=== PATIENT | male | born 1960 | race Caucasian/White ===

== ENCOUNTER 2018-06-29 07:42 | Emergency (ER) | payer MEDICAID, SELFPAY ==
[2018-06-29 07:46] VITALS: BP 215/136; PULSE 86; RESP 17; TEMP 36.8; O2SAT 98; BMI 37.0
--- NOTE | 2018-06-29 07:59 | CT_ITS ---
STUDY: CT ABDOMEN AND PELVIS WITH CONTRAST REASON FOR EXAM: Male, 57 years old. 3 month history of right lower quadrant and right groin pain. RADIATION DOSAGE (If Supplied By Facility): CTDIvol = ( 18.33 ) mGy, DLP = ( 1493.17 ) mGycm TECHNIQUE: Transaxial images were obtained from the dome of the diaphragm to the symphysis pubis without oral contrast. 100 ml of Isovue 300 contrast was administered. Sagittal and coronal images were reconstructed. Individualized dose optimization techniques were used for this CT. COMPARISON: None. FINDINGS: The visualized lung bases are unremarkable. The visualized portions of the heart are within normal limits. Normal liver. Normal gallbladder and extrahepatic biliary system. There are multiple benign calcified granulomata of the spleen. Normal pancreas. Normal bilateral adrenal glands. Normal right kidney. Normal left kidney. There is a small hiatal hernia. Normal small intestine. Moderate amount of fecal material is seen in the colon. The appendix is visualized and appears normal. There is scattered atherosclerotic calcification of the abdominal aorta, without a demonstrated aneurysm. Normal inferior vena cava. There is borderline retroperitoneal lymphadenopathy with enlarged nodes no greater than 10mm in the short axis diameter. Normal urinary bladder. There is a small umbilical hernia containing fat. Small bilateral pneumonitis containing fat. Normal osseous structures. CT/Abdomen/Pelvis W IV Cont ONLY IMPRESSION: Small umbilical hernia containing fat as well as small bilateral inguinal hernias containing fat. Moderate amount of fecal material is seen in the colon. Electronically Signed: Daniel Acosta MD at 9:43 EDT Tel [phone], Service support ,
[2018-06-29] MEDS: Ondansetron 4 MG/2 ML Vial IV (08:28)
[2018-06-29] MEDS: HYDROmorphone 1 MG/ML Syringe IV (08:28)
[2018-06-29] MEDS: 0.9% Normal Saline 1,000 ML 125 ML IV (08:28)
[2018-06-29 08:32] LABS: Absolute Lymphocyte Count 1.92 X10^3/ul (0.83-4.51); Absolute Neutrophil Count 5.7 X10^3/uL (2.0-7.7); Basophil# 0.01 X10^3/uL; Basophil% 0.1 % (0-1); Eosinophil# 0.14 X10^3/uL; Eosinophils% 1.7 % (0-5); Hemoglobin 13.9 g/dl (13.0-16.5); Lymphocyte # 1.92 X10^3/ul (4.0); Lymphocyte % 23.2 % (19-41); Mean Corp Hgb Conc 33.9 g/gl (32-36); Mean Corpuscular Hgb 27.6 pg (27.0-32.0); Mean Corpuscular Volume 81.3 fL (80-94); Mean Platelet Vol. 8.4 fl (6.2-12.0); Monocyte# 0.48 X10^3/uL; Monocyte% 5.8 % (0-10); Neutrophil # 5.72 X10^3/uL (2.7-7.7); POSITIVE COUNT NO; POSITIVE DIFFERENTIAL NO; POSITIVE MORPHOLOGY NO; Platelet Count 240 K/mm3 (150-450); RBC Distribution Width SD 41.4 fl (35.1-43.9); Red Blood Count 5.04 M/mm3 (4.6-6.2); White Blood Count 8.3 K/mm3 (4.4-11.0)
[2018-06-29 08:45] LABS: ALB/GLOB Ratio 0.7 RATIO (0.9-2.4); AST(SGOT) 17 U/L (15-37); Alanine Aminotransfer ALT/SGPT 26 U/L (16-61); Albumin, Serum 3.1 g/dL (3.2-5.0); Alkaline Phosphatase 74 U/L (45-117); Anion Gap 11 (5-15); BUN 36 mg/dL (7-18); BUN/Creat Ratio 22.1 RATIO (10-20); Calcium,Total 8.7 mg/dL (8.5-10.1); Chloride 106 mmol/L (98-107); Creatinine, Serum 1.63 mg/dL (0.70-1.30); EST Glomerular Filtration Rate 47 mL/min (>60); Est Glom Filt Rate - Afr Amer 56 mL/min (>60); Estimated Creatinine Clearance 56.51 ml/min; Globulin 4.5 g/dL (2.2-4.2); Glucose 293 mg/dL (74-106); Potassium 4.1 mmol/L (3.5-5.1); Protein, Total 7.6 g/dL (6.4-8.2); Sodium Level 144 mmol/L (136-145)
[2018-06-29 08:49] LABS: Lactic Acid 1.3 mmol/L (0.4-2.0)
[2018-06-29 09:29] LABS: Mucous, Urine 0 SEEN /hpf (<or=2+); Squamous Epithelial Cells - UA 0 SEEN /hpf (0-5); White Blood Cells 0 SEEN /hpf (0-5)
[2018-06-29 09:30] LABS: Color, Urine Yellow (Yellow); Glucose, Dipstick 250 mg/dl (Normal); Ketone-Dipstick Negative (Negative); Leukocyte Esterase-Dipstick Negative /ul (Negative); Nitrite-Dipstick Negative (Negative); Occult Blood-Urine 10 /ul (Negative); Protein-Dipstick 500 mg/dl (Negative); Specific Gravity, Urine 1.015 (1.002-1.030); Urine Bilirubin Dipstick Negative (Negative); Urine Clarity Clear (Clear); Urine Urobilinogen Normal (Normal)
[2018-06-29 09:35] LABS: Bacteria RARE /hpf (None Seen); Hyaline Cast 0-5 SEEN /lpf (0-5); Red Blood Cells-Urine 0-5 SEEN /hpf (0-5)
--- NOTE | 2018-06-29 10:07 | ED.DCSUM_ITS ---
- ER Visit Summary Date of Service: 06/29/18 Chief Complaint: [Abdominal pain] History of Present Illness: The patient is a 57 M [presents the emergency department complaint of abdominal pain for the last 3-4 months. Patient states he has had continuous discomfort that he feels starts in the right lower back kind of comes through to the abdomen and radiates into his right hip and right groin. Patient describes a burning sensation. He denies any weakness in the legs or change in bowel or bladder function. Patient was seen by the Cesia Reddy in clinic and was told he may have a pinched nerve. Patient does state that the pain at times is worse with movement in certain positions in bed can help alleviate the discomfort. Patient has had no nausea or vomiting. Patient denies any fevers.] Patient does have a history of hypertension and states that over the last 4 years his systolics have been over 200 and diastolics over 130. Patient states that he is compliant with his antihypertensives. Physical Examination: [HEENT-PERRLA, EOMI. Cranial nerves II through XII grossly intact. TMs clear. Mucous membranes moist. No adenopathy. Cardiovascular-regular rate and rhythm without murmur or ectopy Lungs-clear to auscultation, chest wall stable without crepitus or subcu emphysema Abdomen-normoactive bowel sounds, soft. Patient does have some tenderness over right lower quadrant with some guarding. There is no rebound, rigidity, or perineal signs. No CVA tenderness on exam. exam-circumcised male, no testicular masses palpated and no tenderness over the epididymides. No hernias noted. Back exam-patient has no tenderness over the thoracic or lumbar spine. Patient has deep tendon reflexes are plus 2 out of 4 bilaterally at the patella and Achilles. Patient has normal L5 extension bilaterally. Patient has normal sensation to light touch. Extremities-intact ?4, normal range of motion, normal pulses, atraumatic] Test Results: [CBC with differential obtained showed normal white blood cell count. Chemistries unremarkable. Glucose was 293. BUN was 36 and creatinine 1.63. Liver enzymes unremarkable. Urinalysis was normal. Lactate was normal 1.3. CT scan of the abdomen pelvis with IV contrast showed moderate fecal material within the colon and small bilateral inguinal hernias containing fat as well as an umbilical hernia containing fat.] Emergency Department Course and Treatment: [Patient was medicated with Dilaudid and Zofran he had good pain relief with that.] Treatment Plan: [Patient will be given a prescription for [place] and will be referred to orthopedics for follow-up. I suspect patient's symptoms may be related to lumbar radiculopathy.] Disposition: [Discharged home in stable condition] Impression: [Abdominal pain-etiology uncertain Back pain] This note was generated with [employer] dictation software. It may contain incorrect words, spelling, and punctuation that were not noted in review of the chart prior to signing ED Disposition - Plan for ED Patient: Chief Complaint: Other, Pain/Inj Referrals: Orlando Gomez MD [Primary Care Provider] -
--- NOTE | 2018-06-29 10:07 | ED.DEP ---
ED Disposition - Plan for ED Patient: Chief Complaint: Other, Pain/Inj Instructions: ED Abdominal Pain Unkn Cause Male, ED Sciatica Prescriptions: Hydrocodone/Acetaminophen [Minerva 5-325 Tablet] 1 ea PO 4X/DAY PRN PRN 5 Days #20 tab PRN Reason: Pain Referrals: Orlando Gomez MD [Primary Care Provider] - Dannie Parada MD [STAFF PHYSICIAN] - 3-5 Days
--- NOTE | 2018-06-29 10:09 | DCINST.ED_ITS ---
ED Disposition - Plan for ED Patient: Chief Complaint: Other, Pain/Inj Instructions: ED Abdominal Pain Unkn Cause Male, ED Sciatica Prescriptions: Hydrocodone/Acetaminophen [Richardson 5-325 Tablet] 1 ea PO 4X/DAY PRN PRN 5 Days # 20 tab PRN Reason: Pain Referrals: Orlando Gomez MD [Primary Care Provider] - Dannie Parada MD [STAFF PHYSICIAN] - 3-5 Days
== END 2018-06-29 10:26 | disposition home or self-care (01) ==
PROVIDERS: Emergency Provider Emergency Medicine; Family Provider Family Medicine; PCP Family Medicine
DX: R10.31 Right lower quadrant pain (principal); M54.5 Low back pain; I10 Essential (primary) hypertension; E11.9 Type 2 diabetes mellitus without complications; Z79.84 Long term (current) use of oral hypoglycemic drugs; Z79.899 Other long term (current) drug therapy
CPT/HCPCS: 74177; 80053; 81001; 83605; 85025; 96361; 96374; 96375; 99283; J7030; Q9967; A4216; J2405

== ENCOUNTER 2018-06-30 19:58 | Emergency (ER) | payer MEDICAID, SELFPAY ==
[2018-06-30 19:59] VITALS: PULSE 103; RESP 20; TEMP 36.2; O2SAT 97; BMI 35.6
[2018-06-30 20:02] VITALS: BP 198/108
--- NOTE | 2018-06-30 21:10 | ED.DCSUM_ITS ---
- ER Visit Summary Date of Service: 06/30/18 Chief Complaint: Constipation History of Present Illness: The patient is a 57 M 3 of noncemented diabetes and hypertension. Treated in the ER yesterday had a CAT scan showing significant increased stool. Patient states that he has not significant bowel movement since Friday. He denies nausea or vomiting. He denies fever. He denies any significant pain. He does states he tried 2 enemas at home and is only passing liquid. Denies any melena. Physical Examination: Well-appearing middle-age male sitting on a bedside commode. Vital signs are stable afebrile. He does not look septic or toxic. He is in no distress. H EENT exam unremarkable. Neck nontender. Lungs clear to auscultation bilaterally. Heart regular rhythm no murmur. Abdomen soft. Nondistended. Normal bowel sounds no peritoneal signs. No signs of obstruction. No hernias or masses. Moving all 4 extremities. Neurovascular intact. Back nontender. Neurologically is awake and alert no focal motor or sensory deficits. Test Results: None I did review his CAT scan from yesterday. Emergency Department Course and Treatment: Discharged home with 2 bottles of magnesium citrate. Treatment Plan: Magnesium citrate at home. Disposition: Discharge Impression: Acute constipation This note was generated with [employer] dictation software. It may contain incorrect words, spelling, and punctuation that were not noted in review of the chart prior to signing ED Disposition - Plan for ED Patient: Chief Complaint: Constipation Referrals: Orlando Gomez MD [Primary Care Provider] -
--- NOTE | 2018-06-30 21:10 | ED.DEP ---
ED Disposition - Plan for ED Patient: Disposition: Home or Assisted Living Chief Complaint: Constipation Instructions: ED Constipation Referrals: Orlando Gomez MD [Primary Care Provider] - 3-5 Days if not improving Additional Instructions: Drink the entire first bottle of magnesium citrate. If no bowel movement within 2 hours during the second. Plenty of fluids and fiber to keep her stools regular. Stool softener as needed. Return if worse or follow-up your primary care physician.
[2018-06-30 21:23] VITALS: RESP 18
[2018-06-30] MEDS: Magnesium Citrate 300 ML PO (21:23)
== END 2018-06-30 21:26 | disposition home or self-care (01) ==
LOC: ED 21:25
PROVIDERS: Emergency Provider Emergency Medicine; Family Provider Family Medicine; PCP Family Medicine
DX: K59.00 Constipation, unspecified (principal); I10 Essential (primary) hypertension; E11.9 Type 2 diabetes mellitus without complications; Z79.899 Other long term (current) drug therapy
CPT/HCPCS: 99283

== ENCOUNTER → 2018-07-02 07:07 | Outpatient (CLI) | payer MEDICAID, SELFPAY ==
[2018-07-02 10:16] LABS: Absolute Lymphocyte Count 2.15 X10^3/ul (0.83-4.51); Absolute Neutrophil Count 5.3 X10^3/uL (2.0-7.7); Basophil# 0.01 X10^3/uL; Basophil% 0.1 % (0-1); Eosinophils% 3.6 % (0-5); Hematocrit 43.2 % (40-54); Hemoglobin 14.4 g/dl (13.0-16.5); Lymphocyte # 2.15 X10^3/ul (4.0); Mean Corp Hgb Conc 33.3 g/gl (32-36); Mean Corpuscular Hgb 27.4 pg (27.0-32.0); Mean Corpuscular Volume 82.1 fL (80-94); Mean Platelet Vol. 8.8 fl (6.2-12.0); Monocyte# 0.55 X10^3/uL; Monocyte% 6.7 % (0-10); Neutrophil # 5.25 X10^3/uL (2.7-7.7); Neutrophil % 63.5 % (47-70); Platelet Count 294 K/mm3 (150-450); RBC Distribution Width CV 13.8 % (11.6-14.6); RBC Distribution Width SD 41.3 fl (35.1-43.9); Red Blood Count 5.26 M/mm3 (4.6-6.2); White Blood Count 8.3 K/mm3 (4.4-11.0)
[2018-07-02 10:24] LABS: POSITIVE COUNT NO; POSITIVE DIFFERENTIAL NO; POSITIVE MORPHOLOGY NO
[2018-07-02 10:29] LABS: ALB/GLOB Ratio 0.6 RATIO (0.9-2.4); AST(SGOT) 16 U/L (15-37); Alanine Aminotransfer ALT/SGPT 25 U/L (16-61); Albumin, Serum 3.1 g/dL (3.2-5.0); Alkaline Phosphatase 80 U/L (45-117); Anion Gap 10 (5-15); BUN 34 mg/dL (7-18); BUN/Creat Ratio 20.7 RATIO (10-20); Calcium,Total 8.8 mg/dL (8.5-10.1); Chloride 101 mmol/L (98-107); Cholesterol 231 mg/dL (200); Creatinine, Serum 1.64 mg/dL (0.70-1.30); EST Glomerular Filtration Rate 46 mL/min (>60); Est Glom Filt Rate - Afr Amer 56 mL/min (>60); Globulin 4.9 g/dL (2.2-4.2); Glucose 249 mg/dL (74-106); High Density Lipoprotein 38 mg/dL; Potassium 4.5 mmol/L (3.5-5.1); Sodium Level 139 mmol/L (136-145); Thyroid Stim Hormone (TSH) 5.02 uIU/mL (0.358-3.74); Triglycerides 327 mg/dL; Very Low Density Lipoprotein 65 mg/dL (5-40)
[2018-07-05 09:08] LABS: Renin, Plasma 4.764 ng/mL/hr (0.167-5.380)
== END ==
PROVIDERS: Family Provider Family Medicine; PCP Family Medicine; Visit Provider Family Medicine
DX: I10 Essential (primary) hypertension (principal); E11.9 Type 2 diabetes mellitus without complications
CPT/HCPCS: 36415; 80053; 80061; 84244; 84403; 84443; 85025

== ENCOUNTER → 2018-07-07 13:14 | Outpatient (CLI) | payer MEDICAID, SELFPAY ==
--- NOTE | 2018-07-07 13:17 | RAD_ITS ---
STUDY: X-RAY CHEST REASON FOR EXAM: Male, 57 years old. Dyspnea TECHNIQUE: Frontal and lateral views of the chest. COMPARISON: None. FINDINGS: The lungs are clear and expanded. There is no demonstrated pleural abnormality. Normal size heart. Normal mediastinum and chanda. Normal visualized pulmonary arteries. Normal visualized aortic arch and descending thoracic aorta. Normal visualized thoracic spine. Normal visualized ribs, clavicles, and shoulders. There is no demonstrated abnormality of the visualized soft tissue structures of the upper abdomen. RAD/Chest PA and Lateral IMPRESSION: Normal x-ray examination of the chest. Electronically Signed: Husam Montgomery MD at 15:55 EDT , Service support ,
--- NOTE | 2018-07-07 13:17 | RAD_ITS ---
STUDY: X-RAY - LUMBAR SPINE REASON FOR EXAM: Male, 57 years old. Low back pain TECHNIQUE: 5 view(s) of the lumbar spine were obtained. COMPARISON: CT 05/30/2018 FINDINGS: Normal lumbar lordosis. There is no substantial scoliosis. There are 6 lumbar type vertebral bodies. There is bilateral spondylolysis at L6. There is grade 1 spondylolisthesis at L6-S1. Incidental note is made of a paraspinal fusion defect at L6. There is mild endplate spurring. Disc space narrowing is seen at L5 6-S1. RAD/L/S Spine Min 4 Views IMPRESSION: There are 6 lumbar type vertebral bodies. There is grade 1 spondylolisthesis at L6-S1. Mild degenerative changes, as detailed above. Electronically Signed: Eran Kasper DO at 13:24 EDT Tel , Service support ,
== END ==
PROVIDERS: Family Provider Family Medicine; PCP Family Medicine; Visit Provider Family Medicine
DX: M43.17 Spondylolisthesis, lumbosacral region (principal); R06.00 Dyspnea, unspecified
CPT/HCPCS: 71046; 72110

== ENCOUNTER 2018-12-01 15:39 | Emergency (ER) | payer MEDICAID, SELFPAY ==
[2018-12-01 15:40] VITALS: BP 199/123; PULSE 84; RESP 16; TEMP 36.8; O2SAT 99; BMI 35.6
--- NOTE | 2018-12-01 16:04 | EKG12_ITS ---
Test Reason : BACK PAIN Blood Pressure : / mmHG Vent. Rate : 078 BPM Atrial Rate : 078 BPM P-R Int : 212 ms QRS Dur : 114 ms QT Int : 442 ms P-R-T Axes : 061 021 131 degrees QTc Int : 503 ms Sinus rhythm with 1st degree A-V block ST & T wave abnormality, consider lateral ischemia Prolonged QT Poor R wave progression Abnormal ECG Confirmed by ANNEMARIE PONCE, TIRSO ([id number]), editor magazine LAYO CABEZAS ([id number]) on 12/03/2018 2:01:31 PM Referred By: Confirmed By:TIRSO SHARPE MD
[2018-12-01] MEDS: Ondansetron 4 MG/2 ML Vial IV (16:13)
[2018-12-01] MEDS: Morphine 4 MG/ML Syringe IV (16:13)
--- NOTE | 2018-12-01 16:13 | NURSING ---
NO OLD EKGS
--- NOTE | 2018-12-01 16:19 | CT_ITS ---
STUDY: CT BRAIN WITHOUT CONTRAST REASON FOR EXAM: Male, 58 years old. Weakness, numbness, tingling both legs. Falls. RADIATION DOSAGE (If Supplied By Facility): CTDIvol = ( 44.99 ) mGy, DLP = ( 829.85 ) mGycm TECHNIQUE: Transaxial CT imaging of the brain was performed without administration of intravenous contrast material. Coronal and sagittal 2-D MPR Individualized dose optimization techniques were used for this CT. COMPARISON: None. FINDINGS: Paranasal sinuses clear. Mastoid air cells and middle ear cavities clear. Craniofacial osseous structures intact. Extra cranial soft tissues including orbital contents exhibit no acute abnormality. There appears to be minimal age-related atrophy, mild symmetric expansion of lateral ventricles and extra-axial spaces. Minimal chronic low-density changes in the periventricular white matter bifrontal and biparietal. No acute intracranial bleed, mass or mass effect nor any specific evidence of acute territorial infarct. CT/Brain/Head without Contrast IMPRESSION: No acute intracranial process. Minimal involutional features of the brain. Electronically Signed: Bulmaro Leonard MD at 17:08 EST Tel , Service support ,
[2018-12-01 16:39] LABS: Absolute Lymphocyte Count 1.95 X10^3/ul (0.83-4.51); Absolute Neutrophil Count 4.6 X10^3/uL (2.0-7.7); Eosinophil# 0.17 X10^3/uL; Eosinophils% 2.4 % (0-5); Hemoglobin 13.5 g/dl (13.0-16.5); Lymphocyte # 1.95 X10^3/ul (4.0); Lymphocyte % 27.3 % (19-41); Mean Corp Hgb Conc 33.8 g/gl (32-36); Mean Corpuscular Hgb 27.3 pg (27.0-32.0); Mean Corpuscular Volume 80.8 fL (80-94); Mean Platelet Vol. 8.6 fl (6.2-12.0); Monocyte# 0.45 X10^3/uL; Monocyte% 6.3 % (0-10); Neutrophil # 4.56 X10^3/uL (2.7-7.7); Neutrophil % 63.9 % (47-70); Platelet Count 263 K/mm3 (150-450); RBC Distribution Width CV 13.2 % (11.6-14.6); RBC Distribution Width SD 38.9 fl (35.1-43.9); Red Blood Count 4.95 M/mm3 (4.6-6.2); White Blood Count 7.1 K/mm3 (4.4-11.0)
[2018-12-01 16:40] LABS: POSITIVE COUNT NO; POSITIVE DIFFERENTIAL NO; POSITIVE MORPHOLOGY NO
[2018-12-01 16:42] LABS: Bacteria 0 SEEN /hpf (None Seen); Mucous, Urine 0 SEEN /hpf (<or=2+); Red Blood Cells-Urine 0 SEEN /hpf (0-5); Squamous Epithelial Cells - UA 0 SEEN /hpf (0-5); White Blood Cells 0 SEEN /hpf (0-5)
--- NOTE | 2018-12-01 16:43 | RAD_ITS ---
STUDY: X-RAY CHEST REASON FOR EXAM: Male, 58 years old. Shortness of breath, dyspnea. TECHNIQUE: Single AP portable upright view of the chest. COMPARISON: PA and lateral chest x-ray July 07, 2018. FINDINGS: The lungs are clear and more fully expanded today. There is no demonstrated pleural abnormality. Normal size heart. Normal mediastinum and chanda. Normal visualized pulmonary arteries. Normal visualized aortic arch and descending thoracic aorta. Normal visualized thoracic spine. Normal visualized ribs, clavicles, and shoulders. There is no demonstrated abnormality of the visualized soft tissue structures of the upper abdomen. RAD/Chest 1 View (Portable) IMPRESSION: No acute cardiopulmonary disease. Electronically Signed: Augustus Parra MD at 18:01 EST , Service support ,
[2018-12-01 16:54] LABS: Color, Urine Straw (Yellow); Glucose, Dipstick 1000 mg/dl (Normal); Ketone-Dipstick Negative (Negative); Leukocyte Esterase-Dipstick Negative /ul (Negative); Nitrite-Dipstick Negative (Negative); Occult Blood-Urine Negative /ul (Negative); Protein-Dipstick 100 mg/dl (Negative); Urine Bilirubin Dipstick Negative (Negative); Urine Clarity Clear (Clear); Urine Urobilinogen Normal (Normal)
[2018-12-01 17:00] VITALS: BP 167/104; PULSE 82; RESP 18; O2SAT 96
[2018-12-01 17:08] LABS: Anion Gap 10 (5-15); BUN 34 mg/dL (7-18); BUN/Creat Ratio 21.1 RATIO (10-20); Calcium,Total 8.6 mg/dL (8.5-10.1); Chloride 98 mmol/L (98-107); Creatinine, Serum 1.61 mg/dL (0.70-1.30); EST Glomerular Filtration Rate 47 mL/min (>60); Est Glom Filt Rate - Afr Amer 57 mL/min (>60); Estimated Creatinine Clearance 56.52 ml/min; Glucose 488 mg/dL (74-106); Potassium 4.2 mmol/L (3.5-5.1); Sodium Level 133 mmol/L (136-145)
[2018-12-01 18:00] VITALS: PULSE 78; RESP 18; O2SAT 98
--- NOTE | 2018-12-01 18:25 | NURSING ---
CALLED [facility] ABOUT TRANSFER.
--- NOTE | 2018-12-01 18:42 | ED.DCSUM_ITS ---
- ER Visit Summary Date of Service: 12/01/18 Chief Complaint: Bilateral leg tingling and left leg weakness History of Present Illness: The patient is a 58 M presenting with bilateral leg tingling and left leg weakness. Patient states his symptoms started approximately 1 month ago. He has had tingling in both of his legs and has had lower extremity weakness. He states he has fallen multiple times. Today he had a witnessed fall and one of the bystanders suggested that he go to the emergency department. He has been seeing a chiropractor for these symptoms. He states occasionally both his legs go weak and he falls. He had an episode of bowel incontinence in the last couple of weeks but no incontinence today. He is unsure if he hit his head today but did not lose consciousness. No injuries with the fall. He denies chest pain or shortness of breath. Denies fever. He complains of left lower back pain. Denies other complaints. Physical Examination: Vitals are stable. Patient is afebrile. Alert no acute distress. HEENT exam is unremarkable. Neck is supple. Lungs are clear and equal bilaterally. Heart is regular rate and rhythm. Abdomen is soft nontender nondistended. Rectal: Mildly decreased rectal tone Extremities are unremarkable. Skin is warm and dry. Left lower extremity weakness, decreased sensation, dopplerable pulses Remainder of exam is unremarkable. Emergency Department Course and Treatment: EKG is sinus rate of 78 with lateral T wave inversion, no old for comparison. CBC, chemistries unremarkable other than sodium 133, glucose 488, BUN 34, creatinine 1.61. He was given insulin subcutaneously. Patient has history of chronic kidney disease. Urinalysis positive for glucose. Troponin is 0.029. He denies chest pain or shortness of breath. CT head was obtained due to fall which shows no acute process. Postvoid residual was 92. There is currently no MRI available. Due to concern for cauda equina, discussed with [facility] for transfer. Disposition: Transfer to [facility] Impression: Left leg weakness, paresthesias This note was generated with [employer] dictation software. It may contain incorrect words, spelling, and punctuation that were not noted in review of the chart prior to signing ED Disposition - Plan for ED Patient: Chief Complaint: Back Referrals: Orlando Gomez MD [Primary Care Provider] -
[2018-12-01] MEDS: Insulin Lispro 100 UNIT/ML INSULN.PEN 15 UNIT SC (19:33)
[2018-12-01 19:34] VITALS: BP 143/85; PULSE 76; RESP 18; O2SAT 97
[2018-12-01 19:42] LABS: Bedside Glucose 380 mg/dL (70-110)
[2018-12-01 20:38] VITALS: RESP 18
== END 2018-12-01 20:41 | disposition short-term general hospital (02) ==
PROVIDERS: Emergency Provider Emergency Medicine; Family Provider Family Medicine; PCP Family Medicine
DX: M62.81 Muscle weakness (generalized) (principal); R20.2 Paresthesia of skin; I12.9 Hypertensive chronic kidney disease with stage 1 through stage 4 chronic kidney disease, or unspecified chronic kidney disease; E11.22 Type 2 diabetes mellitus with diabetic chronic kidney disease; N18.9 Chronic kidney disease, unspecified; M54.5 Low back pain; R29.6 Repeated falls; Z79.84 Long term (current) use of oral hypoglycemic drugs; Z79.899 Other long term (current) drug therapy
CPT/HCPCS: 70450; 71045; 80048; 81001; 82962; 84484; 85025; 93005; 96374; 96375; 99284; J2405

== ENCOUNTER → 2018-12-11 08:06 | Outpatient (CLI) | payer MEDICAID, SELFPAY ==
[2018-12-01 15:40] VITALS: BMI 35.6
[2018-12-11 10:25] LABS: Erythrocyte Sedimentation Rate 22 mm/hr (0-20)
[2018-12-11 10:34] LABS: Absolute Lymphocyte Count 1.12 X10^3/ul (0.83-4.51); Absolute Neutrophil Count 4.7 X10^3/uL (2.0-7.7); Eosinophil# 0.18 X10^3/uL; Eosinophils% 2.7 % (0-5); Hematocrit 41.8 % (40-54); Hemoglobin 13.8 g/dl (13.0-16.5); Lymphocyte # 1.12 X10^3/ul (4.0); Lymphocyte % 16.8 % (19-41); Mean Corpuscular Hgb 27.1 pg (27.0-32.0); Mean Platelet Vol. 9.2 fl (6.2-12.0); Monocyte# 0.67 X10^3/uL; Neutrophil # 4.69 X10^3/uL (2.7-7.7); Neutrophil % 70.4 % (47-70); Platelet Count 253 K/mm3 (150-450); RBC Distribution Width CV 13.2 % (11.6-14.6); RBC Distribution Width SD 39.7 fl (35.1-43.9); White Blood Count 6.7 K/mm3 (4.4-11.0)
[2018-12-11 10:36] LABS: POSITIVE COUNT NO; POSITIVE DIFFERENTIAL NO; POSITIVE MORPHOLOGY NO
[2018-12-11 11:06] LABS: AST(SGOT) 13 U/L (15-37); Alanine Aminotransfer ALT/SGPT 21 U/L (16-61); Albumin, Serum 3.4 g/dL (3.2-5.0); Alkaline Phosphatase 85 U/L (45-117); Anion Gap 10 (5-15); BUN 29 mg/dL (7-18); BUN/Creat Ratio 18.8 RATIO (10-20); CPK Total, Creatine Kinase 54 U/L (39-308); CRP 8.25 mg/L (0.0-3.0); Calcium,Total 8.7 mg/dL (8.5-10.1); Chloride 102 mmol/L (98-107); Creatinine, Serum 1.54 mg/dL (0.70-1.30); EST Glomerular Filtration Rate 50 mL/min (>60); Est Glom Filt Rate - Afr Amer 60 mL/min (>60); Globulin 3.5 g/dL (2.2-4.2); Glucose 313 mg/dL (74-106); Potassium 4.6 mmol/L (3.5-5.1); Protein, Total 6.9 g/dL (6.4-8.2); Sodium Level 139 mmol/L (136-145)
[2018-12-15 08:56] LABS: Aldolase 3.8 U/L (3.3-10.3)
[2018-12-15 09:13] LABS: ANTINUCLEAR ANTIBODIES DIRECT Negative (Negative)
== END ==
PROVIDERS: Family Provider Family Medicine; PCP Family Medicine; Visit Provider Family Medicine
DX: R20.0 Anesthesia of skin (principal)
CPT/HCPCS: 36415; 80053; 82085; 82550; 85025; 85652; 86038; 86140

== ENCOUNTER → 2018-12-15 16:10 | Outpatient (CLI) | payer MEDICAID, SELFPAY ==
[2018-12-01 15:40] VITALS: BMI 35.6
[2018-12-15 17:07] LABS: Free T3 3.3 pg/mL (2.18-3.98); T4 Free Direct 1.44 ng/dL (0.76-1.46); Thyroid Stim Hormone (TSH) 2.49 uIU/mL (0.358-3.74)
== END ==
PROVIDERS: Family Provider Family Medicine; PCP Family Medicine; Visit Provider Family Medicine
DX: R79.89 Other specified abnormal findings of blood chemistry (principal)
CPT/HCPCS: 84439; 84443; 84481

== ENCOUNTER 2019-02-22 08:00 | Outpatient (RCR) | payer MEDICAID, SELFPAY ==
--- NOTE | 2019-01-28 09:28 | HP.PTEVAL ---
Patient's Visit Information LUISITO LINN is a 58 year old M referred to Physical Therapy by Orlando Gomez MD with a diagnosis of LE weakness. Date of Evaluation: 01/28/19 Physical Therapist: Luna Styles DPT - Visit Plan Frequency: 3x /Week Duration: 4 Weeks Plan: GAIT BELT. 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 Nov 20 fell in the cafeteria- Dec 01 had to call a neighbor to get him off the ground. His friend told him he need to go to - went to [place] and then to [place]. Had EMG- Left is 90% gone and the right is 75% gone. He can pepper picker the right one but the left he has to use his hands. Saw Neurology who said he could get 20-30% back on the left. Last fall was a few days and had to drag himself up on the bed. Lives alone. His legs buckle under him and he falls. Uses a cane all the time but does have a walker. He has had a million tests- does have a PCP and neurologist in [place]. Left leg is painful in the knee/hip- no pain in the right. Worst: 9/10 Agg: sleeping on the right side. Eases: laying on the right side, ibuprofen. Sleeps a lot and is bed a lot. No feeling in each leg from the knee down but does feel electric shock if your touching it. Is still able to drive. Does have someone help with laundry. Lives all one on floor- no stairs to get into the home. Goes to the laundry mat. PMHx: HTN, DM, Meds: Metformin, Lysinopril, Metroprolol. - Objective Posture: FH, RS, Increased kyphosis. Gait: severely ataxic- slow brianna, short stride length, flat foot, flexed trunk- [id number]. Palpation: sent shocks through his LE when palpation from the knee down. HR/TR: unable in sitting. ROM: passive: WFL in all planes- no AROM of the left ankle or knee. right: WFL. Strength: Left Ankle: trace, knee: 2+/5, Hip: flexion: 2+/5, Extn: 3+/5, Abd/add: 3+/5, right: 4-/5 throughout LE Core: poor. Sit to Stand: Bilateral LE- requires time to find his balance before standing I. Balance: POOR - Goals Goal 1:: Patient will be I with HEP and progression Goal Time Frame: 4-6 Weeks Goal 2:: Patient will ambulate >300 feet mod I Goal Time Frame: 4-6 Weeks Goal 3:: Patient will sit to stand x5 with SBA Goal Time Frame: 4-6 Weeks Goal 4:: Patient will demo an increase of 1 muscle grade in bilateral LE Goal Time Frame: 4-6 Weeks - Rehabilitation Potential Physical Therapy Diagnosis: Patient presents with hypmobility- he has decreased strength and muscular endurance leading to abnormal gait, poor balance and decreased participation in ADL's. Rehabilitation Potential: Fair - Anticipated Interventions Patient/Client Instruction: Educate patient on: Benefits of Fitness Program Therapeutic Exercise to Include: Strength training, Endurance training, Balance training, Agility training, Body mechanics, Postural training, Flexibilty training, Gait and locomotor training, Neuromotor development, Dynamic Lumbar Stabilization For the Purpose of:: To improve muscle performance and motor function Functional Training to Include: ADL Training, Gait training Thank you for the opportunity to evaluate your patient. For Medicare and Medicare HMO plans, please review the plan of care and approve it. It will need to be FAXED BACK to us at [phone] for Medicare purposes. For Medicare only, by signing this I certify the plan of care. Please let me know if there are questions or concerns regarding this plan of care. Physician Signature: Date:
--- NOTE | 2019-04-01 13:18 | HP.PT.NRP ---
HP - Discharge Summary (1) - Patient Information LUISITO LINN was seen in my office for initial evaluation on 01/28/19. The following Plan of Care was established for this patient: Initial Frequency: 3x /Week Initial Duration: 4 Weeks - Anticipated Interventions Patient/Client Instruction: Educate patient on: Benefits of Fitness Program Therapeutic Exercise to Include: Strength training, Endurance training, Balance training, Agility training, Body mechanics, Postural training, Flexibilty training, Gait and locomotor training, Neuromotor development, Dynamic Lumbar Stabilization For the Purpose of:: To improve muscle performance and motor function Functional Training to Include: ADL Training, Gait training This patient was last seen in our office . Pertinent comments regarding their Physical therapy will appear below: Patient is in currently in the Rehab unit for inpatient rehabilitation At this point I will be discontinuing this patient from physical therapy. I would be happy to see this patient again in the future if found appropriate by the physician. Thank you! Luna Styles DPT
== END 2019-02-22 19:00 | disposition home or self-care (01) ==
LOC: PT 08:00
PROVIDERS: Family Provider Family Medicine; PCP Family Medicine; Referring Provider Family Medicine; Visit Provider Family Medicine
DX: R29.898 Other symptoms and signs involving the musculoskeletal system (principal); M62.81 Muscle weakness (generalized)
CPT/HCPCS: 97110; 97162

== ENCOUNTER 2019-02-22 11:16 | Inpatient (IN) | payer MEDICAID, SELFPAY ==
[2019-02-22] VITALS (16 sets, daily range): BP systolic 105–147; BP diastolic 71–97; PULSE 70–178; RESP 15–20; TEMP 36.2–36.7; O2SAT 94–99; BMI 39.2; BMI 36.0; BMI 36.1
--- NOTE | 2019-02-22 11:28 | ED.VIS.GEN ---
History of Present Illness Chief Complaint: Chest Pain Detail of Chief Complaint: Short of breath, fatigue Informant: Patient Onset: Yesterday Context: Gradual Onset Timing: Intermittent Current Severity: Mild Maximum Severity: Moderate Associated Symptoms: nausea Narrative: Patient really felt short of breath with exertion at one point yesterday and very weak, but that resolved with rest, and he has just felt fatigued since. He denies having any chest discomfort at all. He denies any arm or jaw discomfort. He is a non-smoker. He was in rehab for some type of neuropathy he has today, someone told him he did not look good and that he should see his doctor so he was at his doctor's office and they did an EKG that appeared to show a STEMI, so he was sent to the ER emergently. States he usually takes aspirin every day but did not take it yet today. - Past Medical History (1) Type 2 diabetes mellitus Status: Chronic (2) Hypertension Status: Chronic (3) Neuropathy Status: Chronic Past Medical History - Allergies and Home Meds Allergies/Adverse Reactions: Allergies No Known Allergies Allergy (Verified 12/01/18 16:25) Primary Care Physician: Orlando Gomez MD [Primary Care Provider] - Lives: Alone Smoking Status: Never smoker Drugs: None Review of Systems General: Reports: Malaise Eyes: Denies: Visual changes - bilaterally, Diplopia ENT: Denies: Rhinorrhea, Sore throat Cardiovascular: Denies: Chest pain, Palpitations, Heart racing Respiratory: Reports: Dyspnea on exertion. Denies: Cough Gastrointestinal: Reports: Nausea. Denies: Abdominal pain, Vomiting, Diarrhea Genitourinary: Denies: Dysuria, Hematuria, Frequency Musculoskeletal: Denies: Back pain, Extremity Pain Skin: Denies: Rash, Wounds Neurological: Denies: Headache, Weakness, Numbness Physical Exam Vital Signs/Narrative: Vital Signs Resp BP 02/22/19 11:17 18 147/85 H Inital Vital Signs reviewed: Yes General: Well nourished, Well developed, No Acute Distress - Well-appearing, conversive Head: Normocephalic, Atraumatic Eyes: Perrl, EOMI ENT: Moist mucous membranes, No rhinorrhea Neck: Supple, Nontender, No JVD Cardiovascular: Regular rate, Regular rhythm, No murmurs, Normal S1, Normal S2 Respiratory: No distress, CTA bilaterally, Chest nontender Abdomen: Soft, Nontender, Nondistended, Normal bowel sounds Back: Nontender, Normal Inspection Extremities: Nontender, No edema. Negative for: Calf Tenderness Skin: Normal color, No rash, No Trauma Neurological: Alert, Oriented x3, Cranial nerves II-XII grossly intact, Normal Strength, Normal Sensation Psychological: Normal affect, Normal Mood Diagnostic/Tx/Re-eval - Rhythm Strip Rhythm Strip: Sinus Rhythm Rate: 90 Ectopy: None - EKG Initial EKG Interpretation: Sinus Rhythm, S-T Elevation - V1-4, 1-5mm. No BBB. C/w STEMI. - Medical Decision Making Patient seen upon arrival, repeat EKG is unchanged compared with prehospital and consistent with an anterior septal STEMI. Patient appears very well and is conversive. Hemodynamically stable. Treated with heparin bolus, Brilinta 180 mg orally, IV metoprolol, and 4 baby aspirin. Cardiology is evaluating at the bedside simultaneously. Patient being prepped and taken to [facility]. - Critical Care Time Critical care time (excluding procedures): 30-74 minutes - 35, Including time spent:, Discussing w/Patient &/or Family/Cocoa Roaster, Discussing w/Consultants, Arranging Admission or Transfer, Performing Direct Patient Care at Bedside - and documentation ED Disposition - Plan for ED Patient: Disposition: Acute Care Hospital [facility] Diagnosis: STEMI (ST elevation myocardial infarction) Referrals: Orlando Gomez MD [Primary Care Provider] -
[2019-02-22] MEDS: TICAGRELOR 90 MG TABLET 180 MG PO (11:29)
[2019-02-22] MEDS: Ondansetron 4 MG/2 ML Vial IV (11:29)
--- NOTE | 2019-02-22 11:34 | ED.DCSUM_ITS ---
History of Present Illness Chief Complaint: Chest Pain Detail of Chief Complaint: Short of breath, fatigue Informant: Patient Onset: Yesterday Context: Gradual Onset Timing: Intermittent Current Severity: Mild Maximum Severity: Moderate Associated Symptoms: nausea Narrative: Patient really felt short of breath with exertion at one point yesterday and very weak, but that resolved with rest, and he has just felt fatigued since. He denies having any chest discomfort at all. He denies any arm or jaw discomfort. He is a non-smoker. He was in rehab for some type of neuropathy he has today, someone told him he did not look good and that he should see his doctor so he was at his doctor's office and they did an EKG that appeared to show a STEMI, so he was sent to the ER emergently. States he usually takes aspirin every day but did not take it yet today. - Past Medical History (1) Type 2 diabetes mellitus Status: Chronic (2) Hypertension Status: Chronic (3) Neuropathy Status: Chronic Past Medical History - Allergies and Home Meds Allergies/Adverse Reactions: Allergies No Known Allergies Allergy (Verified 12/01/18 16:25) Primary Care Physician: Orlando Gomez MD [Primary Care Provider] - Lives: Alone Smoking Status: Never smoker Drugs: None Review of Systems General: Reports: Malaise Eyes: Denies: Visual changes - bilaterally, Diplopia ENT: Denies: Rhinorrhea, Sore throat Cardiovascular: Denies: Chest pain, Palpitations, Heart racing Respiratory: Reports: Dyspnea on exertion. Denies: Cough Gastrointestinal: Reports: Nausea. Denies: Abdominal pain, Vomiting, Diarrhea Genitourinary: Denies: Dysuria, Hematuria, Frequency Musculoskeletal: Denies: Back pain, Extremity Pain Skin: Denies: Rash, Wounds Neurological: Denies: Headache, Weakness, Numbness Physical Exam Vital Signs/Narrative: Vital Signs Resp BP 02/22/19 11:17 18 147/85 H Inital Vital Signs reviewed: Yes General: Well nourished, Well developed, No Acute Distress - Well-appearing, conversive Head: Normocephalic, Atraumatic Eyes: Perrl, EOMI ENT: Moist mucous membranes, No rhinorrhea Neck: Supple, Nontender, No JVD Cardiovascular: Regular rate, Regular rhythm, No murmurs, Normal S1, Normal S2 Respiratory: No distress, CTA bilaterally, Chest nontender Abdomen: Soft, Nontender, Nondistended, Normal bowel sounds Back: Nontender, Normal Inspection Extremities: Nontender, No edema. Negative for: Calf Tenderness Skin: Normal color, No rash, No Trauma Neurological: Alert, Oriented x3, Cranial nerves II-XII grossly intact, Normal Strength, Normal Sensation Psychological: Normal affect, Normal Mood Diagnostic/Tx/Re-eval - Rhythm Strip Rhythm Strip: Sinus Rhythm Rate: 90 Ectopy: None - EKG Initial EKG Interpretation: Sinus Rhythm, S-T Elevation - V1-4, 1-5mm. No BBB. C/w STEMI. - Medical Decision Making Patient seen upon arrival, repeat EKG is unchanged compared with prehospital and consistent with an anterior septal STEMI. Patient appears very well and is conversive. Hemodynamically stable. Treated with heparin bolus, Brilinta 180 mg orally, IV metoprolol, and 4 baby aspirin. Cardiology is evaluating at the bedside simultaneously. Patient being prepped and taken to [facility]. - Critical Care Time Critical care time (excluding procedures): 30-74 minutes - 35, Including time spent:, Discussing w/Patient &/or Family/Industrial Pipefitter Journeyman, Discussing w/Consultants, Arranging Admission or Transfer, Performing Direct Patient Care at Bedside - and documentation ED Disposition - Plan for ED Patient: Disposition: Acute Care Hospital [facility] Diagnosis: STEMI (ST elevation myocardial infarction) Referrals: Orlando Gomez MD [Primary Care Provider] -
[2019-02-22 11:37] LABS: Absolute Lymphocyte Count 1.85 X10^3/ul (0.83-4.51); Absolute Neutrophil Count 8.9 X10^3/uL (2.0-7.7); Eosinophil# 0.04 X10^3/uL; Eosinophils% 0.3 % (0-5); Hematocrit 37.1 % (40-54); Hemoglobin 12.5 g/dl (13.0-16.5); Lymphocyte # 1.85 X10^3/ul (4.0); Lymphocyte % 15.4 % (19-41); Mean Corp Hgb Conc 33.7 g/gl (32-36); Mean Corpuscular Hgb 27.1 pg (27.0-32.0); Mean Corpuscular Volume 80.5 fL (80-94); Mean Platelet Vol. 9.6 fl (6.2-12.0); Monocyte# 1.15 X10^3/uL; Monocyte% 9.6 % (0-10); Neutrophil # 8.92 X10^3/uL (2.7-7.7); Neutrophil % 74.5 % (47-70); Platelet Count 347 K/mm3 (150-450); RBC Distribution Width CV 13.4 % (11.6-14.6); Red Blood Count 4.61 M/mm3 (4.6-6.2)
[2019-02-22 11:45] LABS: POSITIVE COUNT NO; POSITIVE DIFFERENTIAL NO; POSITIVE MORPHOLOGY NO
[2019-02-22 12:01] LABS: Anion Gap 6 (5-15); BUN 37 mg/dL (7-18); BUN/Creat Ratio 17.1 RATIO (10-20); Chloride 97 mmol/L (98-107); Creatinine, Serum 2.17 mg/dL (0.70-1.30); EST Glomerular Filtration Rate 33 mL/min (>60); Est Glom Filt Rate - Afr Amer 40 mL/min (>60); Estimated Creatinine Clearance 38.31 ml/min; Glucose 320 mg/dL (74-106); Potassium 4.4 mmol/L (3.5-5.1); Sodium Level 129 mmol/L (136-145)
--- NOTE | 2019-02-22 13:10 | CL.I_ITS ---
Patient Name: LUISITO LINN Study Date: 02/22/2019 Performing: Rocky Bingham MD Ht: 70.07 inches 178 cm : 1960 Wt: 273.37 lbs 124 kg Age: 58 Gender: male BSA: 2.39 PROCEDURE(S) PERFORMED [id number]/COR/LV [id number], RONALD AND/OR PTCA, ARTERY OR GRAFT, SINGLE VESSEL CLINICAL PROFILE AND CO-MORBIDITIES Indications: Abnormal EKG, not feeling well for 1 week. Heart Failure: None Stress/Imaging Stress/Image Study Performed: No CAD Presentations: STEMI. Symptom onset Date/Time: 02/15/2019 Time Not Available CONCLUSIONS Unsuccessful PCI of the mid LAD RECOMMENDATIONS Referred for immediate PCI CABG-Totally occluded lesion of mid LAD could not be crossed after multiple attempts using multiple w ires. DESCRIPTION OF PROCEDURE The patient arrived to the procedure lab. The risks and benefits of the procedure as well as a full d escription of our services here and lack of surgical backup were fully explained to the patient and/o r their significant other prior to the catheterization. The Timeout was completed, verifying the sergio ect patient and procedure. The patient's procedural site was prepped and draped in the usual fashion. Local anesthetic was given subcutaneously to right radial region with Lidocaine 2%. Using a modified Seldinger technique, arterial access was obtained via the right radial artery, a 6Fr sheath was inse rted.. Right Coronary Artery selective angiography was then performed in multiple views using a 5 Fr . JR 4 catheter. Left Coronary Artery selective angiography was performed in multiple views using a 5 Fr. JL3.5 catheter. Left Ventriculography was performed in RODRIGES projection using a 5 Fr. Pigtail cath eter. LV to AO pullback pressures were then recorded EBu 3.5 Guide catheter was inserted and engaged into the LCA. Whisper Wire Guide wire was advance d to the LAD. BMw Bells Guide wire was inserted as a amy wire BMW Bells Guide wire was adva nced to the LAD. Whisper Guide wire was inserted as a amy wire Whisper Guide wire was advanced to t he LAD. Emerge 3.0 x 15 Balloon catheter was inserted. Runthrough Guide wire was advanced to the LAD. The arterial sheath was pulled and a TR Band was applied for hemostasis CORONARY ANGIOGRAPHY DOMINANCE: Right Dominant LEFT HEART ASSESSMENT Left Ventricular Ejection Fraction: by LV Gram 45 % LVEDP: 20 mmHg Abnormal LV wall motion. Anterior Akinesis. Apical Akinesis LEFT MAIN: Angiographically normal LEFT ANTERIOR DECENDING ARTERY: MID LAD: 100 % Stenosis DIAGONAL 1: Ostial - Mild luminal irregularities less than 30% CIRCUMFLEX ARTERY: Mild luminal irregularities less than 30% RIGHT CORONARY ARTERY: Mild luminal irregularities less than 30% COLLATERAL FLOW: Collateral flow from Right PDA to LAD INTERVENTION INFORMATION LESION SITE: LAD (Proximal) Lesion Complexity: High/C, lesion at bifurcation: Yes, thrombus present: No, lesion length: 10 mm, cu lprit lesion: Yes, In-stent restenosis: No Pre Stenosis: 100 % Pre intervention SANIA flow: 0 PROCEDURE: Balloon Angioplasty Totally occluded lesion could not be crossed. Post Stenosis: 100 % Post intervention SANIA flow: 0 Lesion Devices: Yanadotronic 6 Fr EBU3.5 100cm Guide Catheter Edwards .014 HT Whisper MS Straight 190cm Ad Sci EMERGE MR 3.00x15 BALLOON Terumo .014 Runthrough Extra Floppy 180cm straight COMPLICATIONS No Complications PROCEDURE MEDICATIONS Fentanyl 50 mcg IV Versed 1 mg IV Oxygen: 2 L/min via nasal cannula Angiomax 18.8 ml's 02/22/2019 11:46:11 Angiomax 43.8 ml/hr @ 02/22/2019 11:46:25 Nitro 300 mcg IC 02/22/2019 11:51:54 SUMMARY OF HEMODYNAMIC DATA Time AIR REST ECG 11:40:32 AO 129/75 (101) SA 11:54:20 LV 122/8, 17 12:31:05 LV 135/10, 20 12:31:11 LV 143/3, 22 12:32:12 LV 133/12, 19 12:32:18 LVp 131/5, 19 12:32:21 AOp 120/0 (93) 12:32:26 Signed By Rocky Bingham MD On 02/22/2019 13:09:11 Rocky Bingham MD
--- NOTE | 2019-02-22 14:46 | ECHOCS_ITS ---
Reason For Study: NSTEMI Procedure This was a 2D Doppler, Color Flow transthoracic echocardiogram. Exam performed portable in ICU/CCU. Left Ventricle Normal LV size. Moderate concentric left ventricular hypertrophy. The estimated ejection fraction is 35 %. Moderate segmental systolic dysfunction (see wall motion). Stage 2 diastolic dysfunction. Septal Parker : Akinetic. Anterior Parker : Akinetic. Infero-Basal: Normal. Posterior-Basal: Normal. Lateral-Basal: Normal. Basal anteroseptal: Normal. The rest of the wall segments are hypokinetic. Right Ventricle Normal RV size. Normal systolic function. Atria The left atrium is moderately enlarged. Normal right atrium. Mitral Valve There is mild mitral annular calcification. Mild (1+) eccentric mitral valve insufficiency. Tricuspid Valve Normal tricuspid valve. Aortic Valve Trisinus/trileaflet aortic valve. Mild focal aortic valve calcification. Pulmonic Valve Normal pulmonic valve. Great Vessels Normal aortic root. The pulmonary artery is normal size. Normal inferior vena cava. Pericardium/Pleural Trivial pericardial effusion. Medication Diluted definity 6ml given slow IV push to enhance endocardial definition. MMode/2D Measurements & Calculations LVIDd: 5.0 cm IVSd: 1.3 cm Ao root diam: 3.8 cm LVIDs: 3.8 cm LVPWd: 1.4 cm RVDd: 4.1 cm FS: 23.6 % LAV(MOD-bp): 93.9 ml LA A4 area: 27.6 cm2 LA dimension(2D): 4.9 cm LAV(MOD-bp) Indexed: 38.2 ml/m2 LAV(MOD-sp2): 91.1 ml LAV(MOD-sp4): 97.8 ml RA A4 area: 15.6 cm2 Time Measurements MV dec time: 0.17 sec Doppler Measurements & Calculations MV E max davis: 109.0 cm/sec Lat Peak E' Davis: 3.1 cm/sec Med Peak E' Davis: 3.4 cm/sec MV A max davis: 84.5 cm/sec E/E' lat: 35.2 E/E' med: 32.5 MV E/A: 1.3 Ao V2 max: 110.3 cm/sec LV V1 max: 84.1 cm/sec Ao max P.9 mmHg LV V1 max P.8 mmHg Interpretation Summary Normal LV size. Moderate concentric left ventricular hypertrophy. The estimated ejection fraction is 35 %. Moderate segmental systolic dysfunction (see wall motion). Stage 2 diastolic dysfunction. Contrast injection was performed. Ordering Physician: Jesse Centeno Referring Physician: KAMILA GONZALEZ Performed By: Kirsten Gusman RDCS, RVT
--- NOTE | 2019-02-22 14:52 | PCM.HP.STD ---
Problem List (1) Non-STEMI Status: Acute (2) Hypertension Status: Chronic (3) Neuropathy Status: Chronic (4) Type 2 diabetes mellitus Status: Chronic History of Present Illness Date of Admission: 02/22/19 Chief Complaint: Shortness of breath on exertion The patient is a 58 year old M with history of hypertension, diabetes mellitus with neuropathy felt short of breath on exertion while doing physical therapy yesterday and today along with fatigue and weakness and therefore he went to his doctor. There he had a EKG which had suspicion for STEMI and therefore was sent to ER. In ED, STEMI alert was called but after reviewed by the privacy attorney and heart catheter, it was concluded he has non-STEMI. Patient never had chest pain and he still denies it. Patient had heart cath which showed total occlusion of mid LAD, 100% and could not cross through the wires even after multiple attempts therefore patient is suggested for CABG but patient is refusing it. Medical therapy is already initiated. [] Past Medical History Past Medical History (Chronic Problems): Chronic Problems Type 2 diabetes mellitus (Chronic) Hypertension (Chronic) Neuropathy (Chronic) Allergies No Known Allergies Allergy (Verified 12/01/18 16:25) Home Medications: Ambulatory Orders Medication Instructions Recorded Metoprolol Tartrate [Lopressor 25 mg PO BID 06/29/18 (Beta Leland)] Lisinopril/Hydrochlorothiazide 1 each PO BID 12/01/18 [Lisinopril-Hctz 10-12.5 mg Tab] Metformin(XR) [Glucophage Xr] 500 mg PO BID 12/01/18 Amlodipine Besylate 10 mg PO DAILY 02/22/19 Aspirin 81 mg PO DAILY 02/22/19 Insulin Glargine [Lantus SoloStar 10 units SC DAILY 02/22/19 Pen] Lives: Alone Smoking Status: Never smoker Drugs: None Review of Systems Constitutional: Denies: Chills, Fever, Weight Change HEENT: Denies: Head Aches, Sinus Congestion, Sinus Drainage Cardiovascular: Denies: Chest Pain, Claudication, Chest Pressure, Chest Tightness, Palpitations Respiratory: Reports: Shortness of breath upon exertion. Denies: Cough, Shortness of breath at rest, Sputum production Gastrointestinal: Denies: Abdominal Pain, Nausea, Vomiting Genitourinary: Denies: Dysuria Musculoskeletal: Reports: Joint Pain. Denies: Joint Tenderness Skin: Denies: Rash, Wounds Neurological: Reports: Numbness. Denies: Focal weakness, Tingling Psychiatric: Denies: Anxiety, Depression, Homicidal Ideations, Suicidal Ideations Hematologic/ Lymphatic: Denies: Easy Bruising, Easy Bleeding VTE Information - Inpt Only VTE Present on Admission: No VTE Mechan Device Prophylaxis: None VTE Pharm Prophylaxis ordered?: Yes Patient Problems: Active and Suspected Problems Non-STEMI (Acute) - Physical Exam General: Alert, Oriented x3, Cooperative HEENT: Atraumatic, PERRLA, EOMI, Normocephalic Neck: Supple, No JVD, Negative Carotid Bruits Lungs: Clear to auscultation, Normal air movement, No rhonchi, No wheeze, No rales Cardiovascular: Regular rate, Regular Rhythm, Normal S1, Normal S2, No murmurs Abdomen: Bowel Sounds Present, Soft, Non Tender, Non-Distended Extremities: No edema, Capillary Refill Less than 3 Seconds Skin: No rashes, No breakdown, - - right radial cath site access no bleeding/hematoma. Musculoskeletal: No Tenderness to Palpation of Joints or Extremities Neurological: Cranial nerves II-XII grossly intact, Deep Tendon Reflexes 2+/4 and Symmetrical, Neuro grossly intact, Motor Exam 5/5 strength throughout Psych/Mental Status: Normal Affect, Appropriate Vital Signs Temp Pulse Resp BP Pulse Ox 97.6 F L 88 18 117/74 98 02/22/19 14:15 02/22/19 14:45 02/22/19 14:45 02/22/19 14:45 02/22/19 14:45 Oxygen Flow Rate (L/min) 2 Oxygen Delivery Method Room Air Weight: 273 lb 5.971 oz Body Mass Index (BMI) 36.0 Finger Stick Blood Glucose 380 Laboratory Tests Past 24 Hrs 02/22/19 02/22/19 11:25 11:25 WBC 12.0 H RBC 4.61 Hgb 12.5 L Hct 37.1 L MCV 80.5 MCH 27.1 MCHC 33.7 RDW 13.4 RDW Differential 39.0 Plt Count 347 MPV 9.6 Immature Gran % (Auto) 0.200 Neut % (Auto) 74.5 H Lymph % (Auto) 15.4 L Grady % (Auto) 9.6 Eos % (Auto) 0.3 Baso % (Auto) 0.0 Absolute Neuts (auto) 8.9 H Absolute Lymphs (auto) 1.85 Total Counted Not Reportable Sodium 129 L Potassium 4.4 Chloride 97 L Carbon Dioxide 26.0 Anion Gap 6 BUN 37 H Creatinine 2.17 H Estim Creat Clear Calc 38.31 Est GFR (MDRD) Af Amer 40 L Est GFR (MDRD) Non-Af 33 L BUN/Creatinine Ratio 17.1 Glucose 320 H Calcium 9.0 Troponin I 11.400 H* Assessment/Plan All Active Problems Non-STEMI (Acute) The patient is a 58 year old M with history of hypertension, diabetes mellitus with neuropathy felt short of breath on exertion while doing physical therapy yesterday and today along with fatigue and weakness and therefore he went to his doctor. There he had a EKG which had suspicion for STEMI and therefore was sent to ER. In ED, STEMI alert was called but after reviewed by the privacy attorney and heart catheter, it was concluded he has non-STEMI. Patient never had chest pain and he still denies it. EKG reviewed and shows normal sinus rhythm with ST elevation in V2, V3, V4, V5 and slight V6. There is no reciprocal changes inferior leads. Patient had heart cath which showed total occlusion of mid LAD, 100% and could not cross through the wires even after multiple attempts therefore patient is suggested for CABG but patient is refusing it. 1. Non-STEMI secondary to 100% occlusion of mid LAD: The patient is being admitted in PCU after cardiac cath. Patient is on aspirin, Brilinta, Coreg, and statin. Patient currently not candidate for SERGIO/ARB secondary to acute kidney injury and CKD. Licensing Court Magistrate has been consulted. 2D echo and fasting profile ordered. 2. Acute kidney injury and CKD stage III, most probably diabetic nephropathy: Patient BUN/creatinine is 37/2.17. Patient previous BUN/creatinine on 12/11/2018 was 29/1.54. IV fluid normal saline. Monitor kidney function electrolytes. Patient denies lower urinary tract symptoms. UA is being ordered. Hold metformin, lisinopril and hydrochlorothiazide and avoid nephrotoxic medications 3. Mild hyponatremia and hypokalemia: IV fluid normal saline. 4. Diabetes mellitus type 2, complicated with diabetic neuropathy and diabetic nephropathy: Patient glucose in BMP is high 320. Started on Lantus and short-acting insulin. Accu-Chek before meals and at bedtime. A1c tomorrow a.m. 5. Hypertension: Blood pressure is controlled. Continue amlodipine. DVT prophylaxis: On Lovenox 30 mg subcu daily adjusted to creatinine clearance from tomorrow morning. Bilateral SCDs Code Visit Inpatient E&M: 53321 Init Hosp L3
[2019-02-22 15:47] LABS: AST(SGOT) 37 U/L (15-37); Alanine Aminotransfer ALT/SGPT 19 U/L (16-61); Albumin, Serum 2.4 g/dL (3.2-5.0); Alkaline Phosphatase 72 U/L (45-117); Bilirubin, Direct 0.09 mg/dL (0.00-0.30); Globulin 4.9 g/dL (2.2-4.2); Protein, Total 7.3 g/dL (6.4-8.2)
[2019-02-22 16:16] LABS: Bedside Glucose 270 mg/dL (70-110)
[2019-02-22] MEDS: Insulin Lispro 100 UNIT/ML INSULN.PEN SQ ×2 (16:47→21:43)
[2019-02-22] MEDS: 0.9% Normal Saline 1,000 ML 75 ML IV (18:51)
[2019-02-22] MEDS: 0.9% NaCl Peripheral Flush Adult/Peds IV ×2 (18:51→21:43)
--- NOTE | 2019-02-22 21:10 | EKG12_ITS ---
Test Reason : DYSRHYTMIA Blood Pressure : / mmHG Vent. Rate : 164 BPM Atrial Rate : 178 BPM P-R Int : 000 ms QRS Dur : 094 ms QT Int : 256 ms P-R-T Axes : 000 -74 -09 degrees QTc Int : 422 ms Atrial fibrillation with rapid ventricular response Left anterior fascicular block Inferior infarct , age undetermined Recent anterior infarct Confirmed by DENIS PONCE, PRISCILLA ([id number]), offline editor EMANUEL OLIVAREZ ([id number]) on 02/26/2019 1:56:13 PM Referred By: Rocky Bingham Confirmed By:PRISCILLA BARRIOS MD
[2019-02-22] MEDS: Carvedilol 6.25 MG Tablet PO (21:42)
[2019-02-22] MEDS: Atorvastatin Calcium 80 MG Tablet PO (21:43)
[2019-02-22] MEDS: TICAGRELOR 90 MG TABLET PO (21:43)
--- NOTE | 2019-02-22 22:00 | NURSING ---
report called to Porsche HINES in ICU
[2019-02-22 23:40] LABS: Bedside Glucose 286 mg/dL (70-110)
[2019-02-23] VITALS (25 sets, daily range): BP systolic 108–149; BP diastolic 56–94; PULSE 73–152; RESP 11–23; TEMP 36.3–37.8; O2SAT 94–100
[2019-02-23] MEDS: dilTIAZem 25 MG/5 ML Vial 20 MG IV BOLUS (00:33)
[2019-02-23] MEDS: 0.9% NaCl Peripheral Flush Adult/Peds IV ×2 (00:33→11:41)
[2019-02-23 04:39] LABS: Hematocrit 34.1 % (40-54); Hemoglobin 11.3 g/dl (13.0-16.5); Mean Corp Hgb Conc 33.1 g/gl (32-36); Mean Corpuscular Volume 81.4 fL (80-94); Mean Platelet Vol. 10.1 fl (6.2-12.0); Platelet Count 319 K/mm3 (150-450); RBC Distribution Width CV 13.3 % (11.6-14.6); RBC Distribution Width SD 38.3 fl (35.1-43.9); Red Blood Count 4.19 M/mm3 (4.6-6.2); White Blood Count 10.7 K/mm3 (4.4-11.0)
[2019-02-23 04:41] LABS: Scan Indicated on CBC? Y/N NO
[2019-02-23 05:16] LABS: Anion Gap 9 (5-15); BUN 38 mg/dL (7-18); BUN/Creat Ratio 18.5 RATIO (10-20); Calcium,Total 8.2 mg/dL (8.5-10.1); Chloride 102 mmol/L (98-107); Cholesterol 165 mg/dL (200); Creatinine, Serum 2.05 mg/dL (0.70-1.30); EST Glomerular Filtration Rate 36 mL/min (>60); Est Glom Filt Rate - Afr Amer 43 mL/min (>60); Estimated Creatinine Clearance 44.39 ml/min; Glucose 259 mg/dL (74-106); High Density Lipoprotein 29 mg/dL; Potassium 3.8 mmol/L (3.5-5.1); Sodium Level 134 mmol/L (136-145); Thyroid Stim Hormone (TSH) 2.53 uIU/mL (0.358-3.74); Triglycerides 210 mg/dL; Very Low Density Lipoprotein 42 mg/dL (5-40)
[2019-02-23 06:46] LABS: Bedside Glucose 284 mg/dL (70-110)
[2019-02-23 08:00] LABS: Hemoglobin A1c 9.4 % (4.2-6.3)
--- NOTE | 2019-02-23 08:00 | PCM.PN.CARD ---
Subjectve: Patient seen and evaluated. Appears to be doing better this morning. Objective: Vital Signs Temp Pulse Resp BP Pulse Ox 97.4 F L 73 19 H 139/94 H 96 02/23/19 05:00 02/23/19 07:00 02/23/19 07:00 02/23/19 07:00 02/23/19 07:00 Oxygen Flow Rate (L/min) 2 Oxygen Delivery Method Room Air Weight: 270 lb 8.115 oz Body Mass Index (BMI) 36.0 Finger Stick Blood Glucose 380 Intake and Output for Last 24 Hours 02/21/19 02/22/19 02/23/19 23:59 23:59 23:59 Intake Total 1113.9 / 1113.9 867.3 / 867.3 Output Total 1050 / 1050 375 / 375 Balance 63.9 / 63.9 492.3 / 492.3 General: Awake, Alert, Oriented x 3 HEENT: PERRL, EOMI, Sclera Non Icteric Neck: Supple, Good ROM, No Lymph Node Enlargement Lungs: Clear to auscultation Cardiovascular: Regular Rhythm, Normal S1, Normal S2, No Murmurs, No Rubs, No Gallops Vascular: No Carotid Bruits, Normal Femoral Pulses, Normal Radial Pulses, Normal Dorsalis Pedal Pulse, Normal Posterior Tibial Pulses Abdomen: Bowel Sounds Present, Soft, Non Tender, No HSM, No Organomegaly Extremities: No Cyanosis, No Clubbing, No edema Musculoskeletal: No Erythema Skin: No Rashes Lymphatic: No Lymph Node Enlargement Neurological: No Focal Motor or Sensory Deficit Psych/Mental Status: Appropriate 02/22/19 11:25: WBC 12.0 H, RBC 4.61, Hgb 12.5 L, Hct 37.1 L, MCV 80.5, MCH 27.1, MCHC 33.7, RDW 13.4, RDW Differential 39.0, Plt Count 347, MPV 9.6, Immature Gran % (Auto) 0.200, Neut % (Auto) 74.5 H, Lymph % (Auto) 15.4 L, [place] % (Auto) 9.6, Eos % (Auto) 0.3, Baso % (Auto) 0.0, Absolute Neuts (auto) 8.9 H, Total Counted Not Reportable 02/22/19 11:25: Sodium 129 L, Potassium 4.4, Chloride 97 L, Carbon Dioxide 26.0, Anion Gap 6, BUN 37 H, Creatinine 2.17 H, Est GFR (MDRD) Af Amer 40 L, Est GFR (MDRD) Non-Af 33 L, BUN/Creatinine Ratio 17.1, Glucose 320 H, Calcium 9.0, Troponin I 11.400 H* 02/22/19 15:15: Total Bilirubin 0.50, Direct Bilirubin 0.09, Troponin I 9.290 H* 02/22/19 18:16: Troponin I 12.300 H* 02/23/19 04:25: Hemoglobin A1c 9.4 H 02/23/19 04:25: WBC 10.7, RBC 4.19 L, Hgb 11.3 L, Hct 34.1 L, MCV 81.4, MCH 27.0, MCHC 33.1, RDW 13.3, RDW Differential 38.3, Plt Count 319, MPV 10.1 02/23/19 04:25: Sodium 134 L, Potassium 3.8, Chloride 102, Carbon Dioxide 23.0, Anion Gap 9, BUN 38 H, Creatinine 2.05 H, Est GFR (MDRD) Af Amer 43 L, Est GFR (MDRD) Non-Af 36 L, BUN/Creatinine Ratio 18.5, Glucose 259 H, Calcium 8.2 L, Triglycerides 210 H, Cholesterol 165, LDL Cholesterol 94, VLDL Cholesterol 42 H, HDL Cholesterol 29 L Rhythm: EKG: ECHO: Stress Test: Cardiac Cath: PCI: CT Surgery: Holter monitor: EPS: PPM: CXR: Chest CT Scan: Medical Necessity - Tobacco Use Smoking Status: Never smoker Assessment/Plan 1. Recent anterior myocardial infarction The patient appears to have suffered a recent anterior myocardial infarction. Attempts at angioplasty were unsuccessful in crossing the lesion. Medical therapy was therefore recommended. The patient will be continued on aspirin high intensity statin and Plavix. I had an extensive discussion with the patient about transferring him for a consideration for a recent total occlusion angioplasty in a tertiary care facility. This discussion was undertaken yesterday and today and at this time he categorically does not want to undergo any further cardiac procedures. I did discuss with him the risk benefits and alternatives and he still prefers medical therapy. An echocardiogram will be performed to assess his left ventricular function 2. Left ventricular systolic dysfunction Has evidence of left ventricular systolic dysfunction. The plan will be to continue him on the beta-elba and increase the dose as necessary He has renal dysfunction and we will hold off with an SERGIO inhibitor at this particular time he may be a candidate later for isosorbide hydralazine 3. Risk factor modification He will be placed on high intensity statin 4. Atrial fibrillation He did develop atrial fibrillation last night and needed to be transferred to the intensive care unit on IV amiodarone as well as IV Cardizem added. He converted back to sinus rhythm. Will recommend transitioning him back to oral amiodarone 200 mg twice a day after the current bag of IV is completed Would recommend starting Eliquis 2.5 mg twice a day Will transfer to the progressive care unit later today
--- NOTE | 2019-02-23 08:04 | PN.CARD_ITS ---
Subjectve: Patient seen and evaluated. Appears to be doing better this morning. Objective: Vital Signs Temp Pulse Resp BP Pulse Ox 97.4 F L 73 19 H 139/94 H 96 02/23/19 05:00 02/23/19 07:00 02/23/19 07:00 02/23/19 07:00 02/23/19 07:00 Oxygen Flow Rate (L/min) 2 Oxygen Delivery Method Room Air Weight: 270 lb 8.115 oz Body Mass Index (BMI) 36.0 Finger Stick Blood Glucose 380 Intake and Output for Last 24 Hours 02/21/19 02/22/19 02/23/19 23:59 23:59 23:59 Intake Total 1113.9 / 1113.9 867.3 / 867.3 Output Total 1050 / 1050 375 / 375 Balance 63.9 / 63.9 492.3 / 492.3 General: Awake, Alert, Oriented x 3 HEENT: PERRL, EOMI, Sclera Non Icteric Neck: Supple, Good ROM, No Lymph Node Enlargement Lungs: Clear to auscultation Cardiovascular: Regular Rhythm, Normal S1, Normal S2, No Murmurs, No Rubs, No Gallops Vascular: No Carotid Bruits, Normal Femoral Pulses, Normal Radial Pulses, Normal Dorsalis Pedal Pulse, Normal Posterior Tibial Pulses Abdomen: Bowel Sounds Present, Soft, Non Tender, No HSM, No Organomegaly Extremities: No Cyanosis, No Clubbing, No edema Musculoskeletal: No Erythema Skin: No Rashes Lymphatic: No Lymph Node Enlargement Neurological: No Focal Motor or Sensory Deficit Psych/Mental Status: Appropriate 02/22/19 11:25: WBC 12.0 H, RBC 4.61, Hgb 12.5 L, Hct 37.1 L, MCV 80.5, MCH 27.1, MCHC 33.7, RDW 13.4, RDW Differential 39.0, Plt Count 347, MPV 9.6, Immature Gran % (Auto) 0.200, Neut % (Auto) 74.5 H, Lymph % (Auto) 15.4 L, Frontier % (Auto) 9.6, Eos % (Auto) 0.3, Baso % (Auto) 0.0, Absolute Neuts (auto) 8.9 H, Total Counted Not Reportable 02/22/19 11:25: Sodium 129 L, Potassium 4.4, Chloride 97 L, Carbon Dioxide 26.0, Anion Gap 6, BUN 37 H, Creatinine 2.17 H, Est GFR (MDRD) Af Amer 40 L, Est GFR (MDRD) Non-Af 33 L, BUN/Creatinine Ratio 17.1, Glucose 320 H, Calcium 9.0, Troponin I 11.400 H* 02/22/19 15:15: Total Bilirubin 0.50, Direct Bilirubin 0.09, Troponin I 9.290 H* 02/22/19 18:16: Troponin I 12.300 H* 02/23/19 04:25: Hemoglobin A1c 9.4 H 02/23/19 04:25: WBC 10.7, RBC 4.19 L, Hgb 11.3 L, Hct 34.1 L, MCV 81.4, MCH 27.0, MCHC 33.1, RDW 13.3, RDW Differential 38.3, Plt Count 319, MPV 10.1 02/23/19 04:25: Sodium 134 L, Potassium 3.8, Chloride 102, Carbon Dioxide 23.0, Anion Gap 9, BUN 38 H, Creatinine 2.05 H, Est GFR (MDRD) Af Amer 43 L, Est GFR (MDRD) Non-Af 36 L, BUN/Creatinine Ratio 18.5, Glucose 259 H, Calcium 8.2 L, Triglycerides 210 H, Cholesterol 165, LDL Cholesterol 94, VLDL Cholesterol 42 H, HDL Cholesterol 29 L Rhythm: EKG: ECHO: Stress Test: Cardiac Cath: PCI: CT Surgery: Holter monitor: EPS: PPM: CXR: Chest CT Scan: Medical Necessity - Tobacco Use Smoking Status: Never smoker Assessment/Plan 1. Recent anterior myocardial infarction * The patient appears to have suffered a recent anterior myocardial infarction. Attempts at angioplasty were unsuccessful in crossing the lesion. Medical therapy was therefore recommended. The patient will be continued on aspirin high intensity statin and Plavix. I had an extensive discussion with the patient about transferring him for a consideration for a recent total occlusion angioplasty in a tertiary care facility. This discussion was undertaken yesterday and today and at this time he categorically does not want to undergo any further cardiac procedures. I did discuss with him the risk benefits and alternatives and he still prefers medical therapy. * An echocardiogram will be performed to assess his left ventricular function * 2. Left ventricular systolic dysfunction * Has evidence of left ventricular systolic dysfunction. The plan will be to continue him on the beta-elba and increase the dose as necessary * He has renal dysfunction and we will hold off with an SERGIO inhibitor at this particular time he may be a candidate later for isosorbide hydralazine * 3. Risk factor modification * He will be placed on high intensity statin * 4. Atrial fibrillation * He did develop atrial fibrillation last night and needed to be transferred to the intensive care unit on IV amiodarone as well as IV Cardizem added. He converted back to sinus rhythm. * Will recommend transitioning him back to oral amiodarone 200 mg twice a day after the current bag of IV is completed * Would recommend starting Eliquis 2.5 mg twice a day * * Will transfer to the progressive care unit later today
[2019-02-23] MEDS: Insulin Lispro 100 UNIT/ML INSULN.PEN SQ ×4 (08:50→21:49)
[2019-02-23] MEDS: Aspirin E.C. 81 MG Tablet PO (08:51)
[2019-02-23] MEDS: Carvedilol 12.5 MG Tablet PO ×2 (08:52→21:52)
[2019-02-23] MEDS: amLODIPine 10 MG Tablet PO (08:53)
[2019-02-23] MEDS: Clopidogrel Bisulfate 75 MG Tablet PO (08:58)
[2019-02-23 09:01] LABS: Bedside Glucose 240 mg/dL (70-110)
--- NOTE | 2019-02-23 09:30 | CASEMGMT ---
RN CM STRONG NITRIC OPERATOR CM to room to meet with patient for initial transition planning/care coordination assessment. DONNY BOOTH introduced self and role at [facility]. Pt voices understanding and consents to assessment at this time. Pt sitting up in chair in room in no distress at this time. Ex- sitting beside him and pt agreeable to assessment/answering questions with her present. Pt is A/O at this time and answers all questions appropriately. Care providers, pharmacy, and demographics verified/updated at this time. PCP: Patricia Specialists: Neurologist @ [facility] Preferred Pharmacy: [facility] [place] Insurance: [employer] Ad[employer]age/[employer] Prescription Benefit: Yes Living Will/HPOA: Pt does not currently have LW/HCPOA and declines info at this time. Pt made aware that he can contact as an out-pt and make appt in the future if he decides he would like to talk with someone about this or would like to utilize [facility] social work for advanced directive completion. Given Plant Physiologist Rac card with information and contact number. Pt expresses understanding. LNOK: Ex-, Viviana Living Arrangements: Lives alone in one-story home. 1 step to enter. Independent with ADL's. Either Viviana or neighbor assists w/laundry and grocery shopping d/t he is unable to lift/carry heavier objects. Transportation: Pt states drives self and states no transportation concerns at this time. [facility] was planning on driving home on D/C. Informed MD may give driving restrictions and made aware may need to see if someone is available to drive him home on D/C if so. DME: [facility] has the following DME: quad cane, rollator (does not use), glucometer. [facility] has all supplies for glucometer. Pt states no need for further DME at this time. HHC/SNF: No hx of either in the past. Currently goes to [facility] for PT. Pt wishes to return home and states has no concerns with going home at time of discharge. CM to follow for any discharge planning/needs. Pt voices no further concerns/needs at this time. Advised pt to ask for CM if any further questions/concerns/needs arise. Voices understanding. PLAN: Home with continued Out-pt therapy @ [facility]. Plan is to discharge on Brilinta per cardiology note and Eliquis recommmended. CM to follow. Albertina BANKS RN, CM
--- NOTE | 2019-02-23 10:00 | EKG12_ITS ---
Test Reason : AFIB Blood Pressure : / mmHG Vent. Rate : 152 BPM Atrial Rate : 152 BPM P-R Int : 000 ms QRS Dur : 098 ms QT Int : 272 ms P-R-T Axes : 000 266 013 degrees QTc Int : 432 ms Atrial fibrillation Inferior infarct , age undetermined Anterolateral infarct possibly recent Abnormal ECG Confirmed by DENIS PONCE, PRISCILLA ([id number]), editor dictionary EMANUEL OLIVAREZ ([id number]) on 03/08/2019 1:39:44 PM Referred By: Rocky Bingham Confirmed By:PRISCILLA BARRIOS MD
--- NOTE | 2019-02-23 10:17 | PN_ITS ---
Patient Problems: Active and Suspected Problems Non-STEMI (Acute) Subjective: Yesterday night, patient had A. fib with RVR, heart rate went up in 140s-150s and was started on IV Cardizem drip and then amiodarone drip and transferred to ICU. Overnight, heart rate was controlled. Cardizem drip is discontinued. Patient is still on amiodarone drip getting slowly tapered off and plan to start telemetry and oral. Patient converted to normal sinus rhythm about 3 AM. Patient denies chest pain or shortness of breath. Vitals/I&O's: Vital Signs Temp Pulse Resp BP Pulse Ox 97.8 F 74 14 128/73 H 98 02/23/19 08:00 02/23/19 09:00 02/23/19 09:00 02/23/19 09:00 02/23/19 09:00 Oxygen Flow Rate (L/min) 2 Oxygen Delivery Method Room Air Weight: 270 lb 8.115 oz Body Mass Index (BMI) 36.0 Finger Stick Blood Glucose 380 Intake and Output for Last 24 Hours 02/21/19 02/22/19 02/23/19 23:59 23:59 23:59 Intake Total 1113.9 / 1113.9 867.3 / 867.3 Output Total 1050 / 1050 375 / 375 Balance 63.9 / 63.9 492.3 / 492.3 General: Alert, Oriented x3, Cooperative HEENT: Atraumatic, PERRLA, EOMI, Normocephalic Neck: Supple, No JVD, Negative Carotid Bruits Lungs: Clear to auscultation, No rhonchi, No wheeze, No rales, Diminished Cardiovascular: Regular rate, Regular Rhythm, Normal S1, Normal S2, No murmurs Abdomen: Bowel Sounds Present, Soft, Non Tender Extremities: No edema, Capillary Refill Less than 3 Seconds Skin: No rashes, No breakdown Musculoskeletal: No Tenderness to Palpation of Joints or Extremities Lymphatic: No Cervical, Supraclavicular, or Inguinal Adenopathy Neurological: Cranial nerves II-XII grossly intact, Deep Tendon Reflexes 2+/4 and Symmetrical, Neuro grossly intact, Motor Exam 5/5 strength throughout Psych/Mental Status: Normal Affect, Appropriate Laboratory Results 02/22/19 11:25: WBC 12.0 H, RBC 4.61, Hgb 12.5 L, Hct 37.1 L, MCV 80.5, MCH 27.1, MCHC 33.7, RDW 13.4, RDW Differential 39.0, Plt Count 347, MPV 9.6, Immature Gran % (Auto) 0.200, Neut % (Auto) 74.5 H, Lymph % (Auto) 15.4 L, Coffee % (Auto) 9.6, Eos % (Auto) 0.3, Baso % (Auto) 0.0, Absolute Neuts (auto) 8.9 H, Absolute Lymphs (auto) 1.85, Total Counted Not Reportable 02/22/19 11:25: Sodium 129 L, Potassium 4.4, Chloride 97 L, Carbon Dioxide 26.0, Anion Gap 6, BUN 37 H, Creatinine 2.17 H, Estim Creat Clear Calc 38.31, Est GFR (MDRD) Af Amer 40 L, Est GFR (MDRD) Non-Af 33 L, BUN/Creatinine Ratio 17.1, Gluc ose 320 H, Calcium 9.0, Troponin I 11.400 H* 02/22/19 15:15: Total Bilirubin 0.50, Direct Bilirubin 0.09, AST 37, ALT 19, Alkaline Phosphatase 72, Troponin I 9.290 H*, Total Protein 7.3, Albumin 2.4 L, Globulin 4.9 H 02/22/19 16:10: POC Glucose 270 H 02/22/19 18:16: Troponin I 12.300 H* 02/22/19 21:41: POC Glucose 286 H 02/23/19 04:25: Hemoglobin A1c 9.4 H 02/23/19 04:25: WBC 10.7, RBC 4.19 L, Hgb 11.3 L, Hct 34.1 L, MCV 81.4, MCH 27.0, MCHC 33.1, RDW 13.3, RDW Differential 38.3, Plt Count 319, MPV 10.1 02/23/19 04:25: Sodium 134 L, Potassium 3.8, Chloride 102, Carbon Dioxide 23.0, Anion Gap 9, BUN 38 H, Creatinine 2.05 H, Estim Creat Clear Calc 44.39, Est GFR (MDRD) Af Amer 43 L, Est GFR (MDRD) Non-Af 36 L, BUN/Creatinine Ratio 18.5, Glucose 259 H, Calcium 8.2 L, Triglycerides 210 H, Cholesterol 165, LDL Cholesterol 94, VLDL Cholesterol 42 H, HDL Cholesterol 29 L, TSH 2.53 02/23/19 06:41: POC Glucose 284 H 02/23/19 08:45: POC Glucose 240 H Current Medications Amlodipine Besylate (Norvasc) 10 mg PO DAILY [facility] Last Admin: 02/23/19 08:53 Dose: 10 mg Apixaban (Eliquis) 2.5 mg PO BID [facility] Aspirin (Ecotrin) 81 mg PO DAILY@0800 [facility] Last Admin: 02/23/19 08:51 Dose: 81 mg Atorvastatin Calcium (Lipitor) 80 mg PO QHS [facility] Last Admin: 02/22/19 21:43 Dose: 80 mg Carvedilol (Coreg) 12.5 mg PO BID [facility] Last Admin: 02/23/19 08:52 Dose: 12.5 mg Clopidogrel Bisulfate (Plavix) 75 mg PO DAILY [facility] Last Admin: 02/23/19 08:58 Dose: 75 mg Dextrose (D50w Syringe) 0 gm IV X1 PRN; Protocol PRN Reason: Hypoglycemia Glucagon () 1 mg IM .X1 PRN PRN Reason: Hypoglycemia Amiodarone HCl 360 mg/ (Dextrose) 200 mls @ 16.67 mls/hr CONT INF .Q12H1M [facility] Stop: 02/23/19 21:44 Last Admin: 02/23/19 04:21 Dose: 16.67 mls/hr Insulin Glargine (Lantus (Bkc)) 10 units SC DAILY [facility] Last Admin: 02/23/19 08:53 Dose: 10 units Insulin Human Lispro (Humalog Kwikpen (Bkc)) 0 unit SQ ACHS [facility]; Protocol Last Admin: 02/23/19 08:50 Dose: 4 u Nitroglycerin (Nitrobid) 0.5 inch TRANSDERM. Q6H PRN PRN Reason: CHEST PAIN Sodium Chloride () 5 - 15 ml IV UD PRN PRN Reason: SALINE FLUSH Last Admin: 02/23/19 00:33 Dose: 10 ml Medical Necessity - Tobacco Use Smoking Status: Never smoker Assessment/Plan All Active Problems Non-STEMI (Acute) The patient is a 58 year old M with history of hypertension, diabetes mellitus with neuropathy felt short of breath on exertion while doing physical therapy yesterday and today along with fatigue and weakness and therefore he went to his doctor. There he had a EKG which had suspicion for STEMI and therefore was sent to ER. In ED, STEMI alert was called but after reviewed by the facilities painter and heart catheter, it was concluded he has non-STEMI. Patient never had chest pain and he still denies it. EKG reviewed and shows normal sinus rhythm with ST elevation in V2, V3, V4, V5 and slight V6. There is no reciprocal changes inferior leads. Patient had heart cath which showed total occlusion of mid LAD, 100% and could not cross through the wires even after multiple attempts therefore patient is suggested for CABG but patient is refusing it. 1. Recent anterior wall SC secondary to 100% occlusion of mid LAD: The patient was initially admitted toPCU after cardiac cath and then transferred to ICU on IV Cardizem and amiodarone drip for A. fib with RVR. Patient is on aspirin, Brilinta, Coreg, and statin. Patient currently not candidate for SERGIO/ARB secondary to acute kidney injury on CKD. Butadiene Compressor Operator has been consulted, note reviewed and appreciated. Fasting lipid profile triglyceride 210, TC 165, LDL 94, HDL 29. TSH 2.53. Echo is ordered. New onset A. fib with RVR: Currently patient is converted to normal sinus rhythm pedorthist today. Plan is to taper amiodarone drip and start amiodarone 200 mg twice daily. On Eliquis 2.5 mg twice daily. 2. Acute kidney injury and CKD stage III, most probably diabetic nephropathy: Patient admitting BUN/creatinine is 37/2.17. Patient previous BUN/creatinine on 12/11/2018 was 29/1.54. IV fluid normal saline. Monitor kidney function electrolytes. Patient denies lower urinary tract symptoms. Hold metformin, lisinopril and hydrochlorothiazide and avoid nephrotoxic medications. Kidney function has slightly improved. 3. Mild hyponatremia and hypokalemia: IV fluid normal saline. 4. Diabetes mellitus type 2, complicated with diabetic neuropathy and diabetic nephropathy: Patient glucose in BMP is high 320. Started on Lantus and short- acting insulin. Accu-Chek before meals and at bedtime. A1c 9.4. 5. Hypertension: Blood pressure is controlled. Continue amlodipine. DVT prophylaxis: On Eliquis 2.5 mg twice daily. Bilateral SCDs . End of life goals/advance directive: Patient elected DNR CC arrest. Patient green s not want cardiac intervention for 100% occlusion of mid LAD and was suggested CABG but he refused it. He wants medical management. Code Visit Inpatient E&M: [id number] [facility] Hosp L3
[2019-02-23] MEDS: APIXABAN 2.5 MG TABLET PO ×2 (10:42→21:49)
[2019-02-23] MEDS: Amiodarone 200 MG Tablet PO ×2 (10:42→21:49)
[2019-02-23 12:15] LABS: Bedside Glucose 331 mg/dL (70-110)
--- NOTE | 2019-02-23 14:20 | CHAPLAIN ---
Type of Pastoral Visit _x__ Initial Visit ___ Follow-up Visit ___ On-call Visit ___ General Patient Visit ___ Spiritual Assessment ___ Family Conference ___ Bereavement ___ Rapid Response ___ Code Blue ___ Other (describe below) Pastoral Care Referral From _x__ Patient ___ Family _x__ Nurse ___ Physician ___ Decision Science Analyst ___ Repairer Recreational Vehicle ___ Other (describe below) Sacrament/Intervention _x__ Active listening ___ Anointing ___ Congregational ___ Bereavement ___ Communion _x__ Samantha exploration ___ _x__ Life review _x__ Prayer ___ Reconciliation ___ Sacrament of Sick _x__ Supportive presence ___ Wedding ___ Other (describe below) Pastoral Comments RN recommended offer of spiritual support; patient was eager to talk upon introduction to nailer machine; pt gives lots of life history and speaks of reasons why he is declining his option of heart surgery; we explore the opportunities of meaningful life left and encourage his spiritual discernment in making decisions; pt speaks of his rastafarian and samantha journey of last 30 years and expresses his samantha in eternal life to come; pt has very little support from any family or friends; pt does attend christianity; pt is unemployed at this time
--- NOTE | 2019-02-23 15:14 | NURSING ---
report called to PAPER SORTER AND COUNTER, Clara
--- NOTE | 2019-02-23 15:54 | NURSING ---
echo complete, to [id number] per WC. ICU staff in attendance
[2019-02-23 16:20] LABS: Bedside Glucose 343 mg/dL (70-110)
[2019-02-23] MEDS: Atorvastatin Calcium 80 MG Tablet PO (21:50)
[2019-02-23 22:21] LABS: Bedside Glucose 286 mg/dL (70-110)
[2019-02-24] VITALS: PULSE 74
[2019-02-24 04:00] VITALS: BP 118/75; PULSE 78; RESP 16; TEMP 37.1; O2SAT 98
[2019-02-24 05:40] LABS: Anion Gap 9 (5-15); BUN 40 mg/dL (7-18); BUN/Creat Ratio 19.1 RATIO (10-20); Calcium,Total 8.6 mg/dL (8.5-10.1); Chloride 105 mmol/L (98-107); Creatinine, Serum 2.09 mg/dL (0.70-1.30); EST Glomerular Filtration Rate 35 mL/min (>60); Est Glom Filt Rate - Afr Amer 42 mL/min (>60); Estimated Creatinine Clearance 43.54 ml/min; Glucose 209 mg/dL (74-106); Sodium Level 138 mmol/L (136-145)
[2019-02-24 06:49] VITALS: BP 140/86; PULSE 78; RESP 16; TEMP 36.2; O2SAT 94
[2019-02-24 07:08] VITALS: O2SAT 94
[2019-02-24 07:19] VITALS: PULSE 79
--- NOTE | 2019-02-24 07:27 | PN.CARD_ITS ---
Subjectve: Patient seen and evaluated. Appears to be doing much better. Objective: Vital Signs Temp Pulse Resp BP Pulse Ox 97.1 F L 78 16 140/86 H 94 02/24/19 06:49 02/24/19 06:49 02/24/19 06:49 02/24/19 06:49 02/24/19 06:49 Oxygen Flow Rate (L/min) 2 Oxygen Delivery Method Room Air Weight: 268 lb 4.841 oz Body Mass Index (BMI) 36.0 Finger Stick Blood Glucose 380 Intake and Output for Last 24 Hours 02/22/19 02/23/19 02/24/19 23:59 23:59 23:59 Intake Total 1113.9 / 1113.9 1968.3 / 1968.3 Output Total 1050 / 1050 775 / 775 450 / 450 Balance 63.9 / 63.9 1193.3 / 1193.3 -450 / -450 General: Awake, Alert, Oriented x 3 HEENT: PERRL, EOMI, Sclera Non Icteric Neck: Supple, Good ROM, No Lymph Node Enlargement Lungs: Clear to auscultation Cardiovascular: Regular Rhythm, Normal S1, Normal S2, No Murmurs, No Rubs, No Gallops Vascular: No Carotid Bruits, Normal Femoral Pulses, Normal Radial Pulses, Normal Dorsalis Pedal Pulse, Normal Posterior Tibial Pulses Abdomen: Bowel Sounds Present, Soft, Non Tender, No HSM, No Organomegaly Extremities: No Cyanosis, No Clubbing, No edema Skin: No Rashes Lymphatic: No Lymph Node Enlargement Neurological: No Focal Motor or Sensory Deficit Psych/Mental Status: Appropriate 02/23/19 04:25: Hemoglobin A1c 9.4 H 02/24/19 05:04: Sodium 138, Potassium 4.0, Chloride 105, Carbon Dioxide 24.0, Anion Gap 9, BUN 40 H, Creatinine 2.09 H, Est GFR (MDRD) Af Amer 42 L, Est GFR (MDRD) Non-Af 35 L, BUN/Creatinine Ratio 19.1, Glucose 209 H, Calcium 8.6 Rhythm: EKG: ECHO: Stress Test: Cardiac Cath: PCI: CT Surgery: Holter monitor: EPS: PPM: CXR: Chest CT Scan: Medical Necessity - Tobacco Use Smoking Status: Never smoker Assessment/Plan 1. Recent anterior myocardial infarction * The patient appears to have suffered a recent anterior myocardial infarction. Attempts at angioplasty were unsuccessful in crossing the lesion. Medical therapy was therefore recommended. The patient will be continued on aspirin high intensity statin and Plavix. I had an extensive discussion with the patient about transferring him for a consideration for a recent total occlusion angioplasty in a tertiary care facility. This discussion was undertaken yesterday and today and at this time he categorically does not want to undergo any further cardiac procedures. I did discuss with him the risk benefits and alternatives and he still prefers medical therapy. * An echocardiogram demonstrated that his ejection fraction was estimated to be 35% with severe anterior hypokinesis. * 2. Left ventricular systolic dysfunction * Has evidence of left ventricular systolic dysfunction. The plan will be to continue him on the beta-elba and increase the dose as necessary * He has renal dysfunction and we will hold off with an SERGIO inhibitor at this particular time he may be a candidate later for isosorbide hydralazine * 3. Risk factor modification * He will be placed on high intensity statin * 4. Atrial fibrillation * He did develop atrial fibrillation last night and needed to be transferred to the intensive care unit on IV amiodarone as well as IV Cardizem added. He converted back to sinus rhythm. * Will recommend transitioning him back to oral amiodarone 200 mg twice a day after the current bag of IV is completed * Would recommend starting Eliquis 2.5 mg twice a day * * He can be discharged later today for outpatient follow-up in my office in 1-2 weeks.
[2019-02-24 07:31] LABS: Bedside Glucose 227 mg/dL (70-110)
--- NOTE | 2019-02-24 08:10 | DS.PCM_ITS ---
Discharge Date and Diagnosis Date of Admission: 02/22/19 Date of Discharge: 02/24/19 - Primary Discharge Diagnosis Active and Suspected Problems Non-STEMI (Acute) - Secondary Discharge Diagnosis Chronic Problems Type 2 diabetes mellitus (Chronic) Hypertension (Chronic) Neuropathy (Chronic) Hospital Course and Treatment Summary of Care Provided: [] The patient is a 58 year old M with history of hypertension, diabetes mellitus with neuropathy felt short of breath on exertion while doing physical therapy yesterday and today along with fatigue and weakness and therefore he went to his doctor. There he had a EKG which had suspicion for STEMI and therefore was sent to ER. In ED, STEMI alert was called but after reviewed by the lamination builder and heart catheter, it was concluded he has non-STEMI. Patient never had chest pain and he still denies it. EKG reviewed and shows normal sinus rhythm with ST elevation in V2, V3, V4, V5 and slight V6. There is no reciprocal changes inferior leads. Patient had heart cath which showed total occlusion of mid LAD, 100% and could not cross through the wires even after multiple attempts therefore patient is suggested for CABG but patient is refusing it. 1. Recent anterior wall AZ secondary to 100% occlusion of mid LAD: The patient was initially admitted toPCU after cardiac cath and then transferred to ICU on IV Cardizem and amiodarone drip for A. fib with RVR. Patient is on aspirin, Brilinta, Coreg, and statin. Patient currently not candidate for DARREL/ARB secondary to acute kidney injury on CKD. Associate Field Service Engineer has been consulted, note reviewed and appreciated. Fasting lipid profile triglyceride 210, TC 165, LDL 94, HDL 29. TSH 2.53. 2D echo reported as moderate concentric LVH with est imated EF 35%. Moderate segmental systolic dysfunction with anterior apex and septal apex akinetic. Stage II diastolic dysfunction. Eccentric MR. New onset A. fib with RVR: Currently patient is converted to normal sinus rhythm drafter topographical today. Amiodarone was tapered and started on 200 mg amiodarone twice daily. On Eliquis 2.5 mg twice daily. Patient is being discharged on amiodarone 200 mg twice daily, Coreg 12.5 mg twice daily and Eliquis. 2. Acute kidney injury and CKD stage III, most probably diabetic nephropathy: Patient admitting BUN/creatinine is 37/2.17. Patient previous BUN/creatinine on 12/11/2018 was 29/1.54. IV fluid normal saline. Monitor kidney function electrolytes. Patient denies lower urinary tract symptoms. Hold metformin, lisinopril and hydrochlorothiazide and avoid nephrotoxic medications. Kidney function has slightly improved. Patient was advised to hold if her medications and repeat BMP on 03/01/2019 and follow-up with PCP to consider for lisinopril. 3. Mild hyponatremia and hypokalemia: IV fluid normal saline. 4. Diabetes mellitus type 2, complicated with diabetic neuropathy and diabetic nephropathy: Patient glucose in BMP is high 320. Started on Lantus and short- acting insulin. Accu-Chek before meals and at bedtime. A1c 9.4. Blood sugar was controlled. 5. Hypertension: Blood pressure is controlled. Continue amlodipine. DVT prophylaxis: On Eliquis 2.5 mg twice daily. Bilateral SCDs . Discharge medication reconciliation done. Discharge follow-up instructions completed. Discharge process discussed with the patient and ex- present in the room and all questions were answered to patient's satisfaction. Prescriptions for amiodarone, atorvastatin, Eliquis, carvedilol was sent to pharmacy. Follow-up with Dr. lopez in 2 weeks. Follow-up with PCP in 1-2 weeks. Total time spent, exact 35 minutes on discharge meds reconciliation, examination, review of imaging and blood test and discussion with the patient on follow-up instructions. End of life goals/advance directive: Patient elected DNR CC arrest. Patient does not want cardiac intervention for 100% occlusion of mid LAD and was suggested CABG but he refused it. He wants medical management. Subjective: Seen and examined. Patient heart rate is controlled. No tachycardia. No overnight acute events. - Physical Exam General: Alert, Oriented x3, Cooperative HEENT: Atraumatic, PERRLA, EOMI, Normocephalic Neck: Supple, No JVD, Negative Carotid Bruits Lungs: Clear to auscultation, Normal air movement Cardiovascular: Regular rate, Regular Rhythm, Normal S1, Normal S2, No murmurs Abdomen: Bowel Sounds Present, Soft, Non Tender, Non-Distended Extremities: No edema, Capillary Refill Less than 3 Seconds Skin: No rashes, No breakdown Musculoskeletal: No Tenderness to Palpation of Joints or Extremities, Arthritic Changes Neurological: Cranial nerves II-XII grossly intact Psych/Mental Status: Normal Affect, Appropriate Vital Signs Temp Pulse Resp BP Pulse Ox 97.1 F L 79 16 140/86 H 94 02/24/19 06:49 02/24/19 07:19 02/24/19 06:49 02/24/19 06:49 02/24/19 07:08 Oxygen Flow Rate (L/min) 2 Oxygen Delivery Method Room Air Weight: 268 lb 4.841 oz Body Mass Index (BMI) 36.0 Finger Stick Blood Glucose 380 Intake and Output for Last 24 Hours 02/22/19 02/23/19 02/24/19 23:59 23:59 23:59 Intake Total 1113.9 / 1113.9 1968.3 / 1968.3 Output Total 1050 / 1050 775 / 775 450 / 450 Balance 63.9 / 63.9 1193.3 / 1193.3 -450 / -450 Laboratory Tests Past 24 Hrs 02/24/19 05:04 Sodium 138 Potassium 4.0 Chloride 105 Carbon Dioxide 24.0 Anion Gap 9 BUN 40 H Creatinine 2.09 H Estim Creat Clear Calc 43.54 Est GFR (MDRD) Af Amer 42 L Est GFR (MDRD) Non-Af 35 L BUN/Creatinine Ratio 19.1 Glucose 209 H Calcium 8.6 POC Glucose 02/24/19 02/23/19 02/23/19 07:16 21:44 16:11 POC Glucose 227 H 286 H 343 H 02/23/19 02/23/19 11:30 08:45 POC Glucose 331 H 240 H Discharge Activity: May not drive while taking narcotic pain medications. Call your doctor if you observe: Fever of 101 or Higher, Inability to have a bowel movement, Shortness of breath, Swelling in the ankles, Chest pain, Increased palpitations (irregular heartbeat), Uncontrolled pain Home Medications: Medications to take at Discharge Amlodipine Besylate 10 mg PO DAILY 02/22/19 Aspirin 81 mg PO DAILY 02/22/19 Insulin Glargine [Lantus SoloStar Pen] 10 units SC DAILY 02/22/19 Amiodarone HCl [Cordarone] 200 mg PO BID #60 tablet 02/24/19 Apixaban [Eliquis] 2.5 mg PO BID #60 tablet 02/24/19 Atorvastatin Calcium [Lipitor] 80 mg PO QHS #30 tablet 02/24/19 Carvedilol [Coreg (Beta Leland)] 12.5 mg PO BID #60 tablet 02/24/19 Lisinopril/Hydrochlorothiazide [Lisinopril-Hctz 10-12.5 mg Tab] 1 each PO BID #0 02/24/19 Following Prescrptions Were Given to Patient: Atorvastatin Calcium [Lipitor] 80 mg PO QHS #30 tablet Amiodarone HCl [Cordarone] 200 mg PO BID #60 tablet Apixaban [Eliquis] 2.5 mg PO BID #60 tablet Carvedilol [Coreg (Beta Leland)] 12.5 mg PO BID #60 tablet Other Amb Orders: Basic Metabolic Profile (BMP) Time Frame: 03/01/19, Location: Laboratory Primary Care Physician: Orlando Gomez MD [Primary Care Provider] - Please follow up with your Primary Care Physician in: in 1-2 weeks Please Follow Up With: Cleveland Lopez MD When: in 2 weeks Medical Necessity - Tobacco Use Smoking Status: Never smoker Meaningful Use Info Meaningful Use Diagnoses (Choose all that apply): AMI - AMI Aspirin given w/in 24hrs of arrival?: Yes ASA at discharge?: Yes Statins at discharge?: Yes Darrel/ARB at discharge?: No Reason Darrel/ARB not ordered:: Worsening renal disease, Worsening renal function Beta Leland at discharge?: Yes Done w/ Acute AZ measure.: Yes Code Visit Inpatient E&M: [id number] Disch Hosp
--- NOTE | 2019-02-24 08:10 | DCINST_ITS ---
- Discharge Diagnoses Current Active Problems: Current Active and Chronic Problems Type 2 diabetes mellitus (Chronic) Hypertension (Chronic) Neuropathy (Chronic) Non-STEMI (Acute) You will use the following diet at home:: Calorie/Carbohydrate Controlled (specify 1200, 1400, etc) - 1800 ADA diet Your food should be the consistency of: Regular Discharge Activity: May not drive while taking narcotic pain medications. Call your doctor if you observe: Fever of 101 or Higher, Inability to have a bowel movement, Shortness of breath, Swelling in the ankles, Chest pain, Increased palpitations (irregular heartbeat), Uncontrolled pain Additional Instructions: Advised BMP on 03/01/2019 and check with PCP for kidney function before resumption of lisinopril/HCTZ Allergies/Adverse Reactions: Allergies No Known Allergies Allergy (Verified 12/01/18 16:25) Medications to take at Discharge Amlodipine Besylate 10 mg PO DAILY 02/22/19 Aspirin 81 mg PO DAILY 02/22/19 Insulin Glargine [Lantus SoloStar Pen] 10 units SC DAILY 02/22/19 Amiodarone HCl [Cordarone] 200 mg PO BID #60 tablet 02/24/19 Apixaban [Eliquis] 2.5 mg PO BID #60 tablet 02/24/19 Atorvastatin Calcium [Lipitor] 80 mg PO QHS #30 tablet 02/24/19 Carvedilol [Coreg (Beta Leland)] 12.5 mg PO BID #60 tablet 02/24/19 Lisinopril/Hydrochlorothiazide [Lisinopril-Hctz 10-12.5 mg Tab] 1 each PO BID #0 02/24/19 The following prescriptions were given: Atorvastatin Calcium [Lipitor] 80 mg PO QHS #30 tablet Amiodarone HCl [Cordarone] 200 mg PO BID #60 tablet Apixaban [Eliquis] 2.5 mg PO BID #60 tablet Carvedilol [Coreg (Beta Leland)] 12.5 mg PO BID #60 tablet Primary Care Physician: Orlando Gomez MD [Primary Care Provider] - Please follow up with your Primary Care Physician in: in 1-2 weeks Test Results: Test results from this visit will be discussed in further detail at your follow- up appointment, if applicable. Advised BMP on 03/01/2019 and check with PCP for kidney function before resumption of lisinopril/HCTZ Please Follow Up With: Cleveland Juan MD When: in 2 weeks
[2019-02-24 08:26] VITALS: BP 127/78; PULSE 80; RESP 18; TEMP 36.6; O2SAT 97
[2019-02-24] MEDS: Aspirin E.C. 81 MG Tablet PO (08:36)
[2019-02-24] MEDS: Carvedilol 12.5 MG Tablet PO (08:36)
[2019-02-24] MEDS: APIXABAN 2.5 MG TABLET PO (08:36)
[2019-02-24] MEDS: amLODIPine 10 MG Tablet PO (08:37)
[2019-02-24] MEDS: Amiodarone 200 MG Tablet PO (08:40)
--- NOTE | 2019-02-24 08:46 | CASEMGMT ---
This DONNY BOOTH reviewing therapy notes and therapy had charted that pt stated 'doesn't want to go on living and no one has ever loved me and I should give up.' Jason SW aware at this time, voices understanding. Call placed to Behavioral Health to come see pt at this time. S[place]en DONNY BOOTH
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
--- NOTE | 2019-02-24 10:04 | CASEMGMT ---
Pt to be placed on Eliquis at discharge and [facility]. Call to Kimberly at [facility] and she states that there is no co-pay for Eliquis for pt at this time. Glenna HINES CM
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
--- NOTE | 2019-02-24 10:23 | PHA.DC.MC ---
Pharmacy Service has performed discharge medication reconciliation and counseling for this patient. The patient's discharge medication list was reviewed for discrepancies and discrepancies were resolved. The patient was counseled on the following discharge medications and changes in medications for homegoing were reviewed. 1. ELIQUIS 2. LIPITOR 3. AMIODARONE 4. CARVEDILOL The Reason for Use, instructions for use, and potential side effects were reviewed for all new medications. The patient's questions regarding all of their medications were answered. The patient demonstrated some understanding but would benefit from further education and reinforcement. Home Medications Amlodipine Besylate 10 mg PO DAILY 02/22/19 Aspirin 81 mg PO DAILY 02/22/19 Insulin Glargine [Lantus SoloStar Pen] 10 units SC DAILY 02/22/19 Amiodarone HCl [Cordarone] 200 mg PO BID #60 tablet 02/24/19 Apixaban [Eliquis] 2.5 mg PO BID #60 tablet 02/24/19 Atorvastatin Calcium [Lipitor] 80 mg PO QHS #30 tablet 02/24/19 Carvedilol [Coreg (Beta Leland)] 12.5 mg PO BID #60 tablet 02/24/19 Lisinopril/Hydrochlorothiazide [Lisinopril-Hctz 10-12.5 mg Tab] 1 each PO BID #0 02/24/19
--- NOTE | 2019-02-24 11:06 | CASEMGMT ---
See SW note for more details on PHQ-9 and SW conversation with patient. SW gave patient a list of in network mental health professionals. Marysol AGUAYO MSW
== END 2019-02-24 11:41 | disposition home or self-care (01) | DRG 190 ==
LOC: ED 11:20 → ICU 11:32 → PCU 13:52 → ICU 22:23 → PCU 02-23 15:58
PROVIDERS: Admitting Provider Internal Medicine; Emergency Provider Emergency Medicine; Family Provider Family Medicine; PCP Family Medicine; Referring Provider Internal Medicine Cardiovascular Disease; Visit Provider Internal Medicine
DX: I21.4 Non-ST elevation (NSTEMI) myocardial infarction (principal); E11.40 Type 2 diabetes mellitus with diabetic neuropathy, unspecified; E87.1 Hypo-osmolality and hyponatremia; I48.91 Unspecified atrial fibrillation; I25.10 Atherosclerotic heart disease of native coronary artery without angina pectoris; Z66 Do not resuscitate; N17.9 Acute kidney failure, unspecified; I12.9 Hypertensive chronic kidney disease with stage 1 through stage 4 chronic kidney disease, or unspecified chronic kidney disease; E11.22 Type 2 diabetes mellitus with diabetic chronic kidney disease; N18.3 Chronic kidney disease, stage 3 (moderate); Z79.4 Long term (current) use of insulin
CPT/HCPCS: 36415; 80048; 80061; 80076; 82962; 83036; 84443; 84484; 85025; 85027; 92941; 93005; 93306; 93458; 97163; 99152; 99153; 99281; J7030; Q9957; A4216; C1725; C1769; C1887; C1894; C8929; C9606; J0583; J2405; Q9967

== ENCOUNTER 2019-03-06 11:06 | Inpatient (IN) | payer MEDICAID, SELFPAY ==
[2019-02-22 14:23] VITALS: BMI 36.0
[2019-03-06] VITALS (10 sets, daily range): BP systolic 103–156; BP diastolic 72–86; PULSE 58–69; RESP 14–23; TEMP 36.6–37.2; O2SAT 93–100; BMI 36.3; BMI 35.4; BMI 35.5
--- NOTE | 2019-03-06 11:23 | EKG12_ITS ---
Test Reason : AM EKG Blood Pressure : / mmHG Vent. Rate : 077 BPM Atrial Rate : 077 BPM P-R Int : 206 ms QRS Dur : 112 ms QT Int : 442 ms P-R-T Axes : 043 -40 014 degrees QTc Int : 500 ms Normal sinus rhythm Left axis deviation Inferior infarct , age undetermined Anteroseptal infarct possibly recent Abnormal ECG Confirmed by DENIS PONCE, PRISCILLA ([id number]), editor city EMANUEL OLIVAREZ ([id number]) on 03/08/2019 1:40:38 PM Referred By: ELIANA Confirmed By:PRISCILLA BARRIOS MD
--- NOTE | 2019-03-06 11:24 | CT_ITS ---
STUDY: CT BRAIN WITHOUT CONTRAST REASON FOR EXAM: Male, 58 years old. Weakness and slurred speech. Patient fell. RADIATION DOSAGE (If Supplied By Facility): CTDIvol = ( 44.99 ) mGy, DLP = ( 829.85 ) mGycm TECHNIQUE: Transaxial CT imaging of the brain was performed without administration of intravenous contrast material. Individualized dose optimization techniques were used for this CT. COMPARISON: No relevant priors. FINDINGS: Normal soft tissue structures. Normal calvarium. There is mild cerebral atrophy with widening of the extra-axial spaces and ventricular dilatation. There are areas of decreased attenuation within the white matter tracts of the supratentorial brain, consistent with microvascular disease changes. There is a small old lacunar infarct in the posterior left periventricular region. Normal basal ganglia and thalami. Normal brainstem. Normal cerebellum. There is no intracranial hemorrhage. There are no findings of an acute ischemic infarction. Normal visualized paranasal sinuses. CT/Brain/Head without Contrast IMPRESSION: Chronic involutional changes of the brain. No acute intracranial process. Electronically Signed: Florin Koo MD at 12:05 EDT Tel , Service support ,
--- NOTE | 2019-03-06 11:26 | ED.VISSUMM ---
- ER Visit Summary Date of Service: 03/06/19 Chief Complaint: [] Generalized weakness, chronic lower extremity pain, slurry speech, falling History of Present Illness: The patient is a 58 M [] history of diabetes hypertension, lower extremity pain related to diabetes and neuropathy, brought in by friend, patient apparently lives in a shed he fell around 4:00 this morning could not get up the friend found him brought to the hospital, the patient reports his legs simply gave out on him, in addition yesterday morning he indicates he woke up with slurry speech this persisted, in addition he reports that 2 weeks ago he was diagnosed with an acute DE advanced therapy such as CABG was recommended but he declined it he is not had any recurrent chest pain, he did not hit his head he did not pass out he indicates he fell to the ground because of pain simply could not get up he lives in the shed because he is homeless Physical Examination: [] Afebrile 110/81 General, no distress resting comfortably HEENT is generally unremarkable, he has an obvious slurred his speech, his cranial nerves are otherwise intact, his smile is normal his extraocular muscle movements are full his visual confrontation arredondo are normal his airways intact no stridor or drooling The neck is supple no adenopathy Cardiovascular, regular rate and rhythm Lungs, clear bilateral Abdomen, soft nontender Extremities, no clubbing cyanosis or edema, he has diffuse musculoskeletal lower extremity pain from the hips the knees into the ankles, he has decreased range of motion to the left lower extremity that is baseline for him and unchanged Neurologic, awake alert answering questions appropriately moving all 4 extremities he is able to move all 4 but decreased to the left, he indicates he did not injure himself in any way he has no new areas of pain Test Results: [] Emergency Department Course and Treatment: [] Given all of the above comprehensive labs are obtained CT head the slurry speech began yesterday Treatment Plan: [] The patient screening labs are generally unremarkable, his troponin is slightly elevated at 0.3 but his troponins were as high as 12, creatinine elevated 1.8 it has been as high as 2, his EKG shows a sinus rhythm with ST segment elevation in the anterior leads but this is somewhat consistent with prior EKG that showed acute DE in this distribution, the exact etiology of the slurry speech is weakness inability to walk or function at home require he be further evaluated and have asked the hospital see him for further management admission and possible placement to nursing center Disposition: [] Admit to hospitalist Impression: [] Generalized weakness, slurry speech, falling, recent DE, history of diabetes and neuropathy This note was generated with [employer] dictation software. It may contain incorrect words, spelling, and punctuation that were not noted in review of the chart prior to signing ED Disposition - Plan for ED Patient: Referrals: Orlando Gomez MD [Primary Care Provider] -
--- NOTE | 2019-03-06 11:28 | RAD_ITS ---
STUDY: X-RAY - PELVIS REASON FOR EXAM: Male, 58 years old. Pelvic pain after fall TECHNIQUE: One view of the pelvis was obtained. COMPARISON: None. FINDINGS: There is a non-specific bowel gas pattern. Normal visualized soft tissue structures. Normal bilateral iliac wings, sacroiliac joints and visualized sacrum. Normal visualized bilateral superior and inferior pubic rami. Normal pubic symphysis. Normal ischial tuberosities. Normal visualized right femoral head. Normal right acetabulum. Normal right hip joint. Normal visualized left femoral head. Normal left acetabulum. Normal left hip joint. RAD/Pelvis 1 or 2 Views IMPRESSION: No pelvic ring fracture or malalignment. Electronically Signed: Lan Covarrubias MD at 11:59 EDT , Service support ,
--- NOTE | 2019-03-06 11:40 | RAD_ITS ---
STUDY: X-RAY CHEST REASON FOR EXAM: Male, 58 years old. Chest pain after fall TECHNIQUE: AP COMPARISON: 10/01/2019 FINDINGS: EKG leads project over the chest. The lungs are clear and expanded. There is no demonstrated pleural abnormality. Normal size heart. Normal mediastinum and chanda. Normal visualized pulmonary arteries. Normal visualized aortic arch and descending thoracic aorta. Normal visualized thoracic spine. Normal visualized ribs, clavicles, and shoulders. There is no demonstrated abnormality of the visualized soft tissue structures of the upper abdomen. RAD/Chest 1 View (Portable) IMPRESSION: Stable, nonacute portable x-ray examination of the chest. Electronically Signed: Lan Covarrubias MD at 11:58 EDT , Service support ,
[2019-03-06] MEDS: 0.9% Normal Saline 1,000 ML 150 ML IV (12:17)
[2019-03-06] MEDS: Aspirin 81 MG TAB.CHEW 324 MG PO (12:18)
[2019-03-06 12:30] LABS: Absolute Lymphocyte Count 1.62 X10^3/ul (0.83-4.51); Absolute Neutrophil Count 10.6 X10^3/uL (2.0-7.7); Basophil# 0.01 X10^3/uL; Basophil% 0.1 % (0-1); Eosinophil# 0.08 X10^3/uL; Eosinophils% 0.6 % (0-5); Hematocrit 35.3 % (40-54); Hemoglobin 12.1 g/dl (13.0-16.5); Lymphocyte # 1.62 X10^3/ul (4.0); Lymphocyte % 12.1 % (19-41); Mean Corp Hgb Conc 34.3 g/gl (32-36); Mean Corpuscular Hgb 27.6 pg (27.0-32.0); Mean Corpuscular Volume 80.6 fL (80-94); Mean Platelet Vol. 9.1 fl (6.2-12.0); Monocyte# 1.06 X10^3/uL; Monocyte% 7.9 % (0-10); Neutrophil # 10.58 X10^3/uL (2.7-7.7); Platelet Count 417 K/mm3 (150-450); RBC Distribution Width CV 13.2 % (11.6-14.6); RBC Distribution Width SD 38.8 fl (35.1-43.9); Red Blood Count 4.38 M/mm3 (4.6-6.2); White Blood Count 13.4 K/mm3 (4.4-11.0)
[2019-03-06 12:31] LABS: POSITIVE COUNT NO; POSITIVE DIFFERENTIAL NO; POSITIVE MORPHOLOGY NO
[2019-03-06 12:46] LABS: AST(SGOT) 17 U/L (15-37); Alanine Aminotransfer ALT/SGPT 17 U/L (16-61); Albumin, Serum 2.7 g/dL (3.2-5.0); Alkaline Phosphatase 86 U/L (45-117); Anion Gap 7 (5-15); BUN 23 mg/dL (7-18); BUN/Creat Ratio 12.4 RATIO (10-20); Bilirubin, Direct 0.11 mg/dL (0.00-0.30); Calcium,Total 8.9 mg/dL (8.5-10.1); Chloride 103 mmol/L (98-107); Creatinine, Serum 1.86 mg/dL (0.70-1.30); EST Glomerular Filtration Rate 40 mL/min (>60); Est Glom Filt Rate - Afr Amer 48 mL/min (>60); Estimated Creatinine Clearance 48.92 ml/min; Glucose 185 mg/dL (74-106); Lipase 124 U/L (73-393); Potassium 4.2 mmol/L (3.5-5.1); Protein, Total 7.7 g/dL (6.4-8.2); Sodium Level 135 mmol/L (136-145)
--- NOTE | 2019-03-06 13:16 | PCM.HP.STD ---
Problem List (1) Type 2 diabetes mellitus Status: Chronic (2) Hypertension Status: Chronic (3) Neuropathy Status: Chronic (4) Non-STEMI Status: Acute History of Present Illness Date of Admission: 03/06/19 Chief Complaint: Slurred speech The patient is a 58 year old M H as below who was recently admitted for an NSTEMI, he was found to have total occlusion of his mid LAD and they could not stent this and recommended him be transferred for a CABG, however he refused. He presents today with slurred speech and falling as well as left upper extremity weakness. He has chronic bilateral lower extremity sensory deficiencies and weakness. States that he is gone to physical therapy for his lower extremities and they told him that he would never recover his mobility. He lives in a shed and was found by his friend who brought him to the ER via EMS. In the ER CT head was negative for a bleed considering he is on Eliquis and had a fall this morning. Chest and pelvis x-ray were also negative. Lab was remarkable for a leukocytosis of 13 and a troponin of 0.3 though his previous troponin during his ME was above 12. There is concern that he may have a CVA despite being on Eliquis and also he is significantly weak and debilitated and therefore it was felt that he should be admitted for further workup. Past Medical History Past Medical History (Chronic Problems): Chronic Problems Type 2 diabetes mellitus (Chronic) Hypertension (Chronic) Neuropathy (Chronic) Allergies No Known Allergies Allergy (Verified 03/06/19 11:15) Home Medications: Ambulatory Orders Medication Instructions Recorded Amlodipine Besylate 10 mg PO DAILY 02/22/19 Aspirin 81 mg PO DAILY 02/22/19 Insulin Glargine [Lantus SoloStar 10 units SC DAILY 02/22/19 Pen] Apixaban [Eliquis] 2.5 mg PO BID #60 tablet 02/24/19 Atorvastatin Calcium [Lipitor] 80 mg PO QHS #30 tablet 02/24/19 Lisinopril/Hydrochlorothiazide 1 each PO BID #0 02/24/19 [Lisinopril-Hctz 10-12.5 mg Tab] Amiodarone HCl [Cordarone] 200 mg PO BID 03/06/19 Metoprolol Tartrate 25 mg PO DAILY 03/06/19 Surgical History: no surgical history Smoking Status: Never smoker Alcohol: None Drugs: None - *Family History Maternal History Items: Heart Disease, - - Cerebral hemorrhage Paternal History Items: Heart Disease, Stroke Review of Systems Constitutional: Reports: Weakness. Denies: Chills, Fever, Weight Change HEENT: Denies: Head Aches, Sinus Congestion, Sinus Drainage Cardiovascular: Denies: Chest Pain, Palpitations Respiratory: Denies: Cough, Shortness of breath at rest, Sputum production Gastrointestinal: Denies: Abdominal Pain, Nausea, Vomiting Genitourinary: Denies: Dysuria Musculoskeletal: Denies: Joint Pain, Joint Tenderness Skin: Denies: Rash, Wounds Neurological: Reports: Slurred speech. Denies: Focal weakness, Numbness, Tingling Psychiatric: Denies: Anxiety, Depression Hematologic/ Lymphatic: Denies: Easy Bruising, Easy Bleeding VTE Information - Inpt Only VTE Present on Admission: No - Physical Exam General: Alert, Oriented x3, Cooperative, No apparent distress HEENT: Atraumatic, PERRLA, EOMI, Normocephalic Oral: Dry Mucosa Neck: Supple, No JVD, Trachea Midline Lungs: Clear to auscultation, Normal air movement, No rhonchi, No wheeze, No rales Cardiovascular: Regular rate, Regular Rhythm, Normal S1, Normal S2, No murmurs Abdomen: Soft, Non Tender, Non-Distended, No Hepato-splenomegaly Extremities: No edema, Capillary Refill Less than 3 Seconds Skin: No rashes, No breakdown Neurological: Cranial nerves II-XII grossly intact - Left upper extremity is 4 out of 5 in strength compared to the right. And he has chronic weakness and history deficiency in both of his legs. Psych/Mental Status: Depressed, - - Labile Vital Signs Temp Pulse Resp BP Pulse Ox 97.9 F 59 L 14 124/79 H 95 03/06/19 11:07 03/06/19 13:00 03/06/19 13:00 03/06/19 13:00 03/06/19 13:11 Oxygen Flow Rate (L/min) 1 Oxygen Delivery Method Nasal Cannula Weight: 275 lb 12.772 oz Body Mass Index (BMI) 36.3 Finger Stick Blood Glucose 380 Laboratory Tests Past 24 Hrs 03/06/19 03/06/19 03/06/19 12:12 12:12 12:12 WBC 13.4 H RBC 4.38 L Hgb 12.1 L Hct 35.3 L MCV 80.6 MCH 27.6 MCHC 34.3 RDW 13.2 RDW Differential 38.8 Plt Count 417 MPV 9.1 Immature Gran % (Auto) 0.300 Neut % (Auto) 79.0 H Lymph % (Auto) 12.1 L [place] % (Auto) 7.9 Eos % (Auto) 0.6 Baso % (Auto) 0.1 Absolute Neuts (auto) 10.6 H Absolute Lymphs (auto) 1.62 Total Counted Not Reportable Sodium 135 L Potassium 4.2 Chloride 103 Carbon Dioxide 25.0 Anion Gap 7 BUN 23 H Creatinine 1.86 H Estim Creat Clear Calc 48.92 Est GFR (MDRD) Af Amer 48 L Est GFR (MDRD) Non-Af 40 L BUN/Creatinine Ratio 12.4 Glucose 185 H Calcium 8.9 Total Bilirubin 0.50 Direct Bilirubin 0.11 AST 17 ALT 17 Alkaline Phosphatase 86 Troponin I 0.345 H Total Protein 7.7 Albumin 2.7 L Globulin 5.0 H Lipase 124 Acetone Level NEGATIVE Assessment/Plan All Active Problems Non-STEMI (Acute) 1. Weakness, debility with inability to complete ADLs/possible CVA with dysarthria -We will obtain an MRI on Friday, NIH is 16 when you taken to account his chronic deficiencies in his lower extremities -Mid to PCU with stroke workup do not need to complete any of the cardiac part of it since he recently had a cardiac workup -Continue with his Eliquis at 5 mg not 2.5, his max dose statin, as well as his aspirin -PT/OT as well as speech -Permissive hypertension for the next 24 hours -He has refused to have an invasive heart procedure and therefore will not proceed with a CTA of his head and neck because he is going to refuse any intervention for that as well also his creatinine is currently recovering from his heart cath a week ago. If necessary on Friday can perform a carotid Doppler 2. CAD with 100% LAD blockage/HTN/HLD/A. fib -Has 100% mid LAD occlusion though refuses CABG -We will continue with max medical therapy -We will hold his blood pressure medication to allow for permissive hypertension if this is a stroke -Continue with amiodarone 3. IDDM 2/CKD 3 -Continue with Accu-Cheks AC at bedtime -We will continue with sliding scale insulin as well as his long-acting insulin -Creatinine is 1.86 on admission, his previous creatinine was 2.09 4. Leukocytosis -Unknown etiology, chest x-ray is negative -We will obtain a UA DVT: Eliquis Code Visit Inpatient E&M: 56426 Init Hosp L3
[2019-03-06 14:56] LABS: Bedside Glucose 180 mg/dL (70-110)
[2019-03-06 16:46] LABS: Bedside Glucose 171 mg/dL (70-110)
[2019-03-06] MEDS: 0.9% Normal Saline 1,000 ML 100 ML IV (19:42)
[2019-03-06] MEDS: Insulin Lispro 100 UNIT/ML INSULN.PEN SQ (21:30)
[2019-03-06] MEDS: APIXABAN 5 MG TABLET PO (21:31)
[2019-03-06] MEDS: Amiodarone 200 MG Tablet PO (21:31)
[2019-03-06] MEDS: Atorvastatin Calcium 80 MG Tablet PO (21:31)
[2019-03-06 21:40] LABS: Bedside Glucose 179 mg/dL (70-110)
[2019-03-07] VITALS (12 sets, daily range): BP systolic 137–158; BP diastolic 68–81; PULSE 70–80; RESP 18; TEMP 36.6–37.3; O2SAT 94–97; BMI 35.4
[2019-03-07] MEDS: 0.9% Normal Saline 1,000 ML 100 ML IV ×2 (05:14→17:00)
[2019-03-07 06:52] LABS: Cholesterol 116 mg/dL (200); High Density Lipoprotein 27 mg/dL; Triglycerides 139 mg/dL; Very Low Density Lipoprotein 28 mg/dL (5-40)
[2019-03-07 07:00] LABS: Bedside Glucose 173 mg/dL (70-110)
[2019-03-07 07:36] LABS: Bacteria 0 SEEN /hpf (None Seen); Mucous, Urine 0 SEEN /hpf (<or=2+); Squamous Epithelial Cells - UA 0 SEEN /hpf (0-5); White Blood Cells 0 SEEN /hpf (0-5)
[2019-03-07 07:40] LABS: Color, Urine Yellow (Yellow); Glucose, Dipstick Normal (Normal); Ketone-Dipstick 5 mg/dl (Negative); Leukocyte Esterase-Dipstick Negative /ul (Negative); Nitrite-Dipstick Negative (Negative); Occult Blood-Urine 50 /ul (Negative); Protein-Dipstick 100 mg/dl (Negative); Specific Gravity, Urine 1.015 (1.002-1.030); Urine Bilirubin Dipstick Negative (Negative); Urine Clarity Clear (Clear); Urine Urobilinogen Normal (Normal)
[2019-03-07 08:04] LABS: Hyaline Cast 0-5 SEEN /lpf (0-5); Red Blood Cells-Urine 0-5 SEEN /hpf (0-5)
[2019-03-07] MEDS: Insulin Lispro 100 UNIT/ML INSULN.PEN SQ ×4 (08:30→21:43)
[2019-03-07] MEDS: Amiodarone 200 MG Tablet PO ×2 (08:31→21:43)
[2019-03-07] MEDS: Aspirin 81 MG TAB.CHEW PO (08:31)
[2019-03-07] MEDS: APIXABAN 5 MG TABLET PO ×2 (08:31→21:43)
--- NOTE | 2019-03-07 10:00 | MRI_ITS ---
We are attempting to reach SINCERE HERNANDEZ to discuss findings. An addendum with communication details will be sent when the communication is complete. STUDY: MRI BRAIN WITHOUT CONTRAST REASON FOR EXAM: Male, 58 years old. CVA CVA MRI - Brain/Head/Neck Lt arm weakness, slurred speech. TECHNIQUE: Standardized multiplanar fat and water weighted pulse sequences were obtained. COMPARISON: 03/07/2019 CT of the head FINDINGS: There is mild cerebral atrophy with widening of the extra-axial spaces and ventricular dilatation. There are multiple white matter hyperintensities, distributed throughout the deep white matter tracts of the cerebral hemispheres, consistent with moderate chronic white matter ischemic changes. There is a 1.6 cm right paramedial pontine restricted diffusion with drop of signal on ADC map, consistent with acute infarction. Normal bilateral basal ganglia. Normal thalami. There is no extra-axial fluid accumulation. Normal flow voids within the major intracranial circulation suggesting patency by spin echo criteria. Normal sella turcica, pituitary gland, infundibular stalk, optic chiasm and hypothalamus. Normal tectal plate and pineal gland. Normal cerebellum. MRI/Brain without Contrast IMPRESSION: Acute right paramedial pontine infarct. Electronically Signed: Allyssa Mayorga MD at 12:26 EDT Tel , Service support ,
--- NOTE | 2019-03-07 10:04 | CT_ITS ---
STUDY: CT BRAIN WITHOUT CONTRAST REASON FOR EXAM: Male, 58 years old. Increasing left-sided weakness with facial injury after fall yesterday RADIATION DOSAGE (If Supplied By Facility): CTDIvol = ( 44.99 ) mGy, DLP = ( 829.85 ) mGycm TECHNIQUE: Transaxial CT imaging of the brain was performed without administration of intravenous contrast material. Individualized dose optimization techniques were used for this CT. COMPARISON: Yesterday FINDINGS: Normal soft tissue structures. Normal calvarium. There is mild cerebral atrophy with widening of the extra-axial spaces and ventricular dilatation. There are areas of decreased attenuation within the white matter tracts of the supratentorial brain, consistent with microvascular disease changes. Normal basal ganglia and thalami. Normal brainstem. Normal cerebellum. There is no intracranial hemorrhage. There are no findings of an acute ischemic infarction. Normal visualized paranasal sinuses. CT/Brain/Head without Contrast IMPRESSION: Stable exam. No acute intracranial hemorrhage, mass effect or evolving process. Electronically Signed: Lan Covarrubias MD at 10:38 EDT , Service support ,
--- NOTE | 2019-03-07 10:48 | PCM.CONS.GEN ---
Reason for Consult Date of Consultation: 03/07/19 Reason for Consultation: new left arm weakness History of Present Illness: The patient is a 58 year old M presented as below, reports he remains compliant with eliquis. reports he lives in a shed but it is 10x16, warm, dry, clean and safe. uses a portapody but doesnt have a shower. when he came to the hospital he says his left side was weak, starting friday, 2 days ago. reports his mi was 2 weeks ago. also noted speech trouble 2 days ago. The patient is a 58 year old M H as below who was recently admitted for an NSTEMI, he was found to have total occlusion of his mid LAD and they could not stent this and recommended him be transferred for a CABG, however he refused. He presents today with slurred speech and falling as well as left upper extremity weakness. He has chronic bilateral lower extremity sensory deficiencies and weakness. States that he is gone to physical therapy for his lower extremities and they told him that he would never recover his mobility. He lives in a shed and was found by his friend who brought him to the ER via EMS. In the ER CT head was negative for a bleed considering he is on Eliquis and had a fall this morning. Chest and pelvis x-ray were also negative. Lab was remarkable for a leukocytosis of 13 and a troponin of 0.3 though his previous troponin during his [place] was above 12. There is concern that he may have a CVA despite being on Eliquis and also he is significantly weak and debilitated and therefore it was felt that he should be admitted for further workup. Past Medical History Past Medical History (Chronic Problems): Chronic Problems Type 2 diabetes mellitus (Chronic) Hypertension (Chronic) Neuropathy (Chronic) Allergies No Known Allergies Allergy (Verified 03/06/19 11:15) Home Medications: Ambulatory Orders Medication Instructions Recorded Amlodipine Besylate 10 mg PO DAILY 02/22/19 Aspirin 81 mg PO DAILY 02/22/19 Insulin Glargine [Lantus SoloStar 10 units SC DAILY 02/22/19 Pen] Apixaban [Eliquis] 2.5 mg PO BID #60 tablet 02/24/19 Atorvastatin Calcium [Lipitor] 80 mg PO QHS #30 tablet 02/24/19 Lisinopril/Hydrochlorothiazide 1 each PO BID #0 02/24/19 [Lisinopril-Hctz 10-12.5 mg Tab] Amiodarone HCl [Cordarone] 200 mg PO BID 03/06/19 Metoprolol Tartrate 25 mg PO DAILY 03/06/19 Surgical History: no surgical history Smoking Status: Never smoker Tobacco Use: Non-smoker Alcohol: None Drugs: None - *Family History Maternal History Items: Heart Disease, - - Cerebral hemorrhage Paternal History Items: Heart Disease, Stroke Review of Systems Constitutional: Denies: Chills, Fever, Weight Change HEENT: Denies: Head Aches, Sinus Congestion, Sinus Drainage Cardiovascular: Denies: Chest Pain, Palpitations Respiratory: Denies: Cough, Shortness of breath at rest, Sputum production Gastrointestinal: Denies: Abdominal Pain, Nausea, Vomiting Genitourinary: Denies: Dysuria Musculoskeletal: Denies: Joint Pain, Joint Tenderness Skin: Denies: Rash, Wounds Neurological: Denies: Numbness, Tingling, Focal weakness Psychiatric: Denies: Anxiety, Depression, Homicidal Ideations, Suicidal Ideations Hematologic/ Lymphatic: Denies: Easy Bruising, Easy Bleeding - Physical Exam General: Alert, Oriented x3, Cooperative, No apparent distress Vital Signs Temp Pulse Resp BP Pulse Ox 36.8 C 72 18 149/74 H 96 03/07/19 09:00 03/07/19 09:00 03/07/19 09:00 03/07/19 09:00 03/07/19 09:00 Oxygen Flow Rate (L/min) 1 Oxygen Delivery Method Room Air Weight: 122 kg Body Mass Index (BMI) 35.4 Finger Stick Blood Glucose 380 Intake and Output for Last 24 Hours 03/05/19 03/06/19 03/07/19 23:59 23:59 23:59 Intake Total 436 / 436 539 / 539 Balance 436 / 436 539 / 539 Laboratory Tests Past 24 Hrs 03/06/19 03/06/19 03/06/19 12:12 12:12 12:12 WBC 13.4 H RBC 4.38 L Hgb 12.1 L Hct 35.3 L MCV 80.6 MCH 27.6 MCHC 34.3 RDW 13.2 RDW Differential 38.8 Plt Count 417 MPV 9.1 Immature Gran % (Auto) 0.300 Neut % (Auto) 79.0 H Lymph % (Auto) 12.1 L [place] % (Auto) 7.9 Eos % (Auto) 0.6 Baso % (Auto) 0.1 Absolute Neuts (auto) 10.6 H Absolute Lymphs (auto) 1.62 Total Counted Not Reportable Sodium 135 L Potassium 4.2 Chloride 103 Carbon Dioxide 25.0 Anion Gap 7 BUN 23 H Creatinine 1.86 H Estim Creat Clear Calc 48.92 Est GFR (MDRD) Af Amer 48 L Est GFR (MDRD) Non-Af 40 L BUN/Creatinine Ratio 12.4 Glucose 185 H Calcium 8.9 Total Bilirubin 0.50 Direct Bilirubin 0.11 AST 17 ALT 17 Alkaline Phosphatase 86 Troponin I 0.345 H Total Protein 7.7 Albumin 2.7 L Globulin 5.0 H Triglycerides Cholesterol LDL Cholesterol VLDL Cholesterol HDL Cholesterol Lipase 124 Urine Color Urine Clarity Urine pH Ur Specific [place] Urine Protein Urine Glucose (UA) Urine Ketones Urine Occult Blood Urine Nitrite Urine Bilirubin Urine Urobilinogen Ur Leukocyte Esterase Urine RBC Urine WBC Ur Squamous Epith Cells Urine Bacteria Hyaline Casts Urine Mucus Acetone Level NEGATIVE 03/07/19 03/07/19 05:55 07:25 WBC RBC Hgb Hct MCV MCH MCHC RDW RDW Differential Plt Count MPV Immature Gran % (Auto) Neut % (Auto) Lymph % (Auto) [place] % (Auto) Eos % (Auto) Baso % (Auto) Absolute Neuts (auto) Absolute Lymphs (auto) Total Counted Sodium Potassium Chloride Carbon Dioxide Anion Gap BUN Creatinine Estim Creat Clear Calc Est GFR (MDRD) Af Amer Est GFR (MDRD) Non-Af BUN/Creatinine Ratio Glucose Calcium Total Bilirubin Direct Bilirubin AST ALT Alkaline Phosphatase Troponin I Total Protein Albumin Globulin Triglycerides 139 Cholesterol 116 LDL Cholesterol 61 VLDL Cholesterol 28 HDL Cholesterol 27 L Lipase Urine Color Yellow Urine Clarity Clear Urine pH 5.0 Ur Specific [place] 1.015 Urine Protein 100 H Urine Glucose (UA) Normal Urine Ketones 5 H Urine Occult Blood 50 H Urine Nitrite Negative Urine Bilirubin Negative Urine Urobilinogen Normal Ur Leukocyte Esterase Negative Urine RBC 0-5 SEEN Urine WBC 0 SEEN Ur Squamous Epith Cells 0 SEEN Urine Bacteria 0 SEEN Hyaline Casts 0-5 SEEN Urine Mucus 0 SEEN Acetone Level POC Glucose 03/07/19 03/06/19 03/06/19 06:51 21:29 16:33 POC Glucose 173 H 179 H 171 H 03/06/19 14:51 POC Glucose 180 H MRI reviewed, right pontine infarct, acute as well as 2 small right subcortical infarct in the MCA distribution. I think this represents both posterior circulation and anterior circulation infarcts. Assessment/Plan All Active Problems Non-STEMI (Acute)
--- NOTE | 2019-03-07 11:07 | PCM.PN.HOSP ---
Subjective: Left arm progressed from being 4-5 and weakness to paralysis overnight. Otherwise dysarthria is the same. He feels unchanged from yesterday. Vitals/I&O's: Vital Signs Temp Pulse Resp BP Pulse Ox 98.2 F 72 18 149/74 H 96 03/07/19 09:00 03/07/19 09:00 03/07/19 09:00 03/07/19 09:00 03/07/19 09:00 Oxygen Flow Rate (L/min) 1 Oxygen Delivery Method Room Air Weight: 268 lb 15.423 oz Body Mass Index (BMI) 35.4 Finger Stick Blood Glucose 380 Intake and Output for Last 24 Hours 03/05/19 03/06/19 03/07/19 23:59 23:59 23:59 Intake Total 436 / 436 539 / 539 Balance 436 / 436 539 / 539 General: Alert, Oriented x3, Cooperative, No apparent distress HEENT: Atraumatic, PERRLA, EOMI, Normocephalic Oral: Dry Mucosa Neck: Supple, No JVD, Trachea Midline Lungs: Clear to auscultation, Normal air movement, No rhonchi, No wheeze, No rales Cardiovascular: Regular rate, Regular Rhythm, Normal S1, Normal S2, No murmurs Abdomen: Soft, Non Tender, Non-Distended, No Hepato-splenomegaly Extremities: No edema, Capillary Refill Less than 3 Seconds Skin: No rashes, No breakdown Neurological: Cranial nerves II-XII grossly intact - Left upper extremity is 0 out of 5 in strength compared to the right. And he has chronic weakness and history deficiency in both of his legs. Psych/Mental Status: Depressed, Laboratory Results 03/06/19 12:12: WBC 13.4 H, RBC 4.38 L, Hgb 12.1 L, Hct 35.3 L, MCV 80.6, MCH 27.6, MCHC 34.3, RDW 13.2, RDW Differential 38.8, Plt Count 417, MPV 9.1, Immature Gran % (Auto) 0.300, Neut % (Auto) 79.0 H, Lymph % (Auto) 12.1 L, [place] % (Auto) 7.9, Eos % (Auto) 0.6, Baso % (Auto) 0.1, Absolute Neuts (auto) 10.6 H, Absolute Lymphs (auto) 1.62, Total Counted Not Reportable 03/06/19 12:12: Sodium 135 L, Potassium 4.2, Chloride 103, Carbon Dioxide 25.0, Anion Gap 7, BUN 23 H, Creatinine 1.86 H, Estim Creat Clear Calc 48.92, Est GFR (MDRD) Af Amer 48 L, Est GFR (MDRD) Non-Af 40 L, BUN/Creatinine Ratio 12.4, Glucose 185 H, Calcium 8.9, Total Bilirubin 0.50, Direct Bilirubin 0.11, AST 17, ALT 17, Alkaline Phosphatase 86, Troponin I 0.345 H, Total Protein 7.7, Albumin 2.7 L, Globulin 5.0 H, Lipase 124 03/06/19 12:12: Acetone Level NEGATIVE 03/06/19 14:51: POC Glucose 180 H 03/06/19 16:33: POC Glucose 171 H 03/06/19 21:29: POC Glucose 179 H 03/07/19 05:55: Triglycerides 139, Cholesterol 116, LDL Cholesterol 61, VLDL Cholesterol 28, HDL Cholesterol 27 L 03/07/19 06:51: POC Glucose 173 H 03/07/19 07:25: Urine Color Yellow, Urine Clarity Clear, Urine pH 5.0, Ur Specific [place] 1.015, Urine Protein 100 H, Urine Glucose (UA) Normal, Urine Ketones 5 H, Urine Occult Blood 50 H, Urine Nitrite Negative, Urine Bilirubin Negative, Urine Urobilinogen Normal, Ur Leukocyte Esterase Negative, Urine RBC 0-5 SEEN, Urine WBC 0 SEEN, Ur Squamous Epith Cells 0 SEEN, Urine Bacteria 0 SEEN, Hyaline Casts 0-5 SEEN, Urine Mucus 0 SEEN Current Medications Amiodarone HCl (Cordarone) 200 mg PO BID [facility] Last Admin: 03/07/19 08:31 Dose: 200 mg Apixaban (Eliquis) 5 mg PO BID [facility] Last Admin: 03/07/19 08:31 Dose: 5 mg Aspirin (Aspirin, Baby) 81 mg PO DAILYCM [facility] Last Admin: 03/07/19 08:31 Dose: 81 mg Atorvastatin Calcium (Lipitor) 80 mg PO QHS [facility] Last Admin: 03/06/19 21:31 Dose: 80 mg Dextrose (D50w Syringe) 0 gm IV X1 PRN; Protocol PRN Reason: Hypoglycemia Glucagon () 1 mg IM .X1 PRN PRN Reason: Hypoglycemia Sodium Chloride () 1,000 mls @ 100 mls/hr IV .Q10H [facility]ANN Last Admin: 03/07/19 05:14 Dose: 100 mls/hr Insulin Glargine (Lantus (Bk)) 10 units SC DAILY [facility] Last Admin: 03/07/19 08:33 Dose: 10 u Insulin Human Lispro (Humalog Kwikpen ([facility])) 0 unit SQ ACHS YANN; Protocol Last Admin: 03/07/19 08:30 Dose: 2 u Magnesium Hydroxide (Milk Of Magnesia) 30 ml PO DAILY PRN PRN Reason: Constipation Nutritional Formula (Lactose Free) (Glucerna Shake) 120 ml PO TIDCM YANN Last Admin: 03/07/19 08:33 Dose: Not Given Sodium Chloride () 5 - 15 ml IV UD PRN PRN Reason: SALINE FLUSH Medical Necessity - Tobacco Use Smoking Status: Never smoker Tobacco Use: Non-smoker Assessment/Plan All Active Problems Non-STEMI (Acute) 1. Weakness, debility with inability to complete ADLs/possible CVA with dysarthria -We will obtain an MRI on Friday, NIH is 16 when you taken to account his chronic deficiencies in his lower extremities on admission -To have progression of his left upper extremity weakness and therefore ordered a CT head urgently to check if there is hemorrhagic conversion given his Eliquis will consult neurology -PCU with stroke workup do not need to complete any of the cardiac part of it since he recently had a cardiac workup -Continue with his Eliquis at 5 mg not 2.5, his max dose statin, as well as his aspirin -PT/OT as well as speech -He has refused to have an invasive heart procedure and therefore will not proceed with a CTA of his head and neck because he is going to refuse any intervention for that as well also his creatinine is currently recovering from his heart cath a week ago. If necessary on Friday can perform a carotid Doppler 2. CAD with 100% LAD blockage/HTN/HLD/A. fib -Has 100% mid LAD occlusion though refuses CABG -We will continue with max medical therapy -We will hold his blood pressure medication to allow for permissive hypertension if this is a stroke -Continue with amiodarone 3. IDDM 2/CKD 3 -Continue with Accu-Cheks AC at bedtime -We will continue with sliding scale insulin as well as his long-acting insulin -Creatinine is 1.86 on admission, his previous creatinine was 2.09 4. Leukocytosis -Unknown etiology, chest x-ray is negative -UA is negative for infection will monitor leukocytosis with CBC in the morning DVT: Eliquis Code Visit Inpatient E&M: 81906 Subs Hosp L2
--- NOTE | 2019-03-07 11:10 | PN_ITS ---
Subjective: Left arm progressed from being 4-5 and weakness to paralysis overnight. Otherwise dysarthria is the same. He feels unchanged from yesterday. Vitals/I&O's: Vital Signs Temp Pulse Resp BP Pulse Ox 98.2 F 72 18 149/74 H 96 03/07/19 09:00 03/07/19 09:00 03/07/19 09:00 03/07/19 09:00 03/07/19 09:00 Oxygen Flow Rate (L/min) 1 Oxygen Delivery Method Room Air Weight: 268 lb 15.423 oz Body Mass Index (BMI) 35.4 Finger Stick Blood Glucose 380 Intake and Output for Last 24 Hours 03/05/19 03/06/19 03/07/19 23:59 23:59 23:59 Intake Total 436 / 436 539 / 539 Balance 436 / 436 539 / 539 General: Alert, Oriented x3, Cooperative, No apparent distress HEENT: Atraumatic, PERRLA, EOMI, Normocephalic Oral: Dry Mucosa Neck: Supple, No JVD, Trachea Midline Lungs: Clear to auscultation, Normal air movement, No rhonchi, No wheeze, No rales Cardiovascular: Regular rate, Regular Rhythm, Normal S1, Normal S2, No murmurs Abdomen: Soft, Non Tender, Non-Distended, No Hepato-splenomegaly Extremities: No edema, Capillary Refill Less than 3 Seconds Skin: No rashes, No breakdown Neurological: Cranial nerves II-XII grossly intact - Left upper extremity is 0 out of 5 in strength compared to the right. And he has chronic weakness and history deficiency in both of his legs. Psych/Mental Status: Depressed, Laboratory Results 03/06/19 12:12: WBC 13.4 H, RBC 4.38 L, Hgb 12.1 L, Hct 35.3 L, MCV 80.6, MCH 27.6, MCHC 34.3, RDW 13.2, RDW Differential 38.8, Plt Count 417, MPV 9.1, Immature Gran % (Auto) 0.300, Neut % (Auto) 79.0 H, Lymph % (Auto) 12.1 L, Crook % (Auto) 7.9, Eos % (Auto) 0.6, Baso % (Auto) 0.1, Absolute Neuts (auto) 10.6 H, Absolute Lymphs (auto) 1.62, Total Counted Not Reportable 03/06/19 12:12: Sodium 135 L, Potassium 4.2, Chloride 103, Carbon Dioxide 25.0, Anion Gap 7, BUN 23 H, Creatinine 1.86 H, Estim Creat Clear Calc 48.92, Est GFR (MDRD) Af Amer 48 L, Est GFR (MDRD) Non-Af 40 L, BUN/Creatinine Ratio 12.4, Glucose 185 H, Calcium 8.9, Total Bilirubin 0.50, Direct Bilirubin 0.11, AST 17, ALT 17, Alkaline Phosphatase 86, Troponin I 0.345 H, Total Protein 7.7, Albumin 2.7 L, Globulin 5.0 H, Lipase 124 03/06/19 12:12: Acetone Level NEGATIVE 03/06/19 14:51: POC Glucose 180 H 03/06/19 16:33: POC Glucose 171 H 03/06/19 21:29: POC Glucose 179 H 03/07/19 05:55: Triglycerides 139, Cholesterol 116, LDL Cholesterol 61, VLDL Cholesterol 28, HDL Cholesterol 27 L 03/07/19 06:51: POC Glucose 173 H 03/07/19 07:25: Urine Color Yellow, Urine Clarity Clear, Urine pH 5.0, Ur Specific [place] 1.015, Urine Protein 100 H, Urine Glucose (UA) Normal, Urine Ketones 5 H, Urine Occult Blood 50 H, Urine Nitrite Negative, Urine Bilirubin Negative, Urine Urobilinogen Normal, Ur Leukocyte Esterase Negative, Urine RBC 0-5 SEEN, Urine WBC 0 SEEN, Ur Squamous Epith Cells 0 SEEN, Urine Bacteria 0 SEEN, Hyaline Casts 0-5 SEEN, Urine Mucus 0 SEEN Current Medications Amiodarone HCl (Cordarone) 200 mg PO BID [facility] Last Admin: 03/07/19 08:31 Dose: 200 mg Apixaban (Eliquis) 5 mg PO BID [facility] Last Admin: 03/07/19 08:31 Dose: 5 mg Aspirin (Aspirin, Baby) 81 mg PO DAILYCM [facility] Last Admin: 03/07/19 08:31 Dose: 81 mg Atorvastatin Calcium (Lipitor) 80 mg PO QHS [facility] Last Admin: 03/06/19 21:31 Dose: 80 mg Dextrose (D50w Syringe) 0 gm IV X1 PRN; Protocol PRN Reason: Hypoglycemia Glucagon () 1 mg IM .X1 PRN PRN Reason: Hypoglycemia Sodium Chloride () 1,000 mls @ 100 mls/hr IV .Q10H YANN Last Admin: 03/07/19 05:14 Dose: 100 mls/hr Insulin Glargine (Lantus (Bk)) 10 units SC DAILY YANN Last Admin: 03/07/19 08:33 Dose: 10 u Insulin Human Lispro (Humalog Kwikpen ([facility])) 0 unit SQ ACHS YANN; Protocol Last Admin: 03/07/19 08:30 Dose: 2 u Magnesium Hydroxide (Milk Of Magnesia) 30 ml PO DAILY PRN PRN Reason: Constipation Nutritional Formula (Lactose Free) (Glucerna Shake) 120 ml PO TIDCM YANN Last Admin: 03/07/19 08:33 Dose: Not Given Sodium Chloride () 5 - 15 ml IV UD PRN PRN Reason: SALINE FLUSH Medical Necessity - Tobacco Use Smoking Status: Never smoker Tobacco Use: Non-smoker Assessment/Plan All Active Problems Non-STEMI (Acute) 1. Weakness, debility with inability to complete ADLs/possible CVA with dysarthria -We will obtain an MRI on Friday, NIH is 16 when you taken to account his chronic deficiencies in his lower extremities on admission -To have progression of his left upper extremity weakness and therefore ordered a CT head urgently to check if there is hemorrhagic conversion given his Eliquis will consult neurology -PCU with stroke workup do not need to complete any of the cardiac part of it since he recently had a cardiac workup -Continue with his Eliquis at 5 mg not 2.5, his max dose statin, as well as his aspirin -PT/OT as well as speech -He has refused to have an invasive heart procedure and therefore will not proceed with a CTA of his head and neck because he is going to refuse any intervention for that as well also his creatinine is currently recovering from his heart cath a week ago. If necessary on Friday can perform a carotid Doppler 2. CAD with 100% LAD blockage/HTN/HLD/A. fib -Has 100% mid LAD occlusion though refuses CABG -We will continue with max medical therapy -We will hold his blood pressure medication to allow for permissive hypertension if this is a stroke -Continue with amiodarone 3. IDDM 2/CKD 3 -Continue with Accu-Cheks AC at bedtime -We will continue with sliding scale insulin as well as his long-acting insulin -Creatinine is 1.86 on admission, his previous creatinine was 2.09 4. Leukocytosis -Unknown etiology, chest x-ray is negative -UA is negative for infection will monitor leukocytosis with CBC in the morning DVT: Eliquis Code Visit Inpatient E&M: 30181 Subs Hosp L2
[2019-03-07 11:56] LABS: Bedside Glucose 204 mg/dL (70-110)
[2019-03-07 16:16] LABS: Bedside Glucose 248 mg/dL (70-110)
[2019-03-07] MEDS: Atorvastatin Calcium 80 MG Tablet PO (21:43)
[2019-03-07 21:55] LABS: Bedside Glucose 269 mg/dL (70-110)
[2019-03-08] VITALS (13 sets, daily range): BP systolic 126–161; BP diastolic 75–91; PULSE 73–87; RESP 14–20; TEMP 36.7–37.1; O2SAT 92–98; BMI 35.4
--- NOTE | 2019-03-08 00:20 | NURSING ---
PATIENT GETTING FRUSTRATED WITH RN, WHEN ASKED QUESTIONS ABOUT NIH, PATIENT STATES, I DON'T KNOW, I JUST WANT TO SLEEP.
[2019-03-08] MEDS: 0.9% Normal Saline 1,000 ML 100 ML IV ×3 (03:06→22:59)
[2019-03-08 05:39] LABS: Absolute Lymphocyte Count 1.84 X10^3/ul (0.83-4.51); Absolute Neutrophil Count 7.8 X10^3/uL (2.0-7.7); Eosinophil# 0.16 X10^3/uL; Eosinophils% 1.4 % (0-5); Hematocrit 33.5 % (40-54); Hemoglobin 11.1 g/dl (13.0-16.5); Lymphocyte # 1.84 X10^3/ul (4.0); Lymphocyte % 16.6 % (19-41); Mean Corp Hgb Conc 33.1 g/gl (32-36); Mean Corpuscular Hgb 26.7 pg (27.0-32.0); Mean Corpuscular Volume 80.7 fL (80-94); Mean Platelet Vol. 9.2 fl (6.2-12.0); Monocyte# 1.33 X10^3/uL; Neutrophil # 7.75 X10^3/uL (2.7-7.7); Neutrophil % 69.7 % (47-70); Platelet Count 425 K/mm3 (150-450); RBC Distribution Width CV 13.2 % (11.6-14.6); RBC Distribution Width SD 37.6 fl (35.1-43.9); Red Blood Count 4.15 M/mm3 (4.6-6.2); White Blood Count 11.1 K/mm3 (4.4-11.0)
[2019-03-08 05:45] LABS: POSITIVE COUNT NO; POSITIVE DIFFERENTIAL NO; POSITIVE MORPHOLOGY NO
[2019-03-08 05:48] LABS: Anion Gap 6 (5-15); BUN 23 mg/dL (7-18); Calcium,Total 8.5 mg/dL (8.5-10.1); Chloride 111 mmol/L (98-107); Creatinine, Serum 1.77 mg/dL (0.70-1.30); EST Glomerular Filtration Rate 42 mL/min (>60); Est Glom Filt Rate - Afr Amer 51 mL/min (>60); Estimated Creatinine Clearance 51.41 ml/min; Glucose 212 mg/dL (74-106); Potassium 3.9 mmol/L (3.5-5.1); Sodium Level 140 mmol/L (136-145)
[2019-03-08 06:40] LABS: Bedside Glucose 207 mg/dL (70-110)
[2019-03-08] MEDS: Amiodarone 200 MG Tablet PO ×2 (08:49→23:00)
[2019-03-08] MEDS: APIXABAN 5 MG TABLET PO ×2 (08:49→23:00)
[2019-03-08] MEDS: Aspirin 81 MG TAB.CHEW PO (08:49)
[2019-03-08] MEDS: Insulin Lispro 100 UNIT/ML INSULN.PEN SQ ×4 (08:50→23:00)
--- NOTE | 2019-03-08 09:32 | PCM.PROGNOTE ---
Patient Problems: Active and Suspected Problems Hyponatremia (Acute) Oropharyngeal dysphagia (Acute) Ischemic cerebrovascular accident (CVA) (Acute) Subjective: The patient is a 58-year-old male with a history of uncontrolled type 2 diabetes mellitus, hypertension, morbid obesity, stage III chronic renal failure, paroxysmal atrial fibrillation, hyperlipidemia, chronic anticoagulation with Eliquis, diabetic neuropathy and coronary artery disease who presented to the emergency department on 03/06/2019 complaining of slurred speech, falling and left upper extremity weakness. He was recently admitted to [facility] for an NSTEMI and found to have a total occlusion of the mid LAD which could not be stented. Transfer for CABG was recommended but the patient refused. A noncontrasted brain CT was negative for any acute findings. Lab was significant for a hemoglobin of 12.1, anemia is new since December 2018. Platelets were within normal limits and the white blood cell count was mildly increased at 13.4 with 79% neutrophils. Creatinine was 1.86 which is within his baseline. Troponin was 0.345 which is decreasing from recent troponin of 12.3 on 02/22/2019. Brain MRI is consistent with acute right paramedial pontine infarct. A repeat CT brain on 03/07/2019 showed no intracranial hemorrhage. Consult was obtained with neurology but report is pending. Current medications include aspirin 81 mg p.o. daily and apixaban 5 mg twice daily. The pt is very tearful and tells me a long story about how no one loves him. He was involved with a woman for over 20 years and he himself was as well. When his lovers he immediately his thinking that his lover would now want to live with him however she told him she no longer needed him and she did not want to be involved in the longer. A few years ago he lost his [employer] company due to health problems. He has never had psychotherapy and is not on an antidepressant. He tells me that he did not want to have CABG because he is hoping to . He lives alone and he is hoping to be able to go to assisted living at [facility] so he would have some company. Objective: PHYSICAL EXAM: GENERAL: alert, oriented X 3, Cooperative, NAD, tearful ORAL: moist mucosa, no mucosal lesions NECK: No JVD, supple, trachea midline, no carotid bruits appreciated LUNGS: CTA, symmetric chest expansion, no conversational dyspnea, not tachypneic, no wheezes, no rales HEART: RRR, Normal S1 and S2, no rub, no gallop ABDOMEN: soft, NT, ND, BS present, no guarding with palpation, obese EXTREMITIES: no edema, no cyanosis, no calf tenderness SKIN: No rashes, no breakdown NEUROLOGIC: He is flaccid on the left side with 0/5 strength in the left upper extremity and 0/5 strength in the lower extremity. No facial droop. No nerves II through XII are grossly intact. PSYCH: appropriate, depressed affect - Physical Exam Vital Signs Temp Pulse Resp BP Pulse Ox 98.0 F 87 14 160/90 H 98 03/08/19 08:08 03/08/19 08:08 03/08/19 08:08 03/08/19 08:08 03/08/19 08:08 Oxygen Flow Rate (L/min) 1 Oxygen Delivery Method Room Air Weight: 268 lb 15.423 oz Body Mass Index (BMI) 35.4 Finger Stick Blood Glucose 380 Intake and Output for Last 24 Hours 03/06/19 03/07/19 03/08/19 23:59 23:59 23:59 Intake Total 436 / 436 2749 / 2749 Output Total 950 / 950 Balance 436 / 436 1799 / 1799 Laboratory Tests Past 24 Hrs 03/08/19 03/08/19 05:18 05:18 WBC 11.1 H RBC 4.15 L Hgb 11.1 L Hct 33.5 L MCV 80.7 MCH 26.7 L MCHC 33.1 RDW 13.2 RDW Differential 37.6 Plt Count 425 MPV 9.2 Immature Gran % (Auto) 0.300 Neut % (Auto) 69.7 Lymph % (Auto) 16.6 L Collin % (Auto) 12.0 H Eos % (Auto) 1.4 Baso % (Auto) 0.0 Absolute Neuts (auto) 7.8 H Absolute Lymphs (auto) 1.84 Total Counted Not Reportable Sodium 140 Potassium 3.9 Chloride 111 H Carbon Dioxide 23.0 Anion Gap 6 BUN 23 H Creatinine 1.77 H Estim Creat Clear Calc 51.41 Est GFR (MDRD) Af Amer 51 L Est GFR (MDRD) Non-Af 42 L BUN/Creatinine Ratio 13.0 Glucose 212 H Calcium 8.5 POC Glucose 03/08/19 03/07/19 03/07/19 06:33 21:42 16:03 POC Glucose 207 H 269 H 248 H 03/07/19 11:50 POC Glucose 204 H Medical Necessity - Tobacco Use Smoking Status: Never smoker Tobacco Use: Non-smoker Assessment/Plan All Active Problems Hyponatremia (Acute) Oropharyngeal dysphagia (Acute) Ischemic cerebrovascular accident (CVA) (Acute) Impressions 1. Acute ischemic CVAs-likely embolic related to atrial fibrillation. Apixaban was increased to 5 mg p.o. twice daily from 2.5 mg twice daily. 2. Dysphagia 3. Paroxysmal atrial fibrillation 4. Uncontrolled diabetes mellitus type 2 5. Hypertension 6. Depression 7. Obesity 8. Coronary artery disease with a 100% occlusion in the mid LAD. CABG was recommended but the patient refused on his most recent admission the end of January. Patient is agreeable to an antidepressant so we will start Zoloft 50 mg p.o. every morning. Continue to hold antihypertensives Telemetry shows normal sinus rhythm with no significant ectopy and specifically no atrial fibrillation. Will be transferred to the rehab floor when precertification is obtained Adjust insulin Code Visit Inpatient E&M: 44788 Subs Hosp L2
--- NOTE | 2019-03-08 11:07 | CASEMGMT ---
DONNY BOOTH Readmission Chart Review: Pt was initially admitted for a STEMI on 02/22-02/24/19 and was recommended to be transferred for a CABG and pt refused transfer and CABG at that time. See DONNY BOOTH assessment completed by Neema HINES CM on 02/23/19. Pt readmitted with Acute right paramedial pontine infarct on 03/06/19. Dr. Thomas recommends Rehab for pt at discharge and pt is agreeable at this time. Per Dr. Nguyễn, pt to also be placed on anti-depressant at this time. Shayna SOSA updated on all at this time, voices understanding and precert is pending for pt to go to Rehab at this time. Pt voices no further questions/concerns/needs at this time. Glenna HINES CM
--- NOTE | 2019-03-08 11:18 | CM.ED ---
SOCIAL WORK NOTE FACE TO FACE WITH PT TO COMPLETE PHQ-9 FOLLOWING CVA. INTRODUCED SELF AND ROLE AT [facility]. PT IS ALERT AND ORIENTED X4 AND ABLE TO PARTICIPATE IN ASSESSMENT. PRESENTS WITH FLAT AFFECT EVIDENCED BY LITTLE CHANGE IN EXPRESSION OR TONE OF VOICE THROUGHOUT CONVERSATION. PT SCORED 6/ ON THE PHQ-9. DISCUSSED THE ANSWERS THAT HE SCORED BEYOND A ZERO WHICH WERE ITEMS 4, 5, AND 8. PT REPORTS THAT HE WAS IN [facility] 2 WEEKS AGO WITH A HEART ATTACK AND NOW WITH THE CVA AND THEY HAVE BEEN 'ADJUSTMENTS'. PT REPORTS THAT HE RECENTLY SIGNED A DNR AND HIS EX- IS TO BE HIS HCPOA. PT DENIES SI AND STATES THAT HE IS JUST TIRED AND AT PEACE WITH WHAT HAPPENS. 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 STATES THAT HIS MOTHER IN LAW IS AT [facility]. 1. [facility] [address] [address] 2. [facility] [address] [place] [address] SW TO TRY BOTH FACILITIES TO CHECK ON AVAILABILITY. PLACED CALL TO BELÉN WITH [facility] WHO REPORTS THAT THEY ARE NOT IN NETWORK WITH THE PT'S INSURANCE. PLACED CALL TO [facility] AND SPOKE WITH [facility]MISS[facility], WHO REPORTS THAT THEY ALSO DO NOT ACCEPT THAT MEDICAID HMO. PT PROVIDED WITH LIST OF FACILITIES THAT ACCEPT HIS INSURANCE FOR REVIEW. SW TO CHECK BACK REGARDING PREFERRED OPTIONS. PLAN: SNF PENDING ACCEPTANCE AND PRE-CERT. Maira Miramontes, HAIRSPRING STAKER, OLIVIER
--- NOTE | 2019-03-08 11:38 | CM.ED ---
SOCIAL WORK NOTE CONFIRM WITH PT THAT THOSE TWO FACILITIES DO NOT ACCEPT HIS INSURANCE. PT STATES THAT HE IS GOING TO [facility] UPON DISCHARGE FROM PCU FOR REHAB. INFORM THAT THE LIST THIS BIOMEDICAL SPECIALIST PROVIDED IS OF FACILITIES IN NETWORK FOR DISCHARGE FROM RU IF NEEDED. UNDERSTANDING EXPRESSED. CONFIRMED WITH BRYN ON RU THAT PT'S PLAN IS FOR RU PENDING PRE-CERT THROUGH [facility] MEDICAID. SW TO CONTINUE TO FOLLOW AND ASSIST WITH DISCHARGE PLANNING. PLAN: RU PENDING PRE-CERT. RALEIGH Hutchinson, OLIVIER
[2019-03-08 12:00] LABS: Bedside Glucose 305 mg/dL (70-110)
[2019-03-08] MEDS: Sertraline 50 MG Tablet PO (12:24)
--- NOTE | 2019-03-08 12:33 | CASEMGMT ---
This RN CM received message from pt's sister, Yovana, stating that she would like someone to call her in regards to pt's discharge plan at this time and she states that pt already gave permission for us to speak with him. She left both numbers for this RN CM at this time. Paige HINES came from pt room at this time, stating pt does not want anyone to speak with his sister at this time and pt only wants his ex- listed as contact. This RN CM to room to verify all with pt at this time. Pt states that he would like his sister, Yovana, removed from contact list at this time and would only like ex- contacted for anything and to be the only one listed on contact list at this time. Pt's contact list updated at this time. Pt voices no further questions/concerns/needs at this time. Glenna RN CM
[2019-03-08 16:22] LABS: Bedside Glucose 240 mg/dL (70-110)
[2019-03-08] MEDS: Atorvastatin Calcium 80 MG Tablet PO (23:00)
[2019-03-09] VITALS (8 sets, daily range): BP systolic 139–151; BP diastolic 71–88; PULSE 69–78; RESP 18; TEMP 36.8–37.1; O2SAT 93–94; BMI 35.4
[2019-03-09 00:15] LABS: Bedside Glucose 254 mg/dL (70-110)
[2019-03-09 06:50] LABS: Bedside Glucose 198 mg/dL (70-110)
[2019-03-09] MEDS: APIXABAN 5 MG TABLET PO (08:18)
[2019-03-09] MEDS: Sertraline 50 MG Tablet PO (08:18)
[2019-03-09] MEDS: Aspirin 81 MG TAB.CHEW PO (08:18)
[2019-03-09] MEDS: Amiodarone 200 MG Tablet PO (08:18)
[2019-03-09] MEDS: 0.9% Normal Saline 1,000 ML 100 ML IV (08:19)
[2019-03-09] MEDS: Insulin Lispro 100 UNIT/ML INSULN.PEN SQ ×3 (08:19→17:08)
[2019-03-09 12:05] LABS: Bedside Glucose 243 mg/dL (70-110)
--- NOTE | 2019-03-09 13:00 | RAD_ITS ---
STUDY: SWALLOWING STUDY REASON FOR EXAM: Male, 58 years old. Dysphagia. History of stroke. TECHNIQUE: The examination was performed with Speech Pathology in attendance. Under fluoroscopic observation, the patient ingested thin barium, thick barium, barium pudding, and barium coated cracker. FLUOROSCOPY TIME: 2:37 minutes/seconds. 2212 images were obtained. RADIOLOGIST INVOLVEMENT: Radiologist was present and providing direct supervision. COMPARISON: None. FINDINGS: The following was observed during swallowing of the various mixtures of barium: Thin Barium: Transient penetration with ingestion of thin liquids. Thick Barium: There was no evidence of aspiration or laryngeal penetration. Barium Pudding: There was no evidence of aspiration or laryngeal penetration. Barium Coated Cracker: There was no evidence of aspiration or laryngeal penetration. RAD/Swallowing Function w/Video IMPRESSION: Transient penetration with ingestion of thin liquids. The swallow study findings were discussed with the patient by the speech pathologist at the conclusion of the examination. Please see speech pathology report for more information and recommendations. Electronically Signed: Daniel Acosta, at 15:56 EDT , Service support ,
--- NOTE | 2019-03-09 13:00 | SP.MBSS_ITS ---
PRIMARY / SECONDARY DIAGNOSIS: CVA/Dysphagia REFERRING PHYSICIAN: Dr. Nguyễn CURRENT DIET: Mechanical Soft / Thin Liquid DENTITION: Natural w/ numerous missing teeth MENTAL STATUS: WNL sufficient to follow commands for participation in MBS RESPIRATORY STATUS: Oxygenating on room air PREVIOUS MODIFIED BARIUM SWALLOW STUDY: n/a REASON FOR REFERRAL: further assessment of swallow function under fluoroscopy to identify the presence/extent of pharyngeal dysfunction, rule out silent aspiration and to identify necessary postural techniques/intake modifications; 03/07/2019 MRI revealed an acute right paramedial pontine infarct MEDICAL HISTORY: uncontrolled type 2 diabetes mellitus, hypertension, morbid obesity, stage III chronic renal failure, paroxysmal atrial fibrillation, hyperlipidemia, chronic anticoagulation with Eliquis, diabetic neuropathy and coronary artery disease STUDY FINDINGS: Patient participated in a Modified Barium Swallow (MBS) study on 01/20/2019. Dr. Acosta was the radiologist present for this evaluation. This study was recorded in the lateral view and images were sent to PACs for storage. The following consistencies were presented to this patient for analysis of oropharyngeal swallow function: honey thickened liquids and pudding. Results of the MBS are as follows: PENETRATION / ASPIRATION SCALE (OLIVO): 1 = does not enter airway 2 = enters airway/above vocal folds/ejected 3 = enters airway/above vocal folds/not ejected 4 = enters airway/contacts vocal folds/ejected 5 = enters airway/contacts vocal folds/not ejected 6 = enters airway/below vocal folds/ejected 7 = enters airway/below vocal folds/not ejected despite effort 8 = enters airway/below vocal folds/no effort PENETRATION / ASPIRATION SCALE (SCORE): 1. Thin liquid via teaspoon: 3 2. Thin liquid via teaspoon: 5 3. Thin liquid single sip via cup: 3 4. Thin liquid via cup w/ chin tuck: 2 5. Thin liquid via cup w/ chin tuck: 3 6. [place] thickened liquid via cup w/ chin tuck: 3 7. [place] thickened liquid via cup: 1 8. Puddin 9. Cookie: 1 10. Thin liquid via cup w/ right head turn: 5 11. Thin liquid via cup w/ left head turn: 5 12. Thin liquid via cup w/ supraglottic swallow: 3 IMPRESSION ORAL PHASE CHARACTERIZED BY: LABIAL SEAL: no labial escape TONGUE CONTROL DURING BOLUS MANIPULATION: cohesive bolus between tongue to palatal seal BOLUS PREPARATION / MASTICATION: slow prolonged chewing/mashing with complete recollection BOLUS TRANSPORT / LINGUAL MOTION: slowed tongue motion ORAL RESIDUE: trace residue lining oral structures PHARYNGEAL PHASE CHARACTERIZED BY: INITIATION OF PHARYNGEAL SWALLOW: bolus head in pyriforms at first hyoid excursion SOFT PALATE ELEVATION: no bolus between soft palate and pharyngeal wall LARYNGEAL ELEVATION: partial superior movement of thyroid cartilage/partial approximation of arytenoids cartilage to epiglottic petiole ANTERIOR HYOID EXCURSION: partial anterior movement EPIGLOTTIC MOVEMENT: complete epiglottic inversion LARYNGEAL VESTIBULE CLOSURE AT HEIGHT OF SWALLOW: incomplete laryngeal vestibule closure with narrow column of air/contrast in laryngeal vestibule PHARYNGEAL STRIPPING WAVE: pharyngeal stripping wave present / complete PHARYNGOESOPHAGEAL SEGMENT OPENING: complete distension and complete duration with no obstruction of flow TONGUE BASE RETRACTION: narrow column of contrast between tongue base and posterior pharyngeal wall PHARYNGEAL RESIDUE: trace residue within or on pharyngeal structures ESOPHAGEAL PHASE CHARACTERIZED BY: ESOPHAGEAL BOLUS CLEARANCE IN THE UPRIGHT POSITION: complete clearance; esophageal coating EFFECTS OF TREATMENT STRATEGIES ATTEMPTED: Chin tuck posture = not effective Left head turn = not effective Right head turn = not effective Supraglottic swallow = not effective INTERPRETATION OF RESULTS: Patient presents with mild to moderate oropharyngeal dysphagia (R13.12). Oral phase primarily marked by mastication inefficiency (mild) resulting in prolonged oral phase; swallow onset delay w/ solid textures (2-3 seconds in length). Pharyngeal phase primarily marked by delayed pharyngeal swallow onset timing resulting in suboptimal bolus location (pyriforms) upon swallow onset contributing to laryngeal vestibule penetration prior to swallow onset. Reduced closure of the airway during deglutition attributed to reduced laryngeal elevation and anterior hyoid excursion resulting in delayed/insufficient laryngeal vestibule closure. Thin liquid penetrated the laryngeal vestibule to varying degrees, at times contacting the vocal folds w/out ejection (trace contrast retention lining the anterior wall of the laryngeal vestibule). No aspiration appreciated throughout trials, unable to definitively rule out silent aspiration w/ right/left head turn posture. RECOMMENDATIONS: DIET TEXTURE RECOMMENDATIONS: mechanical soft textures/nectar thickened liquids COMPENSATORY STRATEGIES RECOMMENDED: Distant supervision, small bites/sips, slow rate of intake, seated upright at 90 degrees during PO intake. ADDITIONAL CONSIDERATIONS: This Patient would be an excellent candidate for the [place] Free Water Protocol (FFWP) to facilitate improved liquid intake between meals following Patient education. Thin liquid trials to be completed under direct TEACHER OF THE EMOTIONALLY DISTURBED supervision w/ advancement pending demonstrated ability tolerance w/out changes in pulmonary status. Although aspiration was not evidenced under fluoroscopy, the patient is at increased risk as penetration contacting the vocal folds w/out ejection nor outward response was appreciated under fluoroscopy. NEED FOR ADDITIONAL THERAPY: Patient requires intensive skilled speech- language intervention targeting diet texture management; training and implementation of recommended compensatory strategies; training and implementation of recommended oropharyngeal strengthening exercises to facilitate improved labial control/strength, lingual control/strength, swallow onset timing, laryngeal vestibule closure; consideration for neuromuscular electrical stimulation (NMES) / VitalStim; and training, implementation, and Patient education regarding implementation of the FFWP. ADDITIONAL COMMENTS/RECOMMENDATIONS: Results and recommendations were discussed with the Patient and images were reviewed immediately following MBS completion, with the Patient verbalizing understanding and agreement with all recommendations and education provided. IMAGE COUNT: [id number]
--- NOTE | 2019-03-09 15:12 | CASEMGMT ---
Social Work: SALVATORE Huerta, inpatient rehab. Deanna states pre cert has been obtained for inpatient rehab. Sherita Weir RN CM notified hospitalist. PLAN: Patient to be discharged to [facility] inpatient rehab today. DIAMOND Elizondo
[2019-03-09 16:31] LABS: Bedside Glucose 247 mg/dL (70-110)
--- NOTE | 2019-03-09 16:47 | PCM.DC ---
You will use the following diet at home:: Calorie/Carbohydrate Controlled (specify 1200, 1400, etc) - 1900 calories, Cardiac Your food should be the consistency of: Mechanical soft (ground) Your liquids should be the consistency of: [place] Thick Allergies/Adverse Reactions: Allergies No Known Allergies Allergy (Verified 03/06/19 11:15) Medications to take at Discharge Aspirin 81 mg PO DAILY 02/22/19 Atorvastatin Calcium [Lipitor] 80 mg PO QHS #30 tablet 02/24/19 Amiodarone HCl [Cordarone] 200 mg PO BID 03/06/19 Metoprolol Tartrate 25 mg PO DAILY 03/06/19 Apixaban [Eliquis] 5 mg PO BID tablet 03/09/19 Insulin Glargine [Lantus SoloStar Pen] 16 units SC DAILY #0 03/09/19 Primary Care Physician: Orlando Gomez MD [Primary Care Provider] - Please follow up with your Primary Care Physician in: Following discharge from rehab Test Results: Test results from this visit will be discussed in further detail at your follow-up appointment, if applicable. Proposed Discharge Date: 03/09/19
--- NOTE | 2019-03-09 16:54 | DCINST_ITS ---
You will use the following diet at home:: Calorie/Carbohydrate Controlled (specify 1200, 1400, etc) - 1900 calories, Cardiac Your food should be the consistency of: Mechanical soft (ground) Your liquids should be the consistency of: [place] Thick Allergies/Adverse Reactions: Allergies No Known Allergies Allergy (Verified 03/06/19 11:15) Medications to take at Discharge Aspirin 81 mg PO DAILY 02/22/19 Atorvastatin Calcium [Lipitor] 80 mg PO QHS #30 tablet 02/24/19 Amiodarone HCl [Cordarone] 200 mg PO BID 03/06/19 Metoprolol Tartrate 25 mg PO DAILY 03/06/19 Apixaban [Eliquis] 5 mg PO BID tablet 03/09/19 Insulin Glargine [Lantus SoloStar Pen] 16 units SC DAILY #0 03/09/19 Primary Care Physician: Orlando Gomez MD [Primary Care Provider] - Please follow up with your Primary Care Physician in: Following discharge from rehab Test Results: Test results from this visit will be discussed in further detail at your follow- up appointment, if applicable. Proposed Discharge Date: 03/09/19
--- NOTE | 2019-03-09 17:02 | PCM.DC.SUM ---
Discharge Date and Diagnosis - Problem List Patient Problems: Active and Suspected Problems Hyponatremia (Acute) Oropharyngeal dysphagia (Acute) Ischemic cerebrovascular accident (CVA) (Acute) Date of Admission: 03/06/19 Date of Discharge: 03/09/19 - Primary Discharge Diagnosis Active and Suspected Problems Hyponatremia (Acute) Oropharyngeal dysphagia (Acute) Ischemic cerebrovascular accident (CVA) (Acute)-right paramedial pontine infarct - Secondary Discharge Diagnosis Chronic Problems Dyslipidemia (Chronic) Anemia (Chronic) Obesity (Chronic) CAD (coronary artery disease) (Chronic) Depression (Chronic) Type 2 diabetes mellitus (Chronic)-not adequately controlled, hemoglobin A1c is 9.4% Hypertension (Chronic) Neuropathy (Chronic) Hospital Course and Treatment Imaging Results: 03/09/19 13:00 Cookie Swallow [Swallowing Function w/Video] [RAD] Urgent Clinical Impression(s) from Imaging Studies Brain CT 03/06/19 11:24 IMPRESSION: Chronic involutional changes of the brain. No acute intracranial process. Electronically Signed: Florin Koo MD at 12:05 EDT Tel , Service support , Pelvis X-Ray 03/06/19 11:28 IMPRESSION: No pelvic ring fracture or malalignment. Electronically Signed: Lan Covarrubias MD at 11:59 EDT , Service support , Chest X-Ray 03/06/19 11:40 IMPRESSION: Stable, nonacute portable x-ray examination of the chest. Electronically Signed: Lan Covarrubias MD at 11:58 EDT , Service support , Brain MRI 03/07/19 10:00 IMPRESSION: Acute right paramedial pontine infarct. Electronically Signed: Allyssa Mayorga MD at 12:26 EDT Tel , Service support , ADDENDUM: 03/07/19 1235 IMPRESSION: Acute right paramedial pontine infarct. N.B. : The above information has been verbally conveyed by Allyssa Mayorga MD to Tamie Aguilar RN, on 03/07/2019 12:28:26 (ET). Electronically Signed: Allyssa Mayorga MD at 12:26 EDT Tel , Service support , Brain CT 03/07/19 10:04 IMPRESSION: Stable exam. No acute intracranial hemorrhage, mass effect or evolving process. Electronically Signed: Lan Covarrubias MD at 10:38 EDT , Service support , Videofluoroscopic Swallow 03/09/19 13:00 IMPRESSION: Transient penetration with ingestion of thin liquids. The swallow study findings were discussed with the patient by the speech pathologist at the conclusion of the examination. Please see speech pathology report for more information and recommendations. Electronically Signed: Daniel Acosta, at 15:56 EDT , Service support , Laboratory Results - last 24 hr 03/08/19 03/09/19 03/09/19 22:56 06:44 11:19 POC Glucose 254 H 198 H 243 H 03/09/19 16:27 POC Glucose [address] Ruslan Thomas-neurology Operations: None Procedures: None Summary of Care Provided: The patient is a 58-year-old male with a history of uncontrolled type 2 diabetes mellitus, hypertension, morbid obesity, stage III chronic renal failure, paroxysmal atrial fibrillation, hyperlipidemia, chronic anticoagulation with Eliquis, diabetic neuropathy and coronary artery disease who presented to the emergency department at [facility] on 03/06/2019 complaining of slurred speech, falling and left upper extremity weakness. He was admitted to [facility] on 02/22/2019 for an NSTEMI and cardiac catheterization revealed a 100% occlusion of the mid LAD which could not be stented. Transfer for CABG was recommended but the patient refused. A noncontrasted brain CT done in the emergency department was negative for any acute findings. Lab was significant for a hemoglobin of 12.1(anemia is new since December 2018). Platelets were within normal limits and the white blood cell count was mildly increased at 13.4 with 79% neutrophils. Creatinine was 1.86 which is within his baseline. Troponin was 0.345 which is decreasing from recent troponin of 12.3 on 02/22/2019 due to NSTEMI. Brain MRI was consistent with acute right paramedial pontine infarct as well as 2 small right subcortical infarct in the MCA distribution. These infarcts are thought to be embolic. A repeat CT brain on 03/07/2019 showed no intracranial hemorrhage. Consult was obtained with Dr. Thomas. PT/OT and ST consults were ordered. Eliquis was increased to 5mg BID. He was continued on a high intensity statin. He had a modified barium swallow on 03/09/2019 and this showed transient penetration with thin liquids. He was approved for a mechanical soft nectar thick liquid diet with small bites/sips, slow rate of intake and distant supervision. He should be upright at 90 degrees when eating and remain upright for at least 30 minutes following eating. Antihypertensive medications were held at admission due to the acute ischemic infarct. On the date of discharge his blood pressure was 151/88 and Lopressor 25 mg twice daily was restarted. Blood sugars have not been adequately controlled and Lantus was increased to 16 units daily from 10 units daily. Humalog 5 units TID CM was added to the drug regimen. DM is also not well controlled as an OP because the HGBA1C is 9.4%. He is emotionally labile and cries easily. He is depressed and he was on no medication for depression as an outpatient. He has also not been evaluated by a psychotherapist. He was started on Zoloft 50 mg daily and if he is tolerating this in 1 week would increase to 100 mg daily. It may be beneficial to have him evaluated by behavioral health and they will be able to give him available resources for counseling. He tells me that the reason he does not want to have a CABG is that he hopes he dies. He is not actively suicidal and he has no plan for how he would commit suicide. He lives by himself and is very lonely. He also is sad about losing his [employer] company due to illness. I feel strongly that he would benefit from psychotherapy in addition to pharmacologic management of depression. PHYSICAL EXAM: GENERAL: alert, oriented X 3, Cooperative, NAD, tearful ORAL: moist mucosa, no mucosal lesions NECK: No JVD, supple, trachea midline, no carotid bruits appreciated LUNGS: CTA, symmetric chest expansion, no conversational dyspnea, not tachypneic, no wheezes, no rales HEART: RRR, Normal S1 and S2, no rub, no gallop ABDOMEN: soft, NT, ND, BS present, no guarding with palpation, obese EXTREMITIES: no edema, no cyanosis, no calf tenderness SKIN: No rashes, no breakdown NEUROLOGIC: He is flaccid on the left side with 0/5 strength in the left upper extremity and 0/5 strength in the lower extremity. No facial droop. No nerves II through XII are grossly intact. PSYCH: appropriate, depressed affect This note was generated with [employer] dictation software. It may contain incorrect words, spelling, and punctuation that were not noted in checking the note before signing. Patient Problems: Active and Suspected Problems Hyponatremia (Acute) Oropharyngeal dysphagia (Acute) Ischemic cerebrovascular accident (CVA) (Acute) - Physical Exam Vital Signs Temp Pulse Resp BP Pulse Ox 98.5 F 76 18 151/88 H 94 03/09/19 14:30 03/09/19 15:04 03/09/19 14:30 03/09/19 14:30 03/09/19 14:30 Oxygen Flow Rate (L/min) 1 Oxygen Delivery Method Room Air Weight: 268 lb 15.423 oz Body Mass Index (BMI) 35.4 Finger Stick Blood Glucose 380 Intake and Output for Last 24 Hours 03/07/19 03/08/19 03/09/19 23:59 23:59 23:59 Intake Total 2749 / 2749 2512 / 2512 1209 / 1209 Output Total 950 / 950 150 / 150 400 / 400 Balance 1799 / 1799 2362 / 2362 809 / 809 Laboratory Tests Past 24 Hrs 03/09/19 05:18 Iron Pending TIBC Pending Iron Saturation Pending Ferritin Pending POC Glucose 03/09/19 03/09/19 03/09/19 16:27 11:19 06:44 POC Glucose 247 H 243 H 198 H 03/08/19 22:56 POC Glucose 254 H Home Medications: Medications to take at Discharge Aspirin 81 mg PO DAILY 02/22/19 Atorvastatin Calcium [Lipitor] 80 mg PO QHS #30 tablet 02/24/19 Amiodarone HCl [Cordarone] 200 mg PO BID 03/06/19 Metoprolol Tartrate 25 mg PO DAILY 03/06/19 Apixaban [Eliquis] 5 mg PO BID tablet 03/09/19 Insulin Glargine [Lantus SoloStar Pen] 16 units SC DAILY #0 03/09/19 Primary Care Physician: Orlando Gomez MD [Primary Care Provider] - Please follow up with your Primary Care Physician in: Following discharge from rehab Disposition: Inpt Rehab Unit/Facility Minutes spent on discharge:: 35 Patient Condition:: Stable Medical Necessity - Tobacco Use Smoking Status: Never smoker Tobacco Use: Non-smoker Meaningful Use Info Meaningful Use Diagnoses (Choose all that apply): Ischemic CVA - CVA Therapy Assessed for PT,OT and/or ST?: Yes - Ischemic Stroke Antithrombotic order at d/c?: Yes Dx of Atrial fib/flutter?: Yes Anticoagulant at discharge?: Yes Statins at discharge?: Yes Primary Dx Acute Ischemic CVA?: Yes IV tPA ordered during stay?: No Reason IV t-PA not ordered: Treatment not Indicated Code Visit Inpatient E&M: 09505 Disch Hosp
--- NOTE | 2019-03-09 17:15 | NURSING ---
called report to Rehab to Paige HINES
[2019-03-09 17:21] LABS: Ferritin 173 ng/mL (26-388); Iron 18 ug/dL (65-175); Iron Binding Capacity,Total 187 ug/dL (250-450); PERCENT IRON SATURATION 9.6 % (15.0-55.0)
--- NOTE | 2019-03-09 17:23 | DS.PCM_ITS ---
Discharge Date and Diagnosis - Problem List Patient Problems: Active and Suspected Problems Hyponatremia (Acute) Oropharyngeal dysphagia (Acute) Ischemic cerebrovascular accident (CVA) (Acute) Date of Admission: 03/06/19 Date of Discharge: 03/09/19 - Primary Discharge Diagnosis Active and Suspected Problems Hyponatremia (Acute) Oropharyngeal dysphagia (Acute) Ischemic cerebrovascular accident (CVA) (Acute)-right paramedial pontine infarct - Secondary Discharge Diagnosis Chronic Problems Dyslipidemia (Chronic) Anemia (Chronic) Obesity (Chronic) CAD (coronary artery disease) (Chronic) Depression (Chronic) Type 2 diabetes mellitus (Chronic)-not adequately controlled, hemoglobin A1c is 9.4% Hypertension (Chronic) Neuropathy (Chronic) Hospital Course and Treatment Imaging Results: 03/09/19 13:00 Cookie Swallow [Swallowing Function w/Video] [RAD] Urgent Clinical Impression(s) from Imaging Studies Brain CT 03/06/19 11:24 IMPRESSION: Chronic involutional changes of the brain. No acute intracranial process. Electronically Signed: Florin Koo MD at 12:05 EDT Tel , Service support , Pelvis X-Ray 03/06/19 11:28 IMPRESSION: No pelvic ring fracture or malalignment. Electronically Signed: Lan Covarrubias MD at 11:59 EDT , Service support , Chest X-Ray 03/06/19 11:40 IMPRESSION: Stable, nonacute portable x-ray examination of the chest. Electronically Signed: aLn Covarrubias MD at 11:58 EDT , Service support , Brain MRI 03/07/19 10:00 IMPRESSION: Acute right paramedial pontine infarct. Electronically Signed: Allyssa Mayorga MD at 12:26 EDT Tel , Service support , ADDENDUM: 03/07/19 1235 IMPRESSION: Acute right paramedial pontine infarct. N.B. : The above information has been verbally conveyed by Allyssa Mayorga MD to Tamie Aguilar RN, on 03/07/2019 12:28:26 (ET). Electronically Signed: Allyssa Mayorga MD at 12:26 EDT Tel , Service support , Brain CT 03/07/19 10:04 IMPRESSION: Stable exam. No acute intracranial hemorrhage, mass effect or evolving process. Electronically Signed: Lan Covarrubias MD at 10:38 EDT , Service support , Videofluoroscopic Swallow 03/09/19 13:00 IMPRESSION: Transient penetration with ingestion of thin liquids. The swallow study findings were discussed with the patient by the speech pathologist at the conclusion of the examination. Please see speech pathology report for more information and recommendations. Electronically Signed: Daniel Acosta, at 15:56 EDT , Service support , Laboratory Results - last 24 hr 03/08/19 03/09/19 03/09/19 22:56 06:44 11:19 POC Glucose 254 H 198 H 243 H 03/09/19 16:27 POC Glucose [address] Ruslan Thomas-neurology Operations: None Procedures: None Summary of Care Provided: The patient is a 58-year-old male with a history of uncontrolled type 2 diabetes mellitus, hypertension, morbid obesity, stage III chronic renal failure, paroxysmal atrial fibrillation, hyperlipidemia, chronic anticoagulation with Eliquis, diabetic neuropathy and coronary artery disease who presented to the emergency department at [facility] on 03/06/2019 complaining of slurred speech, falling and left upper extremity weakness. He was admitted to [facility] on 02/22/2019 for an NSTEMI and cardiac catheterization revealed a 100% occlusion of the mid LAD which could not be stented. Transfer for CABG was recommended but the patient refused. A noncontrasted brain CT done in the emergency department was negative for any acute findings. Lab was significant for a hemoglobin of 12.1(anemia is new since December 2018). Platelets were within normal limits and the white blood cell count was mildly increased at 13.4 with 79% neutrophils. Creatinine was 1.86 which is within his baseline. Troponin was 0.345 which is decreasing from recent troponin of 12.3 on 02/22/2019 due to NSTEMI. Brain MRI was consistent with acute right paramedial pontine infarct as well as 2 small right subcortical infarct in the MCA distribution. These infarcts are thought to be embolic. A repeat CT brain on 03/07/2019 showed no intracranial hemorrhage. Consult was obtained with Dr. Thomas. PT/OT and ST consults were ordered. Eliquis was increased to 5mg BID. He was continued on a high intensity statin. He had a modified barium swallow on 03/09/2019 and this showed transient penetration with thin liquids. He was approved for a mechanical soft nectar thick liquid diet with small bites/sips, slow rate of intake and distant supervision. He should be upright at 90 degrees when eating and remain upright for at least 30 minutes following eating. Antihypertensive medications were held at admission due to the acute ischemic infarct. On the date of discharge his blood pressure was 151/88 and Lopressor 25 mg twice daily was restarted. Blood sugars have not been adequately controlled and Lantus was increased to 16 units daily from 10 units daily. Humalog 5 units TID CM was added to the drug regimen. DM is also not well controlled as an OP because the HGBA1C is 9.4%. He is emotionally labile and cries easily. He is depressed and he was on no medication for depression as an outpatient. He has also not been evaluated by a psychotherapist. He was started on Zoloft 50 mg daily and if he is tolerating this in 1 week would increase to 100 mg daily. It may be beneficial to have him evaluated by behavioral health and they will be able to give him available resources for counseling. He tells me that the reason he does not want to have a CABG is that he hopes he dies. He is not actively suicidal and he has no plan for how he would commit suicide. He lives by himself and is very lonely. He also is sad about losing his [employer] company due to illness. I feel strongly that he would benefit from psychotherapy in addition to pharmacologic management of depression. PHYSICAL EXAM: GENERAL: alert, oriented X 3, Cooperative, NAD, tearful ORAL: moist mucosa, no mucosal lesions NECK: No JVD, supple, trachea midline, no carotid bruits appreciated LUNGS: CTA, symmetric chest expansion, no conversational dyspnea, not tachypneic, no wheezes, no rales HEART: RRR, Normal S1 and S2, no rub, no gallop ABDOMEN: soft, NT, ND, BS present, no guarding with palpation, obese EXTREMITIES: no edema, no cyanosis, no calf tenderness SKIN: No rashes, no breakdown NEUROLOGIC: He is flaccid on the left side with 0/5 strength in the left upper extremity and 0/5 strength in the lower extremity. No facial droop. No nerves II through XII are grossly intact. PSYCH: appropriate, depressed affect This note was generated with [employer] dictation software. It may contain incorrect words, spelling, and punctuation that were not noted in checking the note before signing. Patient Problems: Active and Suspected Problems Hyponatremia (Acute) Oropharyngeal dysphagia (Acute) Ischemic cerebrovascular accident (CVA) (Acute) - Physical Exam Vital Signs Temp Pulse Resp BP Pulse Ox 98.5 F 76 18 151/88 H 94 03/09/19 14:30 03/09/19 15:04 03/09/19 14:30 03/09/19 14:30 03/09/19 14:30 Oxygen Flow Rate (L/min) 1 Oxygen Delivery Method Room Air Weight: 268 lb 15.423 oz Body Mass Index (BMI) 35.4 Finger Stick Blood Glucose 380 Intake and Output for Last 24 Hours 03/07/19 03/08/19 03/09/19 23:59 23:59 23:59 Intake Total 2749 / 2749 2512 / 2512 1209 / 1209 Output Total 950 / 950 150 / 150 400 / 400 Balance 1799 / 1799 2362 / 2362 809 / 809 Laboratory Tests Past 24 Hrs 03/09/19 05:18 Iron Pending TIBC Pending Iron Saturation Pending Ferritin Pending POC Glucose 03/09/19 03/09/19 03/09/19 16:27 11:19 06:44 POC Glucose 247 H 243 H 198 H 03/08/19 22:56 POC Glucose 254 H Home Medications: Medications to take at Discharge Aspirin 81 mg PO DAILY 02/22/19 Atorvastatin Calcium [Lipitor] 80 mg PO QHS #30 tablet 02/24/19 Amiodarone HCl [Cordarone] 200 mg PO BID 03/06/19 Metoprolol Tartrate 25 mg PO DAILY 03/06/19 Apixaban [Eliquis] 5 mg PO BID tablet 03/09/19 Insulin Glargine [Lantus SoloStar Pen] 16 units SC DAILY #0 03/09/19 Primary Care Physician: Orlando Gomez MD [Primary Care Provider] - Please follow up with your Primary Care Physician in: Following discharge from rehab Disposition: Inpt Rehab Unit/Facility Minutes spent on discharge:: 35 Patient Condition:: Stable Medical Necessity - Tobacco Use Smoking Status: Never smoker Tobacco Use: Non-smoker Meaningful Use Info Meaningful Use Diagnoses (Choose all that apply): Ischemic CVA - CVA Therapy Assessed for PT,OT and/or ST?: Yes - Ischemic Stroke Antithrombotic order at d/c?: Yes Dx of Atrial fib/flutter?: Yes Anticoagulant at discharge?: Yes Statins at discharge?: Yes Primary Dx Acute Ischemic CVA?: Yes IV tPA ordered during stay?: No Reason IV t-PA not ordered: Treatment not Indicated Code Visit Inpatient E&M: 43660 Disch Hosp
== END 2019-03-09 17:23 | DRG 45 ==
LOC: ED 12:16 → PCU 13:35
PROVIDERS: Admitting Provider Family Medicine; Emergency Provider Emergency Medicine; Family Provider Family Medicine; PCP Family Medicine; Visit Provider Internal Medicine
DX: I63.9 Cerebral infarction, unspecified (principal); I21.4 Non-ST elevation (NSTEMI) myocardial infarction; E87.1 Hypo-osmolality and hyponatremia; R47.1 Dysarthria and anarthria; G83.24 Monoplegia of upper limb affecting left nondominant side; R29.716 NIHSS score 16; R13.12 Dysphagia, oropharyngeal phase; E11.65 Type 2 diabetes mellitus with hyperglycemia; E11.40 Type 2 diabetes mellitus with diabetic neuropathy, unspecified; I25.10 Atherosclerotic heart disease of native coronary artery without angina pectoris; I12.9 Hypertensive chronic kidney disease with stage 1 through stage 4 chronic kidney disease, or unspecified chronic kidney disease; E11.22 Type 2 diabetes mellitus with diabetic chronic kidney disease; N18.3 Chronic kidney disease, stage 3 (moderate); I48.0 Paroxysmal atrial fibrillation; E78.5 Hyperlipidemia, unspecified; F32.9 Major depressive disorder, single episode, unspecified; Z79.01 Long term (current) use of anticoagulants; E66.9 Obesity, unspecified; Z68.35 Body mass index [BMI] 35.0-35.9, adult; D64.9 Anemia, unspecified; Z79.4 Long term (current) use of insulin
CPT/HCPCS: 36415; 70450; 70551; 71045; 72170; 74230; 80048; 80061; 80076; 81001; 82009; 82728; 82962; 83540; 83550; 83690; 84484; 85025; 92526; 92610; 92611; 93005; 97162; 97167; 97530; 97802; 99285; J7030; A4216; J2405

== ENCOUNTER 2019-03-09 17:55 | Inpatient (IN) | payer MEDICAID, SELFPAY ==
[2019-03-09 15:21] VITALS: BMI 35.4
[2019-03-09 18:24] VITALS: BP 145/90; PULSE 78; RESP 18; TEMP 36.7; O2SAT 92; BMI 36.6
--- NOTE | 2019-03-09 18:27 | NURSING ---
Aware of being a fall risk and demonstrated call bernal use.
--- NOTE | 2019-03-09 18:55 | NURSING ---
Patient has $21 in wallet and patient requested to leave wallet on shelf under TV. A&O x3.
[2019-03-09 19:10] VITALS: O2SAT 93
[2019-03-09 20:14] VITALS: BMI 36.6
[2019-03-09 21:00] VITALS: BP 162/90
[2019-03-09 21:06] LABS: Bedside Glucose 251 mg/dL (70-110)
[2019-03-09 22:00] VITALS: BP 177/96; PULSE 82; RESP 20; TEMP 36.7; O2SAT 92
[2019-03-09] MEDS: Senna/Docusate Sodium 1 Tablet 2 TABLET PO (22:15)
[2019-03-09] MEDS: Insulin Lispro 100 UNIT/ML INSULN.PEN SC (22:19)
[2019-03-09] MEDS: Atorvastatin Calcium 80 MG Tablet PO (22:19)
[2019-03-09] MEDS: APIXABAN 5 MG TABLET PO (22:20)
[2019-03-09] MEDS: Amiodarone 200 MG Tablet PO (22:20)
--- NOTE | 2019-03-10 00:27 | NURSING ---
pt assessment complete. Pt resting in bed and denies pain.
[2019-03-10 06:20] LABS: Hematocrit 34.8 % (40-54); Hemoglobin 11.3 g/dl (13.0-16.5); Mean Corp Hgb Conc 32.5 g/gl (32-36); Mean Corpuscular Hgb 26.2 pg (27.0-32.0); Mean Corpuscular Volume 80.7 fL (80-94); Mean Platelet Vol. 9.3 fl (6.2-12.0); Platelet Count 449 K/mm3 (150-450); RBC Distribution Width CV 13.1 % (11.6-14.6); RBC Distribution Width SD 37.8 fl (35.1-43.9); Red Blood Count 4.31 M/mm3 (4.6-6.2); White Blood Count 9.7 K/mm3 (4.4-11.0)
[2019-03-10 06:22] LABS: Scan Indicated on CBC? Y/N NO
[2019-03-10 06:31] LABS: Anion Gap 8 (5-15); BUN 18 mg/dL (7-18); BUN/Creat Ratio 11.8 RATIO (10-20); Calcium,Total 8.7 mg/dL (8.5-10.1); Chloride 111 mmol/L (98-107); Creatinine, Serum 1.52 mg/dL (0.70-1.30); EST Glomerular Filtration Rate 50 mL/min (>60); Est Glom Filt Rate - Afr Amer 61 mL/min (>60); Estimated Creatinine Clearance 61.59 ml/min; Glucose 183 mg/dL (74-106); Sodium Level 142 mmol/L (136-145)
[2019-03-10 06:52] VITALS: O2SAT 94
[2019-03-10 06:56] LABS: Bedside Glucose 171 mg/dL (70-110)
[2019-03-10 07:06] VITALS: BP 157/96; PULSE 83; RESP 19; TEMP 36.6; O2SAT 93
[2019-03-10] MEDS: Insulin Lispro 100 UNIT/ML INSULN.PEN SC ×7 (07:57→21:22)
[2019-03-10] MEDS: Amiodarone 200 MG Tablet PO ×2 (07:59→21:21)
[2019-03-10] MEDS: Aspirin 81 MG TAB.CHEW PO (07:59)
[2019-03-10] MEDS: Sertraline 50 MG Tablet PO (07:59)
[2019-03-10] MEDS: APIXABAN 5 MG TABLET PO ×2 (07:59→21:31)
[2019-03-10 08:00] VITALS: PULSE 83
[2019-03-10] MEDS: Metoprolol Tartrate 25 MG Tablet PO (08:00)
--- NOTE | 2019-03-10 11:00 | NURSING ---
Dr. Thomas aware of BP readings.
--- NOTE | 2019-03-10 11:12 | HP.PCM_ITS ---
History of Present Illness Date of Admission: 03/10/19 Chief Complaint: Left-sided weakness The patient is a 58 year old to the hospital as below with a 2-day history, now approximately 5 days ago of slurred speech associated with left-sided weakness. He also had an VT 2 weeks ago prior to that. He is on Eliquis for atrial fibrillation but he was on a low dose. Work-up in the hospital disclosed a right cerebral peduncular infarct. He is now admitted to the hospital rehab unit for rehabilitation with a goal of returning to his prior level of functional independence. Previously was living in a shed as described below. No other complaints at this point. He says he is somewhat short of breath occasionally but he thinks this may be anxiety. He does not want his anxiety treated right now. Slept well last night. No GI or complaints. Per admission note:]The patient is a 58 year old M presented as below, reports he remains compliant with eliquis. reports he lives in a shed but it is 10x16, warm, dry, clean and safe. uses a portapody but doesnt have a shower. when he came to the hospital he says his left side was weak, starting friday, 2 days ago. reports his mi was 2 weeks ago. also noted speech trouble 2 days ago. The patient is a 58 year old M H as below who was recently admitted for an NSTEMI, he was found to have total occlusion of his mid LAD and they could not stent this and recommended him be transferred for a CABG, however he refused. He presents today with slurred speech and falling as well as left upper extremity weakness. He has chronic bilateral lower extremity sensory deficiencies and weakness. States that he is gone to physical therapy for his lower extremities and they told him that he would never recover his mobility. He lives in a shed and was found by his friend who brought him to the ER via EMS. In the ER CT head was negative for a bleed considering he is on Eliquis and had a fall this morning. Chest and pelvis x-ray were also negative. Lab was remarkable for a leukocytosis of 13 and a troponin of 0.3 though his previous troponin during his VT was above 12. There is concern that he may have a CVA despite being on Eliquis and also he is significantly weak and debilitated and therefore it was felt that he should be admitted for further workup. Past Medical History Past Medical History (Chronic Problems): Chronic Problems Dyslipidemia (Chronic) Anemia (Chronic) Obesity (Chronic) CAD (coronary artery disease) (Chronic) Depression (Chronic) Type 2 diabetes mellitus (Chronic) Hypertension (Chronic) Neuropathy (Chronic) Allergies No Known Allergies Allergy (Verified 03/06/19 11:15) Home Medications: Ambulatory Orders Medication Instructions Recorded Aspirin 81 mg PO DAILY 02/22/19 Amiodarone HCl [Cordarone] 200 mg PO BID 03/06/19 Metoprolol Tartrate 25 mg PO DAILY 03/06/19 Apixaban [Eliquis] 5 mg PO BID 03/09/19 Atorvastatin Calcium [Lipitor] 80 mg PO QHS 03/09/19 Insulin Glargine [Lantus SoloStar 16 units SC DAILY #0 03/09/19 Pen] Insulin Lispro [Humalog Kwikpen] 5 unit SQ TIDCM 03/09/19 Surgical History: no surgical history Smoking Status: Never smoker - *Family History Maternal History Items: Heart Disease, - - Cerebral hemorrhage Paternal History Items: Heart Disease, Stroke Review of Systems Constitutional: Denies: Chills, Fever, Weight Change HEENT: Denies: Head Aches, Sinus Congestion, Sinus Drainage Cardiovascular: Denies: Chest Pain, Palpitations Respiratory: Denies: Cough, Shortness of breath at rest, Sputum production Gastrointestinal: Denies: Abdominal Pain, Nausea, Vomiting Genitourinary: Denies: Dysuria Musculoskeletal: Denies: Joint Pain, Joint Tenderness Skin: Denies: Rash, Wounds Neurological: Denies: Numbness, Tingling, Focal weakness Psychiatric: Denies: Anxiety, Depression, Homicidal Ideations, Suicidal Ideations Hematologic/ Lymphatic: Denies: Easy Bruising, Easy Bleeding VTE Information - Inpt Only VTE Present on Admission: Yes VTE Pharm Prophylaxis ordered?: Yes - Physical Exam General: Alert, Oriented x3, Cooperative, No apparent distress HEENT: PERRLA, EOMI Neurological: Cranial nerves II-XII grossly intact, Slurred Speech, Sensory exam intact to light touch and pain, - - Left arm and left leg flaccid Psych/Mental Status: Normal Affect, Alert and oriented to time, place, person, mood and affect Vital Signs Temp Pulse Resp BP Pulse Ox 36.6 C 83 19 H 157/96 H 93 03/10/19 07:06 03/10/19 08:00 03/10/19 07:06 03/10/19 07:06 03/10/19 07:06 Oxygen Delivery Method Room Air Weight: 129 kg Body Mass Index (BMI) 36.6 Finger Stick Blood Glucose 380 Intake and Output for Last 24 Hours 03/08/19 03/09/19 03/10/19 23:59 23:59 23:59 Intake Total 240 / 240 Balance 240 / 240 Laboratory Tests Past 24 Hrs 03/10/19 03/10/19 05:50 05:50 WBC 9.7 RBC 4.31 L Hgb 11.3 L Hct 34.8 L MCV 80.7 MCH 26.2 L MCHC 32.5 RDW 13.1 RDW Differential 37.8 Plt Count 449 MPV 9.3 Sodium 142 Potassium 4.0 Chloride 111 H Carbon Dioxide 23.0 Anion Gap 8 BUN 18 Creatinine 1.52 H Estim Creat Clear Calc 61.59 Est GFR (MDRD) Af Amer 61 Est GFR (MDRD) Non-Af 50 L BUN/Creatinine Ratio 11.8 Glucose 183 H Calcium 8.7 POC Glucose 03/10/19 03/09/19 06:50 21:01 POC Glucose 171 H 251 H Current Medications Generic Name Dose Route Start Last Admin Trade Name Freq PRN Reason Stop Dose Admin Acetaminophen 650 mg 03/09/19 18:39 Tylenol PO Q6H PRN PRN Mild Pain (0-3/10)/Headache Amiodarone HCl 200 mg 03/09/19 22:00 03/10/19 07:59 Cordarone PO 200 mg BID YANN Administration Apixaban 5 mg 03/09/19 22:00 03/10/19 07:59 Eliquis PO 5 mg BID YANN Administration Aspirin 81 mg 03/10/19 08:00 03/10/19 07:59 Aspirin, Baby PO 81 mg DAILY@0800 YANN Administration Atorvastatin Calcium 80 mg 03/09/19 22:00 03/09/19 22:19 Lipitor PO 80 mg QHS YANN Administration Bisacodyl 10 mg 03/09/19 18:39 Dulcolax RECTAL .PRN X 1 PRN Constipation Insulin Glargine 16 units 03/10/19 10:00 03/10/19 09:40 Lantus (Bkc) SC 16 u DAILY YANN Administration Insulin Glargine 8 units 03/10/19 22:00 Lantus ([facility]) SC QHS YANN Insulin Human Lispro 5 unit 03/10/19 08:00 03/10/19 07:57 Humalog Kwikpen ([facility]) SC 5 u TIDCM YANN Administration Insulin Human Lispro 0 unit 03/09/19 22:00 03/10/19 07:58 Humalog Kwikpen ([facility]) SC 1 u ACHS YANN Administration Protocol Lorazepam 0.5 mg 03/09/19 18:39 Ativan PO QHS PRN PRN Insomnia Magnesium Hydroxide 30 ml 03/09/19 18:39 Milk Of Magnesia PO .PRN X 1 PRN Constipation Metoprolol Tartrate 25 mg 03/10/19 10:00 03/10/19 08:00 Lopressor (Beta Leland) PO 25 mg DAILY YANN Administration Senna/Docusate Sodium 2 tablet 03/09/19 22:00 03/09/19 22:15 Senokot-S, Kylie-Colace PO 2 tablet BID YANN Administration Sertraline HCl 50 mg 03/10/19 10:00 03/10/19 07:59 Zoloft PO 50 mg DAILY YANN Administration Assessment/Plan All Active Problems Hyponatremia (Acute) Oropharyngeal dysphagia (Acute) Ischemic cerebrovascular accident (CVA) (Acute) 40 status post pure motor stroke affecting the left side with flaccid hemiparesis of his left arm and left leg likely due to atrial fibrillation. His Eliquis dose has been increased. Now admitted to rehab with a goal of restoring his previous level of functional independence. Plan: Physical therapy for gait and balance Occupational Therapy for ADLs Speech therapy Bowel protocol PRN analgesics DVT prophylaxis: Eliquis Antihypertensives: Metoprolol.
--- NOTE | 2019-03-10 11:14 | REHABEVAL_ITS ---
Admission Information Status Changes from Prescreening?: No changes Identified Actual Problem List:: Alteration in Nutrition, Mobility Impaired, Self Care Deficit, Know.Dfct/Disease Process, Know.Dfct of Medicaitons, BP, Hypertension, Ineffect.D/C Plan r/t Psy Potential Problem List:: DVT, Bleeding, Infection, UTI, Aspiration, Falls, Skin Integrity, Depression Risk of Complications DVT: LMWH, JASMIN Hose, Sequential Compression Device Bleeding: Monitor Lab Values, Nursing to Teach Precautions for anti-coagulation therapy., Wound, if applicable, to be assessed every shift., Stroke patients assessed for lethargy or change in status. Infection: Clinical Staff to Monitor for S/S of infection:, S/S of infection include fever, redness, warmth, etc. Urinary Tract Infection: Monitor for frequency, burning, discomfort, or incontinence., Nursing will obtain urine sample for urinalysis and C&S when ordered. Aspiration: Clinical staff will monitor for coughing, drooling, congestion., Speech will evaluate swallowing and dsyphasia., Nursing will monitor patient swallowing during meals. Falls: Patient will be evaluated for Fall Precautions, Patient will be placed on Fall Precautions as indicated per protocol. Skin Breakdown: Nursing will assess skin daily using assessment tool., Nursing will place on Skin Breakdown Precautions as indicated. Pain: Clinical staff will assess patient's pain level per protocol., Medications will be given, if needed, and the pain level reassessed., Other methods: Massage, distraction, decrease stimulus, etc. used PRN. Plan of Care Patient requires physician specializing in physical medicine and rehab oversight to provide close medical supervision of rehab issues including: Pain Management, Sleep Problems, Bowel and Bladder, Medical and co-morbidity Management, DVT prophylaxis, Rehabilitation Leadership, Coordination of treatment team Patient needs Physical Therapy: For a minimum of 1 hour, At least 5 out of 7 days Patient needs Physical Therapy to improve:: Mobility, Mobility, Mobility, Strengthening, Transfers, Stretching, ROM, Endurance, Stairs, Gait, Balance Patient needs Occupational Therapy: For a minimum of 1 hour, At least 5 out of 7 days Patient needs Occupational Therapy to improve ADL's incl.: Eating, Grooming, Bathing, Dressing, Toileting, Toilet transfers, Community Reintegration, Higher functioning activities, Household tasks, Adaptive Equipment, Splinting, Other activities as determined Patient requires speech therapy: For a minimum of 1 hour, At least 5 out of 7 days Patient requires speech therapy for: Swallowing, Cognition, Language Skills, Compensatory Strategies Patient requires 24/ Rehabilitation Nursing for: Pain Issues, Identifying and preventing risk factors, Monitoring and reporting current medical conditions, Assisting with ambulation, transfer, and all ADL's, Teaching patients about disease process and medications, Family teaching, Providing safe environment, Bowel and Bladder Issues, Skin integrity, Medication Management Patient needs Helicopter Dispatcher/ Case Management for: Discharge Planning, Arranging Home Equipment or Services, Family Interventions Patient needs Dietary and Nutrition Services for: Adequate Nutrition, Nu tritional Supplements, Nutritional Education Goals Patient will remain: free from falls, or injury at time of discharge. Patient will perform bed mobility at: MOD I level of assist. Patient will complete transfers from bed to chair at: MOD I level of assist. Patient will ambulate: 100 feet, with MOD I assist, with LRD Patient will complete upper body dressing at: MOD I level of assist. Patient will complete lower body dressing at: MOD I level of assist. Patient will complete toileting at: MOD I level of assist. Patient will perform bathing at: MOD I level of assist. Patient will complete grooming at: MOD I level of assist. Patient will complete home management skills at: MOD I level of assist. Patient will achieve: 12 stairs, at MOD I assist Patient will have pain level of: of 3 or less Patient's skin will: remain intact, free from infection. Patient will receive: adequate nutrition. Discharge Planning Anticipated D/C Destination: Home with Outpt Therapy Was Preadmission Assessment Accurate?: Yes
[2019-03-10] MEDS: Senna/Docusate Sodium 1 Tablet 2 TABLET PO ×2 (12:29→21:21)
[2019-03-10 14:41] LABS: Bedside Glucose 218 mg/dL (70-110)
--- NOTE | 2019-03-10 14:52 | CASEMGMT ---
Social Work Rehab Unit Reviewed and approve [employer] student international guest coordinator Misti Kumar documentation: RU Social work admit assessment dated 03.10.2019 at 1419. -DIAMOND Lewis, TECHNOLOGY INSTRUCTOR
[2019-03-10 16:31] LABS: Bedside Glucose 238 mg/dL (70-110)
[2019-03-10 19:21] VITALS: BP 159/93; PULSE 77; RESP 18; TEMP 36.9; O2SAT 94
[2019-03-10] MEDS: Atorvastatin Calcium 80 MG Tablet PO (21:21)
[2019-03-10 21:41] LABS: Bedside Glucose 206 mg/dL (70-110)
[2019-03-10 22:00] VITALS: PULSE 84
[2019-03-11 06:11] LABS: Bedside Glucose 143 mg/dL (70-110)
[2019-03-11 06:55] VITALS: O2SAT 96
[2019-03-11 06:58] VITALS: BP 164/103; PULSE 73; RESP 18; TEMP 36.4; O2SAT 96
[2019-03-11] MEDS: Aspirin 81 MG TAB.CHEW PO (08:22)
[2019-03-11] MEDS: Sertraline 50 MG Tablet PO (08:23)
[2019-03-11] MEDS: Senna/Docusate Sodium 1 Tablet 2 TABLET PO ×2 (08:23→22:10)
[2019-03-11] MEDS: Amiodarone 200 MG Tablet PO ×2 (08:23→22:12)
[2019-03-11] MEDS: Insulin Lispro 100 UNIT/ML INSULN.PEN SC ×4 (08:23→22:01)
[2019-03-11 08:24] VITALS: PULSE 88
[2019-03-11] MEDS: Metoprolol Tartrate 25 MG Tablet PO (08:24)
[2019-03-11] MEDS: APIXABAN 5 MG TABLET PO ×2 (08:25→22:11)
--- NOTE | 2019-03-11 11:23 | MRI_ITS ---
STUDY: MRA OF THE HEAD WITHOUT CONTRAST REASON FOR EXAM: Male, 58 years old. CVA TECHNIQUE: 3-D [id number] (TOF) imaging was performed with MIPs. The study was performed unenhanced. COMPARISON: Brain MRI 03/07/2019. FINDINGS: Normal bilateral petrous carotid arteries. Normal right cavernous carotid artery with a normal supraclinoid bifurcation. Normal left cavernous carotid artery with a normal supraclinoid bifurcation. Normal right A1 segments of the anterior cerebral artery. Normal left A1 segments of the anterior cerebral artery. Normal intact anterior communicating artery (ACOM). Normal bilateral A2 segments of the anterior cerebral arteries. Normal right M1 and M2 segments of the middle cerebral arteries, with a normal M1 bifurcation. Normal left M1 and M2 segments of the middle cerebral arteries, with a normal M1 bifurcation. Normal right posterior communicating artery (PCOM). Normal left posterior communicating artery (PCOM). Normal bilateral vertebral arteries. Normal basilar artery with a normal basilar bifurcation. The visualized bilateral superior cerebellar (SCA) arteries are normal. Normal bilateral P1, P2 and visualized P3 segments of the posterior cerebral arteries. There is no demonstrated aneurysm of the eyak of [place]. There is no major vessel occlusion or hemodynamically significant stenosis. There is no demonstrated abnormality of the visualized brain. MRI/MRA Head ONLY without Contrast IMPRESSION: Normal MRA of the head Electronically Signed: Karen Brown, at 15:37 EDT Tel , Service support ,
--- NOTE | 2019-03-11 11:23 | MRI_ITS ---
STUDY: MRA NECK WITHOUT CONTRAST REASON FOR EXAM: Male, 58 years old. CVA TECHNIQUE: Source images were obtained, MIPs were performed. The study was performed unenhanced. COMPARISON: None. FINDINGS: RIGHT CAROTID ARTERIES: Normal right common carotid artery (CCA). Normal right common carotid bulb. Normal origin of the right internal carotid (ICA) artery without a hemodynamically significant stenosis. Normal visualized cervical portion of the right internal carotid artery. Normal origin of the right external carotid artery (ECA). LEFT CAROTID ARTERIES: Normal left common carotid artery (CCA). Normal left common carotid bulb. Normal origin of the left internal carotid (ICA) artery without a hemodynamically significant stenosis. Normal visualized cervical portion of the left internal carotid artery. Normal origin of the left external carotid artery (ECA). VERTEBRAL ARTERIES: Normal antegrade flow within the bilateral vertebral artery without a hemodynamically significant stenosis. MRI/MRA Neck without Contrast IMPRESSION: Normal bilateral cervical carotid and vertebral arteries. Electronically Signed: Karen Brown, at 16:17 EDT Tel , Service support ,
[2019-03-11 11:26] VITALS: BP 131/82; PULSE 60
--- NOTE | 2019-03-11 11:30 | NURSING ---
Dr. Mishra aware of BP readings.
[2019-03-11 12:25] LABS: Bedside Glucose 130 mg/dL (70-110)
--- NOTE | 2019-03-11 14:50 | PCM.PN.NEU ---
Subjective: No issues overnight. Care discussed with nursing staff. - Physical Exam General: Alert HEENT: Normocephalic Neck: Supple Lungs: Normal air movement Cardiovascular: Normal S1, Normal S2 Abdomen: Bowel Sounds Present Extremities: No cyanosis Neurological: - - consious, alert, AoAx3, CN 2-12 grossly intact, power 5/5 right UE/LE, 0/5 left UE/LE, no sensory loss, no cerebellar signs, Reflexes + B/L B/S/T/K/A, gait deferred. Psych/Mental Status: Normal Affect Vital Signs Temp Pulse Resp BP Pulse Ox 97.5 F L 60 18 131/82 H 96 03/11/19 06:58 03/11/19 11:26 03/11/19 06:58 03/11/19 11:26 03/11/19 06:58 Oxygen Delivery Method Room Air Weight: 129 kg Body Mass Index (BMI) 36.6 Finger Stick Blood Glucose 380 Intake and Output for Last 24 Hours 03/09/19 03/10/19 03/11/19 23:59 23:59 23:59 Intake Total 600 / 600 400 / 400 Balance 600 / 600 400 / 400 POC Glucose 03/11/19 03/11/19 03/10/19 12:20 06:07 21:19 POC Glucose 130 H 143 H 206 H 03/10/19 16:28 POC Glucose 238 H Medical Necessity - Tobacco Use Smoking Status: Never smoker Assessment/Plan All Active Problems Hyponatremia (Acute) Oropharyngeal dysphagia (Acute) Ischemic cerebrovascular accident (CVA) (Acute) 58-year-old male with PMH HTN, HLD, DM, neuropathy, CKD, recent admission with NSTEMI on 02/22/2019 was found to have LAD occlusion and recommended CABG patient refused, A. fib on Eliquis (per documentation patient was found in A. fib with RVR post cardiac cath when he was admitted on 02/22/2019) admitted to [facility] on 03/10/2019 with debility status post acute right paramedian pontine infarct for greater than 3 hours therapy daily with the aim of returning back home at or near his prior level of functional independence. Patient is admitted with dysarthria and left-sided weakness, was found to have acute right paramedian pontine infarct on the MRI brain. Echo done on 02/22/2019 reported to show EF of 35%, LA moderately enlarged LDL 61, hemoglobin A1c 9.4. Plan ?PT for gait stability ?OT for ADLs ?Analgesics as needed ?Bowel protocol ?Hypertension?on metoprolol, was on amlodipine. Will check MR angiogram head neck, monitor blood pressure, avoid hypotension. ?HLD?on atorvastatin ?Acute right paramedian pontine stroke?on Eliquis, statins. Probably the stroke was secondary to small vessel disease secondary to uncontrolled diabetes ?DM?on insulin, further management as per hospitalist commendations ?CKD?avoid nephrotoxic drugs, avoid dehydration. ?CAD?recent cardiac catheterization on 02/22/2019 reported to show mid LAD occlusion, patient was advised to CABG but refused the same. On aspirin statins and metoprolol. Ejection fraction 35%. Patient does not want to pursue any further intervention procedure per patient. ?A. fib?on Eliquis, amiodarone and metoprolol ?Neuropathy- on gabapentin ?Patient on Zoloft ?GI/DVT prophylaxis?on famotidine/Eliquis ?Fall precautions ?Patient counseled to be compliant with medications. ?Further medical management per hospitalist recommendation ?Follow-up with PCP, cardiology, endocrinology and neurology as outpatient.
[2019-03-11 16:35] LABS: Bedside Glucose 107 mg/dL (70-110)
[2019-03-11 19:30] VITALS: BP 160/87; PULSE 70; RESP 16; TEMP 36.9; O2SAT 97
[2019-03-11 22:06] LABS: Bedside Glucose 196 mg/dL (70-110)
[2019-03-11] MEDS: Atorvastatin Calcium 80 MG Tablet PO (22:11)
[2019-03-11] MEDS: Gabapentin 100 MG Capsule 200 MG PO (22:11)
[2019-03-12 06:40] LABS: Bedside Glucose 103 mg/dL (70-110)
[2019-03-12 07:00] VITALS: BP 159/92; PULSE 74; RESP 16; TEMP 36.9; O2SAT 96
[2019-03-12] MEDS: Insulin Lispro 100 UNIT/ML INSULN.PEN SC ×6 (08:11→20:47)
[2019-03-12 08:12] VITALS: BP 159/92; PULSE 74
[2019-03-12] MEDS: Metoprolol Tartrate 25 MG Tablet PO (08:12)
[2019-03-12] MEDS: Gabapentin 100 MG Capsule PO ×2 (08:12→17:49)
[2019-03-12] MEDS: Amiodarone 200 MG Tablet PO ×2 (08:12→20:50)
[2019-03-12] MEDS: Aspirin 81 MG TAB.CHEW PO (08:12)
[2019-03-12] MEDS: APIXABAN 5 MG TABLET PO ×2 (08:13→20:50)
[2019-03-12] MEDS: Sertraline 50 MG Tablet PO (08:14)
[2019-03-12] MEDS: Senna/Docusate Sodium 1 Tablet 2 TABLET PO (08:14)
[2019-03-12 11:15] LABS: Bedside Glucose 183 mg/dL (70-110)
--- NOTE | 2019-03-12 13:09 | PCM.PN.NEU ---
Subjective: No issues overnight no issues overnight no issues overnight. Care discussed with the nurse was overnight. Care discussed with the nursing staff. - Physical Exam General: Alert HEENT: Normocephalic Neck: Supple Lungs: Normal air movement Cardiovascular: Normal S1, Normal S2 Abdomen: Bowel Sounds Present Extremities: No cyanosis Neurological: - - consious, alert, AoAx3, CN 2-12 grossly intact, power 5/5 right UE/LE, 0/5 left UE/LE, no sensory loss, no cerebellar signs, Reflexes + B/L B/S/T/K/A, gait deferred. Psych/Mental Status: Normal Affect Vital Signs Temp Pulse Resp BP Pulse Ox 98.4 F 74 16 159/92 H 96 03/12/19 07:00 03/12/19 08:12 03/12/19 07:00 03/12/19 08:12 03/12/19 07:00 Oxygen Delivery Method Room Air Weight: 129 kg Body Mass Index (BMI) 36.6 Finger Stick Blood Glucose 380 Intake and Output for Last 24 Hours 03/10/19 03/11/19 03/12/19 23:59 23:59 23:59 Intake Total 600 / 600 400 / 400 240 / 240 Balance 600 / 600 400 / 400 240 / 240 POC Glucose 03/12/19 03/12/19 03/11/19 11:12 06:24 21:57 POC Glucose 183 H 103 196 H 03/11/19 16:21 POC Glucose 107 Medical Necessity - Tobacco Use Smoking Status: Never smoker Assessment/Plan All Active Problems Hyponatremia (Acute) Oropharyngeal dysphagia (Acute) Ischemic cerebrovascular accident (CVA) (Acute) 58-year-old male with PMH HTN, HLD, DM, neuropathy, CKD, recent admission with NSTEMI on 02/22/2019 was found to have LAD occlusion and recommended CABG patient refused, A. fib on Eliquis (per documentation patient was found in A. fib with RVR post cardiac cath when he was admitted on 02/22/2019) admitted to [facility] on 03/10/2019 with debility status post acute right paramedian pontine infarct for greater than 3 hours therapy daily with the aim of returning back home at or near his prior level of functional independence. Patient is admitted with dysarthria and left-sided weakness, was found to have acute right paramedian pontine infarct on the MRI brain. Echo done on 02/22/2019 reported to show EF of 35%, LA moderately enlarged LDL 61, hemoglobin A1c 9.4. Plan ?PT for gait stability ?OT for ADLs ?Analgesics as needed ?Bowel protocol ?MRA head/neck reported not to show any hemodynamically significant stenosis or occlusion. ?Hypertension?on metoprolol, monitor blood pressure, avoid hypotension. Goal blood pressure less than 180mmHg systolic blood pressure. Will discuss with hospitalist about adding lisinopril for blood pressure control as patient has diabetes but also has underlying CKD so will confirm with the hospitalist Dr. Nguyễn if its okay to start Lisinopril and defer it to hospitalist or can else can add amlodipine. ?HLD?on atorvastatin ?Acute right paramedian pontine stroke?on Eliquis, statins. Probably the stroke was secondary to small vessel disease secondary to uncontrolled diabetes ?DM?on insulin, further management as per hospitalist commendations. Discussed with Dr. Nguyễn (hospitalist) who is managing his diabetes. ?CKD?avoid nephrotoxic drugs, avoid dehydration. ?CAD?recent cardiac catheterization on 02/22/2019 reported to show mid LAD occlusion, patient was advised to CABG but refused the same. On aspirin statins and metoprolol. Ejection fraction 35%. Patient does not want to pursue any further intervention procedure per patient. ?A. fib?on Eliquis, amiodarone and metoprolol ?Neuropathy- on gabapentin ?Patient on Zoloft ?GI/DVT prophylaxis?on famotidine/Eliquis ?Fall precautions ?Patient counseled to be compliant with medications. ?Further medical management per hospitalist recommendation ?Follow-up with PCP, cardiology, endocrinology and neurology as outpatient.
[2019-03-12 16:55] LABS: Bedside Glucose 200 mg/dL (70-110)
[2019-03-12 20:50] LABS: Bedside Glucose 180 mg/dL (70-110)
[2019-03-12] MEDS: Atorvastatin Calcium 80 MG Tablet PO (20:50)
[2019-03-12] MEDS: Gabapentin 100 MG Capsule 200 MG PO (20:50)
[2019-03-12] MEDS: Famotidine 20 MG Tablet PO (20:52)
[2019-03-12 21:00] VITALS: BP 122/79; PULSE 69; RESP 16; TEMP 36.9; O2SAT 95
[2019-03-13 06:56] LABS: Bedside Glucose 119 mg/dL (70-110)
[2019-03-13 07:28] VITALS: BP 164/87; PULSE 65; RESP 16; TEMP 36.6; O2SAT 95
[2019-03-13 07:37] VITALS: BP 164/87; PULSE 65
[2019-03-13] MEDS: Metoprolol(XL)Succ 25 MG Tablet PO (07:37)
[2019-03-13] MEDS: Senna/Docusate Sodium 1 Tablet 2 TABLET PO ×2 (07:38→21:32)
[2019-03-13] MEDS: Sertraline 50 MG Tablet PO (07:38)
[2019-03-13] MEDS: Famotidine 20 MG Tablet PO ×2 (07:38→21:32)
[2019-03-13] MEDS: Lisinopril 10 MG Tablet PO (07:38)
[2019-03-13] MEDS: Amiodarone 200 MG Tablet PO ×2 (07:38→21:35)
[2019-03-13] MEDS: Aspirin 81 MG TAB.CHEW PO (07:38)
[2019-03-13] MEDS: Insulin Lispro 100 UNIT/ML INSULN.PEN SC ×6 (07:38→21:34)
[2019-03-13] MEDS: Gabapentin 100 MG Capsule PO ×2 (07:38→17:21)
[2019-03-13] MEDS: APIXABAN 5 MG TABLET PO ×2 (07:38→21:34)
--- NOTE | 2019-03-13 10:16 | PCM.PN.BLA ---
Progress Note FBS is well controlled. The meal time BS's are not where I would like them yet. Insulin regimen was adjusted. Started on Lisinopril by Dr. Mishra....will continue to monitor the BP's and adjust the Lisinopril to keep the BP controlled. Goal for the BS's prior to meals is < 160. He continues on Zoloft. Will once again discuss with him CABG.......refused in the past because he wants to Afebrile, vital signs stable Alert and oriented x3 Lungs-clear to auscultation Heart-regular rate and rhythm Abdomen-obese, soft, nontender, nondistended Impressions 1. DM II - continue to adjust the insulin to keep BS's < 200 2. Hypertension-antihypertensives being adjusted by neurology Code Visit Inpatient E&M: 68554 Subs Hosp L1
--- NOTE | 2019-03-13 10:50 | NURSING ---
Used Saralift with pt. pt. urinated 475mls while standing with lift, tolerated well
[2019-03-13 11:45] LABS: Bedside Glucose 190 mg/dL (70-110)
[2019-03-13 14:26] VITALS: BMI 36.6
[2019-03-13 17:15] LABS: Bedside Glucose 193 mg/dL (70-110)
[2019-03-13 19:49] VITALS: BP 139/75; PULSE 65; RESP 16; TEMP 36.6; O2SAT 99
[2019-03-13] MEDS: Gabapentin 100 MG Capsule 200 MG PO (21:33)
[2019-03-13] MEDS: Atorvastatin Calcium 80 MG Tablet PO (21:33)
[2019-03-13 22:01] LABS: Bedside Glucose 212 mg/dL (70-110)
[2019-03-14 05:00] VITALS: BMI 36.6
[2019-03-14 06:26] LABS: Bedside Glucose 108 mg/dL (70-110)
[2019-03-14 07:00] VITALS: BP 164/102; PULSE 71; RESP 18; TEMP 36.7; O2SAT 95
[2019-03-14 07:31] VITALS: PULSE 71
[2019-03-14] MEDS: Insulin Lispro 100 UNIT/ML INSULN.PEN SC ×6 (07:31→20:53)
[2019-03-14] MEDS: Metoprolol(XL)Succ 25 MG Tablet PO (07:31)
[2019-03-14] MEDS: Amiodarone 200 MG Tablet PO ×2 (07:31→20:56)
[2019-03-14] MEDS: Senna/Docusate Sodium 1 Tablet 2 TABLET PO (07:31)
[2019-03-14] MEDS: Sertraline 50 MG Tablet PO (07:32)
[2019-03-14] MEDS: Famotidine 20 MG Tablet PO ×2 (07:32→20:52)
[2019-03-14] MEDS: Gabapentin 100 MG Capsule PO ×2 (07:32→17:21)
[2019-03-14] MEDS: APIXABAN 5 MG TABLET PO ×2 (07:32→20:55)
[2019-03-14] MEDS: Aspirin 81 MG TAB.CHEW PO (07:32)
[2019-03-14] MEDS: Lisinopril 10 MG Tablet PO (07:33)
[2019-03-14 09:26] VITALS: BMI 36.6
[2019-03-14 11:55] LABS: Bedside Glucose 209 mg/dL (70-110)
[2019-03-14 13:15] VITALS: BP 115/75; PULSE 64
[2019-03-14 17:00] LABS: Bedside Glucose 215 mg/dL (70-110)
--- NOTE | 2019-03-14 17:53 | NURSING ---
pt moved to [facility] for [place] Warning issued during the dinner hour.
[2019-03-14 19:23] VITALS: BP 159/88; PULSE 64; RESP 18; TEMP 36.4; O2SAT 98
[2019-03-14 19:59] VITALS: BP 151/89
[2019-03-14 20:51] LABS: Bedside Glucose 191 mg/dL (70-110)
[2019-03-14] MEDS: Atorvastatin Calcium 80 MG Tablet PO (20:52)
[2019-03-14] MEDS: Gabapentin 100 MG Capsule 200 MG PO (20:52)
[2019-03-14] MEDS: Acetaminophen 325 MG Tablet 650 MG PO (20:56)
[2019-03-15 05:00] VITALS: BMI 36.6
[2019-03-15] MEDS: Acetaminophen 325 MG Tablet 650 MG PO (06:20)
[2019-03-15 06:41] LABS: Bedside Glucose 138 mg/dL (70-110)
[2019-03-15 07:25] VITALS: BP 118/84; PULSE 65
[2019-03-15] MEDS: Sertraline 50 MG Tablet PO (07:25)
[2019-03-15] MEDS: Amiodarone 200 MG Tablet PO ×2 (07:25→21:21)
[2019-03-15] MEDS: APIXABAN 5 MG TABLET PO ×2 (07:25→21:21)
[2019-03-15] MEDS: Famotidine 20 MG Tablet PO ×2 (07:25→21:21)
[2019-03-15] MEDS: Aspirin 81 MG TAB.CHEW PO (07:25)
[2019-03-15] MEDS: Metoprolol(XL)Succ 25 MG Tablet PO (07:25)
[2019-03-15] MEDS: Gabapentin 100 MG Capsule PO ×2 (07:25→17:32)
[2019-03-15 07:26] VITALS: BP 118/84; PULSE 65; RESP 16; TEMP 36.9; O2SAT 94
[2019-03-15] MEDS: Insulin Lispro 100 UNIT/ML INSULN.PEN SC ×6 (07:26→21:22)
[2019-03-15] MEDS: Lisinopril 10 MG Tablet PO (07:27)
[2019-03-15 08:56] VITALS: BMI 36.6
--- NOTE | 2019-03-15 10:27 | NURSING ---
Per. Amarjit pharm. it is ok to give tylenol 1000mg now even thought pt had tylenol 650mg at 0630 this AM
[2019-03-15] MEDS: Acetaminophen 500 MG Tablet 1000 MG PO ×2 (10:29→21:20)
[2019-03-15 12:11] LABS: Bedside Glucose 195 mg/dL (70-110)
--- NOTE | 2019-03-15 12:11 | CASEMGMT ---
Addendum entered by Christine Fonseca 03/15/19 12:18: Phone call to [facility] and spoke with Jennifer. [facility] is not in network with pt insurance. SW printed a list of in network facilities from [facility] Website and provided this information to pt. SHEILA will continue to follow. SKYE Chao Original Note: Team meeting held today with pt present. Pt is participating in PT/OT/ST and progressing. No d/c date set at this time. Pt stating that he is aware he will likely need SNF after Inpt Rehab and he would like to go to [facility]. Pt aware that insurance update is due tomorrow and continued stay is not guaranteed. Will continue with treatment plan at this time and reteam next week. SKYE Chao
--- NOTE | 2019-03-15 12:25 | PCM.PN.NEU ---
Subjective: Patient staffed in team meeting. No complaints. He is 50% assist with physical therapy measures, and with occupational therapy measures upper body care is 50% but maximal assistance with lower body tasks. He is currently still on the Jean Baptiste water protocol and an neuromuscular stimulator is being considered by speech therapy. He does note muscle spasms in his left leg over though this is been present for about a year, he apparently did have workup and a diagnosis performed by another neurologist although the results are unclear. He has been on Neurontin which is of minimal benefit. He does note that Tylenol helps. Denies low back pain, no pain in his left arm. He would like to go to the [facility] upon discharge we are currently awaiting an update from his insurance company. - Physical Exam General: Alert, Oriented x3, Cooperative, No apparent distress Neurological: Slurred Speech, - - Left hemiparesis, stable Vital Signs Temp Pulse Resp BP Pulse Ox 36.9 C 65 16 118/84 H 94 03/15/19 07:26 03/15/19 07:26 03/15/19 07:26 03/15/19 07:26 03/15/19 07:26 Oxygen Delivery Method Room Air Weight: 129 kg Body Mass Index (BMI) 36.6 Finger Stick Blood Glucose 380 Intake and Output for Last 24 Hours 03/13/19 03/14/19 03/15/19 23:59 23:59 23:59 Intake Total 360 / 360 780 / 780 260 / 260 Output Total 475 / 475 Balance -115 / -115 780 / 780 260 / 260 POC Glucose 03/15/19 03/15/19 03/14/19 12:05 06:25 20:46 POC Glucose 195 H 138 H 191 H 03/14/19 16:47 POC Glucose 215 H Medical Necessity - Tobacco Use Smoking Status: Never smoker Tobacco Use: Non-smoker Assessment/Plan All Active Problems Hyponatremia (Acute) Oropharyngeal dysphagia (Acute) Ischemic cerebrovascular accident (CVA) (Acute) 40 status post pure motor stroke affecting the left side with flaccid hemiparesis of his left arm and left leg likely due to atrial fibrillation. His Eliquis dose has been increased. Now admitted to rehab with a goal of restoring his previous level of functional independence. Plan: Physical therapy for gait and balance Occupational Therapy for ADLs Speech therapy Bowel protocol PRN analgesics DVT prophylaxis: Eliquis Antihypertensives: Metoprolol.
[2019-03-15 16:45] LABS: Bedside Glucose 185 mg/dL (70-110)
[2019-03-15 19:49] VITALS: BP 164/75; PULSE 62; RESP 17; TEMP 36.6; O2SAT 96
[2019-03-15 21:20] LABS: Bedside Glucose 205 mg/dL (70-110)
[2019-03-15] MEDS: Gabapentin 100 MG Capsule 200 MG PO (21:21)
[2019-03-15] MEDS: Atorvastatin Calcium 80 MG Tablet PO (21:21)
[2019-03-15 21:46] VITALS: BMI 36.6
[2019-03-15 22:00] VITALS: PULSE 62
[2019-03-16 06:10] LABS: Bedside Glucose 109 mg/dL (70-110)
[2019-03-16 07:19] VITALS: BP 145/71; PULSE 61; RESP 17; TEMP 36.7; O2SAT 94
[2019-03-16] MEDS: Senna/Docusate Sodium 1 Tablet 2 TABLET PO (08:19)
[2019-03-16 08:20] VITALS: BP 145/71; PULSE 61
[2019-03-16] MEDS: Metoprolol(XL)Succ 25 MG Tablet PO (08:20)
[2019-03-16] MEDS: Lisinopril 10 MG Tablet PO (08:20)
[2019-03-16] MEDS: Sertraline 50 MG Tablet PO (08:20)
[2019-03-16] MEDS: Amiodarone 200 MG Tablet PO ×2 (08:20→21:18)
[2019-03-16] MEDS: Gabapentin 100 MG Capsule PO ×2 (08:20→17:50)
[2019-03-16] MEDS: Famotidine 20 MG Tablet PO ×2 (08:20→21:20)
[2019-03-16] MEDS: Acetaminophen 500 MG Tablet 1000 MG PO ×2 (08:22→21:20)
[2019-03-16] MEDS: APIXABAN 5 MG TABLET PO ×2 (08:23→21:18)
[2019-03-16] MEDS: Aspirin 81 MG TAB.CHEW PO (08:24)
[2019-03-16] MEDS: Insulin Lispro 100 UNIT/ML INSULN.PEN SC ×5 (08:24→21:19)
[2019-03-16 09:36] VITALS: BMI 36.6
--- NOTE | 2019-03-16 10:51 | CASEMGMT ---
Insurance Clinical updates faxed. Will await continued stay determination. Auth# [id number] SKYE Chao
[2019-03-16 12:36] LABS: Bedside Glucose 136 mg/dL (70-110)
--- NOTE | 2019-03-16 16:42 | SUR.HOLD ---
patient was sleeping; left a calling card
[2019-03-16 17:36] LABS: Bedside Glucose 167 mg/dL (70-110)
[2019-03-16 19:45] VITALS: BP 144/74; PULSE 63; RESP 16; TEMP 36.6; O2SAT 98
[2019-03-16] MEDS: Gabapentin 100 MG Capsule 200 MG PO (21:20)
[2019-03-16] MEDS: Atorvastatin Calcium 80 MG Tablet PO (21:20)
[2019-03-16 21:40] LABS: Bedside Glucose 188 mg/dL (70-110)
--- NOTE | 2019-03-17 00:54 | NURSING ---
Reviewed and agree with CYBER SYSTEMS ENGINEER documentation and FIMs charting
[2019-03-17 05:00] VITALS: BMI 36.6
[2019-03-17 06:55] LABS: Bedside Glucose 103 mg/dL (70-110)
[2019-03-17] MEDS: Aspirin 81 MG TAB.CHEW PO (07:52)
[2019-03-17] MEDS: Amiodarone 200 MG Tablet PO ×2 (07:52→20:52)
[2019-03-17] MEDS: Famotidine 20 MG Tablet PO ×2 (07:52→20:52)
[2019-03-17] MEDS: Lisinopril 10 MG Tablet PO (07:52)
[2019-03-17] MEDS: Sertraline 50 MG Tablet PO (07:52)
[2019-03-17] MEDS: Gabapentin 100 MG Capsule PO ×2 (07:53→18:18)
[2019-03-17] MEDS: APIXABAN 5 MG TABLET PO ×2 (07:54→20:52)
[2019-03-17] MEDS: Insulin Lispro 100 UNIT/ML INSULN.PEN SC ×5 (07:55→20:50)
[2019-03-17 07:56] VITALS: PULSE 63
[2019-03-17] MEDS: Metoprolol(XL)Succ 25 MG Tablet PO (07:56)
[2019-03-17] MEDS: Senna/Docusate Sodium 1 Tablet 2 TABLET PO ×2 (07:56→20:50)
[2019-03-17 08:00] VITALS: BP 147/88; PULSE 63; RESP 19; TEMP 36.8; O2SAT 94
[2019-03-17] MEDS: Acetaminophen 500 MG Tablet 1000 MG PO ×2 (10:18→20:53)
[2019-03-17 11:20] LABS: Bedside Glucose 147 mg/dL (70-110)
[2019-03-17 13:28] VITALS: BMI 36.6
--- NOTE | 2019-03-17 16:21 | CHAPLAIN ---
Type of Pastoral Visit _x__ Initial Visit ___ Follow-up Visit ___ On-call Visit ___ General Patient Visit ___ Spiritual Assessment ___ Family Conference ___ Bereavement ___ Rapid Response ___ Code Blue ___ Other (describe below) Pastoral Care Referral From _x__ Patient ___ Family ___ Nurse ___ Physician ___ Palletizer ___ Animal Control Licensing Worker ___ Other (describe below) Sacrament/Intervention _x__ Active listening ___ Anointing ___ Restorationism ___ Bereavement ___ Communion _x__ Samantha exploration ___ ___ Life review _x__ Prayer ___ Reconciliation ___ Sacrament of Sick _x__ Supportive presence ___ Wedding ___ Other (describe below) Pastoral Comments patient remembers this sr. director from last admission; pt is talkative and explains his current situation and needs; pt speaks of great care by staff; pt says that he has put this in God's hands and whatever God rodriguez is fine; pt is thinking of selling possessions and finding an [place] residence; pt says his only family member has probably disowned me because I don't want to move to an ECF near her; pt hopes to get his Bible from a friend so he can read it; pt welcomes prayer support and future visits from sr. director
[2019-03-17 17:26] LABS: Bedside Glucose 151 mg/dL (70-110)
[2019-03-17 20:31] LABS: Bedside Glucose 182 mg/dL (70-110)
[2019-03-17] MEDS: Atorvastatin Calcium 80 MG Tablet PO (20:52)
[2019-03-17] MEDS: Gabapentin 100 MG Capsule 200 MG PO (20:52)
[2019-03-17 21:00] VITALS: BP 141/81; PULSE 62; RESP 17; TEMP 36.8
[2019-03-18 02:41] VITALS: BMI 36.6
[2019-03-18 07:06] LABS: Bedside Glucose 99 mg/dL (70-110)
[2019-03-18 07:56] VITALS: BP 150/75; PULSE 64; RESP 18; TEMP 36.9; O2SAT 94
[2019-03-18 08:05] VITALS: BP 150/75; PULSE 64
[2019-03-18] MEDS: Sertraline 50 MG Tablet PO (08:05)
[2019-03-18] MEDS: Famotidine 20 MG Tablet PO ×2 (08:05→20:38)
[2019-03-18] MEDS: Lisinopril 10 MG Tablet PO (08:05)
[2019-03-18] MEDS: Metoprolol(XL)Succ 25 MG Tablet PO (08:05)
[2019-03-18] MEDS: APIXABAN 5 MG TABLET PO ×2 (08:06→20:37)
[2019-03-18] MEDS: Insulin Lispro 100 UNIT/ML INSULN.PEN SC ×4 (08:06→20:37)
[2019-03-18] MEDS: Aspirin 81 MG TAB.CHEW PO (08:06)
[2019-03-18] MEDS: Gabapentin 100 MG Capsule PO ×2 (08:06→17:18)
[2019-03-18] MEDS: Amiodarone 200 MG Tablet PO ×2 (08:06→20:37)
[2019-03-18] MEDS: Senna/Docusate Sodium 1 Tablet 2 TABLET PO ×2 (08:07→20:38)
[2019-03-18] MEDS: Acetaminophen 500 MG Tablet 1000 MG PO ×2 (09:50→20:39)
[2019-03-18 12:05] LABS: Bedside Glucose 139 mg/dL (70-110)
[2019-03-18 13:40] VITALS: BMI 36.6
[2019-03-18 17:26] LABS: Bedside Glucose 134 mg/dL (70-110)
[2019-03-18] MEDS: Atorvastatin Calcium 80 MG Tablet PO (20:38)
[2019-03-18] MEDS: Gabapentin 100 MG Capsule 200 MG PO (20:38)
[2019-03-18 21:16] LABS: Bedside Glucose 168 mg/dL (70-110)
[2019-03-18 22:00] VITALS: BP 150/84; PULSE 68; RESP 18; TEMP 36.7; O2SAT 94
[2019-03-18 23:39] VITALS: BMI 36.6
--- NOTE | 2019-03-19 06:56 | NURSING ---
Reviewed and agree with LPNs fims and handoff
[2019-03-19 07:05] LABS: Bedside Glucose 110 mg/dL (70-110)
[2019-03-19] MEDS: Lisinopril 10 MG Tablet PO (07:45)
[2019-03-19] MEDS: Gabapentin 100 MG Capsule PO ×2 (07:45→18:26)
[2019-03-19] MEDS: Sertraline 50 MG Tablet PO (07:45)
[2019-03-19] MEDS: Amiodarone 200 MG Tablet PO ×2 (07:45→22:35)
[2019-03-19] MEDS: Famotidine 20 MG Tablet PO ×2 (07:45→22:32)
[2019-03-19 07:46] VITALS: PULSE 80
[2019-03-19] MEDS: Metoprolol(XL)Succ 25 MG Tablet PO (07:46)
[2019-03-19] MEDS: APIXABAN 5 MG TABLET PO ×2 (07:46→22:35)
[2019-03-19] MEDS: Senna/Docusate Sodium 1 Tablet 2 TABLET PO ×2 (07:46→22:32)
[2019-03-19] MEDS: Insulin Lispro 100 UNIT/ML INSULN.PEN SC ×5 (07:46→22:34)
[2019-03-19] MEDS: Aspirin 81 MG TAB.CHEW PO (07:48)
[2019-03-19] MEDS: Acetaminophen 500 MG Tablet 1000 MG PO ×2 (07:50→22:32)
[2019-03-19 08:12] VITALS: BP 110/76; PULSE 69; RESP 17; TEMP 36.8; O2SAT 94
[2019-03-19 11:31] LABS: Bedside Glucose 163 mg/dL (70-110)
[2019-03-19 16:46] LABS: Bedside Glucose 139 mg/dL (70-110)
[2019-03-19 16:55] VITALS: BMI 36.6
[2019-03-19 20:02] VITALS: BP 144/83; PULSE 65; RESP 16; TEMP 36.8; O2SAT 94
[2019-03-19 21:41] LABS: Bedside Glucose 181 mg/dL (70-110)
[2019-03-19] MEDS: Gabapentin 100 MG Capsule 200 MG PO (22:32)
[2019-03-19] MEDS: Atorvastatin Calcium 80 MG Tablet PO (22:32)
[2019-03-20 05:00] VITALS: BMI 36.6
[2019-03-20 07:15] LABS: Bedside Glucose 106 mg/dL (70-110)
[2019-03-20 07:19] VITALS: BP 166/96; PULSE 71; RESP 18; TEMP 36.6; O2SAT 94
[2019-03-20 09:48] VITALS: BP 166/96; PULSE 71
[2019-03-20] MEDS: Metoprolol(XL)Succ 25 MG Tablet PO (09:48)
[2019-03-20] MEDS: Gabapentin 100 MG Capsule PO ×2 (09:48→17:24)
[2019-03-20] MEDS: Sertraline 50 MG Tablet PO (09:48)
[2019-03-20] MEDS: Acetaminophen 500 MG Tablet 1000 MG PO ×2 (09:48→22:54)
[2019-03-20] MEDS: Amiodarone 200 MG Tablet PO ×2 (09:48→21:40)
[2019-03-20] MEDS: Famotidine 20 MG Tablet PO ×2 (09:48→21:40)
[2019-03-20] MEDS: APIXABAN 5 MG TABLET PO ×2 (09:48→21:40)
[2019-03-20] MEDS: Lisinopril 10 MG Tablet PO (09:48)
[2019-03-20] MEDS: Aspirin 81 MG TAB.CHEW PO (09:48)
[2019-03-20] MEDS: Insulin Lispro 100 UNIT/ML INSULN.PEN SC ×6 (09:49→21:47)
[2019-03-20 11:14] VITALS: BMI 36.6
[2019-03-20 12:21] LABS: Bedside Glucose 170 mg/dL (70-110)
[2019-03-20 17:16] LABS: Bedside Glucose 176 mg/dL (70-110)
[2019-03-20 20:21] VITALS: BP 159/78; PULSE 65; RESP 16; TEMP 36.3; O2SAT 93
[2019-03-20 20:26] VITALS: BMI 36.6
[2019-03-20 20:56] LABS: Bedside Glucose 224 mg/dL (70-110)
[2019-03-20] MEDS: Gabapentin 100 MG Capsule 200 MG PO (21:40)
[2019-03-20] MEDS: Atorvastatin Calcium 80 MG Tablet PO (21:40)
[2019-03-20] MEDS: Senna/Docusate Sodium 1 Tablet 2 TABLET PO (21:41)
[2019-03-21 06:50] LABS: Bedside Glucose 121 mg/dL (70-110)
[2019-03-21] MEDS: Aspirin 81 MG TAB.CHEW PO (08:36)
[2019-03-21 08:37] VITALS: BP 160/97; PULSE 67
[2019-03-21] MEDS: Sertraline 50 MG Tablet PO (08:37)
[2019-03-21] MEDS: Metoprolol(XL)Succ 25 MG Tablet PO (08:37)
[2019-03-21] MEDS: Famotidine 20 MG Tablet PO ×2 (08:37→20:52)
[2019-03-21] MEDS: Amiodarone 200 MG Tablet PO ×2 (08:37→20:50)
[2019-03-21] MEDS: Acetaminophen 500 MG Tablet 1000 MG PO ×2 (08:37→20:53)
[2019-03-21] MEDS: Gabapentin 100 MG Capsule PO ×2 (08:37→16:39)
[2019-03-21] MEDS: APIXABAN 5 MG TABLET PO ×2 (08:38→20:50)
[2019-03-21] MEDS: Insulin Lispro 100 UNIT/ML INSULN.PEN SC ×6 (08:38→20:54)
[2019-03-21] MEDS: Lisinopril 10 MG Tablet PO (08:39)
[2019-03-21 10:00] VITALS: BP 160/97; PULSE 67; RESP 16; TEMP 36.7; O2SAT 96
[2019-03-21 12:06] LABS: Bedside Glucose 153 mg/dL (70-110)
[2019-03-21 14:50] VITALS: BMI 36.6
[2019-03-21 17:36] LABS: Bedside Glucose 166 mg/dL (70-110)
[2019-03-21 19:20] VITALS: BP 152/87; PULSE 65; RESP 18; TEMP 36.6; O2SAT 98
[2019-03-21 20:46] LABS: Bedside Glucose 204 mg/dL (70-110)
[2019-03-21] MEDS: Gabapentin 100 MG Capsule 200 MG PO (20:50)
[2019-03-21] MEDS: Atorvastatin Calcium 80 MG Tablet PO (20:51)
[2019-03-21] MEDS: Senna/Docusate Sodium 1 Tablet 2 TABLET PO (20:52)
[2019-03-21 21:05] VITALS: BMI 36.6
[2019-03-21 22:00] VITALS: PULSE 65
[2019-03-22 06:46] LABS: Bedside Glucose 157 mg/dL (70-110)
[2019-03-22 07:11] VITALS: BP 163/94; PULSE 76; RESP 18; TEMP 36.6; O2SAT 97
[2019-03-22] MEDS: Insulin Lispro 100 UNIT/ML INSULN.PEN SC ×5 (08:13→17:41)
[2019-03-22] MEDS: Gabapentin 100 MG Capsule PO ×2 (08:15→17:41)
[2019-03-22] MEDS: APIXABAN 5 MG TABLET PO ×2 (08:15→20:38)
[2019-03-22] MEDS: Amiodarone 200 MG Tablet PO ×2 (08:15→20:38)
[2019-03-22] MEDS: Aspirin 81 MG TAB.CHEW PO (08:15)
[2019-03-22] MEDS: Famotidine 20 MG Tablet PO ×2 (08:15→20:37)
[2019-03-22 08:16] VITALS: PULSE 78
[2019-03-22] MEDS: Metoprolol(XL)Succ 25 MG Tablet PO ×2 (08:16→12:25)
[2019-03-22] MEDS: Senna/Docusate Sodium 1 Tablet 2 TABLET PO ×2 (08:16→20:36)
[2019-03-22] MEDS: Lisinopril 10 MG Tablet PO (08:17)
[2019-03-22] MEDS: Sertraline 50 MG Tablet PO (08:18)
--- NOTE | 2019-03-22 10:21 | CASEMGMT ---
Social Work: Team meeting held in patient's room with patient and ex- Katerine present. Patient progressing in therapy but continues to need the Sherita Lift for transfers. Patient able to complete bathing/dressing at mod A. Patient continues to have dysarthria and is currently on a [facility] soft diet and thickened liquids. Will plan to re team on Thursday 03/29. Patient and ex- agreeable to plan. Sw to continue to follow to assist as needed with D/C plan. DIAMOND Elizondo
[2019-03-22] MEDS: Acetaminophen 500 MG Tablet 1000 MG PO ×2 (10:22→20:36)
[2019-03-22 10:31] LABS: Anion Gap 5 (5-15); BUN 20 mg/dL (7-18); BUN/Creat Ratio 12.2 RATIO (10-20); Calcium,Total 8.8 mg/dL (8.5-10.1); Chloride 109 mmol/L (98-107); Creatinine, Serum 1.64 mg/dL (0.70-1.30); EST Glomerular Filtration Rate 46 mL/min (>60); Est Glom Filt Rate - Afr Amer 56 mL/min (>60); Estimated Creatinine Clearance 57.08 ml/min; Glucose 221 mg/dL (74-106); Potassium 4.3 mmol/L (3.5-5.1); Sodium Level 141 mmol/L (136-145)
--- NOTE | 2019-03-22 11:25 | CASEMGMT ---
Insurance: Continued stay approved with next update due 03/26/19. Auth #[id number] SKYE Chao
[2019-03-22 11:41] LABS: Bedside Glucose 231 mg/dL (70-110)
[2019-03-22 12:25] VITALS: BP 150/90; PULSE 84
[2019-03-22] MEDS: amLODIPine 5 MG Tablet PO (12:25)
--- NOTE | 2019-03-22 13:32 | PN.NEURO_ITS ---
Subjective: No issues overnight. Care discussed with the nursing staff. Stopped in the team meeting today. All questions are answered. Further therapy details per PT/ST/OT notes. - Physical Exam General: Alert HEENT: Normocephalic Neck: Supple Lungs: Normal air movement Cardiovascular: Normal S1, Normal S2 Abdomen: Bowel Sounds Present Extremities: No cyanosis Neurological: - - consious, alert, AoAx3, CN 2-12 grossly intact, power 5/5 right UE/LE, 3/5 left UE 1/5 left LE, no sensory loss, no cerebellar signs, Reflexes + B/L B/S/T/K/A, gait deferred. Psych/Mental Status: Normal Affect Vital Signs Temp Pulse Resp BP Pulse Ox 97.9 F 84 18 163/94 H 97 03/22/19 07:11 03/22/19 12:25 03/22/19 07:11 03/22/19 07:11 03/22/19 07:11 Oxygen Delivery Method Room Air Weight: 126.3 kg Body Mass Index (BMI) 36.6 Finger Stick Blood Glucose 380 Intake and Output for Last 24 Hours 03/20/19 03/21/19 03/22/19 23:59 23:59 23:59 Intake Total 680 / 680 440 / 440 240 / 240 Balance 680 / 680 440 / 440 240 / 240 Laboratory Tests Past 24 Hrs 03/22/19 10:04 Sodium 141 Potassium 4.3 Chloride 109 H Carbon Dioxide 27.0 Anion Gap 5 BUN 20 H Creatinine 1.64 H Estim Creat Clear Calc 57.08 Est GFR (MDRD) Af Amer 56 L Est GFR (MDRD) Non-Af 46 L BUN/Creatinine Ratio 12.2 Glucose 221 H Calcium 8.8 POC Glucose 03/22/19 03/22/19 03/21/19 11:17 06:35 20:02 POC Glucose 231 H 157 H 204 H 03/21/19 16:38 POC Glucose 166 H Medical Necessity - Tobacco Use Smoking Status: Never smoker Tobacco Use: Non-smoker Assessment/Plan All Active Problems Hyponatremia (Acute) Oropharyngeal dysphagia (Acute) Ischemic cerebrovascular accident (CVA) (Acute) 58-year-old male with PMH HTN, HLD, DM, neuropathy, CKD, recent admission with NSTEMI on 02/22/2019 was found to have LAD occlusion and recommended CABG patient refused, A. fib on Eliquis (per documentation patient was found in A. fib with RVR post cardiac cath when he was admitted on 02/22/2019) admitted to [facility] on 03/10/2019 with debility status post acute right paramedian pontine infarct for greater than 3 hours therapy daily with the aim of returning back home at or near his prior level of functional independence. Patient is admitted with dysarthria and left-sided weakness, was found to have acute right paramedian pontine infarct on the MRI brain. Echo done on 02/22/2019 reported to show EF of 35%, LA moderately enlarged LDL 61, hemoglobin A1c 9.4. Plan ?PT for gait stability ?OT for ADLs ?Analgesics as needed ?Bowel protocol ?MRA head/neck reported not to show any hemodynamically significant stenosis or occlusion. ?Hypertension?on metoprolol, Lisinopril, will add amlodipine, monitor blood pressure, avoid hypotension. Goal blood pressure less than 130mmHg systolic blood pressure. Will discuss with hospitalist about blood pressure control. ?HLD?on atorvastatin ?Acute right paramedian pontine stroke?on Eliquis, statins. Probably the stroke was secondary to small vessel disease secondary to uncontrolled diabetes ?DM?on insulin, further management as per hospitalist commendations. Discussed with Dr. Nguyễn (hospitalist) who is managing his diabetes. ?CKD?avoid nephrotoxic drugs, avoid dehydration. ?CAD?recent cardiac catheterization on 02/22/2019 reported to show mid LAD occlusion, patient was advised to CABG but refused the same. On aspirin statins and metoprolol. Ejection fraction 35%. Patient does not want to pursue any further intervention procedure per patient. ?A. fib?on Eliquis, amiodarone and metoprolol ?Neuropathy- on gabapentin ?Patient on Zoloft ?GI/DVT prophylaxis?on famotidine/Eliquis ?Fall precautions ?Patient counseled to be compliant with medications. ?Further medical management per hospitalist recommendation ?Follow-up with PCP, cardiology, endocrinology and neurology as outpatient.
[2019-03-22 14:14] VITALS: BMI 36.6
[2019-03-22 17:51] LABS: Bedside Glucose 125 mg/dL (70-110)
--- NOTE | 2019-03-22 19:12 | PCM.PN.BLA ---
Progress Note Afebrile Heart rate is within normal limits. Blood pressures remain elevated on metoprolol XL 25 mg daily and lisinopril [address] Mishra has increased the metoprolol XL to 50 mg daily and has added amlodipine 5 mg daily. BMP today showed a potassium of 4.3 with a BUN of 20 and a stable creatinine of 1.64. Review of his blood sugars show fairly good control however the lunchtime sugar and the at bedtime sugar are still elevated above 200 frequently. Has not been getting much SSI at all. Alert and oriented x3, no apparent distress, affect is much more positive than at discharge from the hospital Lungs-clear to auscultation with good air exchange Heart-regular rate and rhythm, no murmur, no gallop Abdomen-soft, nontender, nondistended, normal bowel sounds heard No peripheral edema Impressions 1. Embolic CVA the first week in March with left hemiplegia and dysphagia at the time of discharge 2. Hypertension-not adequately controlled 3. Diabetes mellitus type 2-not optimally controlled yet 4. Depression-improving with Zoloft Will increase the Breakfast insulin to 8 units and the supper to 8 units and keep the lunch time insulin at 5 units. DC the SSI. Will continue to monitor the BP with the changes made by Dr. Mishra today. If the BP is still uncontrolled would increase the SERGIO. Code Visit Inpatient E&M: 51773 Subs Hosp L2
[2019-03-22 20:13] VITALS: BP 145/86; PULSE 61; RESP 18; TEMP 36.6; O2SAT 98
[2019-03-22] MEDS: Gabapentin 100 MG Capsule 200 MG PO (20:37)
[2019-03-22] MEDS: Atorvastatin Calcium 80 MG Tablet PO (20:37)
[2019-03-22 21:15] LABS: Bedside Glucose 139 mg/dL (70-110)
[2019-03-23 07:01] LABS: Bedside Glucose 113 mg/dL (70-110)
[2019-03-23] MEDS: Insulin Lispro 100 UNIT/ML INSULN.PEN 8 UNIT SC ×2 (09:29→17:51)
[2019-03-23] MEDS: Amiodarone 200 MG Tablet PO ×2 (09:32→20:06)
[2019-03-23] MEDS: APIXABAN 5 MG TABLET PO ×2 (09:32→20:06)
[2019-03-23] MEDS: Aspirin 81 MG TAB.CHEW PO (09:32)
[2019-03-23] MEDS: Gabapentin 100 MG Capsule PO ×2 (09:32→17:51)
[2019-03-23 09:33] VITALS: BP 146/83; PULSE 60
[2019-03-23] MEDS: Senna/Docusate Sodium 1 Tablet 2 TABLET PO ×2 (09:33→20:07)
[2019-03-23] MEDS: Famotidine 20 MG Tablet PO ×2 (09:33→20:07)
[2019-03-23] MEDS: Metoprolol(XL)Succ 50 MG Tablet PO (09:33)
[2019-03-23] MEDS: amLODIPine 5 MG Tablet PO (09:33)
[2019-03-23] MEDS: Acetaminophen 500 MG Tablet 1000 MG PO ×2 (09:34→20:07)
[2019-03-23] MEDS: Lisinopril 10 MG Tablet PO (09:35)
[2019-03-23] MEDS: Sertraline 50 MG Tablet PO (09:35)
[2019-03-23 09:51] VITALS: BP 146/83; PULSE 60; RESP 12; TEMP 36.6; O2SAT 98
[2019-03-23 11:15] LABS: Bedside Glucose 129 mg/dL (70-110)
[2019-03-23 11:20] VITALS: BMI 36.6
[2019-03-23] MEDS: Insulin Lispro 100 UNIT/ML INSULN.PEN SC (12:01)
--- NOTE | 2019-03-23 14:50 | PN.NEURO_ITS ---
Subjective: No issues overnight. Care discussed with the nursing staff. - Physical Exam General: Alert HEENT: Normocephalic Neck: Supple Lungs: Normal air movement Cardiovascular: Normal S1, Normal S2 Abdomen: Bowel Sounds Present Extremities: No cyanosis Neurological: - - consious, alert, AoAx3, CN 2-12 grossly intact, power 5/5 right UE/LE, 3/5 left UE 1/5 left LE, no sensory loss, no cerebellar signs, Reflexes + B/L B/S/T/K/A, gait deferred. Psych/Mental Status: Normal Affect Vital Signs Temp Pulse Resp BP Pulse Ox 97.8 F 60 12 146/83 H 98 03/23/19 09:51 03/23/19 09:51 03/23/19 09:51 03/23/19 09:51 03/23/19 09:51 Oxygen Delivery Method Room Air Weight: 126.3 kg Body Mass Index (BMI) 36.6 Finger Stick Blood Glucose 380 Intake and Output for Last 24 Hours 03/21/19 03/22/19 03/23/19 23:59 23:59 23:59 Intake Total 440 / 440 680 / 680 360 / 360 Balance 440 / 440 680 / 680 360 / 360 POC Glucose 03/23/19 03/23/19 03/22/19 11:11 06:36 20:35 POC Glucose 129 H 113 H 139 H 03/22/19 17:41 POC Glucose 125 H Medical Necessity - Tobacco Use Smoking Status: Never smoker Tobacco Use: Non-smoker Assessment/Plan All Active Problems Hyponatremia (Acute) Oropharyngeal dysphagia (Acute) Ischemic cerebrovascular accident (CVA) (Acute) 58-year-old male with PMH HTN, HLD, DM, neuropathy, CKD, recent admission with NSTEMI on 02/22/2019 was found to have LAD occlusion and recommended CABG patient refused, A. fib on Eliquis (per documentation patient was found in A. fib with RVR post cardiac cath when he was admitted on 02/22/2019) admitted to [facility] on 03/10/2019 with debility status post acute right paramedian pontine infarct for greater than 3 hours therapy daily with the aim of returning back home at or near his prior level of functional independence. Patient is admitted with dysarthria and left-sided weakness, was found to have acute right paramedian pontine infarct on the MRI brain. Echo done on 02/22/2019 reported to show EF of 35%, LA moderately enlarged LDL 61, hemoglobin A1c 9.4. Plan ?PT for gait stability ?OT for ADLs ?Analgesics as needed ?Bowel protocol ?MRA head/neck reported not to show any hemodynamically significant stenosis or occlusion. ?Hypertension?on metoprolol, Lisinopril, amlodipine, monitor blood pressure, avoid hypotension. Goal blood pressure less than 130mmHg systolic blood pressure. Will discuss with hospitalist about blood pressure control. ?HLD?on atorvastatin ?Acute right paramedian pontine stroke?on Eliquis, statins. Probably the stroke was secondary to small vessel disease secondary to uncontrolled diabetes ?DM?on insulin, further management as per hospitalist commendations. Discussed with Dr. Nguyễn (hospitalist) who is managing his diabetes. ?CKD?avoid nephrotoxic drugs, avoid dehydration. Creatinine 1.64 stable. At baseline. ?CAD?recent cardiac catheterization on 02/22/2019 reported to show mid LAD occlusion, patient was advised to CABG but refused the same. On aspirin statins and metoprolol. Ejection fraction 35%. Patient does not want to pursue any further intervention procedure per patient. ?A. fib?on Eliquis, amiodarone and metoprolol ?Neuropathy- on gabapentin ?Patient on Zoloft ?GI/DVT prophylaxis?on famotidine/Eliquis ?Fall precautions ?Patient counseled to be compliant with medications. ?Further medical management per hospitalist recommendation ?Follow-up with PCP, cardiology, endocrinology and neurology as outpatient.
[2019-03-23 17:41] LABS: Bedside Glucose 123 mg/dL (70-110)
[2019-03-23] MEDS: Atorvastatin Calcium 80 MG Tablet PO (20:06)
[2019-03-23] MEDS: Gabapentin 100 MG Capsule 200 MG PO (20:07)
[2019-03-23 20:31] LABS: Bedside Glucose 159 mg/dL (70-110)
[2019-03-23 22:00] VITALS: BP 160/87; PULSE 60; RESP 14; TEMP 36.6; O2SAT 96
[2019-03-23 22:55] VITALS: BMI 36.6
--- NOTE | 2019-03-24 02:56 | NURSING ---
REVIEWED AND AGREE WITH DISTRIBUTION CENTER ASSISTANT'S FIM AND HANDOFF CHARTING.
[2019-03-24 07:10] LABS: Bedside Glucose 117 mg/dL (70-110)
[2019-03-24 07:25] VITALS: BP 142/80; PULSE 61; RESP 16; TEMP 36.4; O2SAT 95
[2019-03-24 08:05] VITALS: BP 142/80; PULSE 61
[2019-03-24] MEDS: Sertraline 50 MG Tablet PO (08:05)
[2019-03-24] MEDS: Lisinopril 10 MG Tablet PO (08:05)
[2019-03-24] MEDS: Metoprolol(XL)Succ 50 MG Tablet PO (08:05)
[2019-03-24] MEDS: amLODIPine 5 MG Tablet PO (08:06)
[2019-03-24] MEDS: Senna/Docusate Sodium 1 Tablet 2 TABLET PO (08:06)
[2019-03-24] MEDS: Acetaminophen 500 MG Tablet 1000 MG PO ×2 (08:06→21:42)
[2019-03-24] MEDS: Insulin Lispro 100 UNIT/ML INSULN.PEN 8 UNIT SC ×2 (08:06→16:55)
[2019-03-24] MEDS: Gabapentin 100 MG Capsule PO ×2 (08:06→16:55)
[2019-03-24] MEDS: Aspirin 81 MG TAB.CHEW PO (08:06)
[2019-03-24] MEDS: Famotidine 20 MG Tablet PO ×2 (08:06→21:42)
[2019-03-24] MEDS: APIXABAN 5 MG TABLET PO ×2 (08:06→21:40)
[2019-03-24] MEDS: Amiodarone 200 MG Tablet PO ×2 (08:06→21:40)
[2019-03-24 11:56] LABS: Bedside Glucose 181 mg/dL (70-110)
[2019-03-24] MEDS: Insulin Lispro 100 UNIT/ML INSULN.PEN SC (11:59)
[2019-03-24 14:08] VITALS: BMI 36.6
[2019-03-24 17:01] LABS: Bedside Glucose 131 mg/dL (70-110)
--- NOTE | 2019-03-24 17:44 | NURSING ---
Reviewed and agree with COILED COIL INSPECTOR's FIMS and handoff charting
[2019-03-24 19:25] VITALS: BP 144/85; PULSE 67; RESP 16; TEMP 36.1; O2SAT 95
[2019-03-24 19:52] VITALS: BMI 36.6
[2019-03-24] MEDS: Atorvastatin Calcium 80 MG Tablet PO (21:41)
[2019-03-24] MEDS: Gabapentin 100 MG Capsule 200 MG PO (21:41)
[2019-03-24 22:00] VITALS: PULSE 62; RESP 17
[2019-03-24 22:25] LABS: Bedside Glucose 157 mg/dL (70-110)
[2019-03-25 07:11] LABS: Bedside Glucose 87 mg/dL (70-110)
[2019-03-25 07:42] VITALS: PULSE 70
[2019-03-25] MEDS: Famotidine 20 MG Tablet PO ×2 (07:42→21:50)
[2019-03-25] MEDS: Sertraline 50 MG Tablet PO (07:42)
[2019-03-25] MEDS: Metoprolol(XL)Succ 50 MG Tablet PO (07:42)
[2019-03-25] MEDS: Gabapentin 100 MG Capsule PO ×2 (07:42→19:22)
[2019-03-25] MEDS: amLODIPine 5 MG Tablet PO (07:42)
[2019-03-25] MEDS: Aspirin 81 MG TAB.CHEW PO (07:42)
[2019-03-25] MEDS: APIXABAN 5 MG TABLET PO ×2 (07:42→21:50)
[2019-03-25] MEDS: Insulin Lispro 100 UNIT/ML INSULN.PEN 8 UNIT SC ×2 (07:43→18:05)
[2019-03-25] MEDS: Amiodarone 200 MG Tablet PO ×2 (07:49→21:50)
[2019-03-25] MEDS: Senna/Docusate Sodium 1 Tablet 2 TABLET PO ×2 (07:49→21:49)
[2019-03-25 10:00] VITALS: BP 136/76; PULSE 69; RESP 18; TEMP 36.5; O2SAT 96
[2019-03-25] MEDS: Acetaminophen 500 MG Tablet 1000 MG PO ×2 (10:09→21:49)
--- NOTE | 2019-03-25 11:03 | PN.NEURO_ITS ---
Subjective: No issues overnight. Care discussed with the nursing staff. - Physical Exam General: Alert HEENT: Normocephalic Neck: Supple Lungs: Normal air movement Cardiovascular: Normal S1, Normal S2 Abdomen: Bowel Sounds Present Extremities: No cyanosis Neurological: - - consious, alert, AoAx3, CN 2-12 grossly intact, power 5/5 right UE/LE, 3/5 left UE 1/5 left LE, no sensory loss, no cerebellar signs, Reflexes + B/L B/S/T/K/A, gait deferred. Psych/Mental Status: Normal Affect Vital Signs Temp Pulse Resp BP Pulse Ox 97.7 F L 69 18 136/76 H 96 03/25/19 10:00 03/25/19 10:00 03/25/19 10:00 03/25/19 10:00 03/25/19 10:00 Oxygen Delivery Method Room Air Weight: 129.9 kg Body Mass Index (BMI) 36.6 Finger Stick Blood Glucose 380 Intake and Output for Last 24 Hours 03/23/19 03/24/19 03/25/19 23:59 23:59 23:59 Intake Total 720 / 720 240 / 240 Balance 720 / 720 240 / 240 POC Glucose 03/25/19 03/24/19 03/24/19 07:00 21:38 16:50 POC Glucose 87 157 H 131 H 03/24/19 11:46 POC Glucose 181 H Medical Necessity - Tobacco Use Smoking Status: Never smoker Tobacco Use: Non-smoker Assessment/Plan All Active Problems Hyponatremia (Acute) Oropharyngeal dysphagia (Acute) Ischemic cerebrovascular accident (CVA) (Acute) 58-year-old male with PMH HTN, HLD, DM, neuropathy, CKD, recent admission with NSTEMI on 02/22/2019 was found to have LAD occlusion and recommended CABG patient refused, A. fib on Eliquis (per documentation patient was found in A. fib with RVR post cardiac cath when he was admitted on 02/22/2019) admitted to [facility] on 03/10/2019 with debility status post acute right paramedian pontine infarct for greater than 3 hours therapy daily with the aim of returning back home at or near his prior level of functional independence. Patient is admitted with dysarthria and left-sided weakness, was found to have acute right paramedian pontine infarct on the MRI brain. Echo done on 02/22/2019 reported to show EF of 35%, LA moderately enlarged LDL 61, hemoglobin A1c 9.4. Plan ?PT for gait stability ?OT for ADLs ?Analgesics as needed ?Bowel protocol ?MRA head/neck reported not to show any hemodynamically significant stenosis or occlusion. ?Hypertension?on metoprolol, Lisinopril, amlodipine, monitor blood pressure, avoid hypotension. Goal blood pressure less than 130mmHg systolic blood pressure. Will discuss with hospitalist about blood pressure control. ?HLD?on atorvastatin ?Acute right paramedian pontine stroke?on Eliquis, statins. Probably the stroke was secondary to small vessel disease secondary to uncontrolled diabetes ?DM?on insulin, further management as per hospitalist commendations. Discussed with Dr. Nguyễn (hospitalist) who is managing his diabetes. ?CKD?avoid nephrotoxic drugs, avoid dehydration. Creatinine 1.64 stable. At baseline. ?CAD?recent cardiac catheterization on 02/22/2019 reported to show mid LAD occlusion, patient was advised to CABG but refused the same. On aspirin statins and metoprolol. Ejection fraction 35%. Patient does not want to pursue any further intervention procedure per patient. ?A. fib?on Eliquis, amiodarone and metoprolol ?Neuropathy- on gabapentin ?Patient on Zoloft for possible depression ?GI/DVT prophylaxis?on famotidine/Eliquis ?Fall precautions ?Patient counseled to be compliant with medications. ?Further medical management per hospitalist recommendation ?Follow-up with PCP, cardiology, endocrinology and neurology as outpatient.
[2019-03-25 12:05] LABS: Bedside Glucose 143 mg/dL (70-110)
[2019-03-25] MEDS: Lisinopril 10 MG Tablet PO (12:17)
[2019-03-25] MEDS: Insulin Lispro 100 UNIT/ML INSULN.PEN SC (12:23)
[2019-03-25 14:22] VITALS: BMI 36.6
[2019-03-25 17:21] LABS: Bedside Glucose 154 mg/dL (70-110)
[2019-03-25 20:31] VITALS: BP 138/73; PULSE 62; RESP 18; TEMP 36.6; O2SAT 98
[2019-03-25] MEDS: Gabapentin 100 MG Capsule 200 MG PO (21:50)
[2019-03-25] MEDS: Atorvastatin Calcium 80 MG Tablet PO (21:50)
[2019-03-25 22:00] VITALS: PULSE 62; RESP 18; BMI 36.6
[2019-03-25 22:25] LABS: Bedside Glucose 146 mg/dL (70-110)
[2019-03-26 07:00] VITALS: BP 154/84; PULSE 65; RESP 18; TEMP 36.6; O2SAT 93
[2019-03-26 07:11] LABS: Bedside Glucose 84 mg/dL (70-110)
[2019-03-26 07:52] VITALS: BP 154/84; PULSE 68
[2019-03-26] MEDS: Lisinopril 10 MG Tablet PO (07:52)
[2019-03-26] MEDS: Acetaminophen 500 MG Tablet 1000 MG PO ×2 (07:52→20:45)
[2019-03-26] MEDS: Sertraline 50 MG Tablet PO (07:52)
[2019-03-26] MEDS: Metoprolol(XL)Succ 50 MG Tablet PO (07:52)
[2019-03-26] MEDS: amLODIPine 5 MG Tablet PO (07:53)
[2019-03-26] MEDS: Aspirin 81 MG TAB.CHEW PO (07:53)
[2019-03-26] MEDS: Famotidine 20 MG Tablet PO ×2 (07:53→20:46)
[2019-03-26] MEDS: Amiodarone 200 MG Tablet PO ×2 (07:53→20:46)
[2019-03-26] MEDS: Gabapentin 100 MG Capsule PO ×2 (07:53→17:14)
[2019-03-26] MEDS: APIXABAN 5 MG TABLET PO ×2 (07:53→20:46)
[2019-03-26] MEDS: Insulin Lispro 100 UNIT/ML INSULN.PEN 8 UNIT SC ×2 (07:54→17:15)
--- NOTE | 2019-03-26 10:32 | PN.NEURO_ITS ---
Subjective: No issues overnight. Care discussed with nursing staff. - Physical Exam General: Alert HEENT: Normocephalic Neck: Supple Lungs: Normal air movement Cardiovascular: Normal S1, Normal S2 Abdomen: Bowel Sounds Present Extremities: No cyanosis Neurological: - - consious, alert, AoAx3, CN 2-12 grossly intact, power 5/5 right UE/LE, 3/5 left UE 1/5 left LE, no sensory loss, no cerebellar signs, Reflexes + B/L B/S/T/K/A, gait deferred. Psych/Mental Status: Normal Affect Vital Signs Temp Pulse Resp BP Pulse Ox 97.9 F 68 18 154/84 H 93 03/26/19 07:00 03/26/19 07:52 03/26/19 07:00 03/26/19 07:52 03/26/19 07:00 Oxygen Delivery Method Room Air Weight: 129.9 kg Body Mass Index (BMI) 36.6 Finger Stick Blood Glucose 380 Intake and Output for Last 24 Hours 03/24/19 03/25/19 03/26/19 23:59 23:59 23:59 Intake Total 240 / 240 440 / 440 360 / 360 Balance 240 / 240 440 / 440 360 / 360 POC Glucose 03/26/19 03/25/19 03/25/19 06:55 21:48 17:15 POC Glucose 84 146 H 154 H 03/25/19 12:01 POC Glucose 143 H Medical Necessity - Tobacco Use Smoking Status: Never smoker Tobacco Use: Non-smoker Assessment/Plan All Active Problems Hyponatremia (Acute) Oropharyngeal dysphagia (Acute) Ischemic cerebrovascular accident (CVA) (Acute) 58-year-old male with PMH HTN, HLD, DM, neuropathy, CKD, recent admission with NSTEMI on 02/22/2019 was found to have LAD occlusion and recommended CABG patient refused, A. fib on Eliquis (per documentation patient was found in A. fib with RVR post cardiac cath when he was admitted on 02/22/2019) admitted to [facility] on 03/10/2019 with debility status post acute right paramedian pontine infarct for greater than 3 hours therapy daily with the aim of returning back home at or near his prior level of functional independence. Patient is admitted with dysarthria and left-sided weakness, was found to have acute right paramedian pontine infarct on the MRI brain. Echo done on 02/22/2019 reported to show EF of 35%, LA moderately enlarged LDL 61, hemoglobin A1c 9.4. Plan ?PT for gait stability ?OT for ADLs ?Analgesics as needed ?Bowel protocol ?MRA head/neck reported not to show any hemodynamically significant stenosis or occlusion. ?Hypertension?on metoprolol, Lisinopril, amlodipine, monitor blood pressure, avoid hypotension. Goal blood pressure less than 130mmHg systolic blood pressure. Will discuss with hospitalist about blood pressure control. ?HLD?on atorvastatin ?Acute right paramedian pontine stroke?on Eliquis, statins. Probably the stroke was secondary to small vessel disease secondary to uncontrolled diabetes ?DM?on insulin, further management as per hospitalist commendations. Discussed with Dr. Nguyễn (hospitalist) who is managing his diabetes. ?CKD?avoid nephrotoxic drugs, avoid dehydration. Creatinine 1.64 stable. At baseline. ?CAD?recent cardiac catheterization on 02/22/2019 reported to show mid LAD occlusion, patient was advised to CABG but refused the same. On aspirin statins and metoprolol. Ejection fraction 35%. Patient does not want to pursue any further intervention procedure per patient. ?A. fib?on Eliquis, amiodarone and metoprolol ?Neuropathy- on gabapentin ?Patient on Zoloft for possible depression ?GI/DVT prophylaxis?on famotidine/Eliquis ?Fall precautions ?Patient counseled to be compliant with medications. ?Further medical management per hospitalist recommendation ?Follow-up with PCP, cardiology, endocrinology and neurology as outpatient.
[2019-03-26] MEDS: Insulin Lispro 100 UNIT/ML INSULN.PEN SC (12:27)
[2019-03-26 12:30] LABS: Bedside Glucose 138 mg/dL (70-110)
--- NOTE | 2019-03-26 12:41 | CASEMGMT ---
Insurance Clinical update faxed to insurance. Will await continued stay determination. Auth# [id number] SKYE Chao
[2019-03-26 13:27] VITALS: BMI 36.6
[2019-03-26 17:16] LABS: Bedside Glucose 147 mg/dL (70-110)
--- NOTE | 2019-03-26 18:53 | PCM.PROGNOTE ---
Subjective: Afebrile, vital signs are stable. Blood pressure is coming under better control and over the past 3 days has ranged from 136/76-154/84. Pulse ox on room air is 93-98%. Blood sugars are well controlled. Current antihypertensives include amlodipine 5 mg daily, lisinopril 10 mg daily and metoprolol 50 mg daily. He denies chest pain, shortness of breath, nausea, vomiting, abdominal pain. He continues to complain about pain in his legs distal to the knees. He tells me the gabapentin has helped. He is still emotional and gets tearful at times but it is brief. He has a more positive attitude since being started on Zoloft during his hospital admission. He is now able to wiggle his toes on the left foot and move his foot slightly from side to side. He is able to grasp my hand with his left hand. He is very happy with his progress. - Physical Exam General: Alert, Oriented x3, Cooperative, No apparent distress, Well developed, Well nourished, - - He has good color and looks much better than he did at discharge from the hospital. HEENT: PERRLA, EOMI Oral: Moist Mucosa Lungs: Clear to auscultation - After a cough. Cardiovascular: Regular rate, Regular Rhythm, Normal S1, Normal S2, No murmurs, No Gallop Abdomen: Bowel Sounds Present, Soft, Non Tender, Non-Distended Extremities: No edema, No Calf Tenderness Skin: No rashes Neurological: Cranial nerves II-XII grossly intact, - - Left hemiparesis with minimal movement in the left lower extremity but is able to lift his left arm and grasp my hand now. I do not appreciate any facial droop. Psych/Mental Status: Normal Affect, Appropriate Vital Signs Temp Pulse Resp BP Pulse Ox 97.9 F 68 18 154/84 H 93 03/26/19 07:00 03/26/19 07:52 03/26/19 07:00 03/26/19 07:52 03/26/19 07:00 Oxygen Delivery Method Room Air Weight: 286 lb 6.087 oz Body Mass Index (BMI) 36.6 Finger Stick Blood Glucose 380 Intake and Output for Last 24 Hours 03/24/19 03/25/19 03/26/19 23:59 23:59 23:59 Intake Total 240 / 240 440 / 440 960 / 960 Balance 240 / 240 440 / 440 960 / 960 POC Glucose 03/26/19 03/26/19 03/26/19 17:12 12:23 06:55 POC Glucose 147 H 138 H 84 03/25/19 21:48 POC Glucose 146 H Medical Necessity - Tobacco Use Smoking Status: Never smoker Tobacco Use: Non-smoker Assessment/Plan All Active Problems Hyponatremia (Acute) Oropharyngeal dysphagia (Acute) Ischemic cerebrovascular accident (CVA) (Acute) Impressions 1. Recent CVA, likely embolic related to atrial fibrillation in the first week of March 2019 2. Paroxysmal atrial fibrillation 3. Chronic anticoagulation with apixaban 4. Hypertension-better controlled but still not optimized 5. Depression-he is much improved from when he was in the hospital. 6. Diabetes mellitus type 2-blood sugars are under excellent control 7. Diabetic neuropathy-gabapentin is helping but he is still having some pain 8. Coronary artery disease with a 100% occlusion in the mid LAD. Patient has refused CABG in the past because he wanted to . I do not think he feels this way any longer and would discuss this with him in the future again. Continue Zoloft 50 mg p.o. daily Obtain BMP in the a.m. since he has been placed on lisinopril. If the creatinine is stable and the potassium is within normal limits would increase lisinopril to 20 mg daily. A.m. blood sugar is in the 80s-we will decrease Lantus at at bedtime to 6 units. Increase gabapentin to 200 mg 3 times daily Code Visit Inpatient E&M: 61652 Subs Hosp L2
[2019-03-26 20:01] LABS: Bedside Glucose 200 mg/dL (70-110)
[2019-03-26 20:39] VITALS: BP 144/72; PULSE 61; RESP 18; TEMP 36.5; O2SAT 96
[2019-03-26] MEDS: Atorvastatin Calcium 80 MG Tablet PO (20:46)
[2019-03-26] MEDS: Gabapentin 100 MG Capsule 200 MG PO (20:46)
[2019-03-27 00:19] VITALS: BMI 36.6
[2019-03-27] MEDS: Gabapentin 100 MG Capsule 200 MG PO ×3 (05:23→20:42)
[2019-03-27 06:35] LABS: Bedside Glucose 90 mg/dL (70-110)
[2019-03-27 07:00] VITALS: BP 133/82; PULSE 62; RESP 18; TEMP 36.5; O2SAT 94
[2019-03-27] MEDS: Aspirin 81 MG TAB.CHEW PO (07:35)
[2019-03-27] MEDS: Amiodarone 200 MG Tablet PO ×2 (07:35→20:42)
[2019-03-27] MEDS: Lisinopril 10 MG Tablet PO (07:35)
[2019-03-27] MEDS: amLODIPine 5 MG Tablet PO (07:35)
[2019-03-27] MEDS: Sertraline 50 MG Tablet PO (07:35)
[2019-03-27] MEDS: APIXABAN 5 MG TABLET PO ×2 (07:35→20:43)
[2019-03-27] MEDS: Famotidine 20 MG Tablet PO ×2 (07:35→20:42)
[2019-03-27] MEDS: Insulin Lispro 100 UNIT/ML INSULN.PEN 8 UNIT SC ×2 (07:36→17:26)
[2019-03-27 07:38] VITALS: PULSE 78
[2019-03-27] MEDS: Senna/Docusate Sodium 1 Tablet 2 TABLET PO ×2 (07:38→20:43)
[2019-03-27] MEDS: Metoprolol(XL)Succ 50 MG Tablet PO (07:38)
[2019-03-27] MEDS: Acetaminophen 500 MG Tablet 1000 MG PO ×2 (08:29→20:42)
[2019-03-27 09:44] LABS: Anion Gap 5 (5-15); BUN 21 mg/dL (7-18); Calcium,Total 8.3 mg/dL (8.5-10.1); Chloride 109 mmol/L (98-107); Creatinine, Serum 1.62 mg/dL (0.70-1.30); EST Glomerular Filtration Rate 47 mL/min (>60); Est Glom Filt Rate - Afr Amer 57 mL/min (>60); Estimated Creatinine Clearance 57.79 ml/min; Glucose 142 mg/dL (74-106); Potassium 4.3 mmol/L (3.5-5.1); Sodium Level 141 mmol/L (136-145)
[2019-03-27 12:31] LABS: Bedside Glucose 147 mg/dL (70-110)
[2019-03-27] MEDS: Insulin Lispro 100 UNIT/ML INSULN.PEN SC (12:51)
[2019-03-27 13:01] VITALS: BMI 36.6
[2019-03-27 18:51] LABS: Bedside Glucose 194 mg/dL (70-110)
[2019-03-27 20:22] VITALS: BP 102/62; PULSE 60; RESP 20; TEMP 36.7; O2SAT 95
[2019-03-27] MEDS: Atorvastatin Calcium 80 MG Tablet PO (20:42)
[2019-03-27 20:46] LABS: Bedside Glucose 175 mg/dL (70-110)
[2019-03-27 23:48] VITALS: BMI 36.6
[2019-03-28] MEDS: Gabapentin 100 MG Capsule 200 MG PO ×3 (05:13→22:09)
[2019-03-28 06:16] LABS: Bedside Glucose 81 mg/dL (70-110)
[2019-03-28 07:22] VITALS: BP 138/89; PULSE 66; RESP 20; TEMP 36.7; O2SAT 98
[2019-03-28 07:29] VITALS: BP 138/89; PULSE 66
[2019-03-28] MEDS: Metoprolol(XL)Succ 50 MG Tablet PO (07:29)
[2019-03-28] MEDS: Lisinopril 10 MG Tablet PO (07:29)
[2019-03-28] MEDS: APIXABAN 5 MG TABLET PO ×2 (07:29→22:10)
[2019-03-28] MEDS: Amiodarone 200 MG Tablet PO ×2 (07:30→22:11)
[2019-03-28] MEDS: amLODIPine 5 MG Tablet PO (07:30)
[2019-03-28] MEDS: Acetaminophen 500 MG Tablet 1000 MG PO ×2 (07:30→22:11)
[2019-03-28] MEDS: Insulin Lispro 100 UNIT/ML INSULN.PEN 8 UNIT SC ×2 (07:30→17:11)
[2019-03-28] MEDS: Senna/Docusate Sodium 1 Tablet 2 TABLET PO ×2 (07:30→22:09)
[2019-03-28] MEDS: Aspirin 81 MG TAB.CHEW PO (07:30)
[2019-03-28] MEDS: Sertraline 50 MG Tablet PO (07:30)
[2019-03-28] MEDS: Famotidine 20 MG Tablet PO ×2 (07:31→22:09)
[2019-03-28 11:26] LABS: Bedside Glucose 149 mg/dL (70-110)
[2019-03-28 11:44] VITALS: BMI 36.6
[2019-03-28] MEDS: Insulin Lispro 100 UNIT/ML INSULN.PEN SC (12:30)
[2019-03-28 17:16] LABS: Bedside Glucose 110 mg/dL (70-110)
--- NOTE | 2019-03-28 17:44 | NURSING ---
BS x 4, refusing MOM at this time, has been on BSC several times today without success of having a BM. passing gas, will monitor.
[2019-03-28 19:29] VITALS: BP 114/68; PULSE 59; RESP 16; TEMP 36.5; O2SAT 98
[2019-03-28] MEDS: Atorvastatin Calcium 80 MG Tablet PO (22:09)
[2019-03-28 22:30] LABS: Bedside Glucose 149 mg/dL (70-110)
[2019-03-29 05:00] VITALS: BMI 36.6
[2019-03-29] MEDS: Gabapentin 100 MG Capsule 200 MG PO (05:50)
[2019-03-29 06:46] LABS: Bedside Glucose 99 mg/dL (70-110)
[2019-03-29 07:25] VITALS: BP 131/71; PULSE 61; RESP 16; TEMP 36.6; O2SAT 92
[2019-03-29] MEDS: Insulin Lispro 100 UNIT/ML INSULN.PEN 8 UNIT SC ×2 (08:05→18:01)
[2019-03-29] MEDS: Aspirin 81 MG TAB.CHEW PO (08:05)
[2019-03-29] MEDS: APIXABAN 5 MG TABLET PO ×2 (08:05→19:43)
[2019-03-29] MEDS: Amiodarone 200 MG Tablet PO ×2 (08:05→19:43)
[2019-03-29 08:06] VITALS: PULSE 62
[2019-03-29] MEDS: amLODIPine 5 MG Tablet PO (08:06)
[2019-03-29] MEDS: Senna/Docusate Sodium 1 Tablet 2 TABLET PO (08:06)
[2019-03-29] MEDS: Metoprolol(XL)Succ 50 MG Tablet PO (08:06)
[2019-03-29] MEDS: Famotidine 20 MG Tablet PO ×2 (08:06→19:43)
[2019-03-29] MEDS: Sertraline 50 MG Tablet PO (08:07)
[2019-03-29] MEDS: Lisinopril 10 MG Tablet PO (08:07)
[2019-03-29] MEDS: Acetaminophen 500 MG Tablet 1000 MG PO ×2 (08:07→19:43)
--- NOTE | 2019-03-29 09:51 | VDLE_ITS ---
Reason For Study: pain RIGHT LEFT GSV is normal. GSV is normal. CFV is compressible, spontaneous, phasic, CFV is compressible, spontaneous, phasic, competent and demonstrates normal competent, and demonstrates normal augmentation. augmentation. FV is compressible, spontaneous, phasic, FV is compressible, spontaneous, phasic, competent and demonstrates normal competent and demonstrates normal augmentation. augmentation. POP V is compressible, spontaneous, phasic, POP V is compressible, spontaneous, phasic, competent and demonstrates normal competent and demonstrates normal augmentation. augmentation. T/P Trunk is compressible. T/P Trunk is compressible. PTV is compressible. PTV is compressible. RT PerV is compressible. LT PerV is compressible. Procedure Exam performed portable in patient room. The exam was diagnostic. A preliminary report was called and/or faxed to the pt's RN. Interpretation Summary Deep veins of the lower extremities are bilaterally patent and compressible segmentally. There is no evidence of deep vein thrombosis on either side. Valvular competence appears intact within the proximal deep venous systems bilaterally. The greater saphenous veins appear bilaterally patent and compressible segmentally. Ordering Physician: RILEY Tijerina Performed By: Damian Fiore RVT
--- NOTE | 2019-03-29 12:09 | PN.NEURO_ITS ---
Subjective: Per nursing staff no issues over night. Team meeting held and per therapies patient is tolerating therapy and per ST patient will continue on nectar thickened liquids and Purdy water protocol. Per patient continues to have N/T to left lower extremity, which causes pain to left anterior and posterior lower leg. Will increase Neurontin and order Duplex to BLE. Patient will be re-teamed next week. - Physical Exam General: Alert, Oriented x3, Cooperative HEENT: Atraumatic, PERRLA Oral: Moist Mucosa Neck: Supple, No JVD Lungs: Clear to auscultation, Normal air movement Cardiovascular: Regular rate, Regular Rhythm, Normal S1, Normal S2 Abdomen: Bowel Sounds Present, Soft, Non Tender - CN 2-12 grossly intact, power 5/5 right UE/LE, 3/5 left UE 1/5 left LE. Extremities: No clubbing, No cyanosis, Capillary Refill Less than 3 Seconds, Edema - mild non-pitting to left hand Musculoskeletal: No Tenderness to Palpation of Joints or Extremities Neurological: Deep Tendon Reflexes 2+/4 and Symmetrical - Cranial nerves 2-12 grossly intact, power 5/5 right UE/LE, 3/5 left UE 1/5 left LE. Decrease sensation to left lower extremity to tactile and temperature. Psych/Mental Status: Normal Affect, Appropriate, Alert and oriented to time, place, person, mood and affect Vital Signs Temp Pulse Resp BP Pulse Ox 97.9 F 62 16 131/71 H 92 03/29/19 07:25 03/29/19 08:06 03/29/19 07:25 03/29/19 07:25 03/29/19 07:25 Oxygen Delivery Method Room Air Weight: 129.9 kg Body Mass Index (BMI) 36.6 Finger Stick Blood Glucose 380 Intake and Output for Last 24 Hours 03/27/19 03/28/19 03/29/19 23:59 23:59 23:59 Intake Total 720 / 720 120 / 120 Balance 720 / 720 120 / 120 POC Glucose 03/29/19 03/28/19 03/28/19 06:28 22:08 17:10 POC Glucose 99 149 H 110 Medical Necessity - Tobacco Use Smoking Status: Never smoker Tobacco Use: Non-smoker Assessment/Plan All Active Problems Hyponatremia (Acute) Oropharyngeal dysphagia (Acute) Ischemic cerebrovascular accident (CVA) (Acute) 58-year-old male with PMH HTN, HLD, DM, neuropathy, CKD, recent admission with NSTEMI on 02/22/2019 was found to have LAD occlusion and recommended CABG patient refused, A. fib on Eliquis (per documentation patient was found in A. fib with RVR post cardiac cath when he was admitted on 02/22/2019) admitted to [facility] on 03/10/2019 with debility status post acute right paramedian pontine infarct for greater than 3 hours therapy daily with the aim of returning back home at or near his prior level of functional independence. Patient is admitted with dysarthria and left-sided weakness, was found to have acute right paramedian pontine infarct on the MRI brain. Echo done on 02/22/2019 reported to show EF of 35%, LA moderately enlarged LDL 61, hemoglobin A1c 9.4. Plan ?PT for gait stability ?OT for ADLs ?Analgesics as needed ?Bowel protocol ?MRA head/neck reported not to show any hemodynamically significant stenosis or occlusion. ?Hypertension?on metoprolol, Lisinopril, amlodipine, monitor blood pressure, avoid hypotension. Goal blood pressure less than 130mmHg systolic blood pressure. Will discuss with hospitalist about blood pressure control. ?HLD?on atorvastatin ?Acute right paramedian pontine stroke?on Eliquis, statins. Probably the stroke was secondary to small vessel disease secondary to uncontrolled diabetes ?DM?on insulin, further management as per hospitalist commendations. Discussed with Dr. Nguyễn (hospitalist) who is managing his diabetes. ?CKD?avoid nephrotoxic drugs, avoid dehydration. Creatinine 1.64 stable. At baseline. ?CAD?recent cardiac catheterization on 02/22/2019 reported to show mid LAD occlusion, patient was advised to CABG but refused the same. On aspirin statins and metoprolol. Ejection fraction 35%. Patient does not want to pursue any further intervention procedure per patient. ?A. fib?on Eliquis, amiodarone and metoprolol ?Neuropathy- Increase dose of Neurontin to 400 mg 4x/day and duplex to BLE ?Patient on Zoloft for possible depression ?GI/DVT prophylaxis?on famotidine/Eliquis ?Fall precautions ?Patient counseled to be compliant with medications. ?Further medical management per hospitalist recommendation ?Follow-up with PCP, cardiology, endocrinology and neurology as outpatient.
[2019-03-29 12:10] LABS: Bedside Glucose 144 mg/dL (70-110)
--- NOTE | 2019-03-29 12:22 | CASEMGMT ---
Team meeting held today with pt and ex present. Pt is receiving PT/OT/ST and progressing with therapy. No d/c date set at this time. Pt is aware that insurance update was submitted on Friday and continued stay is not guaranteed. Pt is aware that he will likely need SNF placement at d/c and would prefer [facility] if available. Will continue with treatment plan and reteam next week. SKYE Chao
[2019-03-29] MEDS: Insulin Lispro 100 UNIT/ML INSULN.PEN SC (13:00)
[2019-03-29] MEDS: Gabapentin 400 MG Capsule PO ×3 (13:01→21:23)
[2019-03-29 17:00] VITALS: BMI 36.6
[2019-03-29 17:45] LABS: Bedside Glucose 106 mg/dL (70-110)
[2019-03-29 19:30] VITALS: PULSE 55; RESP 16; O2SAT 97; BMI 36.6
[2019-03-29] MEDS: Atorvastatin Calcium 80 MG Tablet PO (19:43)
[2019-03-29 21:06] LABS: Bedside Glucose 138 mg/dL (70-110)
[2019-03-29 21:35] VITALS: BP 145/76; PULSE 55; RESP 16; TEMP 36.7; O2SAT 97
--- NOTE | 2019-03-30 04:50 | NURSING ---
reviewed and agree with LOSS PREVENTION LEADER documentation and FIMs charting.
[2019-03-30 07:06] LABS: Bedside Glucose 80 mg/dL (70-110)
[2019-03-30 07:30] VITALS: BP 106/67; PULSE 57; RESP 17; TEMP 36.7; O2SAT 96
[2019-03-30] MEDS: Famotidine 20 MG Tablet PO ×2 (07:44→21:35)
[2019-03-30] MEDS: Aspirin 81 MG TAB.CHEW PO (07:44)
[2019-03-30] MEDS: Lisinopril 10 MG Tablet PO (07:44)
[2019-03-30] MEDS: Sertraline 50 MG Tablet PO (07:44)
[2019-03-30] MEDS: Acetaminophen 500 MG Tablet 1000 MG PO ×2 (07:44→21:36)
[2019-03-30] MEDS: APIXABAN 5 MG TABLET PO ×2 (07:44→21:36)
[2019-03-30] MEDS: Senna/Docusate Sodium 1 Tablet 2 TABLET PO ×2 (07:44→21:35)
[2019-03-30] MEDS: Amiodarone 200 MG Tablet PO ×2 (07:44→21:36)
[2019-03-30 07:47] VITALS: PULSE 78
[2019-03-30] MEDS: Metoprolol(XL)Succ 50 MG Tablet PO (07:47)
[2019-03-30] MEDS: Insulin Lispro 100 UNIT/ML INSULN.PEN 8 UNIT SC ×2 (07:50→17:56)
[2019-03-30] MEDS: amLODIPine 5 MG Tablet PO (10:31)
[2019-03-30] MEDS: Gabapentin 400 MG Capsule PO ×4 (10:31→21:36)
--- NOTE | 2019-03-30 11:19 | PCM.PN.NEU ---
Subjective: Per nursing staff, no issues overnight. Per patient increase dose of Neurontin has decreased N/T and pain to anterior and posterior bilateral lower extremities. Patient is aware of Duplex to BLE was negative for DVTs. - Physical Exam General: Alert, Oriented x3 HEENT: Atraumatic, PERRLA, EOMI, Normocephalic Oral: Moist Mucosa Neck: Supple, No JVD, Negative Carotid Bruits Lungs: Clear to auscultation, Normal air movement Cardiovascular: Regular rate, Regular Rhythm, Normal S1, Normal S2 Abdomen: Bowel Sounds Present, Soft, Non Tender, Obese Extremities: Capillary Refill Less than 3 Seconds, Edema - mild non-pitting to left hand Musculoskeletal: No Tenderness to Palpation of Joints or Extremities Neurological: Cranial nerves II-XII grossly intact, - - Deep Tendon Reflexes 2+/4 and Symmetrical - Cranial nerves 2-12 grossly intact, power 5/5 right UE/LE, 3/5 left UE 1/5 left LE. Decrease sensation to left lower extremity to tactile and temperature. Psych/Mental Status: Normal Affect, Appropriate, Alert and oriented to time, place, person, mood and affect Vital Signs Temp Pulse Resp BP Pulse Ox 98.1 F 78 17 106/67 96 03/30/19 07:30 03/30/19 07:47 03/30/19 07:30 03/30/19 07:30 03/30/19 07:30 Oxygen Delivery Method Room Air Weight: 129.9 kg Body Mass Index (BMI) 36.6 Finger Stick Blood Glucose 380 Intake and Output for Last 24 Hours 03/28/19 03/29/19 03/30/19 23:59 23:59 23:59 Intake Total 800 / 800 Output Total 500 / 500 Balance 300 / 300 POC Glucose 03/30/19 03/29/19 03/29/19 06:51 20:44 17:16 POC Glucose 80 138 H 106 03/29/19 12:05 POC Glucose 144 H Medical Necessity - Tobacco Use Smoking Status: Never smoker Tobacco Use: Non-smoker Assessment/Plan All Active Problems Hyponatremia (Acute) Oropharyngeal dysphagia (Acute) Ischemic cerebrovascular accident (CVA) (Acute) 58-year-old male with PMH HTN, HLD, DM, neuropathy, CKD, recent admission with NSTEMI on 02/22/2019 was found to have LAD occlusion and recommended CABG patient refused, A. fib on Eliquis (per documentation patient was found in A. fib with RVR post cardiac cath when he was admitted on 02/22/2019) admitted to [facility] on 03/10/2019 with debility status post acute right paramedian pontine infarct for greater than 3 hours therapy daily with the aim of returning back home at or near his prior level of functional independence. Patient is admitted with dysarthria and left-sided weakness, was found to have acute right paramedian pontine infarct on the MRI brain. Echo done on 02/22/2019 reported to show EF of 35%, LA moderately enlarged LDL 61, hemoglobin A1c 9.4. Plan ?PT for gait stability ?OT for ADLs ?Analgesics as needed ?Bowel protocol ?MRA head/neck reported not to show any hemodynamically significant stenosis or occlusion. ?Hypertension?on metoprolol, Lisinopril, amlodipine, monitor blood pressure, avoid hypotension. Goal blood pressure less than 130mmHg systolic blood pressure. Will discuss with hospitalist about blood pressure control. ?HLD?on atorvastatin ?Acute right paramedian pontine stroke?on Eliquis, statins. Probably the stroke was secondary to small vessel disease secondary to uncontrolled diabetes ?DM?on insulin, further management as per hospitalist commendations. Discussed with Dr. Nguyễn (hospitalist) who is managing his diabetes. ?CKD?avoid nephrotoxic drugs, avoid dehydration. Creatinine 1.64 stable. At baseline. ?CAD?recent cardiac catheterization on 02/22/2019 reported to show mid LAD occlusion, patient was advised to CABG but refused the same. On aspirin statins and metoprolol. Ejection fraction 35%. Patient does not want to pursue any further intervention procedure per patient. ?A. fib?on Eliquis, amiodarone and metoprolol ?Neuropathy- Increase dose of Neurontin to 400 mg 4x/day and duplex to BLE ?Patient on Zoloft for possible depression ?GI/DVT prophylaxis?on famotidine/Eliquis Duplex to BLE 03/29/2019 negative ?Fall precautions ?Patient counseled to be compliant with medications. ?Further medical management per hospitalist recommendation ?Follow-up with PCP, cardiology, endocrinology and neurology as outpatient.
[2019-03-30 12:30] LABS: Bedside Glucose 123 mg/dL (70-110)
[2019-03-30] MEDS: Insulin Lispro 100 UNIT/ML INSULN.PEN SC (12:52)
[2019-03-30 15:31] VITALS: BMI 36.6
[2019-03-30 17:45] LABS: Bedside Glucose 140 mg/dL (70-110)
[2019-03-30 19:49] VITALS: BP 121/84; PULSE 62; RESP 18; TEMP 36.4; O2SAT 97
[2019-03-30] MEDS: Atorvastatin Calcium 80 MG Tablet PO (21:36)
[2019-03-30 21:51] LABS: Bedside Glucose 133 mg/dL (70-110)
[2019-03-30 21:54] VITALS: BMI 36.6
[2019-03-30 22:00] VITALS: PULSE 62; RESP 18; O2SAT 97
--- NOTE | 2019-03-31 02:52 | NURSING ---
Reviewed and agree with ELEVATOR SERVICE MECHANIC documentation and FIMs charting.
[2019-03-31 06:51] LABS: Bedside Glucose 81 mg/dL (70-110)
[2019-03-31 07:41] VITALS: BP 145/87; PULSE 63; RESP 16; TEMP 36.4; O2SAT 98
[2019-03-31] MEDS: Sertraline 50 MG Tablet PO (08:03)
[2019-03-31] MEDS: Lisinopril 10 MG Tablet PO (08:03)
[2019-03-31] MEDS: Acetaminophen 500 MG Tablet 1000 MG PO ×2 (08:03→21:35)
[2019-03-31 08:04] VITALS: BP 145/87; PULSE 63
[2019-03-31] MEDS: Gabapentin 400 MG Capsule PO ×4 (08:04→21:34)
[2019-03-31] MEDS: Famotidine 20 MG Tablet PO ×2 (08:04→21:34)
[2019-03-31] MEDS: amLODIPine 5 MG Tablet PO (08:04)
[2019-03-31] MEDS: Amiodarone 200 MG Tablet PO ×2 (08:04→21:33)
[2019-03-31] MEDS: Insulin Lispro 100 UNIT/ML INSULN.PEN 8 UNIT SC ×2 (08:04→17:05)
[2019-03-31] MEDS: Metoprolol(XL)Succ 50 MG Tablet PO (08:04)
[2019-03-31] MEDS: Senna/Docusate Sodium 1 Tablet 2 TABLET PO (08:04)
[2019-03-31] MEDS: Aspirin 81 MG TAB.CHEW PO (08:04)
[2019-03-31] MEDS: APIXABAN 5 MG TABLET PO ×2 (08:04→21:33)
[2019-03-31] MEDS: Polyethylene Glycol 3350 17 GM PACKET PO (08:05)
--- NOTE | 2019-03-31 09:32 | PCM.PN.NEU ---
Subjective: Per nursing staff, no issues overnight. Per patient Neurontin has been effective in helping relieving his n/t to bilateral lower extremities and per patient he slept good last night. - Physical Exam General: Alert, Oriented x3, Cooperative HEENT: Atraumatic, PERRLA Oral: Moist Mucosa Neck: Supple, No JVD Lungs: Clear to auscultation, Normal air movement Cardiovascular: Regular rate, Regular Rhythm, Normal S1, Normal S2 Abdomen: Bowel Sounds Present, Soft, Non Tender, Obese Extremities: No clubbing, No cyanosis, Capillary Refill Less than 3 Seconds, Edema - mild non-pitting to left hand Musculoskeletal: No Tenderness to Palpation of Joints or Extremities Neurological: - - Cranial nerves II-XII grossly intact, - - Deep Tendon Reflexes 2+/4 and Symmetrical - Cranial nerves 2-12 grossly intact, power 5/5 right UE/LE, 3/5 left UE 1/5 left LE. Decrease sensation to left lower extremity to tactile and temperature. Psych/Mental Status: Normal Affect, Appropriate, Alert and oriented to time, place, person, mood and affect Vital Signs Temp Pulse Resp BP Pulse Ox 97.6 F L 63 16 145/87 H 98 03/31/19 07:41 03/31/19 08:04 03/31/19 07:41 03/31/19 08:04 03/31/19 07:41 Oxygen Delivery Method Room Air Weight: 131.6 kg Body Mass Index (BMI) 36.6 Finger Stick Blood Glucose 380 Intake and Output for Last 24 Hours 03/29/19 03/30/19 03/31/19 23:59 23:59 23:59 Intake Total 800 / 800 480 / 480 Output Total 500 / 500 375 / 375 Balance 300 / 300 105 / 105 POC Glucose 03/31/19 03/30/19 03/30/19 06:45 21:42 17:10 POC Glucose 81 133 H 140 H 03/30/19 12:19 POC Glucose 123 H Medical Necessity - Tobacco Use Smoking Status: Never smoker Tobacco Use: Non-smoker Assessment/Plan All Active Problems Hyponatremia (Acute) Oropharyngeal dysphagia (Acute) Ischemic cerebrovascular accident (CVA) (Acute) 58-year-old male with PMH HTN, HLD, DM, neuropathy, CKD, recent admission with NSTEMI on 02/22/2019 was found to have LAD occlusion and recommended CABG patient refused, A. fib on Eliquis (per documentation patient was found in A. fib with RVR post cardiac cath when he was admitted on 02/22/2019) admitted to [facility] on 03/10/2019 with debility status post acute right paramedian pontine infarct for greater than 3 hours therapy daily with the aim of returning back home at or near his prior level of functional independence. Patient is admitted with dysarthria and left-sided weakness, was found to have acute right paramedian pontine infarct on the MRI brain. Echo done on 02/22/2019 reported to show EF of 35%, LA moderately enlarged LDL 61, hemoglobin A1c 9.4. Plan ?PT for gait stability ?OT for ADLs ?Analgesics as needed ?Bowel protocol ?MRA head/neck reported not to show any hemodynamically significant stenosis or occlusion. ?Hypertension?on metoprolol, Lisinopril, amlodipine, monitor blood pressure, avoid hypotension. Goal blood pressure less than 130mmHg systolic blood pressure. ?HLD?on atorvastatin ?Acute right paramedian pontine stroke?on Eliquis, statins. Probably the stroke was secondary to small vessel disease secondary to uncontrolled diabetes ?DM?on insulin, further management as per hospitalist commendations. ?CKD?avoid nephrotoxic drugs, avoid dehydration. Creatinine 1.64 stable. At baseline. ?CAD?recent cardiac catheterization on 02/22/2019 reported to show mid LAD occlusion, patient was advised to CABG but refused the same. On aspirin statins and metoprolol. Ejection fraction 35%. Patient does not want to pursue any further intervention procedure per patient. ?A. fib?on Eliquis, amiodarone and metoprolol ?Neuropathy- Increase dose of Neurontin to 400 mg 4x/day ?Patient on Zoloft for possible depression ?GI/DVT prophylaxis?on famotidine/Eliquis Duplex to BLE 03/29/2019 negative ?Fall precautions ?Patient counseled to be compliant with medications. ?Further medical management per hospitalist recommendation ?Follow-up with PCP, cardiology, endocrinology and neurology as outpatient.
--- NOTE | 2019-03-31 11:08 | CASEMGMT ---
Insurance Continued stay approved with update due 04/02/19. Auth# [id number] Pt notified. SKYE Chao
[2019-03-31 11:30] LABS: Bedside Glucose 128 mg/dL (70-110)
[2019-03-31] MEDS: Insulin Lispro 100 UNIT/ML INSULN.PEN SC (12:19)
[2019-03-31 13:45] VITALS: BMI 36.6
--- NOTE | 2019-03-31 15:59 | PCM.PN.HOSP ---
Subjective: Patient was seen and examined. Denied any new complaints. Therapy is ongoing. Objective: Physical Exam General: Alert, Oriented x3, Cooperative, No apparent distress, Well developed, Well nourished, HEENT: PERRLA, EOMI Oral: Moist Mucosa Lungs: Clear to auscultation Cardiovascular: Regular rate, Regular Rhythm, Normal S1, Normal S2, No murmurs, No Gallop Abdomen: Bowel Sounds Present, Soft, Non Tender, Non-Distended Extremities: Trace to +1 bilateral pedal edema, Skin: No rashes Neurological: Cranial nerves II-XII grossly intact, Left hemiparesis, power in LUE/LLE is 2/5, increased tone in LUE/LLE. Psych/Mental Status: Normal Affect, Appropriate Vitals/I&O's: Vital Signs Temp Pulse Resp BP Pulse Ox 97.6 F L 63 16 145/87 H 98 03/31/19 07:41 03/31/19 08:04 03/31/19 07:41 03/31/19 08:04 03/31/19 07:41 Oxygen Delivery Method Room Air Weight: 131.6 kg Body Mass Index (BMI) 36.6 Finger Stick Blood Glucose 380 Intake and Output for Last 24 Hours 03/29/19 03/30/19 03/31/19 23:59 23:59 23:59 Intake Total 800 / 800 480 / 480 Output Total 500 / 500 375 / 375 Balance 300 / 300 105 / 105 Laboratory Results 03/30/19 17:10: POC Glucose 140 H 03/30/19 21:42: POC Glucose 133 H 03/31/19 06:45: POC Glucose 81 03/31/19 11:23: POC Glucose 128 H Current Medications Acetaminophen (Tylenol) 1,000 mg PO BID [facility] Last Admin: 03/31/19 08:03 Dose: 1,000 mg Amiodarone HCl (Cordarone) 200 mg PO BID [facility] Last Admin: 03/31/19 08:04 Dose: 200 mg Amlodipine Besylate (Norvasc) 5 mg PO DAILY [facility] Last Admin: 03/31/19 08:04 Dose: 5 mg Apixaban (Eliquis) 5 mg PO BID [facility] Last Admin: 03/31/19 08:04 Dose: 5 mg Aspirin (Aspirin, Baby) 81 mg PO DAILY@0800 [facility] Last Admin: 03/31/19 08:04 Dose: 81 mg Atorvastatin Calcium (Lipitor) 80 mg PO QHS [facility] Last Admin: 03/30/19 21:36 Dose: 80 mg Bisacodyl (Dulcolax) 10 mg RECTAL .PRN X 1 PRN PRN Reason: Constipation Famotidine (Pepcid) 20 mg PO BID [facility] Last Admin: 03/31/19 08:04 Dose: 20 mg Gabapentin (Neurontin) 400 mg PO 4X/DAY [facility] Last Admin: 03/31/19 13:28 Dose: 400 mg Insulin Glargine (Lantus (Bkc)) 16 units SC DAILY [facility] Last Admin: 03/31/19 08:05 Dose: 16 u Insulin Glargine (Lantus (Bkc)) 6 units SC QHS [facility] Last Admin: 03/30/19 21:42 Dose: 6 u Insulin Human Lispro (Humalog Kwikpen (Bkc)) 8 unit SC BID@0800,1700 [facility] Last Admin: 03/31/19 08:04 Dose: 8 units Insulin Human Lispro (Humalog Kwikpen (Bkc)) 5 unit SC LUNCH [facility] Last Admin: 03/31/19 12:19 Dose: 5 units Lisinopril (Zestril) 10 mg PO DAILY [facility] Last Admin: 03/31/19 08:03 Dose: 10 mg Lorazepam (Ativan) 0.5 mg PO QHS PRN PRN PRN Reason: Insomnia Magnesium Hydroxide (Milk Of Magnesia) 30 ml PO .PRN X 1 PRN PRN Reason: Constipation Metoprolol Succinate (Toprol Xl (Beta Leland)) 50 mg PO DAILY [facility] Last Admin: 03/31/19 08:04 Dose: 50 mg Polyethylene Glycol (Miralax) 17 gm PO DAILY [facility] Last Admin: 03/31/19 08:05 Dose: 17 gm Senna/Docusate Sodium (Senokot-S, Kylie-Colace) 2 tablet PO BID [facility] Last Admin: 03/31/19 08:04 Dose: 2 tablet Sertraline HCl (Zoloft) 50 mg PO DAILY [facility] Last Admin: 03/31/19 08:03 Dose: 50 mg Medical Necessity - Tobacco Use Smoking Status: Never smoker Tobacco Use: Non-smoker Assessment/Plan All Active Problems Hyponatremia (Acute) Oropharyngeal dysphagia (Acute) Ischemic cerebrovascular accident (CVA) (Acute) 1. Debility secondary to left hemiparesis secondary to acute right paramedial pontine infarct, likely embolic, on aspirin, eliquis, statin PT/OT is ongoing 2. Paroxysmal atrial fibrillation, on Eliquis, amiodarone 3. CAD status post recent NC with 100% occlusion of mid LAD, refuses CABG, on aspirin, statin, beta-leland, SERGIO inhibitor 4. Hypertension, controlled, on amlodipine, lisinopril, metoprolol 5. Type II DM located by diabetic neuropathy, sugars are controlled, on Lantus, pre-meal insulin. 6. Depression, on zoloft 7. DVT PPx- On eliquis Code Visit Inpatient E&M: 25511 Subs Hosp L2
[2019-03-31 16:21] LABS: Bedside Glucose 125 mg/dL (70-110)
--- NOTE | 2019-03-31 17:13 | CHAPLAIN ---
Type of Pastoral Visit ___ Initial Visit _x__ Follow-up Visit ___ On-call Visit ___ General Patient Visit ___ Spiritual Assessment ___ Family Conference ___ Bereavement ___ Rapid Response ___ Code Blue ___ Other (describe below) Pastoral Care Referral From _x__ Patient ___ Family ___ Nurse ___ Physician ___ Smalltalk Developer ___ Software Build Engineer ___ Other (describe below) Sacrament/Intervention _x__ Active listening ___ Anointing ___ Jehovah'S Witness ___ Bereavement ___ Communion ___ Samantha exploration ___ ___ Life review _x__ Prayer ___ Reconciliation ___ Sacrament of Sick _x__ Supportive presence ___ Wedding ___ Other (describe below) Pastoral Comments
--- NOTE | 2019-03-31 17:34 | NURSING ---
reviewed and agree with AMERICAN BOARD CERTIFIED ORTHOTIST FIMS and charting
[2019-03-31 19:50] VITALS: BP 129/61; PULSE 18; RESP 16; TEMP 36.6; O2SAT 98
[2019-03-31 20:51] LABS: Bedside Glucose 191 mg/dL (70-110)
[2019-03-31] MEDS: Atorvastatin Calcium 80 MG Tablet PO (21:34)
[2019-03-31 23:43] VITALS: BMI 36.6
--- NOTE | 2019-04-01 02:52 | NURSING ---
Reviewed and agree with ELECTRONICS MECHANIC documentation and FIMs charting.
[2019-04-01 06:55] LABS: Bedside Glucose 93 mg/dL (70-110)
[2019-04-01 07:46] VITALS: BP 123/64; PULSE 57; RESP 18; TEMP 36.4; O2SAT 95
[2019-04-01] MEDS: Acetaminophen 500 MG Tablet 1000 MG PO ×2 (07:50→21:16)
[2019-04-01] MEDS: APIXABAN 5 MG TABLET PO ×2 (07:50→21:15)
[2019-04-01] MEDS: Sertraline 50 MG Tablet PO (07:50)
[2019-04-01] MEDS: Lisinopril 10 MG Tablet PO (07:50)
[2019-04-01 07:51] VITALS: BP 123/64; PULSE 57
[2019-04-01] MEDS: Senna/Docusate Sodium 1 Tablet 2 TABLET PO ×2 (07:51→21:16)
[2019-04-01] MEDS: Gabapentin 400 MG Capsule PO ×4 (07:51→21:16)
[2019-04-01] MEDS: Famotidine 20 MG Tablet PO ×2 (07:51→21:16)
[2019-04-01] MEDS: Amiodarone 200 MG Tablet PO ×2 (07:51→21:15)
[2019-04-01] MEDS: amLODIPine 5 MG Tablet PO (07:51)
[2019-04-01] MEDS: Metoprolol(XL)Succ 50 MG Tablet PO (07:51)
[2019-04-01] MEDS: Aspirin 81 MG TAB.CHEW PO (07:51)
[2019-04-01] MEDS: Polyethylene Glycol 3350 17 GM PACKET PO (07:52)
[2019-04-01] MEDS: Insulin Lispro 100 UNIT/ML INSULN.PEN 8 UNIT SC ×2 (07:52→17:28)
--- NOTE | 2019-04-01 10:18 | PCM.PN.NEU ---
Subjective: Per nursing no issues overnight. Per patient Neurontin continues to be effective for neuropathy to BLE. Patient stated that he slept well last night and has no further pain to BLE and that has only slight n/t to left lower extremity intermittently. - Physical Exam General: Alert, Oriented x3, Cooperative HEENT: Atraumatic, PERRLA, EOMI, Normocephalic Oral: Moist Mucosa Neck: Supple, No JVD Lungs: Clear to auscultation, Normal air movement Cardiovascular: Regular rate, Regular Rhythm Abdomen: Bowel Sounds Present, Soft, Non Tender, Obese Extremities: No clubbing, No cyanosis, Edema - nonpitting to left hand Musculoskeletal: No Tenderness to Palpation of Joints or Extremities Neurological: - - Cranial nerves II-XII grossly intact, - - Deep Tendon Reflexes 2+/4 and Symmetrical - Cranial nerves 2-12 grossly intact, power 5/5 right UE/LE, 3/5 left UE 1/5 left LE. Decrease sensation to left lower extremity to tactile and temperature. Psych/Mental Status: Normal Affect, Appropriate, Alert and oriented to time, place, person, mood and affect Vital Signs Temp Pulse Resp BP Pulse Ox 97.5 F L 57 L 18 123/64 H 95 04/01/19 07:46 04/01/19 07:51 04/01/19 07:46 04/01/19 07:51 04/01/19 07:46 Oxygen Delivery Method Room Air Weight: 131.6 kg Body Mass Index (BMI) 36.6 Finger Stick Blood Glucose 380 Intake and Output for Last 24 Hours 03/30/19 03/31/19 04/01/19 23:59 23:59 23:59 Intake Total 480 / 480 Output Total 375 / 375 Balance 105 / 105 POC Glucose 04/01/19 03/31/19 03/31/19 06:47 20:31 16:13 POC Glucose 93 191 H 125 H 03/31/19 11:23 POC Glucose 128 H Medical Necessity - Tobacco Use Smoking Status: Never smoker Tobacco Use: Non-smoker Assessment/Plan All Active Problems Hyponatremia (Acute) Oropharyngeal dysphagia (Acute) Ischemic cerebrovascular accident (CVA) (Acute) 58-year-old male with PMH HTN, HLD, DM, neuropathy, CKD, recent admission with NSTEMI on 02/22/2019 was found to have LAD occlusion and recommended CABG patient refused, A. fib on Eliquis (per documentation patient was found in A. fib with RVR post cardiac cath when he was admitted on 02/22/2019) admitted to [facility] on 03/10/2019 with debility status post acute right paramedian pontine infarct for greater than 3 hours therapy daily with the aim of returning back home at or near his prior level of functional independence. Patient is admitted with dysarthria and left-sided weakness, was found to have acute right paramedian pontine infarct on the MRI brain. Echo done on 02/22/2019 reported to show EF of 35%, LA moderately enlarged LDL 61, hemoglobin A1c 9.4. Plan ?PT for gait stability ?OT for ADLs ?Analgesics as needed ?Bowel protocol ?MRA head/neck reported not to show any hemodynamically significant stenosis or occlusion. ?Hypertension?on metoprolol, Lisinopril, amlodipine, monitor blood pressure, avoid hypotension. Goal blood pressure less than 130mmHg systolic blood pressure. ?HLD?on atorvastatin ?Acute right paramedian pontine stroke?on Eliquis, statins. Probably the stroke was secondary to small vessel disease secondary to uncontrolled diabetes ?DM?on insulin, further management as per hospitalist commendations. ?CKD?avoid nephrotoxic drugs, avoid dehydration. Creatinine 1.64 stable. At baseline. ?CAD?recent cardiac catheterization on 02/22/2019 reported to show mid LAD occlusion, patient was advised to CABG but refused the same. On aspirin statins and metoprolol. Ejection fraction 35%. Patient does not want to pursue any further intervention procedure per patient. ?A. fib?on Eliquis, amiodarone and metoprolol ?Neuropathy- Increase dose of Neurontin to 400 mg 4x/day ?Patient on Zoloft for possible depression ?GI/DVT prophylaxis?on famotidine/Eliquis Duplex to BLE 03/29/2019 negative - Morbid obesity BMI 37.2 with co-morbidty of DM -discussed diet, exercise and wt loss ?Fall precautions ?Patient counseled to be compliant with medications. ?Further medical management per hospitalist recommendation ?Follow-up with PCP, cardiology, endocrinology and neurology as outpatient.
[2019-04-01 11:50] LABS: Bedside Glucose 124 mg/dL (70-110)
[2019-04-01] MEDS: Insulin Lispro 100 UNIT/ML INSULN.PEN SC (12:09)
[2019-04-01 13:48] VITALS: BMI 36.6
[2019-04-01 16:45] LABS: Bedside Glucose 115 mg/dL (70-110)
--- NOTE | 2019-04-01 17:18 | NURSING ---
Reviewed and agree with LPNs FIMS and Charting
[2019-04-01] MEDS: Atorvastatin Calcium 80 MG Tablet PO (21:16)
[2019-04-01 21:32] VITALS: BP 162/79; PULSE 58; RESP 18; TEMP 36.7; O2SAT 94
[2019-04-01 22:01] LABS: Bedside Glucose 144 mg/dL (70-110)
[2019-04-02 00:13] VITALS: BMI 36.6
--- NOTE | 2019-04-02 00:43 | NURSING ---
REVIEWED AND AGREE WITH [employer]ICIST'S FIM AND HANDOFF CHARTING.
[2019-04-02 06:21] LABS: Bedside Glucose 88 mg/dL (70-110)
[2019-04-02] MEDS: APIXABAN 5 MG TABLET PO ×2 (07:49→20:51)
[2019-04-02 07:50] VITALS: BP 133/76; PULSE 59
[2019-04-02] MEDS: Gabapentin 400 MG Capsule PO ×4 (07:50→20:51)
[2019-04-02] MEDS: Acetaminophen 500 MG Tablet 1000 MG PO ×2 (07:50→20:49)
[2019-04-02] MEDS: Lisinopril 10 MG Tablet PO (07:50)
[2019-04-02] MEDS: amLODIPine 5 MG Tablet PO (07:50)
[2019-04-02] MEDS: Famotidine 20 MG Tablet PO ×2 (07:50→20:57)
[2019-04-02] MEDS: Metoprolol(XL)Succ 50 MG Tablet PO (07:50)
[2019-04-02] MEDS: Senna/Docusate Sodium 1 Tablet 2 TABLET PO ×2 (07:50→20:57)
[2019-04-02] MEDS: Sertraline 50 MG Tablet PO (07:50)
[2019-04-02] MEDS: Aspirin 81 MG TAB.CHEW PO (07:51)
[2019-04-02] MEDS: Insulin Lispro 100 UNIT/ML INSULN.PEN 8 UNIT SC ×2 (07:51→17:33)
[2019-04-02] MEDS: Amiodarone 200 MG Tablet PO ×2 (07:51→20:51)
--- NOTE | 2019-04-02 09:35 | PCM.PN.NEU ---
Subjective: per nursing no issues overnight. per patient he slept well and continues to have decrease in pain and n/t to LLE. patient has chronic left knee pain and states he discussed with therapy to get a brace for left knee at discharge, charlotte wrap is effective for providing support at this time during therapy. Pain tolerable to left knee and describes it has a dulll constatnt mild ache during therapy. - Physical Exam General: Alert, Oriented x3, Cooperative HEENT: Atraumatic, PERRLA, EOMI, Normocephalic Oral: Moist Mucosa Neck: Supple, No JVD Lungs: Clear to auscultation, Normal air movement Cardiovascular: Regular rate, Regular Rhythm Abdomen: Bowel Sounds Present, Soft, Non Tender, Obese Extremities: No clubbing, No cyanosis Musculoskeletal: Tenderness - mild tenderness upon palpation to left knee chronic Neurological: - - Cranial nerves II-XII grossly intact, - - Deep Tendon Reflexes 2+/4 and Symmetrical - Cranial nerves 2-12 grossly intact, power 5/5 right UE/LE, 3/5 left UE 1/5 left LE. Decrease sensation to left lower extremity to tactile and temperature Psych/Mental Status: Normal Affect, Appropriate, Alert and oriented to time, place, person, mood and affect Vital Signs Temp Pulse Resp BP Pulse Ox 98.1 F 59 L 18 133/76 H 94 04/01/19 21:32 04/02/19 07:50 04/01/19 21:32 04/02/19 07:50 04/01/19 21:32 Oxygen Delivery Method Room Air Weight: 131.6 kg Body Mass Index (BMI) 36.6 Finger Stick Blood Glucose 380 Intake and Output for Last 24 Hours 03/31/19 04/01/19 04/02/19 23:59 23:59 23:59 Intake Total 440 / 440 360 / 360 Balance 440 / 440 360 / 360 POC Glucose 04/02/19 04/01/19 04/01/19 06:13 21:16 16:32 POC Glucose 88 144 H 115 H 04/01/19 11:43 POC Glucose 124 H Medical Necessity - Tobacco Use Smoking Status: Never smoker Tobacco Use: Non-smoker Assessment/Plan All Active Problems Hyponatremia (Acute) Oropharyngeal dysphagia (Acute) Ischemic cerebrovascular accident (CVA) (Acute) 58-year-old male with PMH HTN, HLD, DM, neuropathy, CKD, recent admission with NSTEMI on 02/22/2019 was found to have LAD occlusion and recommended CABG patient refused, A. fib on Eliquis (per documentation patient was found in A. fib with RVR post cardiac cath when he was admitted on 02/22/2019) admitted to [facility] on 03/10/2019 with debility status post acute right paramedian pontine infarct for greater than 3 hours therapy daily with the aim of returning back home at or near his prior level of functional independence. Patient is admitted with dysarthria and left-sided weakness, was found to have acute right paramedian pontine infarct on the MRI brain. Echo done on 02/22/2019 reported to show EF of 35%, LA moderately enlarged LDL 61, hemoglobin A1c 9.4. Plan ?PT for gait stability ?OT for ADLs ?Analgesics as needed ?Bowel protocol ?MRA head/neck reported not to show any hemodynamically significant stenosis or occlusion. ?Hypertension?on metoprolol, Lisinopril, amlodipine, monitor blood pressure, avoid hypotension. Goal blood pressure less than 130mmHg systolic blood pressure. ?HLD?on atorvastatin ?Acute right paramedian pontine stroke?on Eliquis, statins. Probably the stroke was secondary to small vessel disease secondary to uncontrolled diabetes ?DM?on insulin, further management as per hospitalist commendations. ?CKD?avoid nephrotoxic drugs, avoid dehydration. Creatinine 1.64 stable. At baseline, recheck bmp ?CAD?recent cardiac catheterization on 02/22/2019 reported to show mid LAD occlusion, patient was advised to CABG but refused the same. On aspirin statins and metoprolol. Ejection fraction 35%. Patient does not want to pursue any further intervention procedure per patient. ?A. fib?on Eliquis, amiodarone and metoprolol ?Neuropathy- Neurontin to 400 mg 4x/day ?Patient on Zoloft for possible depression ?GI/DVT prophylaxis?on famotidine/Eliquis Duplex to BLE 03/29/2019 negative - Morbid obesity BMI 37.2 with co-morbidty of DM -discussed diet, exercise and wt loss ?Fall precautions ?Patient counseled to be compliant with medications. ?Further medical management per hospitalist recommendation ?Follow-up with PCP, cardiology, endocrinology and neurology as outpatient.
[2019-04-02 09:38] VITALS: BP 133/76; PULSE 59; RESP 16; TEMP 36.6; O2SAT 96
[2019-04-02] MEDS: Polyethylene Glycol 3350 17 GM PACKET PO (10:55)
[2019-04-02 11:01] LABS: Bedside Glucose 198 mg/dL (70-110)
[2019-04-02] MEDS: Insulin Lispro 100 UNIT/ML INSULN.PEN SC (12:07)
[2019-04-02 13:58] VITALS: BMI 36.6
[2019-04-02 16:07] LABS: Anion Gap 4 (5-15); BUN 25 mg/dL (7-18); BUN/Creat Ratio 15.1 RATIO (10-20); Calcium,Total 8.2 mg/dL (8.5-10.1); Chloride 107 mmol/L (98-107); Creatinine, Serum 1.66 mg/dL (0.70-1.30); EST Glomerular Filtration Rate 45 mL/min (>60); Est Glom Filt Rate - Afr Amer 55 mL/min (>60); Glucose 130 mg/dL (74-106); Potassium 4.3 mmol/L (3.5-5.1); Sodium Level 140 mmol/L (136-145)
[2019-04-02 17:21] LABS: Bedside Glucose 137 mg/dL (70-110)
[2019-04-02 20:43] VITALS: BP 153/75; PULSE 64; RESP 18; TEMP 36.9; O2SAT 99
[2019-04-02] MEDS: Atorvastatin Calcium 80 MG Tablet PO (20:51)
[2019-04-02 21:06] LABS: Bedside Glucose 133 mg/dL (70-110)
[2019-04-02 23:07] VITALS: BMI 36.6
[2019-04-03 07:00] VITALS: BP 148/84; PULSE 62; RESP 18; TEMP 36.2; O2SAT 95
[2019-04-03 07:35] VITALS: PULSE 69
[2019-04-03] MEDS: Sertraline 50 MG Tablet PO (07:35)
[2019-04-03] MEDS: Metoprolol(XL)Succ 50 MG Tablet PO (07:35)
[2019-04-03] MEDS: Lisinopril 10 MG Tablet PO (07:35)
[2019-04-03] MEDS: amLODIPine 5 MG Tablet PO (07:35)
[2019-04-03] MEDS: Aspirin 81 MG TAB.CHEW PO (07:35)
[2019-04-03] MEDS: Famotidine 20 MG Tablet PO ×2 (07:36→20:41)
[2019-04-03] MEDS: Acetaminophen 500 MG Tablet 1000 MG PO ×2 (07:36→20:41)
[2019-04-03] MEDS: Amiodarone 200 MG Tablet PO ×2 (07:36→20:42)
[2019-04-03] MEDS: Senna/Docusate Sodium 1 Tablet 2 TABLET PO ×2 (07:36→20:41)
[2019-04-03] MEDS: Gabapentin 400 MG Capsule PO ×4 (07:36→20:41)
[2019-04-03] MEDS: Polyethylene Glycol 3350 17 GM PACKET PO (07:38)
[2019-04-03] MEDS: Insulin Lispro 100 UNIT/ML INSULN.PEN 8 UNIT SC ×2 (07:39→17:09)
[2019-04-03] MEDS: APIXABAN 5 MG TABLET PO ×2 (07:39→20:42)
[2019-04-03 09:32] VITALS: BMI 36.6
[2019-04-03 09:41] LABS: Bedside Glucose 88 mg/dL (70-110)
[2019-04-03 12:15] LABS: Bedside Glucose 124 mg/dL (70-110)
--- NOTE | 2019-04-03 12:18 | PCM.PN.HOSP ---
Subjective: Patient seen and examined. No complains ROS is negative Objective: Physical Exam General: Alert, Oriented x3, Cooperative, No apparent distress, Well developed, Well nourished, HEENT: PERRLA, EOMI Oral: Moist Mucosa Lungs: Clear to auscultation Cardiovascular: Regular rate, Regular Rhythm, Normal S1, Normal S2, No murmurs, No Gallop Abdomen: Bowel Sounds Present, Soft, Non Tender, Non-Distended Extremities: Trace to +1 bilateral pedal edema, Skin: No rashes Neurological: Cranial nerves II-XII grossly intact, Left hemiparesis, power in LUE/LLE is 2/5, increased tone in LUE/LLE. Psych/Mental Status: Normal Affect, Appropriate Vitals/I&O's: Vital Signs Temp Pulse Resp BP Pulse Ox 97.2 F L 69 18 148/84 H 95 04/03/19 07:00 04/03/19 07:35 04/03/19 07:00 04/03/19 07:00 04/03/19 07:00 Oxygen Delivery Method Room Air Weight: 131.6 kg Body Mass Index (BMI) 36.6 Finger Stick Blood Glucose 380 Intake and Output for Last 24 Hours 04/01/19 04/02/19 04/03/19 23:59 23:59 23:59 Intake Total 440 / 440 1080 / 1080 360 / 360 Balance 440 / 440 1080 / 1080 360 / 360 Laboratory Results 04/02/19 15:35: Sodium 140, Potassium 4.3, Chloride 107, Carbon Dioxide 29.0, Anion Gap 4 L, BUN 25 H, Creatinine 1.66 H, Estim Creat Clear Calc 56.40, Est GFR (MDRD) Af Amer 55 L, Est GFR (MDRD) Non-Af 45 L, BUN/Creatinine Ratio 15.1, Glucose 130 H, Calcium 8.2 L 04/02/19 17:14: POC Glucose 137 H 04/02/19 20:52: POC Glucose 133 H 04/03/19 06:25: POC Glucose 88 04/03/19 11:56: POC Glucose 124 H Current Medications Acetaminophen (Tylenol) 1,000 mg PO BID [facility] Last Admin: 04/03/19 07:36 Dose: 1,000 mg Amiodarone HCl (Cordarone) 200 mg PO BID [facility] Last Admin: 04/03/19 07:36 Dose: 200 mg Amlodipine Besylate (Norvasc) 5 mg PO DAILY [facility] Last Admin: 04/03/19 07:35 Dose: 5 mg Apixaban (Eliquis) 5 mg PO BID [facility] Last Admin: 04/03/19 07:39 Dose: 5 mg Aspirin (Aspirin, Baby) 81 mg PO DAILY@0800 [facility] Last Admin: 04/03/19 07:35 Dose: 81 mg Atorvastatin Calcium (Lipitor) 80 mg PO QHS [facility] Last Admin: 04/02/19 20:51 Dose: 80 mg Bisacodyl (Dulcolax) 10 mg RECTAL .PRN X 1 PRN PRN Reason: Constipation Famotidine (Pepcid) 20 mg PO BID [facility] Last Admin: 04/03/19 07:36 Dose: 20 mg Gabapentin (Neurontin) 400 mg PO 4X/DAY [facility] Last Admin: 04/03/19 07:36 Dose: 400 mg Insulin Glargine (Lantus (Bkc)) 16 units SC DAILY [facility] Last Admin: 04/03/19 07:39 Dose: 16 u Insulin Glargine (Lantus (Bkc)) 6 units SC QHS [facility] Last Admin: 04/02/19 20:52 Dose: 6 u Insulin Human Lispro (Humalog Kwikpen (Bkc)) 8 unit SC BID@0800,1700 [facility] Last Admin: 04/03/19 07:39 Dose: 8 units Insulin Human Lispro (Humalog Kwikpen (Bkc)) 5 unit SC LUNCH [facility] Last Admin: 04/02/19 12:07 Dose: 5 units Lisinopril (Zestril) 10 mg PO DAILY [facility] Last Admin: 04/03/19 07:35 Dose: 10 mg Lorazepam (Ativan) 0.5 mg PO QHS PRN PRN PRN Reason: Insomnia Magnesium Hydroxide (Milk Of Magnesia) 30 ml PO .PRN X 1 PRN PRN Reason: Constipation Metoprolol Succinate (Toprol Xl (Beta Leland)) 50 mg PO DAILY [facility] Last Admin: 04/03/19 07:35 Dose: 50 mg Polyethylene Glycol (Miralax) 17 gm PO DAILY [facility] Last Admin: 04/03/19 07:38 Dose: 17 gm Senna/Docusate Sodium (Senokot-S, Kylie-Colace) 2 tablet PO BID [facility] Last Admin: 04/03/19 07:36 Dose: 2 tablet Sertraline HCl (Zoloft) 50 mg PO DAILY [facility] Last Admin: 04/03/19 07:35 Dose: 50 mg Medical Necessity - Tobacco Use Smoking Status: Never smoker Tobacco Use: Non-smoker Assessment/Plan All Active Problems Hyponatremia (Acute) Oropharyngeal dysphagia (Acute) Ischemic cerebrovascular accident (CVA) (Acute) 1. Debility secondary to left hemiparesis secondary to acute right paramedial pontine infarct, likely embolic, on aspirin, eliquis, statin PT/OT is ongoing 2. Paroxysmal atrial fibrillation, on Eliquis, amiodarone 3. CAD status post recent [place] with 100% occlusion of mid LAD, refuses CABG, on aspirin, statin, beta-leland, SERGIO inhibitor 4. Hypertension, controlled, on amlodipine, lisinopril, metoprolol 5. Type II DM located by diabetic neuropathy, sugars are controlled, on Lantus, pre-meal insulin. 6. Depression, on zoloft 7. DVT PPx- On eliquis Code Visit Inpatient E&M: 57749 Subs Hosp L2
[2019-04-03] MEDS: Insulin Lispro 100 UNIT/ML INSULN.PEN SC (12:55)
[2019-04-03 17:16] LABS: Bedside Glucose 143 mg/dL (70-110)
[2019-04-03 20:16] LABS: Bedside Glucose 171 mg/dL (70-110)
[2019-04-03 20:33] VITALS: BP 146/75; PULSE 60; RESP 20; TEMP 36.4; O2SAT 93
[2019-04-03] MEDS: Atorvastatin Calcium 80 MG Tablet PO (20:41)
[2019-04-04 00:18] VITALS: BMI 36.6
[2019-04-04 06:26] LABS: Bedside Glucose 100 mg/dL (70-110)
[2019-04-04 07:00] VITALS: BP 116/71; PULSE 62; RESP 16; TEMP 36.8; O2SAT 96
[2019-04-04 07:28] VITALS: PULSE 77
[2019-04-04] MEDS: Acetaminophen 500 MG Tablet 1000 MG PO ×2 (07:28→21:15)
[2019-04-04] MEDS: Metoprolol(XL)Succ 50 MG Tablet PO (07:28)
[2019-04-04] MEDS: Sertraline 50 MG Tablet PO (07:28)
[2019-04-04] MEDS: Polyethylene Glycol 3350 17 GM PACKET PO (07:28)
[2019-04-04] MEDS: Lisinopril 10 MG Tablet PO (07:28)
[2019-04-04] MEDS: Aspirin 81 MG TAB.CHEW PO (07:28)
[2019-04-04] MEDS: amLODIPine 5 MG Tablet PO (07:28)
[2019-04-04] MEDS: Senna/Docusate Sodium 1 Tablet 2 TABLET PO ×2 (07:29→21:18)
[2019-04-04] MEDS: APIXABAN 5 MG TABLET PO ×2 (07:29→21:16)
[2019-04-04] MEDS: Amiodarone 200 MG Tablet PO ×2 (07:29→21:15)
[2019-04-04] MEDS: Famotidine 20 MG Tablet PO ×2 (07:29→21:15)
[2019-04-04] MEDS: Gabapentin 400 MG Capsule PO ×4 (07:33→21:15)
[2019-04-04] MEDS: Insulin Lispro 100 UNIT/ML INSULN.PEN 8 UNIT SC ×2 (07:36→17:41)
[2019-04-04 10:05] VITALS: BMI 36.6
[2019-04-04 12:21] LABS: Bedside Glucose 128 mg/dL (70-110)
[2019-04-04] MEDS: Insulin Lispro 100 UNIT/ML INSULN.PEN SC (12:44)
--- NOTE | 2019-04-04 12:49 | PCM.PN.HOSP ---
Subjective: Patient seen and examined. No new complains. Denies chest pain, dizziness, palpitations. 10 point ROS is negative Objective: Physical Exam General: Alert, Oriented x3, Cooperative, No apparent distress, Well developed, Well nourished, HEENT: PERRLA, EOMI Oral: Moist Mucosa Lungs: Clear to auscultation Cardiovascular: Regular rate, Regular Rhythm, Normal S1, Normal S2, No murmurs, No Gallop Abdomen: Bowel Sounds Present, Soft, Non Tender, Non-Distended Extremities: Trace to +1 bilateral pedal edema, Skin: No rashes Neurological: Cranial nerves II-XII grossly intact, Left hemiparesis, power in LUE/LLE is 2/5, increased tone in LUE/LLE. Psych/Mental Status: Normal Affect, Appropriate Vitals/I&O's: Vital Signs Temp Pulse Resp BP Pulse Ox 98.2 F 77 16 116/71 96 04/04/19 07:00 04/04/19 07:28 04/04/19 07:00 04/04/19 07:00 04/04/19 07:00 Oxygen Delivery Method Room Air Weight: 131.6 kg Body Mass Index (BMI) 36.6 Finger Stick Blood Glucose 380 Intake and Output for Last 24 Hours 04/02/19 04/03/19 04/04/19 23:59 23:59 23:59 Intake Total 1080 / 1080 960 / 960 720 / 720 Balance 1080 / 1080 960 / 960 720 / 720 Laboratory Results 04/03/19 17:01: POC Glucose 143 H 04/03/19 20:10: POC Glucose 171 H 04/04/19 06:16: POC Glucose 100 04/04/19 12:16: POC Glucose 128 H Current Medications Acetaminophen (Tylenol) 1,000 mg PO BID [facility] Last Admin: 04/04/19 07:28 Dose: 1,000 mg Amiodarone HCl (Cordarone) 200 mg PO BID [facility] Last Admin: 04/04/19 07:29 Dose: 200 mg Amlodipine Besylate (Norvasc) 5 mg PO DAILY [facility] Last Admin: 04/04/19 07:28 Dose: 5 mg Apixaban (Eliquis) 5 mg PO BID [facility] Last Admin: 04/04/19 07:29 Dose: 5 mg Aspirin (Aspirin, Baby) 81 mg PO DAILY@0800 [facility] Last Admin: 04/04/19 07:28 Dose: 81 mg Atorvastatin Calcium (Lipitor) 80 mg PO QHS [facility] Last Admin: 04/03/19 20:41 Dose: 80 mg Bisacodyl (Dulcolax) 10 mg RECTAL .PRN X 1 PRN PRN Reason: Constipation Famotidine (Pepcid) 20 mg PO BID [facility] Last Admin: 04/04/19 07:29 Dose: 20 mg Gabapentin (Neurontin) 400 mg PO 4X/DAY [facility] Last Admin: 04/04/19 07:33 Dose: 400 mg Insulin Glargine (Lantus (Bkc)) 16 units SC DAILY [facility] Last Admin: 04/04/19 07:36 Dose: 16 u Insulin Glargine (Lantus (Bkc)) 6 units SC QHS [facility] Last Admin: 04/03/19 20:42 Dose: 6 u Insulin Human Lispro (Humalog Kwikpen (Bkc)) 8 unit SC BID@0800,1700 [facility] Last Admin: 04/04/19 07:36 Dose: 8 units Insulin Human Lispro (Humalog Kwikpen (Bkc)) 5 unit SC LUNCH [facility] Last Admin: 04/03/19 12:55 Dose: 5 units Lisinopril (Zestril) 10 mg PO DAILY [facility] Last Admin: 04/04/19 07:28 Dose: 10 mg Lorazepam (Ativan) 0.5 mg PO QHS PRN PRN PRN Reason: Insomnia Magnesium Hydroxide (Milk Of Magnesia) 30 ml PO .PRN X 1 PRN PRN Reason: Constipation Metoprolol Succinate (Toprol Xl (Beta Leland)) 50 mg PO DAILY [facility] Last Admin: 04/04/19 07:28 Dose: 50 mg Polyethylene Glycol (Miralax) 17 gm PO DAILY [facility] Last Admin: 04/04/19 07:28 Dose: 17 gm Senna/Docusate Sodium (Senokot-S, Kylie-Colace) 2 tablet PO BID [facility] Last Admin: 04/04/19 07:29 Dose: 2 tablet Sertraline HCl (Zoloft) 50 mg PO DAILY [facility] Last Admin: 04/04/19 07:28 Dose: 50 mg Medical Necessity - Tobacco Use Smoking Status: Never smoker Tobacco Use: Non-smoker Assessment/Plan All Active Problems Hyponatremia (Acute) Oropharyngeal dysphagia (Acute) Ischemic cerebrovascular accident (CVA) (Acute) 1. Debility secondary to left hemiparesis secondary to acute right paramedial pontine infarct, likely embolic, on aspirin, eliquis, statin PT/OT is ongoing 2. Paroxysmal atrial fibrillation, on Eliquis, amiodarone 3. CAD status post recent [place] with 100% occlusion of mid LAD, refuses CABG, on aspirin, statin, beta-leland, SERGIO inhibitor 4. Hypertension, controlled, on amlodipine, lisinopril, metoprolol 5. Type II DM located by diabetic neuropathy, sugars are controlled, on Lantus, pre-meal insulin. 6. Depression, on zoloft 7. DVT PPx- On eliquis Code Visit Inpatient E&M: 30160 Subs Hosp L2
[2019-04-04 17:05] LABS: Bedside Glucose 168 mg/dL (70-110)
[2019-04-04 21:06] LABS: Bedside Glucose 197 mg/dL (70-110)
[2019-04-04 21:10] VITALS: BP 140/74; PULSE 65; RESP 16; TEMP 36.6; O2SAT 98
[2019-04-04 21:15] VITALS: PULSE 65; RESP 16; O2SAT 98; BMI 36.6
[2019-04-04] MEDS: Atorvastatin Calcium 80 MG Tablet PO (21:15)
[2019-04-05 06:45] LABS: Bedside Glucose 76 mg/dL (70-110)
[2019-04-05 07:22] VITALS: BP 105/64; PULSE 60; RESP 16; TEMP 36.6; O2SAT 99
[2019-04-05] MEDS: Lisinopril 10 MG Tablet PO (07:44)
[2019-04-05] MEDS: Aspirin 81 MG TAB.CHEW PO (07:44)
[2019-04-05] MEDS: Acetaminophen 500 MG Tablet 1000 MG PO ×2 (07:44→20:57)
[2019-04-05] MEDS: Amiodarone 200 MG Tablet PO ×2 (07:44→20:57)
[2019-04-05] MEDS: Famotidine 20 MG Tablet PO ×3 (07:44→20:57)
[2019-04-05] MEDS: Senna/Docusate Sodium 1 Tablet 2 TABLET PO ×2 (07:44→20:57)
[2019-04-05] MEDS: Polyethylene Glycol 3350 17 GM PACKET PO (07:44)
[2019-04-05] MEDS: amLODIPine 5 MG Tablet PO (07:44)
[2019-04-05] MEDS: Gabapentin 400 MG Capsule PO ×4 (07:45→20:57)
[2019-04-05] MEDS: Sertraline 50 MG Tablet PO (07:45)
[2019-04-05 07:49] VITALS: PULSE 60
[2019-04-05] MEDS: Metoprolol(XL)Succ 50 MG Tablet PO (07:49)
[2019-04-05] MEDS: APIXABAN 5 MG TABLET PO ×2 (07:50→20:57)
[2019-04-05] MEDS: Insulin Lispro 100 UNIT/ML INSULN.PEN 8 UNIT SC ×2 (07:50→17:23)
[2019-04-05 08:35] VITALS: BMI 36.6
--- NOTE | 2019-04-05 09:55 | PN_ITS ---
Subjective: Patient is a 58-year-old male admitted with acute right paramedian pontine infarct thought to be embolic. Admitted to the inpatient rehab unit on account of physical debility where patient is currently undergoing rehab Objective: GENERAL: cooperative HEENT: Atraumatic; moist oral mucosa EYES; Anicteric, Normal Conjunctiva NECK; supple, normal thyroid, RESPIRATORY: Diminished to auscultation bilaterally, CARDIOVASCULAR: Regular S1 S2, GI: soft, non-tender, normoactive bowel sounds, : No Renal angle tenderness; EXTREMITIES: No edema, no clubbing, no cyanosis. NEURO: Awake; left sided hemiparesis SKIN: No Rash PSYCH; Normal affect Vitals/I&O's: Vital Signs Temp Pulse Resp BP Pulse Ox 97.8 F 60 16 105/64 99 04/05/19 07:22 04/05/19 07:49 04/05/19 07:22 04/05/19 07:22 04/05/19 07:22 Oxygen Delivery Method Room Air Weight: 131.6 kg Body Mass Index (BMI) 36.6 Finger Stick Blood Glucose 380 Intake and Output for Last 24 Hours 04/03/19 04/04/19 04/05/19 23:59 23:59 23:59 Intake Total 960 / 960 720 / 720 Balance 960 / 960 720 / 720 Laboratory Results 04/04/19 12:16: POC Glucose 128 H 04/04/19 16:58: POC Glucose 168 H 04/04/19 20:56: POC Glucose 197 H 04/05/19 06:32: POC Glucose 76 Current Medications Acetaminophen (Tylenol) 1,000 mg PO BID [facility] Last Admin: 04/05/19 07:44 Dose: 1,000 mg Amiodarone HCl (Cordarone) 200 mg PO BID [facility] Last Admin: 04/05/19 07:44 Dose: 200 mg Amlodipine Besylate (Norvasc) 5 mg PO DAILY [facility] Last Admin: 04/05/19 07:44 Dose: 5 mg Apixaban (Eliquis) 5 mg PO BID [facility] Last Admin: 04/05/19 07:50 Dose: 5 mg Aspirin (Aspirin, Baby) 81 mg PO DAILY@0800 [facility] Last Admin: 04/05/19 07:44 Dose: 81 mg Atorvastatin Calcium (Lipitor) 80 mg PO QHS [facility] Last Admin: 04/04/19 21:15 Dose: 80 mg Bisacodyl (Dulcolax) 10 mg RECTAL .PRN X 1 PRN PRN Reason: Constipation Famotidine (Pepcid) 20 mg PO BID [facility] Last Admin: 04/05/19 07:44 Dose: 20 mg Gabapentin (Neurontin) 400 mg PO 4X/DAY [facility] Last Admin: 04/05/19 07:45 Dose: 400 mg Insulin Glargine (Lantus (Bkc)) 16 units SC DAILY [facility] Last Admin: 04/05/19 07:51 Dose: 16 u Insulin Glargine (Lantus (Bkc)) 6 units SC QHS [facility] Last Admin: 04/04/19 21:17 Dose: 6 u Insulin Human Lispro (Humalog Kwikpen (Bkc)) 8 unit SC BID@0800,1700 [facility] Last Admin: 04/05/19 07:50 Dose: 8 units Insulin Human Lispro (Humalog Kwikpen (Bkc)) 5 unit SC LUNCH [facility] Last Admin: 04/04/19 12:44 Dose: 5 units Lisinopril (Zestril) 10 mg PO DAILY [facility] Last Admin: 04/05/19 07:44 Dose: 10 mg Lorazepam (Ativan) 0.5 mg PO QHS PRN PRN PRN Reason: Insomnia Magnesium Hydroxide (Milk Of Magnesia) 30 ml PO .PRN X 1 PRN PRN Reason: Constipation Metoprolol Succinate (Toprol Xl (Beta Leland)) 50 mg PO DAILY [facility] Last Admin: 04/05/19 07:49 Dose: 50 mg Polyethylene Glycol (Miralax) 17 gm PO DAILY [facility] Last Admin: 04/05/19 07:44 Dose: 17 gm Senna/Docusate Sodium (Senokot-S, Kylie-Colace) 2 tablet PO BID [facility] Last Admin: 04/05/19 07:44 Dose: 2 tablet Sertraline HCl (Zoloft) 50 mg PO DAILY [facility] Last Admin: 04/05/19 07:45 Dose: 50 mg Medical Necessity - Tobacco Use Smoking Status: Never smoker Tobacco Use: Non-smoker Assessment/Plan All Active Problems Hyponatremia (Acute) Oropharyngeal dysphagia (Acute) Ischemic cerebrovascular accident (CVA) (Acute) Patient is a 58-year-old male admitted with acute right paramedian pontine infarct thought to be embolic. Admitted to the inpatient rehab unit on account of physical debility where patient is currently undergoing rehab 1. Acute right paramedian pontine infarct with subsequent left-sided hemiparesis and physical debility admitted to the inpatient rehab unit where patient is currently undergoing rehab 2. Paroxysmal atrial fibrillation rate controlled on amiodarone patient on systemic anticoagulation with Eliquis 3. Coronary artery disease with recent [place]; patient was found to have 100% o cclusion involving the mid LAD unsuccessful attempt at angioplasty. Recommendation was made for patient to be transferred to a tertiary care center for subsequent intervention patient apparently declined he would patient opted for medical therapy. 4. Hypertension-blood pressure controlled, home medications continued with dose adjustment as needed 5. Diabetes mellitus type II: Continue patient home regimen in addition to Accu-Cheks a.c. and at bedtime and covered with sliding scale insulin 6. Depression patient is on SSRI 7. Dyslipidemia-patient is on statin therapy, continued at home dose 8. Morbid obesity with BMI of 37.2 weight loss advised 9. Diabetic polyneuropathy patient is on Neurontin 10. DVT prophylaxis patient is on Eliquis Active Medications Acetaminophen (Tylenol) 1,000 mg PO BID [facility] Last Admin: 04/05/19 07:44 Dose: 1,000 mg Amiodarone HCl (Cordarone) 200 mg PO BID [facility] Last Admin: 04/05/19 07:44 Dose: 200 mg Amlodipine Besylate (Norvasc) 5 mg PO DAILY [facility] Last Admin: 04/05/19 07:44 Dose: 5 mg Apixaban (Eliquis) 5 mg PO BID [facility] Last Admin: 04/05/19 07:50 Dose: 5 mg Aspirin (Aspirin, Baby) 81 mg PO DAILY@0800 [facility] Last Admin: 04/05/19 07:44 Dose: 81 mg Atorvastatin Calcium (Lipitor) 80 mg PO QHS [facility] Last Admin: 04/04/19 21:15 Dose: 80 mg Bisacodyl (Dulcolax) 10 mg RECTAL .PRN X 1 PRN PRN Reason: Constipation Famotidine (Pepcid) 20 mg PO BID [facility] Last Admin: 04/05/19 07:44 Dose: 20 mg Gabapentin (Neurontin) 400 mg PO 4X/DAY [facility] Last Admin: 04/05/19 07:45 Dose: 400 mg Insulin Glargine (Lantus (Bkc)) 16 units SC DAILY [facility] Last Admin: 04/05/19 07:51 Dose: 16 u Insulin Glargine (Lantus (Bkc)) 6 units SC QHS [facility] Last Admin: 04/04/19 21:17 Dose: 6 u Insulin Human Lispro (Humalog Kwikpen (Bkc)) 8 unit SC BID@0800,1700 [facility] Last Admin: 04/05/19 07:50 Dose: 8 units Insulin Human Lispro (Humalog Kwikpen (Bkc)) 5 unit SC LUNCH [facility] Last Admin: 04/04/19 12:44 Dose: 5 units Lisinopril (Zestril) 10 mg PO DAILY [facility] Last Admin: 04/05/19 07:44 Dose: 10 mg Lorazepam (Ativan) 0.5 mg PO QHS PRN PRN PRN Reason: Insomnia Magnesium Hydroxide (Milk Of Magnesia) 30 ml PO .PRN X 1 PRN PRN Reason: Constipation Metoprolol Succinate (Toprol Xl (Beta Leland)) 50 mg PO DAILY [facility] Last Admin: 04/05/19 07:49 Dose: 50 mg Polyethylene Glycol (Miralax) 17 gm PO DAILY [facility] Last Admin: 04/05/19 07:44 Dose: 17 gm Senna/Docusate Sodium (Senokot-S, Kylie-Colace) 2 tablet PO BID [facility] Last Admin: 04/05/19 07:44 Dose: 2 tablet Sertraline HCl (Zoloft) 50 mg PO DAILY [facility] Last Admin: 04/05/19 07:45 Dose: 50 mg Code Visit Inpatient E&M: [id number] [facility] Hosp L2
[2019-04-05 11:46] LABS: Bedside Glucose 83 mg/dL (70-110)
--- NOTE | 2019-04-05 12:07 | PN.NEURO_ITS ---
Subjective: Per nursing no issues overnight. Per patient slept well and denies any further N/T and pain to left upper and lower extremity. Team meeting held this am. Per OT/PT still requires 1-2 assist and remains inconsistent with transfers and ADLs. Per ST patient is tolerating thin liquids and regular texture of food. Patient voiced once discharged will need to go to a SNF for further care, patient will be re-teamed pending insurance approval. - Physical Exam General: Alert, Oriented x3, Cooperative HEENT: Atraumatic, PERRLA Oral: Moist Mucosa Neck: Supple, No JVD Lungs: Clear to auscultation, Normal air movement Cardiovascular: Regular rate, Regular Rhythm Abdomen: Bowel Sounds Present, Soft, Non Tender, Obese Extremities: No clubbing, No cyanosis, Edema - non-pitting to left hand and left lower extremity Musculoskeletal: No Tenderness to Palpation of Joints or Extremities Neurological: - - Cranial nerves II-XII grossly intact, - - Deep Tendon Reflexes 2+/4 and Symmetrical - Cranial nerves 2-12 grossly intact, power 5/5 right UE/LE, 3/5 left UE 1/5 left LE. Decrease sensation to left lower extremity to tactile and temperature Psych/Mental Status: Normal Affect, Appropriate, Alert and oriented to time, place, person, mood and affect Vital Signs Temp Pulse Resp BP Pulse Ox 97.8 F 60 16 105/64 99 04/05/19 07:22 04/05/19 07:49 04/05/19 07:22 04/05/19 07:22 04/05/19 07:22 Oxygen Delivery Method Room Air Weight: 131.6 kg Body Mass Index (BMI) 36.6 Finger Stick Blood Glucose 380 Intake and Output for Last 24 Hours 04/03/19 04/04/19 04/05/19 23:59 23:59 23:59 Intake Total 960 / 960 720 / 720 Balance 960 / 960 720 / 720 POC Glucose 04/05/19 04/05/19 04/04/19 11:38 06:32 20:56 POC Glucose 83 76 197 H 04/04/19 04/04/19 16:58 12:16 POC Glucose 168 H 128 H Medical Necessity - Tobacco Use Smoking Status: Never smoker Tobacco Use: Non-smoker Assessment/Plan All Active Problems Hyponatremia (Acute) Oropharyngeal dysphagia (Acute) Ischemic cerebrovascular accident (CVA) (Acute) 58-year-old male with PMH HTN, HLD, DM, neuropathy, CKD, recent admission with NSTEMI on 02/22/2019 was found to have LAD occlusion and recommended CABG patient refused, A. fib on Eliquis (per documentation patient was found in A. fib with RVR post cardiac cath when he was admitted on 02/22/2019) admitted to [facility] on 03/10/2019 with debility status post acute right par amedian pontine infarct for greater than 3 hours therapy daily with the aim of returning back home at or near his prior level of functional independence. Patient is admitted with dysarthria and left-sided weakness, was found to have acute right paramedian pontine infarct on the MRI brain. Echo done on 02/22/2019 reported to show EF of 35%, LA moderately enlarged LDL 61, hemoglobin A1c 9.4. Plan ?PT for gait stability ?OT for ADLs ?Analgesics as needed ?Bowel protocol ?MRA head/neck reported not to show any hemodynamically significant stenosis or occlusion. ?Hypertension?on metoprolol, Lisinopril, amlodipine, monitor blood pressure, avoid hypotension. Goal blood pressure less than 130mmHg systolic blood pressure. ?HLD?on atorvastatin ?Acute right paramedian pontine stroke?on Eliquis, statins. Probably the stroke was secondary to small vessel disease secondary to uncontrolled diabetes ?DM?on insulin, further management as per hospitalist commendations. ?CKD?avoid nephrotoxic drugs, avoid dehydration. on 04/02/2019 Cr 1.60, at baseline continue to monitor ?CAD?recent cardiac catheterization on 02/22/2019 reported to show mid LAD occlusion, patient was advised to CABG but refused the same. On aspirin statins and metoprolol. Ejection fraction 35%. Patient does not want to pursue any further intervention procedure per patient. ?A. fib?on Eliquis, amiodarone and metoprolol ?Neuropathy- Neurontin to 400 mg 4x/day ?Patient on Zoloft for possible depression ?GI/DVT prophylaxis?on famotodine/Eliquis Duplex to BLE 03/29/2019 negative - Morbid obesity BMI 37.2 with co-morbidty of DM -discussed diet, exercise and wt loss ?Fall precautions ?Patient counseled to be compliant with medications. ?Further medical management per hospitalist recommendation ?Follow-up with PCP, cardiology, endocrinology and neurology as outpatient.
[2019-04-05] MEDS: Insulin Lispro 100 UNIT/ML INSULN.PEN SC (12:23)
--- NOTE | 2019-04-05 13:02 | CASEMGMT ---
Team meeting held today with pt and ex present. Pt is receiving PT/OT/ST and participating in therapy. Pt continuing to need mod-max assist x2 for ambulation and total assist for lower body dressing and toileting. No d/c date set at this time. Discussed with pt the need for SNF placement after d/c from [facility] and pt is understanding and agreeable to this. Pt aware that insurance continuation of stay is pending and continued stay is not guaranteed. SW will continue to follow for d/c planning and support. SKYE Chao
[2019-04-05 17:30] LABS: Bedside Glucose 97 mg/dL (70-110)
[2019-04-05 19:20] VITALS: BP 141/71; PULSE 64; RESP 18; TEMP 36.7; O2SAT 97; BMI 36.6
[2019-04-05] MEDS: Atorvastatin Calcium 80 MG Tablet PO (20:57)
[2019-04-05 21:36] LABS: Bedside Glucose 165 mg/dL (70-110)
--- NOTE | 2019-04-06 03:37 | NURSING ---
Reviewed and agree with FACILITIES MAINTENANCE SUPERVISOR documentation and FIMs charting.
[2019-04-06 06:55] LABS: Bedside Glucose 87 mg/dL (70-110)
[2019-04-06 07:16] VITALS: BP 142/72; PULSE 60; RESP 17; TEMP 36.6; O2SAT 95
[2019-04-06 07:43] VITALS: BP 142/72; PULSE 60
[2019-04-06] MEDS: Senna/Docusate Sodium 1 Tablet 2 TABLET PO ×2 (07:43→20:00)
[2019-04-06] MEDS: Sertraline 50 MG Tablet PO (07:43)
[2019-04-06] MEDS: Acetaminophen 500 MG Tablet 1000 MG PO ×2 (07:43→19:59)
[2019-04-06] MEDS: Metoprolol(XL)Succ 50 MG Tablet PO (07:43)
[2019-04-06] MEDS: amLODIPine 5 MG Tablet PO (07:43)
[2019-04-06] MEDS: Gabapentin 400 MG Capsule PO ×4 (07:44→19:59)
[2019-04-06] MEDS: Insulin Lispro 100 UNIT/ML INSULN.PEN 8 UNIT SC ×2 (07:44→17:13)
[2019-04-06] MEDS: APIXABAN 5 MG TABLET PO ×2 (07:44→20:00)
[2019-04-06] MEDS: Aspirin 81 MG TAB.CHEW PO (07:44)
[2019-04-06] MEDS: Amiodarone 200 MG Tablet PO ×2 (07:44→19:59)
[2019-04-06] MEDS: Lisinopril 10 MG Tablet PO (07:47)
[2019-04-06] MEDS: Polyethylene Glycol 3350 17 GM PACKET PO (07:52)
[2019-04-06 10:14] VITALS: BMI 36.6
--- NOTE | 2019-04-06 11:44 | PCM.PN.NEU ---
Subjective: Per nursing no issues overnight. Patient stated he is tolerating therapies and slept well. Denies any further questions or concerns. - Physical Exam General: Alert, Oriented x3, Cooperative HEENT: Atraumatic, PERRLA Oral: Moist Mucosa Neck: Supple, No JVD Lungs: Clear to auscultation, Normal air movement Cardiovascular: Regular rate, Regular Rhythm Abdomen: Bowel Sounds Present, Soft, Non Tender, Obese Extremities: No clubbing, No cyanosis, Edema - non-pitting to left hand and left lower extremity Musculoskeletal: No Tenderness to Palpation of Joints or Extremities Neurological: Deep Tendon Reflexes 2+/4 and Symmetrical, - - Cranial nerves 2-12 grossly intact, power 5/5 right UE/LE, 3/5 left UE 1/5 left LE. Decrease sensation to left lower extremity to tactile and temperature Psych/Mental Status: Normal Affect, Appropriate, Alert and oriented to time, place, person, mood and affect Vital Signs Temp Pulse Resp BP Pulse Ox 97.8 F 60 17 142/72 H 95 04/06/19 07:16 04/06/19 07:43 04/06/19 07:16 04/06/19 07:43 04/06/19 07:16 Oxygen Delivery Method Room Air Weight: 131.6 kg Body Mass Index (BMI) 36.6 Finger Stick Blood Glucose 380 Intake and Output for Last 24 Hours 04/04/19 04/05/19 04/06/19 23:59 23:59 23:59 Intake Total 720 / 720 Balance 720 / 720 POC Glucose 04/06/19 04/05/19 04/05/19 06:39 20:56 17:23 POC Glucose 87 165 H 97 04/05/19 11:38 POC Glucose 83 Medical Necessity - Tobacco Use Smoking Status: Never smoker Tobacco Use: Non-smoker Assessment/Plan All Active Problems Hyponatremia (Acute) Oropharyngeal dysphagia (Acute) Ischemic cerebrovascular accident (CVA) (Acute) 58-year-old male with PMH HTN, HLD, DM, neuropathy, CKD, recent admission with NSTEMI on 02/22/2019 was found to have LAD occlusion and recommended CABG patient refused, A. fib on Eliquis (per documentation patient was found in A. fib with RVR post cardiac cath when he was admitted on 02/22/2019) admitted to [facility] on 03/10/2019 with debility status post acute right paramedian pontine infarct for greater than 3 hours therapy daily with the aim of returning back home at or near his prior level of functional independence. Patient is admitted with dysarthria and left-sided weakness, was found to have acute right paramedian pontine infarct on the MRI brain. Echo done on 02/22/2019 reported to show EF of 35%, LA moderately enlarged LDL 61, hemoglobin A1c 9.4. Plan ?PT for gait stability ?OT for ADLs ?Analgesics as needed ?Bowel protocol ?MRA head/neck reported not to show any hemodynamically significant stenosis or occlusion. ?Hypertension?on metoprolol, Lisinopril, amlodipine, monitor blood pressure, avoid hypotension. Goal blood pressure less than 130mmHg systolic blood pressure. ?HLD?on atorvastatin ?Acute right paramedian pontine stroke?on Eliquis, statins. Probably the stroke was secondary to small vessel disease secondary to uncontrolled diabetes ?DM?on insulin, further management as per hospitalist commendations. ?CKD?avoid nephrotoxic drugs, avoid dehydration. on 04/02/2019 Cr 1.60, at baseline continue to monitor ?CAD?recent cardiac catheterization on 02/22/2019 reported to show mid LAD occlusion, patient was advised to CABG but refused the same. On aspirin statins and metoprolol. Ejection fraction 35%. Patient does not want to pursue any further intervention procedure per patient. ?A. fib?on Eliquis, amiodarone and metoprolol ?Neuropathy- Neurontin to 400 mg 4x/day ?Patient on Zoloft for possible depression ?GI/DVT prophylaxis?on famotodine/Eliquis Duplex to BLE 03/29/2019 negative - Morbid obesity BMI 37.2 with co-morbidty of DM -discussed diet, exercise and wt loss ?Fall precautions ?Patient counseled to be compliant with medications. ?Further medical management per hospitalist recommendation ?Follow-up with PCP, cardiology, endocrinology and neurology as outpatient.
[2019-04-06 11:55] LABS: Bedside Glucose 122 mg/dL (70-110)
[2019-04-06] MEDS: Insulin Lispro 100 UNIT/ML INSULN.PEN SC (12:01)
[2019-04-06 17:11] LABS: Bedside Glucose 111 mg/dL (70-110)
[2019-04-06 19:30] VITALS: PULSE 62; RESP 16; O2SAT 93
[2019-04-06 19:34] VITALS: BP 161/86; PULSE 62; RESP 16; TEMP 36.7; O2SAT 93
[2019-04-06 19:35] VITALS: BMI 36.6
[2019-04-06] MEDS: Famotidine 20 MG Tablet PO (20:00)
[2019-04-06] MEDS: Atorvastatin Calcium 80 MG Tablet PO (20:00)
[2019-04-06 21:00] LABS: Bedside Glucose 213 mg/dL (70-110)
[2019-04-06 21:36] LABS: Bedside Glucose 245 mg/dL (70-110)
--- NOTE | 2019-04-07 02:11 | NURSING ---
Reviewed and agree with ROTOR ASSEMBLER documentation and FIMs charting,
[2019-04-07 06:25] LABS: Bedside Glucose 110 mg/dL (70-110)
[2019-04-07 07:41] VITALS: BP 132/77; PULSE 59; RESP 18; TEMP 36.4; O2SAT 96
[2019-04-07] MEDS: Amiodarone 200 MG Tablet PO ×2 (07:49→22:42)
[2019-04-07] MEDS: Aspirin 81 MG TAB.CHEW PO (07:49)
[2019-04-07] MEDS: Gabapentin 400 MG Capsule PO ×4 (07:49→22:41)
[2019-04-07] MEDS: Famotidine 20 MG Tablet PO ×2 (07:50→22:41)
[2019-04-07] MEDS: amLODIPine 5 MG Tablet PO (07:50)
[2019-04-07] MEDS: APIXABAN 5 MG TABLET PO ×2 (07:51→22:42)
[2019-04-07] MEDS: Insulin Lispro 100 UNIT/ML INSULN.PEN 8 UNIT SC ×2 (07:52→17:01)
[2019-04-07] MEDS: Acetaminophen 500 MG Tablet 1000 MG PO ×2 (07:53→22:41)
[2019-04-07 07:57] VITALS: PULSE 78
[2019-04-07] MEDS: Sertraline 50 MG Tablet PO (07:57)
[2019-04-07] MEDS: Lisinopril 10 MG Tablet PO (07:57)
[2019-04-07] MEDS: Metoprolol(XL)Succ 50 MG Tablet PO (07:57)
[2019-04-07 09:06] VITALS: BMI 36.6
--- NOTE | 2019-04-07 11:13 | PCM.PN.HOSP ---
Subjective: Patient seen participating in physical therapy Objective: GENERAL: cooperative HEENT: Atraumatic; moist oral mucosa EYES; Anicteric, Normal Conjunctiva NECK; supple, normal thyroid, RESPIRATORY: Diminished to auscultation bilaterally, CARDIOVASCULAR: Regular S1 S2, GI: soft, non-tender, normoactive bowel sounds, : No Renal angle tenderness; EXTREMITIES: No edema, no clubbing, no cyanosis. NEURO: Awake; left sided hemiparesis SKIN: No Rash PSYCH; Normal affect Vitals/I&O's: Vital Signs Temp Pulse Resp BP Pulse Ox 97.5 F L 78 18 132/77 H 96 04/07/19 07:41 04/07/19 07:57 04/07/19 07:41 04/07/19 07:41 04/07/19 07:41 Oxygen Delivery Method Room Air Weight: 131.6 kg Body Mass Index (BMI) 36.6 Finger Stick Blood Glucose 380 Intake and Output for Last 24 Hours 04/05/19 04/06/19 04/07/19 23:59 23:59 23:59 Intake Total 360 / 360 Balance 360 / 360 Laboratory Results 04/06/19 11:46: POC Glucose 122 H 04/06/19 16:58: POC Glucose 111 H 04/06/19 20:25: POC Glucose 213 H 04/06/19 21:22: POC Glucose 245 H 04/07/19 06:10: POC Glucose 110 Current Medications Acetaminophen (Tylenol) 1,000 mg PO BID [facility] Last Admin: 04/07/19 07:53 Dose: 1,000 mg Amiodarone HCl (Cordarone) 200 mg PO BID [facility] Last Admin: 04/07/19 07:49 Dose: 200 mg Amlodipine Besylate (Norvasc) 5 mg PO DAILY [facility] Last Admin: 04/07/19 07:50 Dose: 5 mg Apixaban (Eliquis) 5 mg PO BID [facility] Last Admin: 04/07/19 07:51 Dose: 5 mg Aspirin (Aspirin, Baby) 81 mg PO DAILY@0800 [facility] Last Admin: 04/07/19 07:49 Dose: 81 mg Atorvastatin Calcium (Lipitor) 80 mg PO QHS [facility] Last Admin: 04/06/19 20:00 Dose: 80 mg Bisacodyl (Dulcolax) 10 mg RECTAL .PRN X 1 PRN PRN Reason: Constipation Famotidine (Pepcid) 20 mg PO BID [facility] Last Admin: 04/07/19 07:50 Dose: 20 mg Gabapentin (Neurontin) 400 mg PO 4X/DAY [facility] Last Admin: 04/07/19 07:49 Dose: 400 mg Insulin Glargine (Lantus (Bkc)) 16 units SC DAILY [facility] Last Admin: 04/07/19 07:52 Dose: 16 u Insulin Glargine (Lantus (Bkc)) 6 units SC QHS [facility] Last Admin: 04/06/19 20:27 Dose: 6 u Insulin Human Lispro (Humalog Kwikpen (Bkc)) 8 unit SC BID@0800,1700 [facility] Last Admin: 04/07/19 07:52 Dose: 8 units Insulin Human Lispro (Humalog Kwikpen (Bkc)) 5 unit SC LUNCH [facility] Last Admin: 04/06/19 12:01 Dose: 5 units Lisinopril (Zestril) 10 mg PO DAILY [facility] Last Admin: 04/07/19 07:57 Dose: 10 mg Lorazepam (Ativan) 0.5 mg PO QHS PRN PRN PRN Reason: Insomnia Magnesium Hydroxide (Milk Of Magnesia) 30 ml PO .PRN X 1 PRN PRN Reason: Constipation Metoprolol Succinate (Toprol Xl (Beta Leland)) 50 mg PO DAILY [facility] Last Admin: 04/07/19 07:57 Dose: 50 mg Polyethylene Glycol (Miralax) 17 gm PO DAILY [facility] Last Admin: 04/07/19 07:57 Dose: Not Given Senna/Docusate Sodium (Senokot-S, Kylie-Colace) 2 tablet PO BID [facility] Last Admin: 04/07/19 08:02 Dose: Not Given Sertraline HCl (Zoloft) 50 mg PO DAILY [facility] Last Admin: 04/07/19 07:57 Dose: 50 mg Medical Necessity - Tobacco Use Smoking Status: Never smoker Tobacco Use: Non-smoker Assessment/Plan All Active Problems Hyponatremia (Acute) Oropharyngeal dysphagia (Acute) Ischemic cerebrovascular accident (CVA) (Acute) Patient is a 58-year-old male admitted with acute right paramedian pontine infarct thought to be embolic. Admitted to the inpatient rehab unit on account of physical debility where patient is currently undergoing rehab 1. Acute right paramedian pontine infarct with subsequent left-sided hemiparesis and physical debility admitted to the inpatient rehab unit where patient is currently undergoing rehab 2. Paroxysmal atrial fibrillation rate controlled on amiodarone patient on systemic anticoagulation with Eliquis 3. Coronary artery disease with recent [place]; patient was found to have 100% occlusion involving the mid LAD unsuccessful attempt at angioplasty. Recommendation was made for patient to be transferred to a tertiary care center for subsequent intervention patient apparently declined he would patient opted for medical therapy. 4. Hypertension-blood pressure controlled, home medications continued with dose adjustment as needed 5. Diabetes mellitus type II: Continue patient home regimen in addition to Accu-Cheks a.c. and at bedtime and covered with sliding scale insulin 6. Depression patient is on SSRI 7. Dyslipidemia-patient is on statin therapy, continued at home dose 8. Morbid obesity with BMI of 37.2 weight loss advised 9. Diabetic polyneuropathy patient is on Neurontin 10. DVT prophylaxis patient is on Eliquis Code Visit Inpatient E&M: 94597 [facility] Hosp L2
--- NOTE | 2019-04-07 11:25 | PCM.PN.NEU ---
Subjective: Per nursing no issues overnight. Per patient voiced that he would like to be awakened around 0200 and 0500 d/t these are the times he has to urinate and might need some assistance with urinal because he states that the urge to void is quick and at time results in incontinence. Patient denies burning, frequency, dysuria or blood noted with urination. Discussed with nursing staff and will place patient on toileting schedule to accommodate these needs at night. Patient states his therapies are going well and denies any further questions or concerns. - Physical Exam General: Alert, Oriented x3, Cooperative HEENT: Atraumatic Oral: Moist Mucosa Neck: Supple, No JVD Lungs: Clear to auscultation, Normal air movement Cardiovascular: Regular rate, Regular Rhythm Abdomen: Bowel Sounds Present, Soft, Non Tender, Obese Extremities: No clubbing, No cyanosis, Edema - non-pitting to left hand and left lower extremity Neurological: - - Deep Tendon Reflexes 2+/4 and Symmetrical, Cranial nerves 2-12 grossly intact, power 5/5 right UE/LE, 3/5 left UE 1/5 left LE. Decrease sensation to left lower extremity to tactile and temperature Psych/Mental Status: Normal Affect, Appropriate, Alert and oriented to time, place, person, mood and affect Vital Signs Temp Pulse Resp BP Pulse Ox 97.5 F L 78 18 132/77 H 96 04/07/19 07:41 04/07/19 07:57 04/07/19 07:41 04/07/19 07:41 04/07/19 07:41 Oxygen Delivery Method Room Air Weight: 131.6 kg Body Mass Index (BMI) 36.6 Finger Stick Blood Glucose 380 Intake and Output for Last 24 Hours 04/05/19 04/06/19 04/07/19 23:59 23:59 23:59 Intake Total 360 / 360 Balance 360 / 360 POC Glucose 04/07/19 04/06/19 04/06/19 06:10 21:22 20:25 POC Glucose 110 245 H 213 H 04/06/19 04/06/19 16:58 11:46 POC Glucose 111 H 122 H Medical Necessity - Tobacco Use Smoking Status: Never smoker Tobacco Use: Non-smoker Assessment/Plan All Active Problems Hyponatremia (Acute) Oropharyngeal dysphagia (Acute) Ischemic cerebrovascular accident (CVA) (Acute) 58-year-old male with PMH HTN, HLD, DM, neuropathy, CKD, recent admission with NSTEMI on 02/22/2019 was found to have LAD occlusion and recommended CABG patient refused, A. fib on Eliquis (per documentation patient was found in A. fib with RVR post cardiac cath when he was admitted on 02/22/2019) admitted to [facility] IP on 03/10/2019 with debility status post acute right paramedian pontine infarct for greater than 3 hours therapy daily with the aim of returning back home at or near his prior level of functional independence. Patient is admitted with dysarthria and left-sided weakness, was found to have acute right paramedian pontine infarct on the MRI brain. Echo done on 02/22/2019 reported to show EF of 35%, LA moderately enlarged LDL 61, hemoglobin A1c 9.4. Plan ?PT for gait stability ?OT for ADLs ?Analgesics as needed ?Bowel protocol ?MRA head/neck reported not to show any hemodynamically significant stenosis or occlusion. ?Hypertension?on metoprolol, Lisinopril, amlodipine, monitor blood pressure, avoid hypotension. Goal blood pressure less than 130mmHg systolic blood pressure. ?HLD?on atorvastatin ?Acute right paramedian pontine stroke?on Eliquis, statins. Probably the stroke was secondary to small vessel disease secondary to uncontrolled diabetes ?DM?on insulin, further management as per hospitalist commendations. ?CKD?avoid nephrotoxic drugs, avoid dehydration. on 04/02/2019 Cr 1.60, at baseline continue to monitor ?CAD?recent cardiac catheterization on 02/22/2019 reported to show mid LAD occlusion, patient was advised to CABG but refused the same. On aspirin statins and metoprolol. Ejection fraction 35%. Patient does not want to pursue any further intervention procedure per patient. ?A. fib?on Eliquis, amiodarone and metoprolol ?Neuropathy- Neurontin to 400 mg 4x/day ?Patient on Zoloft for possible depression ?GI/DVT prophylaxis?on famotodine/Eliquis Duplex to BLE 03/29/2019 negative - Morbid obesity BMI 37.2 with co-morbidty of DM -discussed diet, exercise and wt loss ?Fall precautions ?Patient counseled to be compliant with medications. - Urinary incontinence placed on toileting schedule at night ?Further medical management per hospitalist recommendation ?Follow-up with PCP, cardiology, endocrinology and neurology as outpatient.
[2019-04-07 11:26] LABS: Bedside Glucose 186 mg/dL (70-110)
[2019-04-07] MEDS: Insulin Lispro 100 UNIT/ML INSULN.PEN SC (12:01)
[2019-04-07 16:26] LABS: Bedside Glucose 137 mg/dL (70-110)
[2019-04-07 19:23] VITALS: BP 165/91; PULSE 63; RESP 22; TEMP 36.8; O2SAT 96
[2019-04-07 19:51] VITALS: BP 144/81; PULSE 64
[2019-04-07] MEDS: Atorvastatin Calcium 80 MG Tablet PO (22:41)
[2019-04-07] MEDS: Senna/Docusate Sodium 1 Tablet 2 TABLET PO (22:41)
[2019-04-07 23:06] LABS: Bedside Glucose 116 mg/dL (70-110)
[2019-04-08 06:05] LABS: Creatinine, Serum 1.43 mg/dL (0.70-1.30); EST Glomerular Filtration Rate 54 mL/min (>60); Est Glom Filt Rate - Afr Amer 65 mL/min (>60); Estimated Creatinine Clearance 65.47 ml/min
[2019-04-08 07:06] LABS: Bedside Glucose 96 mg/dL (70-110)
[2019-04-08 07:38] VITALS: BP 110/69; PULSE 56; RESP 12; TEMP 36.5; O2SAT 97
[2019-04-08 07:58] VITALS: BP 110/69; PULSE 56
[2019-04-08] MEDS: Acetaminophen 500 MG Tablet 1000 MG PO ×2 (07:58→21:09)
[2019-04-08] MEDS: Lisinopril 10 MG Tablet PO (07:58)
[2019-04-08] MEDS: Metoprolol(XL)Succ 50 MG Tablet PO (07:58)
[2019-04-08] MEDS: Sertraline 50 MG Tablet PO (07:58)
[2019-04-08] MEDS: Aspirin 81 MG TAB.CHEW PO (07:58)
[2019-04-08] MEDS: APIXABAN 5 MG TABLET PO ×2 (07:58→21:10)
[2019-04-08] MEDS: Famotidine 20 MG Tablet PO ×2 (07:58→21:09)
[2019-04-08] MEDS: Senna/Docusate Sodium 1 Tablet 2 TABLET PO (07:58)
[2019-04-08] MEDS: Gabapentin 400 MG Capsule PO ×4 (07:59→21:09)
[2019-04-08] MEDS: amLODIPine 5 MG Tablet PO (07:59)
[2019-04-08] MEDS: Amiodarone 200 MG Tablet PO ×2 (07:59→21:10)
[2019-04-08] MEDS: Insulin Lispro 100 UNIT/ML INSULN.PEN 8 UNIT SC ×2 (07:59→17:25)
--- NOTE | 2019-04-08 08:23 | PN.NEURO_ITS ---
Subjective: Per nursing no issues overnight. Per patient toileting schedule at 0200 and 0500 was effective, denies incontinence. Patient stated he slept well last night and only has mild n/t to left hand and left lower extremity, denies pain. Patient denied any further questions or concerns. - Physical Exam General: Alert, Oriented x3, Cooperative HEENT: Atraumatic, PERRLA Oral: Moist Mucosa Neck: Supple, No JVD Lungs: Clear to auscultation, Normal air movement Cardiovascular: Regular rate, Regular Rhythm Abdomen: Bowel Sounds Present, Soft, Non Tender, Obese Extremities: No clubbing, No cyanosis, Edema - non-pitting to left hand and bilateral lower extremity Musculoskeletal: No Tenderness to Palpation of Joints or Extremities - Deep Tendon Reflexes 2+/4 and Symmetrical, Cranial nerves 2-12 grossly intact, power 5/5 right UE/LE, 3/5 left UE 1/5 left LE. Decrease sensation to left lower extremity to tactile and temperature Psych/Mental Status: Normal Affect, Appropriate, Alert and oriented to time, place, person, mood and affect Vital Signs Temp Pulse Resp BP Pulse Ox 97.7 F L 56 L 12 110/69 97 04/08/19 07:38 04/08/19 07:58 04/08/19 07:38 04/08/19 07:58 04/08/19 07:38 Oxygen Delivery Method Room Air Weight: 136.486 kg Body Mass Index (BMI) 36.6 Finger Stick Blood Glucose 380 Intake and Output for Last 24 Hours 04/06/19 04/07/19 04/08/19 23:59 23:59 23:59 Intake Total 960 / 960 Balance 960 / 960 Laboratory Tests Past 24 Hrs 04/08/19 05:38 Creatinine 1.43 H Estim Creat Clear Calc 65.47 Est GFR (MDRD) Af Amer 65 Est GFR (MDRD) Non-Af 54 L POC Glucose 04/08/19 04/07/19 04/07/19 07:03 22:40 16:12 POC Glucose 96 116 H 137 H 04/07/19 11:20 POC Glucose 186 H Medical Necessity - Tobacco Use Smoking Status: Never smoker Tobacco Use: Non-smoker Assessment/Plan All Active Problems Hyponatremia (Acute) Oropharyngeal dysphagia (Acute) Ischemic cerebrovascular accident (CVA) (Acute) 58-year-old male with PMH HTN, HLD, DM, neuropathy, CKD, recent admission with NSTEMI on 02/22/2019 was found to have LAD occlusion and recommended CABG patient refused, A. fib on Eliquis (per documentation patient was found in A. fib with RVR post cardiac cath when he was admitted on 02/22/2019) admitted to [facility] IP RU on 03/10/2019 with debility status post acute right paramedian pontine infarct for greater than 3 hours therapy daily with the aim of returning back home at or near his prior level of functional independence. Patient is admitted with dysarthria and left-sided weakness, was found to have acute right paramedian pontine infarct on the MRI brain. Echo done on 02/22/2019 reported to show EF of 35%, LA moderately enlarged LDL 61, hemoglobin A1c 9.4. Plan ?PT for gait stability ?OT for ADLs ?Analgesics as needed ?Bowel protocol ?MRA head/neck reported not to show any hemodynamically significant stenosis or occlusion. ?Hypertension?on metoprolol, Lisinopril, amlodipine, monitor blood pressure, avoid hypotension. Goal blood pressure less than 130mmHg systolic blood pressure. ?HLD?on atorvastatin ?Acute right paramedian pontine stroke?on Eliquis, statins. Probably the stroke was secondary to small vessel disease secondary to uncontrolled diabetes ?DM?on insulin, further management as per hospitalist commendations. ?CKD?avoid nephrotoxic drugs, avoid dehydration. on 04/08/2019 Cr 1.43 and GFR 54, at baseline continue to monitor ?CAD?recent cardiac catheterization on 02/22/2019 reported to show mid LAD occlusion, patient was advised to CABG but refused the same. On aspirin statins and metoprolol. Ejection fraction 35%. Patient does not want to pursue any further intervention procedure per patient. ?A. fib?on Eliquis, amiodarone and metoprolol ?Neuropathy- Neurontin to 400 mg 4x/day ?Patient on Zoloft for possible depression ?GI/DVT prophylaxis?on famotodine/Eliquis Duplex to BLE 03/29/2019 negative - Morbid obesity BMI 37.2 with co-morbidty of DM -discussed diet, exercise and wt loss ?Fall precautions ?Patient counseled to be compliant with medications. - Urinary incontinence placed on toileting schedule at night ?Further medical management per hospitalist recommendation ?Follow-up with PCP, cardiology, endocrinology and neurology as outpatient.
[2019-04-08 11:50] LABS: Bedside Glucose 119 mg/dL (70-110)
[2019-04-08] MEDS: Insulin Lispro 100 UNIT/ML INSULN.PEN SC (12:19)
[2019-04-08 16:35] LABS: Bedside Glucose 112 mg/dL (70-110)
[2019-04-08 17:00] VITALS: BMI 36.6
[2019-04-08 19:28] VITALS: BP 146/91; PULSE 62; RESP 16; TEMP 36.6; O2SAT 95
[2019-04-08 19:31] VITALS: BP 135/71; PULSE 64
[2019-04-08] MEDS: Atorvastatin Calcium 80 MG Tablet PO (21:10)
[2019-04-08 21:16] LABS: Bedside Glucose 118 mg/dL (70-110)
[2019-04-09 05:00] VITALS: BMI 36.6
[2019-04-09 06:55] LABS: Bedside Glucose 92 mg/dL (70-110)
[2019-04-09 09:12] VITALS: BP 145/83; PULSE 68; RESP 18; TEMP 36.6; O2SAT 93
[2019-04-09] MEDS: Famotidine 20 MG Tablet PO ×2 (09:13→20:52)
[2019-04-09] MEDS: amLODIPine 5 MG Tablet PO (09:13)
[2019-04-09] MEDS: Aspirin 81 MG TAB.CHEW PO (09:14)
[2019-04-09] MEDS: Amiodarone 200 MG Tablet PO ×2 (09:14→20:52)
[2019-04-09] MEDS: Lisinopril 10 MG Tablet PO (09:14)
[2019-04-09] MEDS: Gabapentin 400 MG Capsule PO ×4 (09:14→20:52)
[2019-04-09] MEDS: APIXABAN 5 MG TABLET PO ×2 (09:14→20:52)
[2019-04-09] MEDS: Sertraline 50 MG Tablet PO (09:14)
[2019-04-09] MEDS: Insulin Lispro 100 UNIT/ML INSULN.PEN 8 UNIT SC ×2 (09:14→17:28)
[2019-04-09 09:15] VITALS: BP 145/83; PULSE 68
[2019-04-09] MEDS: Acetaminophen 500 MG Tablet 1000 MG PO ×2 (09:15→20:52)
[2019-04-09] MEDS: Metoprolol(XL)Succ 50 MG Tablet PO (09:15)
--- NOTE | 2019-04-09 10:56 | PN_ITS ---
Subjective: Patient seen admit to some improvement in his left-sided weakness. Also reported having gained 20 pounds since his admission to the inpatient rehab unit Objective: GENERAL: cooperative HEENT: Atraumatic; moist oral mucosa EYES; Anicteric, Normal Conjunctiva NECK; supple, normal thyroid, RESPIRATORY: Diminished to auscultation bilaterally, CARDIOVASCULAR: Regular S1 S2, GI: soft, non-tender, normoactive bowel sounds, : No Renal angle tenderness; EXTREMITIES: No edema, no clubbing, no cyanosis. NEURO: Awake; left sided hemiparesis SKIN: No Rash PSYCH; Normal affect Vitals/I&O's: Vital Signs Temp Pulse Resp BP Pulse Ox 97.9 F 68 18 145/83 H 93 04/09/19 09:12 04/09/19 09:15 04/09/19 09:12 04/09/19 09:15 04/09/19 09:12 Oxygen Delivery Method Room Air Weight: 136.486 kg Body Mass Index (BMI) 36.6 Finger Stick Blood Glucose 380 Intake and Output for Last 24 Hours 04/07/19 04/08/19 04/09/19 23:59 23:59 23:59 Intake Total 960 / 960 960 / 960 120 / 120 Balance 960 / 960 960 / 960 120 / 120 Laboratory Results 04/08/19 11:21: POC Glucose 119 H 04/08/19 16:31: POC Glucose 112 H 04/08/19 21:08: POC Glucose 118 H 04/09/19 06:24: POC Glucose 92 Current Medications Acetaminophen (Tylenol) 1,000 mg PO BID [facility] Last Admin: 04/09/19 09:15 Dose: 1,000 mg Amiodarone HCl (Cordarone) 200 mg PO BID [facility] Last Admin: 04/09/19 09:14 Dose: 200 mg Amlodipine Besylate (Norvasc) 5 mg PO DAILY [facility] Last Admin: 04/09/19 09:13 Dose: 5 mg Apixaban (Eliquis) 5 mg PO BID [facility] Last Admin: 04/09/19 09:14 Dose: 5 mg Aspirin (Aspirin, Baby) 81 mg PO DAILY@0800 [facility] Last Admin: 04/09/19 09:14 Dose: 81 mg Atorvastatin Calcium (Lipitor) 80 mg PO QHS [facility] Last Admin: 04/08/19 21:10 Dose: 80 mg Bisacodyl (Dulcolax) 10 mg RECTAL .PRN X 1 PRN PRN Reason: Constipation Famotidine (Pepcid) 20 mg PO BID [facility] Last Admin: 04/09/19 09:13 Dose: 20 mg Gabapentin (Neurontin) 400 mg PO 4X/DAY [facility] Last Admin: 04/09/19 09:14 Dose: 400 mg Insulin Glargine (Lantus (Bkc)) 16 units SC DAILY [facility] Last Admin: 04/09/19 09:15 Dose: 16 u Insulin Glargine (Lantus (Bkc)) 6 units SC QHS [facility] Last Admin: 04/08/19 21:10 Dose: 6 u Insulin Human Lispro (Humalog Kwikpen (Bkc)) 8 unit SC BID@0800,1700 [facility] Last Admin: 04/09/19 09:14 Dose: 8 units Insulin Human Lispro (Humalog Kwikpen (Bkc)) 5 unit SC LUNCH [facility] Last Admin: 04/08/19 12:19 Dose: 5 units Lisinopril (Zestril) 10 mg PO DAILY [facility] Last Admin: 04/09/19 09:14 Dose: 10 mg Lorazepam (Ativan) 0.5 mg PO QHS PRN PRN PRN Reason: Insomnia Magnesium Hydroxide (Milk Of Magnesia) 30 ml PO .PRN X 1 PRN PRN Reason: Constipation Metoprolol Succinate (Toprol Xl (Beta Leland)) 50 mg PO DAILY [facility] Last Admin: 04/09/19 09:15 Dose: 50 mg Polyethylene Glycol (Miralax) 17 gm PO DAILY [facility] Last Admin: 04/09/19 09:16 Dose: Not Given Senna/Docusate Sodium (Senokot-S, Kylie-Colace) 2 tablet PO BID [facility] Last Admin: 04/09/19 10:00 Dose: Not Given Sertraline HCl (Zoloft) 50 mg PO DAILY [facility] Last Admin: 04/09/19 09:14 Dose: 50 mg Medical Necessity - Tobacco Use Smoking Status: Never smoker Tobacco Use: Non-smoker Assessment/Plan All Active Problems (Last Updated 04/08/19 @ 08:50 by Julianne Barnhart, HIGH SCHOOL DIRECTOR-C) Morbid obesity (Acute) Hyponatremia (Acute) Oropharyngeal dysphagia (Acute) Ischemic cerebrovascular accident (CVA) (Acute) Patient is a 58-year-old male admitted with acute right paramedian pontine infarct thought to be embolic. Admitted to the inpatient rehab unit on account of physical debility where patient is currently undergoing rehab 1. Acute right paramedian pontine infarct with subsequent left-sided hemiparesis and physical debility admitted to the inpatient rehab unit where patient is currently undergoing rehab 2. Paroxysmal atrial fibrillation rate controlled on amiodarone patient on systemic anticoagulation with Eliquis 3. Coronary artery disease with recent [place]; patient was found to have 100% occlusion involving the mid LAD unsuccessful attempt at angioplasty. Recommendation was made for patient to be transferred to a tertiary care center for subsequent intervention patient apparently declined he would patient opted for medical therapy. 4. Hypertension-blood pressure controlled, home medications continued with dose adjustment as needed 5. Diabetes mellitus type II: Continue patient home regimen in addition to Accu-Cheks a.c. and at bedtime and covered with sliding scale insulin 6. Depression patient is on SSRI 7. Dyslipidemia-patient is on statin therapy, continued at home dose 8. Morbid obesity with BMI of 37.2 weight loss advised 9. Diabetic polyneuropathy patient is on Neurontin 10. DVT prophylaxis patient is on Eliquis Code Visit Inpatient E&M: 91503 Subs Hosp L2
[2019-04-09 11:30] LABS: Bedside Glucose 144 mg/dL (70-110)
[2019-04-09] MEDS: Insulin Lispro 100 UNIT/ML INSULN.PEN SC (12:25)
--- NOTE | 2019-04-09 13:06 | PN.NEURO_ITS ---
Subjective: Per nursing no issues overnight. Per patient he is tolerating therapies well and that the toileting schedule has been effective at night. No further incontinence. Patient denied further questions or concerns. - Physical Exam General: Alert, Oriented x3, Cooperative HEENT: Atraumatic, PERRLA Oral: Moist Mucosa Neck: Supple, No JVD Lungs: Clear to auscultation, Normal air movement Cardiovascular: Regular rate, Regular Rhythm Abdomen: Soft, Non Tender, Obese Extremities: No clubbing, No cyanosis, Edema - non-pitting to left hand and left lower extremity Musculoskeletal: No Tenderness to Palpation of Joints or Extremities Neurological: - - Deep Tendon Reflexes 2+/4 and Symmetrical, Cranial nerves 2-12 grossly intact, power 5/5 right UE/LE, 3/5 left UE 1/5 left LE. Decrease sensation to left lower extremity to tactile and temperature Psych/Mental Status: Normal Affect, Appropriate, Alert and oriented to time, place, person, mood and affect Vital Signs Temp Pulse Resp BP Pulse Ox 97.9 F 68 18 145/83 H 93 04/09/19 09:12 04/09/19 09:15 04/09/19 09:12 04/09/19 09:15 04/09/19 09:12 Oxygen Delivery Method Room Air Weight: 136.486 kg Body Mass Index (BMI) 36.6 Finger Stick Blood Glucose 380 Intake and Output for Last 24 Hours 04/07/19 04/08/19 04/09/19 23:59 23:59 23:59 Intake Total 960 / 960 960 / 960 120 / 120 Balance 960 / 960 960 / 960 120 / 120 POC Glucose 04/09/19 04/09/19 04/08/19 11:08 06:24 21:08 POC Glucose 144 H 92 118 H 04/08/19 16:31 POC Glucose 112 H Medical Necessity - Tobacco Use Smoking Status: Never smoker Tobacco Use: Non-smoker Assessment/Plan All Active Problems (Last Updated 04/08/19 @ 08:50 by Julianne Barnhart NP-C) Morbid obesity (Acute) Hyponatremia (Acute) Oropharyngeal dysphagia (Acute) Ischemic cerebrovascular accident (CVA) (Acute) 58-year-old male with PMH HTN, HLD, DM, neuropathy, CKD, recent admission with NSTEMI on 02/22/2019 was found to have LAD occlusion and recommended CABG patient refused, A. fib on Eliquis (per documentation patient was found in A. fib with RVR post cardiac cath when he was admitted on 02/22/2019) admitted to [facility] on 03/10/2019 with debility status post acute right paramedian pontine infarct for greater than 3 hours therapy daily with the aim of returning back home at or near his prior level of functional independence. Patient is admitted with dysarthria and left-sided weakness, was found to have acute right paramedian pontine infarct on the MRI brain. Echo done on 02/22/2019 reported to show EF of 35%, LA moderately enlarged LDL 61, hemoglobin A1c 9.4. Plan ?PT for gait stability ?OT for ADLs ?Analgesics as needed ?Bowel protocol ?MRA head/neck reported not to show any hemodynamically significant stenosis or occlusion. ?Hypertension?on metoprolol, Lisinopril, amlodipine, monitor blood pressure, avoid hypotension. Goal blood pressure less than 130mmHg systolic blood pressure. ?HLD?on atorvastatin ?Acute right paramedian pontine stroke?on Eliquis, statins. Probably the stroke was secondary to small vessel disease secondary to uncontrolled diabetes ?DM?on insulin, further management as per hospitalist commendations. ?CKD?avoid nephrotoxic drugs, avoid dehydration. on 04/08/2019 Cr 1.43 and GFR 54, at baseline continue to monitor ?CAD?recent cardiac catheterization on 02/22/2019 reported to show mid LAD occlusion, patient was advised to CABG but refused the same. On aspirin statins and metoprolol. Ejection fraction 35%. Patient does not want to pursue any further intervention procedure per patient. ?A. fib?on Eliquis, amiodarone and metoprolol ?Neuropathy- Neurontin to 400 mg 4x/day ?Patient on Zoloft for possible depression ?GI/DVT prophylaxis?on famotodine/Eliquis Duplex to BLE 03/29/2019 negative - Morbid obesity BMI 38.6 with co-morbidty of DM -discussed diet, exercise and wt loss ?Fall precautions ?Patient counseled to be compliant with medications. - Urinary incontinence placed on toileting schedule at night ?Further medical management per hospitalist recommendation ?Follow-up with PCP, cardiology, endocrinology and neurology as outpatient.
[2019-04-09 15:44] VITALS: BMI 36.6
[2019-04-09 16:45] LABS: Bedside Glucose 112 mg/dL (70-110)
[2019-04-09] MEDS: Atorvastatin Calcium 80 MG Tablet PO (20:52)
[2019-04-09] MEDS: Senna/Docusate Sodium 1 Tablet 2 TABLET PO (20:52)
[2019-04-09 22:00] VITALS: BP 149/71; PULSE 61; RESP 18; TEMP 36.4; O2SAT 99
[2019-04-09 22:00] LABS: Bedside Glucose 131 mg/dL (70-110)
[2019-04-10 00:44] VITALS: BMI 36.6
[2019-04-10 06:40] LABS: Bedside Glucose 104 mg/dL (70-110)
[2019-04-10 07:43] VITALS: BP 138/70; PULSE 70; RESP 18; TEMP 36.9; O2SAT 93
[2019-04-10] MEDS: Sertraline 50 MG Tablet PO (07:44)
[2019-04-10 07:45] VITALS: BP 138/70; PULSE 70
[2019-04-10] MEDS: Famotidine 20 MG Tablet PO ×2 (07:45→22:08)
[2019-04-10] MEDS: Acetaminophen 500 MG Tablet 1000 MG PO ×2 (07:45→22:09)
[2019-04-10] MEDS: Lisinopril 10 MG Tablet PO (07:45)
[2019-04-10] MEDS: amLODIPine 5 MG Tablet PO (07:45)
[2019-04-10] MEDS: Metoprolol(XL)Succ 50 MG Tablet PO (07:45)
[2019-04-10] MEDS: Senna/Docusate Sodium 1 Tablet 2 TABLET PO ×2 (07:46→22:11)
[2019-04-10] MEDS: APIXABAN 5 MG TABLET PO ×2 (07:46→22:07)
[2019-04-10] MEDS: Aspirin 81 MG TAB.CHEW PO (07:46)
[2019-04-10] MEDS: Amiodarone 200 MG Tablet PO ×2 (07:46→22:07)
[2019-04-10] MEDS: Gabapentin 400 MG Capsule PO ×4 (07:46→22:08)
[2019-04-10] MEDS: Insulin Lispro 100 UNIT/ML INSULN.PEN 8 UNIT SC ×2 (07:46→17:39)
[2019-04-10 11:40] LABS: Bedside Glucose 121 mg/dL (70-110)
[2019-04-10] MEDS: Insulin Lispro 100 UNIT/ML INSULN.PEN SC (12:05)
[2019-04-10 14:21] VITALS: BMI 36.6
[2019-04-10 17:16] LABS: Bedside Glucose 146 mg/dL (70-110)
[2019-04-10 21:20] LABS: Bedside Glucose 147 mg/dL (70-110)
[2019-04-10 22:00] VITALS: BP 151/77; PULSE 62; RESP 20; TEMP 36.3; O2SAT 95
[2019-04-10] MEDS: Atorvastatin Calcium 80 MG Tablet PO (22:08)
[2019-04-11 03:38] VITALS: BMI 36.6
[2019-04-11 06:46] LABS: Bedside Glucose 125 mg/dL (70-110)
[2019-04-11 07:42] VITALS: BP 150/98; PULSE 81; RESP 18; TEMP 36.6; O2SAT 93
[2019-04-11] MEDS: Aspirin 81 MG TAB.CHEW PO (07:55)
[2019-04-11] MEDS: Insulin Lispro 100 UNIT/ML INSULN.PEN 8 UNIT SC ×2 (07:56→17:10)
[2019-04-11] MEDS: Senna/Docusate Sodium 1 Tablet 2 TABLET PO ×2 (08:16→21:55)
[2019-04-11] MEDS: APIXABAN 5 MG TABLET PO ×2 (08:17→21:56)
[2019-04-11] MEDS: Acetaminophen 500 MG Tablet 1000 MG PO ×2 (08:17→21:55)
[2019-04-11 08:18] VITALS: BP 150/98; PULSE 81
[2019-04-11] MEDS: Metoprolol(XL)Succ 50 MG Tablet PO (08:18)
[2019-04-11] MEDS: Amiodarone 200 MG Tablet PO ×2 (08:18→21:55)
[2019-04-11] MEDS: Gabapentin 400 MG Capsule PO ×4 (08:18→21:55)
[2019-04-11] MEDS: Famotidine 20 MG Tablet PO ×2 (08:18→21:55)
[2019-04-11] MEDS: Sertraline 50 MG Tablet PO (08:18)
[2019-04-11] MEDS: amLODIPine 5 MG Tablet PO (08:18)
[2019-04-11] MEDS: Lisinopril 10 MG Tablet PO (08:18)
[2019-04-11] MEDS: Polyethylene Glycol 3350 17 GM PACKET PO (08:19)
--- NOTE | 2019-04-11 10:18 | PN_ITS ---
Subjective: Patient placed on oxygen in view of relative hypoxia. Patient was also reported to be snoring loudly do suspect underlying sleep apnea and may need to undergo sleep study as outpatient Objective: GENERAL: cooperative HEENT: Atraumatic; moist oral mucosa EYES; Anicteric, Normal Conjunctiva NECK; supple, normal thyroid, RESPIRATORY: Diminished to auscultation bilaterally, CARDIOVASCULAR: Regular S1 S2, GI: soft, non-tender, normoactive bowel sounds, : No Renal angle tenderness; EXTREMITIES: No edema, no clubbing, no cyanosis. NEURO: Awake; left sided hemiparesis SKIN: No Rash PSYCH; Normal affect Vitals/I&O's: Vital Signs Temp Pulse Resp BP Pulse Ox 97.9 F 81 18 150/98 H 93 04/11/19 07:42 04/11/19 08:18 04/11/19 07:42 04/11/19 08:18 04/11/19 07:42 Oxygen Flow Rate (L/min) 2 Oxygen Delivery Method Room Air Weight: 136.486 kg Body Mass Index (BMI) 36.6 Finger Stick Blood Glucose 380 Intake and Output for Last 24 Hours 04/09/19 04/10/19 04/11/19 23:59 23:59 23:59 Intake Total 360 / 360 440 / 440 Balance 360 / 360 440 / 440 Laboratory Results 04/10/19 11:24: POC Glucose 121 H 04/10/19 16:58: POC Glucose 146 H 04/10/19 21:00: POC Glucose 147 H 04/11/19 06:37: POC Glucose 125 H Current Medications Acetaminophen (Tylenol) 1,000 mg PO BID [facility] Last Admin: 04/11/19 08:17 Dose: 1,000 mg Amiodarone HCl (Cordarone) 200 mg PO BID [facility] Last Admin: 04/11/19 08:18 Dose: 200 mg Amlodipine Besylate (Norvasc) 5 mg PO DAILY [facility] Last Admin: 04/11/19 08:18 Dose: 5 mg Apixaban (Eliquis) 5 mg PO BID [facility] Last Admin: 04/11/19 08:17 Dose: 5 mg Aspirin (Aspirin, Baby) 81 mg PO DAILY@0800 [facility] Last Admin: 04/11/19 07:55 Dose: 81 mg Atorvastatin Calcium (Lipitor) 80 mg PO QHS [facility] Last Admin: 04/10/19 22:08 Dose: 80 mg Bisacodyl (Dulcolax) 10 mg RECTAL .PRN X 1 PRN PRN Reason: Constipation Famotidine (Pepcid) 20 mg PO BID [facility] Last Admin: 04/11/19 08:18 Dose: 20 mg Gabapentin (Neurontin) 400 mg PO 4X/DAY [facility] Last Admin: 04/11/19 08:18 Dose: 400 mg Insulin Glargine (Lantus (Bkc)) 16 units SC DAILY [facility] Last Admin: 04/11/19 08:19 Dose: 16 u Insulin Glargine (Lantus (Bkc)) 6 units SC QHS [facility] Last Admin: 04/10/19 22:07 Dose: 6 u Insulin Human Lispro (Humalog Kwikpen (Bkc)) 8 unit SC BID@0800,1700 [facility] Last Admin: 04/11/19 07:56 Dose: 8 units Insulin Human Lispro (Humalog Kwikpen (Bkc)) 5 unit SC LUNCH [facility] Last Admin: 04/10/19 12:05 Dose: 5 units Lisinopril (Zestril) 10 mg PO DAILY [facility] Last Admin: 04/11/19 08:18 Dose: 10 mg Lorazepam (Ativan) 0.5 mg PO QHS PRN PRN PRN Reason: Insomnia Magnesium Hydroxide (Milk Of Magnesia) 30 ml PO .PRN X 1 PRN PRN Reason: Constipation Metoprolol Succinate (Toprol Xl (Beta Leland)) 50 mg PO DAILY [facility] Last Admin: 04/11/19 08:18 Dose: 50 mg Polyethylene Glycol (Miralax) 17 gm PO DAILY [facility] Last Admin: 04/11/19 08:19 Dose: 17 gm Senna/Docusate Sodium (Senokot-S, Kylie-Colace) 2 tablet PO BID [facility] Last Admin: 04/11/19 08:16 Dose: 2 tablet Sertraline HCl (Zoloft) 50 mg PO DAILY [facility] Last Admin: 04/11/19 08:18 Dose: 50 mg Medical Necessity - Tobacco Use Smoking Status: Never smoker Tobacco Use: Non-smoker Assessment/Plan All Active Problems (Last Updated 04/08/19 @ 08:50 by Julianne Barnhart, ELECTRICAL LOGGING ENGINEER-C) Morbid obesity (Acute) Hyponatremia (Acute) Oropharyngeal dysphagia (Acute) Ischemic cerebrovascular accident (CVA) (Acute) Patient is a 58-year-old male admitted with acute right paramedian pontine in farct thought to be embolic. Admitted to the inpatient rehab unit on account of physical debility where patient is currently undergoing rehab 1. Acute right paramedian pontine infarct with subsequent left-sided hemiparesis and physical debility admitted to the inpatient rehab unit where patient is currently undergoing rehab 2. Paroxysmal atrial fibrillation rate controlled on amiodarone patient on systemic anticoagulation with Eliquis 3. Coronary artery disease with recent [place]; patient was found to have 100% occlusion involving the mid LAD unsuccessful attempt at angioplasty. Recommenda tion was made for patient to be transferred to a tertiary care center for subsequent intervention patient apparently declined he would patient opted for medical therapy. 4. Hypertension-blood pressure controlled, home medications continued with dose adjustment as needed 5. Diabetes mellitus type II: Continue patient home regimen in addition to Accu-Cheks a.c. and at bedtime and covered with sliding scale insulin 6. Depression patient is on SSRI 7. Dyslipidemia-patient is on statin therapy, continued at home dose 8. Morbid obesity with BMI of 37.2 weight loss advised 9. Diabetic polyneuropathy patient is on Neurontin 10. DVT prophylaxis patient is on Eliquis 11. Suspected sleep apnea patient undergo sleep study as outpatient when discharged from the inpatient rehab unit Code Visit Inpatient E&M: 64084 Subs Hosp L2
[2019-04-11 11:10] LABS: Bedside Glucose 172 mg/dL (70-110)
[2019-04-11] MEDS: Insulin Lispro 100 UNIT/ML INSULN.PEN SC (12:14)
[2019-04-11 16:00] VITALS: BMI 36.6
[2019-04-11 16:41] LABS: Bedside Glucose 147 mg/dL (70-110)
[2019-04-11 19:23] VITALS: BP 103/64; PULSE 66; RESP 20; TEMP 36.8; O2SAT 95
[2019-04-11 20:51] LABS: Bedside Glucose 146 mg/dL (70-110)
[2019-04-11 21:20] VITALS: PULSE 66; RESP 20; O2SAT 93; BMI 36.6
[2019-04-11] MEDS: Atorvastatin Calcium 80 MG Tablet PO (21:56)
--- NOTE | 2019-04-11 22:24 | NURSING ---
spo2 tried on ra and pt value dropped to 88-89%, staff assisted with IS use with sp02 increased to 93% on ra but only maintained for 10-15 min. pt respirations were noted to be 20 per /min but pt denied being sob. lung sounds are noted to be diminished in post bases, spo2 was varing between 88-90% on ra. pt placed back on 1l/m of o2 and sp02 increased to 89-90%, o2 increased to 2l/m and spo2 increased to 92-93% will continue to monitor pt
--- NOTE | 2019-04-12 03:26 | NURSING ---
Reviewed and agree with MEDICAL SAFETY DIRECTOR documentation and FIMs charting.
[2019-04-12] MEDS: Magnesium Hydroxide 30 ML UDC PO (05:06)
[2019-04-12 07:00] LABS: Bedside Glucose 97 mg/dL (70-110)
[2019-04-12] MEDS: Lisinopril 10 MG Tablet PO (08:14)
[2019-04-12] MEDS: Sertraline 50 MG Tablet PO (08:14)
[2019-04-12] MEDS: Amiodarone 200 MG Tablet PO ×2 (08:15→22:16)
[2019-04-12] MEDS: Famotidine 20 MG Tablet PO ×2 (08:15→22:16)
[2019-04-12] MEDS: Gabapentin 400 MG Capsule PO ×3 (08:15→22:17)
[2019-04-12] MEDS: amLODIPine 5 MG Tablet PO (08:15)
[2019-04-12] MEDS: Acetaminophen 500 MG Tablet 1000 MG PO ×2 (08:15→22:16)
[2019-04-12] MEDS: Aspirin 81 MG TAB.CHEW PO (08:15)
[2019-04-12] MEDS: APIXABAN 5 MG TABLET PO ×2 (08:15→22:17)
[2019-04-12] MEDS: Senna/Docusate Sodium 1 Tablet 2 TABLET PO ×2 (08:15→22:17)
[2019-04-12 08:16] VITALS: BP 132/78; PULSE 65
[2019-04-12] MEDS: Metoprolol(XL)Succ 50 MG Tablet PO (08:16)
[2019-04-12] MEDS: Insulin Lispro 100 UNIT/ML INSULN.PEN 8 UNIT SC ×2 (08:17→17:23)
[2019-04-12 08:44] VITALS: BP 132/78; PULSE 65; RESP 18; TEMP 36.6; O2SAT 94
[2019-04-12 11:26] LABS: Bedside Glucose 146 mg/dL (70-110)
[2019-04-12] MEDS: Insulin Lispro 100 UNIT/ML INSULN.PEN SC (12:00)
[2019-04-12] MEDS: Polyethylene Glycol 3350 17 GM PACKET PO (12:00)
--- NOTE | 2019-04-12 13:47 | PN.NEURO_ITS ---
<Julianne Barnhart - Last Filed: 04/12/19 13:50> Subjective: Per nursing, patient had episode of hypoxia mid 80's during sleeping with snoring. O2 was applied at 2 l/m via n.c. Team meeting held this am. Patient continues to require 1-2 assist with mobility and ADLs. floorworker distributor will be starting the process for a SNF and agreeable. Also, discussed need for outpatient sleep study given his drop in oxygen saturation, snoring and co- morbidities. Patient agreeable. Patient denied further questions or concerns. - Physical Exam General: Alert, Oriented x3, Cooperative HEENT: Atraumatic, PERRLA Oral: Moist Mucosa Neck: Supple, No JVD Lungs: Clear to auscultation, Normal air movement Cardiovascular: Regular rate, Regular Rhythm Abdomen: Bowel Sounds Present, Soft, Obese Extremities: No clubbing, No cyanosis, Edema - non-pittng to left hand and left lower extremity Neurological: - - Deep Tendon Reflexes 2+/4 and Symmetrical, Cranial nerves 2-12 grossly intact, power 5/5 right UE/LE, 3/5 left UE 1/5 left LE. Decrease sensation to left lower extremity to tactile and temperature Psych/Mental Status: Normal Affect, Appropriate, Alert and oriented to time, place, person, mood and affect Vital Signs Temp Pulse Resp BP Pulse Ox 97.9 F 65 18 132/78 H 94 04/12/19 08:44 04/12/19 08:44 04/12/19 08:44 04/12/19 08:44 04/12/19 08:44 Oxygen Flow Rate (L/min) 2 Oxygen Delivery Method Room Air Weight: 136.486 kg Body Mass Index (BMI) 36.6 Finger Stick Blood Glucose 380 Intake and Output for Last 24 Hours 04/10/19 04/11/19 04/12/19 23:59 23:59 23:59 Intake Total 440 / 440 300 / 300 Output Total 600 / 600 Balance 440 / 440 -300 / -300 POC Glucose 04/12/19 04/12/19 04/11/19 11:09 06:55 20:32 POC Glucose 146 H 97 146 H 04/11/19 16:34 POC Glucose 147 H Medical Necessity - Tobacco Use Smoking Status: Never smoker Tobacco Use: Non-smoker Assessment/Plan All Active Problems (Last Updated 04/08/19 @ 08:50 by Juilanne Barnhart, CONTINUOUS DRIER OPERATOR-C) Morbid obesity (Acute) Hyponatremia (Acute) Oropharyngeal dysphagia (Acute) Ischemic cerebrovascular accident (CVA) (Acute) 58-year-old male with PMH HTN, HLD, DM, neuropathy, CKD, recent admission with NSTEMI on 02/22/2019 was found to have LAD occlusion and recommended CABG patient refused, A. fib on Eliquis (per documentation patient was found in A. fib with RVR post cardiac cath when he was admitted on 02/22/2019) admitted to [facility] IP RU on 03/10/2019 with debility status post acute right paramedian pontine infarct for greater than 3 hours therapy daily with the aim of returning back home at or near his prior level of functional independence. Patient is admitted with dysarthria and left-sided weakness, was found to have acute right paramedian pontine infarct on the MRI brain. Echo done on 02/22/2019 reported to show EF of 35%, LA moderately enlarged LDL 61, hemoglobin A1c 9.4. Plan ?PT for gait stability ?OT for ADLs ?Analgesics as needed ?Bowel protocol ?MRA head/neck reported not to show any hemodynamically significant stenosis or occlusion. ?Hypertension?on metoprolol, Lisinopril, amlodipine, monitor blood pressure, avoid hypotension. Goal blood pressure less than 130mmHg systolic blood pressure. ?HLD?on atorvastatin ?Acute right paramedian pontine stroke?on Eliquis, statins. Probably the stroke was secondary to small vessel disease secondary to uncontrolled diabetes ?DM?on insulin, further management as per hospitalist commendations. ?CKD?avoid nephrotoxic drugs, avoid dehydration. on 04/08/2019 Cr 1.43 and GFR 54, at baseline continue to monitor ?CAD?recent cardiac catheterization on 02/22/2019 reported to show mid LAD occlusion, patient was advised to CABG but refused the same. On aspirin statins and metoprolol. Ejection fraction 35%. Patient does not want to pursue any further intervention procedure per patient. ?A. fib?on Eliquis, amiodarone and metoprolol ?Neuropathy- Neurontin to 400 mg 4x/day ?Patient on Zoloft for possible depression ?GI/DVT prophylaxis?on famotodine/Eliquis Duplex to BLE 03/29/2019 negative - Morbid obesity BMI 38.6 with co-morbidty of DM -discussed diet, exercise and wt loss ?Fall precautions ?Patient counseled to be compliant with medications. - Urinary incontinence placed on toileting schedule at night - hypoxia at night, snoring - outpatient sleep study ?Further medical management per hospitalist recommendation ?Follow-up with PCP, cardiology, endocrinology, neurology, and sleep study as outpatient. <Ruslan Thomas - Last Filed: 04/13/19 09:42> - Physical Exam Vital Signs Temp Pulse Resp BP Pulse Ox 36.4 C L 68 18 141/79 H 92 04/13/19 07:13 04/13/19 08:32 04/13/19 07:13 04/13/19 08:32 04/13/19 07:13 Oxygen Flow Rate (L/min) 2 Oxygen Delivery Method Room Air Weight: 136.486 kg Body Mass Index (BMI) 36.6 Finger Stick Blood Glucose 380 Intake and Output for Last 24 Hours 04/11/19 04/12/19 04/13/19 23:59 23:59 23:59 Intake Total 300 / 300 240 / 240 Output Total 600 / 600 Balance -300 / -300 240 / 240 POC Glucose 04/13/19 04/12/19 04/12/19 06:45 21:06 15:54 POC Glucose 100 119 H 190 H 04/12/19 11:09 POC Glucose 146 H Assessment/Plan Agree with nurse practitioner notes and plan. Patient staffed in team meeting. Doing well with all measures, improving. Plan for continue therapies. re team next week.
[2019-04-12 14:05] VITALS: BMI 36.6
[2019-04-12 16:00] LABS: Bedside Glucose 190 mg/dL (70-110)
--- NOTE | 2019-04-12 16:39 | CASEMGMT ---
Team meeting held today with pt and ex present. Pt is receiving PT/OT/ST. At this time pt continues to have functional limitations and is not able to return home alone and care for himself. Pt is agreeable to SNF placement and would prefer [facility]. Pt is agreeable for SW to start d/c process. Spoke with Jailene at [facility] and beds are available. Referral faxed. Waiting for determination. VM left later in the day to check on acceptance. VM left with Deanna at pt insurance to discuss continued stay days and pt transfer to SNF. Will await return call. Plan: SNF, pending acceptance and return call from insurance SKYE Chao
--- NOTE | 2019-04-12 17:03 | CASEMGMT ---
Social Work Return call from Jailene at [facility] and they are able to accept pt. Precert with insurance will be started tomorrow. SKYE Chao
[2019-04-12 19:30] VITALS: PULSE 57; RESP 18; O2SAT 92; BMI 36.6
[2019-04-12 19:32] VITALS: BP 149/80; PULSE 57; RESP 18; TEMP 36.5; O2SAT 92
[2019-04-12] MEDS: Bisacodyl 10 MG Suppository RECTAL (19:57)
[2019-04-12 21:41] LABS: Bedside Glucose 119 mg/dL (70-110)
[2019-04-12] MEDS: Atorvastatin Calcium 80 MG Tablet PO (22:17)
--- NOTE | 2019-04-13 01:12 | NURSING ---
Reviewed and agree with ROTARY DRILL OPERATOR documentation and FIMs charting.
[2019-04-13 06:51] LABS: Bedside Glucose 100 mg/dL (70-110)
[2019-04-13 07:13] VITALS: BP 141/79; PULSE 68; RESP 18; TEMP 36.4; O2SAT 92
[2019-04-13] MEDS: Sertraline 50 MG Tablet PO (08:31)
[2019-04-13] MEDS: amLODIPine 5 MG Tablet PO (08:31)
[2019-04-13 08:32] VITALS: BP 141/79; PULSE 68
[2019-04-13] MEDS: Acetaminophen 500 MG Tablet 1000 MG PO ×2 (08:32→21:30)
[2019-04-13] MEDS: Metoprolol(XL)Succ 50 MG Tablet PO (08:32)
[2019-04-13] MEDS: Lisinopril 10 MG Tablet PO (08:32)
[2019-04-13] MEDS: Senna/Docusate Sodium 1 Tablet 2 TABLET PO ×2 (08:33→21:31)
[2019-04-13] MEDS: Aspirin 81 MG TAB.CHEW PO (08:33)
[2019-04-13] MEDS: Famotidine 20 MG Tablet PO ×2 (08:33→21:29)
[2019-04-13] MEDS: Polyethylene Glycol 3350 17 GM PACKET PO (08:33)
[2019-04-13] MEDS: APIXABAN 5 MG TABLET PO ×2 (08:33→21:34)
[2019-04-13] MEDS: Amiodarone 200 MG Tablet PO ×2 (08:33→21:30)
[2019-04-13] MEDS: Gabapentin 400 MG Capsule PO ×3 (08:34→17:40)
[2019-04-13] MEDS: Insulin Lispro 100 UNIT/ML INSULN.PEN 8 UNIT SC ×2 (08:34→17:17)
[2019-04-13 11:26] LABS: Bedside Glucose 176 mg/dL (70-110)
[2019-04-13] MEDS: Insulin Lispro 100 UNIT/ML INSULN.PEN SC (11:41)
--- NOTE | 2019-04-13 13:10 | CASEMGMT ---
Insurance: Received VM from Mikayla at insurance. Mikayla stating insurance update was due Monday 04/09 however, SHEILA was not notified of this. Return call to Mikayla and ANGELY left stating will submit update at this time and that SHEILA was not notified of continued stay review date. Also informed Mikayla that SNF placement is being pursued. Requested return call. Auth # [id number] SKYE Chao
--- NOTE | 2019-04-13 13:12 | CASEMGMT ---
Social Work Met with pt and informed him that clinical update for insurance was faxed today. Also informed pt that [facility] is able to accept pt and that precert has been started. Pt acknowledges and expresses understanding. SW to continue to follow for support. SKYE Chao
--- NOTE | 2019-04-13 13:36 | PN.NEURO_ITS ---
Subjective: Per nursing no issues overnight. Per patient swelling to left hand and arm and to bilateral lower extremities has increased from yesterday. Per nursing patient started to have mild SOB with some exertion. Denies chest pain or tightness, SOB at rest, palpitations, dizziness or lightheadedness. Nurse notified hospitalist today. Patient without acute distress and is sitting up in w/c visiting with other patients. Patient continues to tolerate therapies and pending insurance for SNF placement to continue therapies. - Physical Exam General: Alert, Oriented x3, Cooperative HEENT: Atraumatic Oral: Moist Mucosa Neck: Supple, No JVD Lungs: Clear to auscultation, Normal air movement Cardiovascular: Regular rate, Regular Rhythm Abdomen: Bowel Sounds Present, Soft, Non Tender, Obese Extremities: No clubbing, No cyanosis, Edema - non-pitting edema to left arm and hand, 1+ BLE Musculoskeletal: No Tenderness to Palpation of Joints or Extremities Neurological: - - Deep Tendon Reflexes 2+/4 and Symmetrical, Cranial nerves 2-12 grossly intact, power 5/5 right UE/LE, 3/5 left UE 1/5 left LE. Decrease sensation to left lower extremity to tactile and temperature Psych/Mental Status: Normal Affect, Appropriate, Alert and oriented to time, place, person, mood and affect Vital Signs Temp Pulse Resp BP Pulse Ox 97.6 F L 68 18 141/79 H 92 04/13/19 07:13 04/13/19 08:32 04/13/19 07:13 04/13/19 08:32 04/13/19 07:13 Oxygen Flow Rate (L/min) 2 Oxygen Delivery Method Room Air Weight: 136.486 kg Body Mass Index (BMI) 36.6 Finger Stick Blood Glucose 380 Intake and Output for Last 24 Hours 04/11/19 04/12/19 04/13/19 23:59 23:59 23:59 Intake Total 300 / 300 360 / 360 Output Total 600 / 600 Balance -300 / -300 360 / 360 POC Glucose 04/13/19 04/13/19 04/12/19 11:13 06:45 21:06 POC Glucose 176 H 100 119 H 04/12/19 15:54 POC Glucose 190 H Medical Necessity - Tobacco Use Smoking Status: Never smoker Tobacco Use: Non-smoker Assessment/Plan All Active Problems (Last Updated 04/08/19 @ 08:50 by Julianne Barnhart, KIM-C) Morbid obesity (Acute) Hyponatremia (Acute) Oropharyngeal dysphagia (Acute) Ischemic cerebrovascular accident (CVA) (Acute) 58-year-old male with PMH HTN, HLD, DM, neuropathy, CKD, recent admission with NSTEMI on 02/22/2019 was found to have LAD occlusion and recommended CABG patient refused, A. fib on Eliquis (per documentation patient was found in A. fib with RVR post cardiac cath when he was admitted on 02/22/2019) admitted to [facility] IP RU on 03/10/2019 with debility status post acute right paramedian pontine infarct for greater than 3 hours therapy daily with the aim of returning back home at or near his prior level of functional independence. Patient is admitted with dysarthria and left-sided weakness, was found to have acute right paramedian pontine infarct on the MRI brain. Echo done on 02/22/2019 reported to show EF of 35%, LA moderately enlarged LDL 61, hemoglobin A1c 9.4. Plan ?PT for gait stability ?OT for ADLs ?Analgesics as needed ?Bowel protocol ?MRA head/neck reported not to show any hemodynamically significant stenosis or occlusion. ?Hypertension?on metoprolol, Lisinopril, amlodipine, monitor blood pressure, avoid hypotension. Goal blood pressure less than 130mmHg systolic blood pressure. ?HLD?on atorvastatin ?Acute right paramedian pontine stroke?on Eliquis, statins. Probably the stroke was secondary to small vessel disease secondary to uncontrolled diabetes ?DM?on insulin, further management as per hospitalist commendations. ?CKD?avoid nephrotoxic drugs, avoid dehydration. on 04/08/2019 Cr 1.43 and GFR 54, at baseline continue to monitor ?CAD?recent cardiac catheterization on 02/22/2019 reported to show mid LAD occlusion, patient was advised to CABG but refused the same. On aspirin statins and metoprolol. Ejection fraction 35%. Patient does not want to pursue any further intervention procedure per patient. ?A. fib?on Eliquis, amiodarone and metoprolol ?Neuropathy- Neurontin to 400 mg 4x/day ?Patient on Zoloft for possible depression ?GI/DVT prophylaxis?on famotodine/Eliquis Duplex to BLE 03/29/2019 negative - Morbid obesity BMI 38.6 with co-morbidty of DM -discussed diet, exercise and wt loss ?Fall precautions ?Patient counseled to be compliant with medications. - Urinary incontinence placed on toileting schedule at night - hypoxia at night, snoring - outpatient sleep study ?Further medical management per hospitalist recommendation ?Follow-up with PCP, cardiology, endocrinology, neurology, and sleep study as outpatient.
[2019-04-13 16:20] LABS: Bedside Glucose 113 mg/dL (70-110)
[2019-04-13 17:00] VITALS: BMI 36.6
[2019-04-13] MEDS: Furosemide 40 MG Tablet PO (17:17)
--- NOTE | 2019-04-13 18:17 | PN_ITS ---
Subjective: Patient was seen and examined today, I discussed a CODE STATUS with the patient today and he states he would like to be a DNR CC arrest and he understands what this means. Patient continues to have swelling in the legs and arms, it appears that the patient's gabapentin was increased a few days ago and he is on no diuretics. - Physical Exam General: Alert, Oriented x3, Cooperative, No apparent distress, Well developed, Well nourished HEENT: Atraumatic, PERRLA, EOMI, Normocephalic Oral: Moist Mucosa Neck: Supple, Trachea Midline, Thyroid Normal Size and Texture Lungs: Clear to auscultation, Normal air movement, No rhonchi, No wheeze, No rales Cardiovascular: Regular rate, Regular Rhythm, Normal S1, Normal S2, No murmurs, No Ectopic Activity, PMI Normal, No rub noted, No Gallop Abdomen: Bowel Sounds Present, Soft, Non Tender, Non-Distended, Obese, No hernias noted Extremities: No clubbing, No cyanosis, Capillary Refill Less than 3 Seconds, Edema - Generalized edema is noted over the patient's lower legs and arms Skin: No rashes, No breakdown Musculoskeletal: No Tenderness to Palpation of Joints or Extremities Neurological: Cranial nerves II-XII grossly intact, Neuro grossly intact, - - Decreased strength is noted in the patient's left and right arms Psych/Mental Status: Normal Affect, Appropriate, Alert and oriented to time, place, person, mood and affect Vital Signs Temp Pulse Resp BP Pulse Ox 97.6 F L 68 18 141/79 H 92 04/13/19 07:13 04/13/19 08:32 04/13/19 07:13 04/13/19 08:32 04/13/19 07:13 Oxygen Flow Rate (L/min) 2 Oxygen Delivery Method Room Air Weight: 136.486 kg Body Mass Index (BMI) 36.6 Finger Stick Blood Glucose 380 Intake and Output for Last 24 Hours 04/11/19 04/12/19 04/13/19 23:59 23:59 23:59 Intake Total 300 / 300 360 / 360 Output Total 600 / 600 Balance -300 / -300 360 / 360 POC Glucose 04/13/19 04/13/19 04/13/19 16:10 11:13 06:45 POC Glucose 113 H 176 H 100 04/12/19 21:06 POC Glucose 119 H Medical Necessity - Tobacco Use Smoking Status: Never smoker Tobacco Use: Non-smoker Assessment/Plan All Active Problems (Last Updated 04/08/19 @ 08:50 by Julianne Barnhart, KIM-C) Morbid obesity (Acute) Hyponatremia (Acute) Oropharyngeal dysphagia (Acute) Ischemic cerebrovascular accident (CVA) (Acute) #1 ischemic cardiomyopathy-patient's last echocardiogram revealed an ejection fr action of 35%, patient had a cardiac catheterization performed in January 2019 which showed 100% occlusion of the LAD, patient refused to be transferred for a coronary artery bypass procedure. I have adjusted the patient's medications including increasing the patient's SERGIO inhibitor, stopping the patient's Norvasc due to generalized edema, and placing the patient on Lasix. Patient is currently also on a beta-elba #2 generalized edema of the arms and legs-possibly secondary to medications on an overlay of chronic kidney disease-I have elected to lower the patient's gabapentin dosage to 400 mg 3 times a day, again I have placed the patient on Lasix 40 mg twice a day, I will obtain a BMP daily for the next 3 days. Patient's Norvasc has been stopped #3 diabetic neuropathy #4 type 2 diabetes #5 right paramedian pontine infarct with left-sided hemiparesis-continue PT and OT #6 hypertension #7 depression #8 chronic kidney disease stage III-secondary to type 2 diabetes #9 paroxysmal atrial fibrillation Code Visit Inpatient E&M: 60862 Subs Hosp L2
[2019-04-13 19:44] VITALS: BP 138/70; PULSE 57; RESP 20; TEMP 36.3; O2SAT 98
[2019-04-13 20:30] LABS: Bedside Glucose 118 mg/dL (70-110)
[2019-04-13 21:25] VITALS: PULSE 57; RESP 20; O2SAT 98; BMI 36.6
[2019-04-13] MEDS: Atorvastatin Calcium 80 MG Tablet PO (21:29)
--- NOTE | 2019-04-14 01:00 | NURSING ---
Reviewed and agree with PAN GREASER documentation and FIMs charting.
[2019-04-14 06:25] LABS: Anion Gap 7 (5-15); BUN 31 mg/dL (7-18); Calcium,Total 8.5 mg/dL (8.5-10.1); Chloride 109 mmol/L (98-107); Creatinine, Serum 1.55 mg/dL (0.70-1.30); EST Glomerular Filtration Rate 49 mL/min (>60); Est Glom Filt Rate - Afr Amer 59 mL/min (>60); Glucose 84 mg/dL (74-106); Potassium 4.1 mmol/L (3.5-5.1); Sodium Level 142 mmol/L (136-145)
[2019-04-14 06:31] LABS: Bedside Glucose 87 mg/dL (70-110)
[2019-04-14 07:13] VITALS: BP 138/78; PULSE 63; RESP 18; TEMP 36.5; O2SAT 92
[2019-04-14] MEDS: Famotidine 20 MG Tablet PO ×2 (07:48→21:46)
[2019-04-14] MEDS: Senna/Docusate Sodium 1 Tablet 2 TABLET PO ×2 (07:48→21:46)
[2019-04-14] MEDS: Acetaminophen 500 MG Tablet 1000 MG PO ×2 (07:48→21:45)
[2019-04-14] MEDS: Sertraline 50 MG Tablet PO (07:48)
[2019-04-14] MEDS: Polyethylene Glycol 3350 17 GM PACKET PO (07:48)
[2019-04-14] MEDS: APIXABAN 5 MG TABLET PO ×2 (07:48→21:47)
[2019-04-14] MEDS: Aspirin 81 MG TAB.CHEW PO (07:48)
[2019-04-14] MEDS: Gabapentin 400 MG Capsule PO ×3 (07:48→17:34)
[2019-04-14 07:49] VITALS: BP 138/78; PULSE 63
[2019-04-14] MEDS: Insulin Lispro 100 UNIT/ML INSULN.PEN 8 UNIT SC ×2 (07:49→17:34)
[2019-04-14] MEDS: Amiodarone 200 MG Tablet PO ×2 (07:49→21:47)
[2019-04-14] MEDS: Furosemide 40 MG Tablet PO ×2 (07:49→17:34)
[2019-04-14] MEDS: Metoprolol(XL)Succ 50 MG Tablet PO (07:49)
--- NOTE | 2019-04-14 11:19 | PN.NEURO_ITS ---
<Julianne Barnhart S - Last Filed: 04/14/19 11:25> Subjective: Per nursing no issues overnight. Dr. Mtz adjusted mediations and added Lasix for increased edema to left extremity and bilateral lower extremities. Patient voiced that he slept well last night and no oxygen was required. Denies SOB, chest pain or tightness, dizziness or lightheadedness. Voiced he continues to have SOB with exertion, but resolves with rest. Denies further questions or concerns. - Physical Exam General: Alert, Oriented x3, Cooperative HEENT: Atraumatic, PERRLA Oral: Moist Mucosa Neck: Supple, No JVD Lungs: Clear to auscultation, Normal air movement Cardiovascular: Regular rate, Regular Rhythm, No Ectopic Activity Abdomen: Soft, Non Tender, Obese Extremities: No clubbing, No cyanosis, Edema - non-pitting to left upper extremity, 1+ to bilateral lower extremities. Musculoskeletal: No Tenderness to Palpation of Joints or Extremities Neurological: - - Deep Tendon Reflexes 2+/4 and Symmetrical, Cranial nerves 2-12 grossly intact, power 5/5 right UE/LE, 3/5 left UE 1/5 left LE. Decrease sensation to left lower extremity to tactile and temperature Psych/Mental Status: Normal Affect, Appropriate, Alert and oriented to time, place, person, mood and affect Vital Signs Temp Pulse Resp BP Pulse Ox 97.7 F L 63 18 138/78 H 92 04/14/19 07:13 04/14/19 07:49 04/14/19 07:13 04/14/19 07:49 04/14/19 07:13 Oxygen Flow Rate (L/min) 2 Oxygen Delivery Method Room Air Weight: 136.486 kg Body Mass Index (BMI) 36.6 Finger Stick Blood Glucose 380 Intake and Output for Last 24 Hours 04/12/19 04/13/19 04/14/19 23:59 23:59 23:59 Intake Total 360 / 360 1300 / 1300 Output Total 600 / 600 Balance 360 / 360 700 / 700 Laboratory Tests Past 24 Hrs 04/14/19 05:15 Sodium 142 Potassium 4.1 Chloride 109 H Carbon Dioxide 26.0 Anion Gap 7 BUN 31 H Creatinine 1.55 H Estim Creat Clear Calc 60.40 Est GFR (MDRD) Af Amer 59 L Est GFR (MDRD) Non-Af 49 L BUN/Creatinine Ratio 20.0 Glucose 84 Calcium 8.5 POC Glucose 04/14/19 04/13/19 04/13/19 06:16 19:56 16:10 POC Glucose 87 118 H 113 H 04/13/19 11:13 POC Glucose 176 H Medical Necessity - Tobacco Use Smoking Status: Never smoker Tobacco Use: Non-smoker Assessment/Plan All Active Problems (Last Updated 04/08/19 @ 08:50 by Julianne Barnhart, COLOR MAKING SUPERVISOR-C) Morbid obesity (Acute) Hyponatremia (Acute) Oropharyngeal dysphagia (Acute) Ischemic cerebrovascular accident (CVA) (Acute) 58-year-old male with PMH HTN, HLD, DM, neuropathy, CKD, recent admission with NSTEMI on 02/22/2019 was found to have LAD occlusion and recommended CABG patient refused, A. fib on Eliquis (per documentation patient was found in A. fib with RVR post cardiac cath when he was admitted on 02/22/2019) admitted to [facility] on 03/10/2019 with debility status post acute right paramedian pontine infarct for greater than 3 hours therapy daily with the aim of returning back home at or near his prior level of functional independence. Patient is admitted with dysarthria and left-sided weakness, was found to have acute right paramedian pontine infarct on the MRI brain. Echo done on 02/22/2019 reported to show EF of 35%, LA moderately enlarged LDL 61, hemoglobin A1c 9.4. Plan ?PT for gait stability ?OT for ADLs ?Analgesics as needed ?Bowel protocol ?MRA head/neck reported not to show any hemodynamically significant stenosis or occlusion. ?Hypertension?on metoprolol, Lisinopril, monitor blood pressure, avoid hypotension. Goal blood pressure less than 130mmHg systolic blood pressure. ?HLD?on atorvastatin ?Acute right paramedian pontine stroke?on Eliquis, statins. Probably the stroke was secondary to small vessel disease secondary to uncontrolled diabetes ?DM?on insulin, further management as per hospitalist commendations. ?CKD ?avoid nephrotoxic drugs, avoid dehydration. on 04/14/2019 Cr 1.55 and GFR 49, at baseline continue to monitor - hospitalist following ?CAD?recent cardiac catheterization on 02/22/2019 reported to show mid LAD occlusion, patient was advised to CABG but refused the same. On aspirin statins and metoprolol. Ejection fraction 35%. Patient does not want to pursue any further intervention procedure per patient. ?A. fib?on Eliquis, amiodarone and metoprolol ?Neuropathy- Neurontin to 400 mg 3x/day ?Patient on Zoloft for possible depression ?GI/DVT prophylaxis?on famotodine/Eliquis Duplex to BLE 03/29/2019 negative - Morbid obesity BMI 38.6 with co-morbidty of DM -discussed diet, exercise and wt loss ?Fall precautions ?Patient counseled to be compliant with medications. - Urinary incontinence placed on toileting schedule at night - hypoxia at night, snoring - outpatient sleep study - Generalized edema to left upper extremity and Bilateral lower extremities - Hospitalist managing: decreased neurontin, d/c norvasc increased, increased lisinopril and added Lasix 40 mg bid. BMP monitoring. ?Further medical management per hospitalist recommendation ?Follow-up with PCP, cardiology, endocrinology, neurology, and sleep study as outpatient. <Ruslan Thomas - Last Filed: 04/14/19 12:17> - Physical Exam Vital Signs Temp Pulse Resp BP Pulse Ox 36.5 C L 63 18 138/78 H 92 04/14/19 07:13 04/14/19 07:49 04/14/19 07:13 04/14/19 07:49 04/14/19 07:13 Oxygen Flow Rate (L/min) 2 Oxygen Delivery Method Room Air Weight: 136.486 kg Body Mass Index (BMI) 36.6 Finger Stick Blood Glucose 380 Intake and Output for Last 24 Hours 04/12/19 04/13/19 04/14/19 23:59 23:59 23:59 Intake Total 360 / 360 1300 / 1300 Output Total 600 / 600 Balance 360 / 360 700 / 700 Laboratory Tests Past 24 Hrs 04/14/19 05:15 Sodium 142 Potassium 4.1 Chloride 109 H Carbon Dioxide 26.0 Anion Gap 7 BUN 31 H Creatinine 1.55 H Estim Creat Clear Calc 60.40 Est GFR (MDRD) Af Amer 59 L Est GFR (MDRD) Non-Af 49 L BUN/Creatinine Ratio 20.0 Glucose 84 Calcium 8.5 POC Glucose 04/14/19 04/13/19 04/13/19 06:16 19:56 16:10 POC Glucose 87 118 H 113 H Assessment/Plan Mood and examined. Agree with COLOR MAKING SUPERVISOR notes and plan as above. The patient reports she is tolerating therapies and is no further complaints. He has received his new tennis shoes which is facilitating his therapy. Looking forward to discharge to [facility], however still awaiting update from insurance. Examination is stable, he does have 1-2+ strength in his left upper and left lower extremity, and ongoing dysarthria. Plan as above.
[2019-04-14] MEDS: Insulin Lispro 100 UNIT/ML INSULN.PEN SC (12:20)
[2019-04-14 13:02] LABS: Bedside Glucose 143 mg/dL (70-110)
--- NOTE | 2019-04-14 15:03 | CASEMGMT ---
Insurance Continued stay approved thru 04/19/19. Notify insurance via fax of d/c. Auth# [id number] SKYE Chao
--- NOTE | 2019-04-14 15:25 | PCM.TXEXTCAR ---
- Diet 04/07/19 14:41 Diet: 2 Gram Sodium Is pt able to select menu?: Yes Diet Comments: 1800 calories - Routine Orders/Code Status O2 Frequency: PRN Keep PO Greater than or Equal to (%): 90 Code Status: DNRCC-A - Therapies Weight Bearing: Weight bearing as tolerated Extremity Affected:: Left Lower - and left upper extremity Physical Therapy: Eval and Treat Occupational Therapy: Eval and Treat Speech Therapy: Eval and Treat - Allergies/Procedures Done in Hospital Allergies/Adverse Reactions: Allergies No Known Allergies Allergy (Verified 03/06/19 11:15) - Type of Care/Length of Stay Estimated LOS: Convalescent Care Less Than 30 days Type of Care Needed: Skilled Rehab Potential: Fair Prognosis: Fair - Additional Orders/Day of Discharge H&P will serve as current which was dated: 03/10/19 - H&P 03/10/19 reviewed and current as of this date Day of Discharge: 04/15/19 - Dietary and Speech Recommendations Dietitian Recommendations/Changes: Recommend cardiac/low chol/2000 calorie restriction w/ 2g sodium diet w/ consistency per SPIDER ASSEMBLER. - Follow Up Care Primary Care Physician: Orlando Gomez MD [Primary Care Provider] - Please Follow Up With: Neurology Please Follow Up With: Nephrology Please Follow Up With: Cardiology Please Follow Up With: Outpatient sleep study - suspected EROS
--- NOTE | 2019-04-14 15:29 | TREXTCAR_ITS ---
- Diet 04/07/19 14:41 Diet: 2 Gram Sodium Is pt able to select menu?: Yes Diet Comments: 1800 calories - Routine Orders/Code Status O2 Frequency: PRN Keep PO Greater than or Equal to (%): 90 Code Status: DNRCC-A - Therapies Weight Bearing: Weight bearing as tolerated Extremity Affected:: Left Lower - and left upper extremity Physical Therapy: Eval and Treat Occupational Therapy: Eval and Treat Speech Therapy: Eval and Treat - Allergies/Procedures Done in Hospital Allergies/Adverse Reactions: Allergies No Known Allergies Allergy (Verified 03/06/19 11:15) - Type of Care/Length of Stay Estimated LOS: Convalescent Care Less Than 30 days Type of Care Needed: Skilled Rehab Potential: Fair Prognosis: Fair - Additional Orders/Day of Discharge H&P will serve as current which was dated: 03/10/19 - H&P 03/10/19 reviewed and current as of this date Day of Discharge: 04/15/19 - Dietary and Speech Recommendations Dietitian Recommendations/Changes: Recommend cardiac/low chol/2000 calorie restriction w/ 2g sodium diet w/ consistency per EMBEDDED ENGINEER. - Follow Up Care Primary Care Physician: Orlando Gomez MD [Primary Care Provider] - Please Follow Up With: Neurology Please Follow Up With: Nephrology Please Follow Up With: Cardiology Please Follow Up With: Outpatient sleep study - suspected EROS
--- NOTE | 2019-04-14 15:37 | DS.PCM_ITS ---
Rehab Discharge Summary DATE OF ADMISSION: 03/09/19 DATE OF DISCHARGE: 04/15/2019 - Rehab Diagnosis Debility secondary to Acute right paramedian pontine stroke Subjective: Patient denies any questions or concerns. Patient aware of discharge to SNF at [facility] on 04/15/2019. - Physical Exam General: Alert, Oriented x3, Cooperative HEENT: Atraumatic, PERRLA Oral: Moist Mucosa Neck: Supple, No JVD Lungs: Clear to auscultation, Normal air movement Cardiovascular: Regular rate, Regular Rhythm Abdomen: Bowel Sounds Present, Soft, Non Tender, Obese Extremities: No clubbing, No cyanosis, Edema - non-pitting to left upper extremity, 1+ to bilateral lower extremities. Musculoskeletal: No Tenderness to Palpation of Joints or Extremities Neurological: - - Deep Tendon Reflexes 2+/4 and Symmetrical, Cranial nerves 2-12 grossly intact, power 5/5 right UE/LE, 3/5 left UE 1/5 left LE. Decrease sensation to left lower extremity to tactile and temperature Psych/Mental Status: Normal Affect, Appropriate, Alert and oriented to time, place, person, mood and affect Vital Signs Temp Pulse Resp BP Pulse Ox 97.7 F L 63 18 138/78 H 92 04/14/19 07:13 04/14/19 07:49 04/14/19 07:13 04/14/19 07:49 04/14/19 07:13 Oxygen Flow Rate (L/min) 2 Oxygen Delivery Method Room Air Weight: 136.486 kg Body Mass Index (BMI) 36.6 Finger Stick Blood Glucose 380 Intake and Output for Last 24 Hours 04/12/19 04/13/19 04/14/19 23:59 23:59 23:59 Intake Total 360 / 360 1300 / 1300 Output Total 600 / 600 Balance 360 / 360 700 / 700 Laboratory Tests Past 24 Hrs 04/14/19 05:15 Sodium 142 Potassium 4.1 Chloride 109 H Carbon Dioxide 26.0 Anion Gap 7 BUN 31 H Creatinine 1.55 H Estim Creat Clear Calc 60.40 Est GFR (MDRD) Af Amer 59 L Est GFR (MDRD) Non-Af 49 L BUN/Creatinine Ratio 20.0 Glucose 84 Calcium 8.5 POC Glucose 04/14/19 04/14/19 04/13/19 11:24 06:16 19:56 POC Glucose 143 H 87 118 H 04/13/19 16:10 POC Glucose 113 H Discharge Diet: Low fat/ Low Cholesterol, 1800 Calorie Control Diet, 2000 mg Sodium Diet Discharge Activity: Return to Normal Activity, May Not Drive, May Shower Weight Bearing Status: Weight bearing as tolerated Call your doctor if you observe: Fever of 101 or Higher, Coldness, Increased Pain, Numbness or Tingling, Change in Color, Inability to urinate, Inability to have a bowel movement, Shortness of breath, Dizziness, Fainting spells, Swelling in the ankles, Chest pain, Prolonged hiccoughing, Increased palpitations (i rregular heartbeat), Calf discomfort, Uncontrolled pain Home Medications: Medications to take at Discharge Insulin Glargine [Lantus SoloStar Pen] 16 units SC DAILY #0 03/09/19 Acetaminophen [Tylenol] 1,000 mg PO BID tablet 04/14/19 Amiodarone HCl [Cordarone] 200 mg PO BID tablet 04/14/19 Apixaban [Eliquis] 5 mg PO BID tablet 04/14/19 Aspirin [Aspirin, Baby] 81 mg PO DAILY@0800 tab.chew 04/14/19 Atorvastatin Calcium [Lipitor] 80 mg PO QHS tablet 04/14/19 Famotidine [Pepcid] 20 mg PO BID tablet 04/14/19 Furosemide [Lasix] 40 mg PO BID@1000,1800 tablet 04/14/19 Gabapentin [Neurontin] 400 mg PO TIDCM capsule 04/14/19 Insulin Glargine [Lantus SoloStar Pen] 6 units SC QHS pen 04/14/19 Insulin Glargine [Lantus SoloStar Pen] 16 units SC DAILY pen 04/14/19 Insulin Lispro [Humalog KwikPen] 5 unit SC LUNCH insuln.pen 04/14/19 Insulin Lispro [Humalog KwikPen] 8 unit SC BID@0800,1700 insuln.pen 04/14/19 Metoprolol(XL)Succ [Toprol Xl (Beta Leland)] 50 mg PO DAILY tablet 04/14/19 Polyethylene Glycol 3350 [Miralax] 17 gm PO DAILY packet 04/14/19 Senna/Docusate Sodium [Senokot-S] 2 tablet PO BID tablet 04/14/19 Sertraline HCl [Zoloft] 50 mg PO DAILY tablet 04/14/19 Primary Care Physician: Orlando Gomez MD [Primary Care Provider] - Please Follow Up With: Neurology Please Follow Up With: Nephrology Please Follow Up With: Cardiology Please Follow Up With: Outpatient sleep study - suspected EROS Disposition: Detention facility Patient Condition:: Stable Rehab Course 58-year-old male with PMH HTN, HLD, DM, Neuropathy, CKD, recent admission with NSTEMI on 02/22/2019 was found to have LAD occlusion and recommended CABG patient refused, A. fib on Eliquis (per documentation patient was found in A. fib with RVR post cardiac cath when he was admitted on 02/22/2019) admitted to [facility] IP RU on 03/10/2019 with debility status post acute right paramedian pontine infarct for greater than 3 hours therapy daily with the aim of returning back home at or near his prior level of functional independence. Patient is admitted with dysarthria and left-sided weakness, was found to have acute right paramedian pontine infarct on the MRI brain. Echo done on 02/22/2019 reported to show EF of 35%, LA moderately enlarged LDL 61, hemoglobin A1c 9.4. CAD?recent cardiac catheterization on 02/22/2019 reported to show mid LAD occlusion, patient was advised to CABG but refused the same. On aspirin statins and metoprolol. Ejection fraction 35%. Patient does not want to pursue any further intervention procedure per patient. On 03/11/2019, MRA head/neck reported not to show any hemodynamically significant stenosis or occlusion. Duplex to BLE 03/29/2019 negative and started to have generalized edema to left upper extremity and Bilateral lower extremities adjustment done; decreased Neurontin, Norvasc was D/C, increased Lisinopril and added Lasix 40 mg bid on 04/13/2019. BMP being monitored D/T CKD and on 04/14/2019 Cr 1.55 and GFR 49, at baseline. Neurontin was added for neuropathy for left upper and left lower extremity pain and N/T, effective for pain and discomfort. Patient had a episode of hypoxia snoring during the night, discussed outpatient sleep study for suspected EROS. Discussed diet, exercise and wt loss with patient D/T Morbid obesity with a BMI 38.6 with co-morbidity of DM. Patient was also started on Zoloft for depression, which has been effective. Patient to be discharged to detention facility for further PT/OT/ST therapies to continue to increase strength and mobility. Patient to F/U with PCP, cardiology, endocrinology, neurology, and sleep study as outpatient. Meaningful Use Info Meaningful Use Diagnoses (Choose all that apply): Ischemic CVA - CVA Therapy Assessed for PT,OT and/or ST?: Yes - Ischemic Stroke Antithrombotic order at d/c?: Yes Dx of Atrial fib/flutter?: Yes Anticoagulant at discharge?: Yes Statins at discharge?: Yes Primary Dx Acute Ischemic CVA?: Yes IV tPA ordered during stay?: No Reason IV t-PA not ordered: Treatment not Indicated
--- NOTE | 2019-04-14 15:59 | CASEMGMT ---
Social Work Call from [facility] and they have received preauth and are able to take patient tomorrow. SW met with pt and informed transfer tomorrow. He is agreeable and would like w/c ambulette. Transportation set up with [facility] for 2pm picker and sorter load and unload by Wheel chair Van. SW offered to call pt ex however pt denies stating he will call her later tonight and let her know. 7000 form completed in [facility]. Nursing, therapy and [employer] notifed of d/c plan. SHEILA will fax orders when obtained. SKYE Chao
[2019-04-14 16:38] VITALS: BMI 36.6
[2019-04-14 16:56] LABS: Bedside Glucose 98 mg/dL (70-110)
[2019-04-14 19:32] VITALS: BP 142/83; PULSE 60; RESP 20; TEMP 36.8; O2SAT 93
[2019-04-14] MEDS: Atorvastatin Calcium 80 MG Tablet PO (21:46)
[2019-04-14 21:50] LABS: Bedside Glucose 123 mg/dL (70-110)
[2019-04-15 06:28] LABS: Anion Gap 5 (5-15); BUN 30 mg/dL (7-18); BUN/Creat Ratio 18.3 RATIO (10-20); Calcium,Total 8.6 mg/dL (8.5-10.1); Chloride 110 mmol/L (98-107); Creatinine, Serum 1.64 mg/dL (0.70-1.30); EST Glomerular Filtration Rate 46 mL/min (>60); Est Glom Filt Rate - Afr Amer 56 mL/min (>60); Estimated Creatinine Clearance 57.08 ml/min; Glucose 85 mg/dL (74-106); Sodium Level 142 mmol/L (136-145)
[2019-04-15] MEDS: Polyethylene Glycol 3350 17 GM PACKET PO (06:39)
[2019-04-15 07:01] LABS: Bedside Glucose 74 mg/dL (70-110)
[2019-04-15] MEDS: Famotidine 20 MG Tablet PO (08:34)
[2019-04-15] MEDS: Acetaminophen 500 MG Tablet 1000 MG PO (08:34)
[2019-04-15 08:35] VITALS: BP 140/70; PULSE 64
[2019-04-15] MEDS: Amiodarone 200 MG Tablet PO (08:35)
[2019-04-15] MEDS: Metoprolol(XL)Succ 50 MG Tablet PO (08:35)
[2019-04-15] MEDS: APIXABAN 5 MG TABLET PO (08:35)
[2019-04-15] MEDS: Sertraline 50 MG Tablet PO (08:35)
[2019-04-15] MEDS: Gabapentin 400 MG Capsule PO ×2 (08:35→11:21)
[2019-04-15] MEDS: Furosemide 40 MG Tablet PO (08:35)
[2019-04-15] MEDS: Aspirin 81 MG TAB.CHEW PO (08:36)
[2019-04-15] MEDS: Insulin Lispro 100 UNIT/ML INSULN.PEN 8 UNIT SC (08:41)
[2019-04-15 08:50] VITALS: BP 145/73; PULSE 61; RESP 18; TEMP 36.6; O2SAT 96
[2019-04-15] MEDS: Insulin Lispro 100 UNIT/ML INSULN.PEN SC (11:22)
[2019-04-15 12:15] LABS: Bedside Glucose 208 mg/dL (70-110)
[2019-04-15 12:17] VITALS: BMI 36.6
--- NOTE | 2019-04-15 14:00 | NURSING ---
Discharged to [facility] via ambulette service. Report provided to nurse.
--- NOTE | 2019-04-15 18:31 | PCM.PROGNOTE ---
Subjective: The date of this note should read 04/14/2019: Patient was seen and examined tonight, he appears to have less edema today after being placed on Lasix yesterday and following adjustments of other medications. Patient is due to go to a retirement facility tomorrow for further care. - Physical Exam General: Alert, Oriented x3, Cooperative HEENT: Atraumatic, PERRLA, EOMI, Normocephalic Oral: Moist Mucosa Neck: Supple, No JVD, Negative Carotid Bruits Lungs: Clear to auscultation, Normal air movement, No rhonchi, No wheeze, No rales Cardiovascular: Regular rate, Regular Rhythm, Normal S1, Normal S2, No murmurs, No Ectopic Activity Abdomen: Bowel Sounds Present, Soft, Non Tender, Non-Distended Extremities: Capillary Refill Less than 3 Seconds, Edema - +2 mm pitting edema is noted in the lower legs bilaterally, there is generalized edema in the patient's arms also Skin: No rashes, No breakdown Musculoskeletal: No Tenderness to Palpation of Joints or Extremities Neurological: Cranial nerves II-XII grossly intact, Neuro grossly intact, - - Patient has left-sided weakness involving the left arm and left leg. Psych/Mental Status: Normal Affect, Appropriate Vital Signs Temp Pulse Resp BP Pulse Ox 97.8 F 61 18 145/73 H 96 04/15/19 08:50 04/15/19 08:50 04/15/19 08:50 04/15/19 08:50 04/15/19 08:50 Oxygen Flow Rate (L/min) 2 Oxygen Delivery Method Room Air Weight: 132.449 kg Body Mass Index (BMI) 36.6 Finger Stick Blood Glucose 380 Intake and Output for Last 24 Hours 04/13/19 04/14/19 04/15/19 23:59 23:59 23:59 Intake Total 360 / 360 1300 / 1300 440 / 440 Output Total 600 / 600 Balance 360 / 360 700 / 700 440 / 440 Laboratory Tests Past 24 Hrs 04/15/19 05:30 Sodium 142 Potassium 4.0 Chloride 110 H Carbon Dioxide 27.0 Anion Gap 5 BUN 30 H Creatinine 1.64 H Estim Creat Clear Calc 57.08 Est GFR (MDRD) Af Amer 56 L Est GFR (MDRD) Non-Af 46 L BUN/Creatinine Ratio 18.3 Glucose 85 Calcium 8.6 POC Glucose 04/15/19 04/15/19 04/14/19 11:18 06:33 21:44 POC Glucose 208 H 74 123 H Medical Necessity - Tobacco Use Smoking Status: Never smoker Tobacco Use: Non-smoker Assessment/Plan All Active Problems (Last Updated 04/08/19 @ 08:50 by Julianne Barnhart, INTERPRETER AND TRANSLATOR-C) Morbid obesity (Acute) Hyponatremia (Acute) Oropharyngeal dysphagia (Acute) Ischemic cerebrovascular accident (CVA) (Acute) #1 ischemic cardiomyopathy-continue present medications #2 generalized edema of the arms and legs-possibly secondary to medications on an overlay of chronic kidney disease-patient's creatinine was 1.55 today, BUN was 31. #3 diabetic neuropathy #4 type 2 diabetes #5 right paramedian pontine infarct with left-sided hemiparesis-continue PT and OT #6 hypertension #7 depression #8 chronic kidney disease stage III-secondary to type 2 diabetes #9 paroxysmal atrial fibrillation Code Visit Inpatient E&M: 02717 Subs Hosp L2
--- NOTE | 2019-04-15 18:35 | PN_ITS ---
Subjective: The date of this note should read 04/14/2019: Patient was seen and examined tonight, he appears to have less edema today after being placed on Lasix y esterday and following adjustments of other medications. Patient is due to go to a intermediate facility tomorrow for further care. - Physical Exam General: Alert, Oriented x3, Cooperative HEENT: Atraumatic, PERRLA, EOMI, Normocephalic Oral: Moist Mucosa Neck: Supple, No JVD, Negative Carotid Bruits Lungs: Clear to auscultation, Normal air movement, No rhonchi, No wheeze, No rales Cardiovascular: Regular rate, Regular Rhythm, Normal S1, Normal S2, No murmurs, No Ectopic Activity Abdomen: Bowel Sounds Present, Soft, Non Tender, Non-Distended Extremities: Capillary Refill Less than 3 Seconds, Edema - +2 mm pitting edema is noted in the lower legs bilaterally, there is generalized edema in the patient's arms also Skin: No rashes, No breakdown Musculoskeletal: No Tenderness to Palpation of Joints or Extremities Neurological: Cranial nerves II-XII grossly intact, Neuro grossly intact, - - Patient has left-sided weakness involving the left arm and left leg. Psych/Mental Status: Normal Affect, Appropriate Vital Signs Temp Pulse Resp BP Pulse Ox 97.8 F 61 18 145/73 H 96 04/15/19 08:50 04/15/19 08:50 04/15/19 08:50 04/15/19 08:50 04/15/19 08:50 Oxygen Flow Rate (L/min) 2 Oxygen Delivery Method Room Air Weight: 132.449 kg Body Mass Index (BMI) 36.6 Finger Stick Blood Glucose 380 Intake and Output for Last 24 Hours 04/13/19 04/14/19 04/15/19 23:59 23:59 23:59 Intake Total 360 / 360 1300 / 1300 440 / 440 Output Total 600 / 600 Balance 360 / 360 700 / 700 440 / 440 Laboratory Tests Past 24 Hrs 04/15/19 05:30 Sodium 142 Potassium 4.0 Chloride 110 H Carbon Dioxide 27.0 Anion Gap 5 BUN 30 H Creatinine 1.64 H Estim Creat Clear Calc 57.08 Est GFR (MDRD) Af Amer 56 L Est GFR (MDRD) Non-Af 46 L BUN/Creatinine Ratio 18.3 Glucose 85 Calcium 8.6 POC Glucose 04/15/19 04/15/19 04/14/19 11:18 06:33 21:44 POC Glucose 208 H 74 123 H Medical Necessity - Tobacco Use Smoking Status: Never smoker Tobacco Use: Non-smoker Assessment/Plan All Active Problems (Last Updated 04/08/19 @ 08:50 by Julianne Barnhart, AIR SUPPORT OPERATIONS OPERATOR-C) Morbid obesity (Acute) Hyponatremia (Acute) Oropharyngeal dysphagia (Acute) Ischemic cerebrovascular accident (CVA) (Acute) #1 ischemic cardiomyopathy-continue present medications #2 generalized edema of the arms and legs-possibly secondary to medications on an overlay of chronic kidney disease-patient's creatinine was 1.55 today, BUN was 31. #3 diabetic neuropathy #4 type 2 diabetes #5 right paramedian pontine infarct with left-sided hemiparesis-continue PT and OT #6 hypertension #7 depression #8 chronic kidney disease stage III-secondary to type 2 diabetes #9 paroxysmal atrial fibrillation Code Visit Inpatient E&M: 42994 Subs Hosp L2
--- NOTE | 2019-04-20 10:33 | CASEMGMT ---
Insurance Insurance notified of d/c on 04/15/19. Auth# [id number] SKYE Flowers
== END 2019-04-15 14:00 | disposition skilled nursing facility (03) | DRG 58 ==
PROVIDERS: Hospitalist; Internal Medicine; Nurse Practitioner Family; Psychiatry & Neurology Neurology; Admitting Provider Psychiatry & Neurology Neurology; Family Provider Family Medicine; PCP Family Medicine; Visit Provider Internal Medicine
DX: I69.354 Hemiplegia and hemiparesis following cerebral infarction affecting left non-dominant side (principal); I69.328 Other speech and language deficits following cerebral infarction; Z79.01 Long term (current) use of anticoagulants; I21.4 Non-ST elevation (NSTEMI) myocardial infarction; Z95.1 Presence of aortocoronary bypass graft; I12.9 Hypertensive chronic kidney disease with stage 1 through stage 4 chronic kidney disease, or unspecified chronic kidney disease; E11.22 Type 2 diabetes mellitus with diabetic chronic kidney disease; I25.10 Atherosclerotic heart disease of native coronary artery without angina pectoris; E78.5 Hyperlipidemia, unspecified; E66.01 Morbid (severe) obesity due to excess calories; Z68.38 Body mass index [BMI] 38.0-38.9, adult; Z71.3 Dietary counseling and surveillance; R13.12 Dysphagia, oropharyngeal phase; I48.0 Paroxysmal atrial fibrillation; I69.322 Dysarthria following cerebral infarction; E11.65 Type 2 diabetes mellitus with hyperglycemia; F32.9 Major depressive disorder, single episode, unspecified; E11.42 Type 2 diabetes mellitus with diabetic polyneuropathy; R32 Unspecified urinary incontinence; N18.3 Chronic kidney disease, stage 3 (moderate); Z66 Do not resuscitate
CPT/HCPCS: 36415; 70544; 70547; 80048; 82565; 82962; 85027; 92507; 92523; 92526; 92610; 93970; 97110; 97112; 97116; 97140; 97162; 97166; 97530; 97535; 97542; 97802

== ENCOUNTER → 2019-05-31 05:30 | Outpatient (REF) | payer MEDICARE, SELFPAY ==
[2019-04-20 14:59] VITALS: BMI 38.2
[2019-05-31 07:59] LABS: Absolute Lymphocyte Count 1.25 X10^3/ul (0.83-4.51); Absolute Neutrophil Count 5.3 X10^3/uL (2.0-7.7); Basophil# 0.01 X10^3/uL; Basophil% 0.1 % (0-1); Eosinophil# 0.22 X10^3/uL; Eosinophils% 2.8 % (0-5); Hematocrit 33.9 % (40-54); Hemoglobin 10.7 g/dl (13.0-16.5); Lymphocyte # 1.25 X10^3/ul (4.0); Lymphocyte % 16.1 % (19-41); Mean Corp Hgb Conc 31.6 g/gl (32-36); Mean Corpuscular Hgb 26.4 pg (27.0-32.0); Mean Corpuscular Volume 83.5 fL (80-94); Mean Platelet Vol. 9.4 fl (6.2-12.0); Monocyte# 0.97 X10^3/uL; Monocyte% 12.5 % (0-10); Neutrophil % 68.4 % (47-70); Platelet Count 290 K/mm3 (150-450); RBC Distribution Width CV 16.5 % (11.6-14.6); RBC Distribution Width SD 50.8 fl (35.1-43.9); Red Blood Count 4.06 M/mm3 (4.6-6.2); White Blood Count 7.8 K/mm3 (4.4-11.0)
[2019-05-31 08:00] LABS: Anion Gap 4 (5-15); BUN 28 mg/dL (7-18); BUN/Creat Ratio 16.7 RATIO (10-20); Calcium,Total 8.9 mg/dL (8.5-10.1); Chloride 108 mmol/L (98-107); Creatinine, Serum 1.68 mg/dL (0.70-1.30); EST Glomerular Filtration Rate 45 mL/min (>60); Est Glom Filt Rate - Afr Amer 54 mL/min (>60); Glucose 146 mg/dL (74-106); Potassium 3.4 mmol/L (3.5-5.1); Sodium Level 142 mmol/L (136-145)
[2019-05-31 08:12] LABS: POSITIVE COUNT NO; POSITIVE DIFFERENTIAL NO; POSITIVE MORPHOLOGY NO
== END ==
LOC: OLS.WHLEAS 05:30
PROVIDERS: Visit Provider Family Medicine
DX: I10 Essential (primary) hypertension (principal); E11.9 Type 2 diabetes mellitus without complications
CPT/HCPCS: 36415; 80048; 85025

== ENCOUNTER → 2019-06-18 05:00 | Outpatient (REF) | payer MEDICARE, SELFPAY ==
[2019-04-20 14:59] VITALS: BMI 38.2
[2019-06-18 07:46] LABS: Anion Gap 7 (5-15); BUN 20 mg/dL (7-18); BUN/Creat Ratio 13.8 RATIO (10-20); Calcium,Total 8.8 mg/dL (8.5-10.1); Chloride 107 mmol/L (98-107); Creatinine, Serum 1.45 mg/dL (0.70-1.30); EST Glomerular Filtration Rate 53 mL/min (>60); Est Glom Filt Rate - Afr Amer 64 mL/min (>60); Glucose 88 mg/dL (74-106); Potassium 3.1 mmol/L (3.5-5.1); Sodium Level 143 mmol/L (136-145)
[2019-06-18 08:22] LABS: BNP,B-Type NATRIURETIC PEPTIDE 553.5 pg/mL (0-100)
== END ==
LOC: OLS.WHLEAS 05:00
PROVIDERS: Visit Provider Family Medicine
DX: I11.0 Hypertensive heart disease with heart failure (principal)
CPT/HCPCS: 36415; 80048; 83880

== ENCOUNTER → 2019-07-05 05:00 | Outpatient (REF) | payer MEDICAID, SELFPAY ==
[2019-04-20 14:59] VITALS: BMI 38.2
[2019-07-05 06:11] LABS: Absolute Lymphocyte Count 1.33 X10^3/uL (0.83-4.51); Absolute Neutrophil Count 5.9 X10^3/uL (2.0-7.7); Basophil# 0.01 X10^3/uL; Basophil% 0.1 % (0-1); Eosinophil# 0.13 X10^3/uL; Eosinophils% 1.6 % (0-5); Hemoglobin 11.1 g/dL (13.0-16.5); Lymphocyte # 1.33 X10^3/ul (4.0); Lymphocyte % 16.4 % (19-41); Mean Corp Hgb Conc 30.8 g/dL (32-36); Mean Corpuscular Hgb 25.5 pg (27.0-32.0); Mean Corpuscular Volume 82.6 fL (80-94); Mean Platelet Vol. 10.2 fl (6.2-12.0); Monocyte# 0.75 X10^3/uL; Monocyte% 9.2 % (0-10); NRBC Flagged by Analyzer 0 % (0-5); Neutrophil # 5.88 X10^3/uL (2.7-7.7); Neutrophil % 72.5 % (47-70); Platelet Count 274 K/mm3 (150-450); RBC Distribution Width CV 15.6 % (11.6-14.6); RBC Distribution Width SD 46.9 fl (35.1-43.9); Red Blood Count 4.36 M/mm3 (4.6-6.2); White Blood Count 8.1 K/mm3 (4.4-11.0)
[2019-07-05 06:38] LABS: Anion Gap 6 (5-15); BUN 30 mg/dL (7-18); BUN/Creat Ratio 17.4 RATIO (10-20); Calcium,Total 8.6 mg/dL (8.5-10.1); Chloride 107 mmol/L (98-107); Creatinine, Serum 1.72 mg/dL (0.70-1.30); EST Glomerular Filtration Rate 44 mL/min (>60); Est Glom Filt Rate - Afr Amer 53 mL/min (>60); Glucose 100 mg/dL (74-106); Potassium 3.3 mmol/L (3.5-5.1); Sodium Level 142 mmol/L (136-145)
== END ==
LOC: OLS.WHLEAS 05:00
PROVIDERS: Visit Provider Family Medicine
DX: I63.9 Cerebral infarction, unspecified (principal); I69.154 Hemiplegia and hemiparesis following nontraumatic intracerebral hemorrhage affecting left non-dominant side; I69.191 Dysphagia following nontraumatic intracerebral hemorrhage; D64.9 Anemia, unspecified
CPT/HCPCS: 36415; 80048; 85025

== ENCOUNTER → 2019-08-03 04:30 | Outpatient (REF) | payer MEDICAID, SELFPAY ==
[2019-04-20 14:59] VITALS: BMI 38.2
[2019-08-03 06:41] LABS: Absolute Lymphocyte Count 1.46 X10^3/uL (0.83-4.51); Basophil# 0.01 X10^3/uL; Basophil% 0.1 % (0-1); Eosinophil# 0.24 X10^3/uL; Eosinophils% 2.7 % (0-5); Hematocrit 37.4 % (40-54); Hemoglobin 11.6 g/dL (13.0-16.5); Lymphocyte # 1.46 X10^3/ul (4.0); Lymphocyte % 16.4 % (19-41); Mean Corpuscular Volume 80.6 fL (80-94); Mean Platelet Vol. 9.8 fl (6.2-12.0); Monocyte# 1.13 X10^3/uL; Monocyte% 12.7 % (0-10); NRBC Flagged by Analyzer 0 % (0-5); Neutrophil # 6.04 X10^3/uL (2.7-7.7); Neutrophil % 67.7 % (47-70); Platelet Count 358 K/mm3 (150-450); RBC Distribution Width CV 15.5 % (11.6-14.6); RBC Distribution Width SD 45.3 fl (35.1-43.9); Red Blood Count 4.64 M/mm3 (4.6-6.2); White Blood Count 8.9 K/mm3 (4.4-11.0)
[2019-08-03 07:10] LABS: Anion Gap 8 (5-15); BUN 40 mg/dL (7-18); BUN/Creat Ratio 24.1 RATIO (10-20); Calcium,Total 8.9 mg/dL (8.5-10.1); Chloride 108 mmol/L (98-107); Creatinine, Serum 1.66 mg/dL (0.70-1.30); EST Glomerular Filtration Rate 45 mL/min (>60); Est Glom Filt Rate - Afr Amer 55 mL/min (>60); Glucose 108 mg/dL (74-106); Potassium 4.4 mmol/L (3.5-5.1); Sodium Level 145 mmol/L (136-145)
== END ==
LOC: OLS.WHLEAS 04:30
PROVIDERS: Visit Provider Family Medicine
DX: I69.154 Hemiplegia and hemiparesis following nontraumatic intracerebral hemorrhage affecting left non-dominant side (principal); I69.191 Dysphagia following nontraumatic intracerebral hemorrhage; D64.9 Anemia, unspecified
CPT/HCPCS: 36415; 80048; 85025

== ENCOUNTER → 2019-09-06 | Outpatient (REF) | payer MEDICAID, SELFPAY ==
[2019-04-20 14:59] VITALS: BMI 38.2
[2019-09-06 08:36] LABS: Absolute Lymphocyte Count 1.96 X10^3/uL (0.83-4.51); Absolute Neutrophil Count 6.1 X10^3/uL (2.0-7.7); Basophil# 0.02 X10^3/uL; Basophil% 0.2 % (0-1); Eosinophils% 6.1 % (0-5); Hematocrit 34.3 % (40-54); Hemoglobin 10.4 g/dL (13.0-16.5); Lymphocyte # 1.96 X10^3/ul (4.0); Mean Corp Hgb Conc 30.3 g/dL (32-36); Mean Corpuscular Hgb 24.5 pg (27.0-32.0); Mean Corpuscular Volume 80.7 fL (80-94); Mean Platelet Vol. 10.3 fl (6.2-12.0); Monocyte% 11.2 % (0-10); NRBC Flagged by Analyzer 0 % (0-5); Neutrophil % 62.3 % (47-70); Platelet Count 254 K/mm3 (150-450); RBC Distribution Width CV 17.5 % (11.6-14.6); RBC Distribution Width SD 51.2 fl (35.1-43.9); Red Blood Count 4.25 M/mm3 (4.6-6.2); White Blood Count 9.8 K/mm3 (4.4-11.0)
[2019-09-06 08:44] LABS: Anion Gap 8 (5-15); BUN 37 mg/dL (7-18); BUN/Creat Ratio 20.8 RATIO (10-20); Calcium,Total 8.4 mg/dL (8.5-10.1); Chloride 108 mmol/L (98-107); Creatinine, Serum 1.78 mg/dL (0.70-1.30); EST Glomerular Filtration Rate 42 mL/min (>60); Est Glom Filt Rate - Afr Amer 51 mL/min (>60); Glucose 73 mg/dL (74-106); Potassium 3.6 mmol/L (3.5-5.1); Sodium Level 145 mmol/L (136-145)
== END | disposition home or self-care (01) ==
LOC: OLS.WHLCAR 05:00
PROVIDERS: Visit Provider Family Medicine
DX: D64.9 Anemia, unspecified (principal)
CPT/HCPCS: 36415; 80048; 85025

== ENCOUNTER 2019-09-21 08:55 | Observation (INO) | payer MEDICAID, SELFPAY ==
[2019-04-20 14:59] VITALS: BMI 38.2
[2019-09-21] VITALS (11 sets, daily range): BP systolic 140–186; BP diastolic 68–116; PULSE 55–93; RESP 16–20; TEMP 36.5–37.2; O2SAT 94–98; BMI 38.9; BMI 36.9
--- NOTE | 2019-09-21 10:08 | EKG12_ITS ---
Test Reason : CP Blood Pressure : / mmHG Vent. Rate : 061 BPM Atrial Rate : 061 BPM P-R Int : 260 ms QRS Dur : 112 ms QT Int : 524 ms P-R-T Axes : 059 -56 087 degrees QTc Int : 527 ms Sinus rhythm with 1st degree A-V block Left axis deviation Inferior infarct , age undetermined Anteroseptal infarct , age undetermined Prolonged QT Abnormal ECG Confirmed by DENIS PONCE, PRISCILLA ([id number]), avid editor LAYO CABEZAS ([id number]) on 09/24/2019 10:51:34 AM Referred By: David Cedeno Confirmed By:PRISCILLA BARRIOS MD
--- NOTE | 2019-09-21 10:08 | RAD_ITS ---
STUDY: X-RAY CHEST REASON FOR EXAM: Male, 59 years old. Chest pain. TECHNIQUE: Single AP portable view of the chest. COMPARISON: Comparison is made with prior study dated March 06, 2019. FINDINGS: EKG electrodes are seen. The lungs are clear and expanded. Calcified old granulomatous disease. There is no demonstrated pleural abnormality. There is mild cardiac enlargement. Normal mediastinum and chanda. Normal visualized pulmonary arteries. Normal visualized aortic arch and descending thoracic aorta. Dextroscoliosis. Normal visualized ribs, clavicles, and shoulders. There is no demonstrated abnormality of the visualized soft tissue structures of the upper abdomen. RAD/Chest 1 View (Portable) IMPRESSION: Mild cardiomegaly. The lungs are clear. Electronically Signed: Daniel Acosta, at 10:35 EDT , Service support ,
[2019-09-21 10:47] LABS: Absolute Lymphocyte Count 1.33 X10^3/uL (0.83-4.51); Absolute Neutrophil Count 7.3 X10^3/uL (2.0-7.7); Basophil# 0.01 X10^3/uL; Basophil% 0.1 % (0-1); Eosinophil# 0.35 X10^3/uL; Eosinophils% 3.5 % (0-5); Hematocrit 37.3 % (40-54); Hemoglobin 11.6 g/dL (13.0-16.5); Lymphocyte # 1.33 X10^3/ul (4.0); Lymphocyte % 13.3 % (19-41); Mean Corp Hgb Conc 31.1 g/dL (32-36); Mean Corpuscular Hgb 25.3 pg (27.0-32.0); Mean Corpuscular Volume 81.3 fL (80-94); Mean Platelet Vol. 9.5 fl (6.2-12.0); Monocyte# 0.98 X10^3/uL; Monocyte% 9.8 % (0-10); NRBC Flagged by Analyzer 0 % (0-5); Neutrophil # 7.27 X10^3/uL (2.7-7.7); Platelet Count 242 K/mm3 (150-450); RBC Distribution Width CV 18.2 % (11.6-14.6); RBC Distribution Width SD 52.5 fl (35.1-43.9); Red Blood Count 4.59 M/mm3 (4.6-6.2)
[2019-09-21 11:06] LABS: AST(SGOT) 27 U/L (15-37); Alanine Aminotransfer ALT/SGPT 30 U/L (16-61); Alkaline Phosphatase 66 U/L (45-117); Anion Gap 3 (5-15); BUN 23 mg/dL (7-18); BUN/Creat Ratio 14.4 RATIO (10-20); Bilirubin, Direct 0.08 mg/dL (0.00-0.30); Calcium,Total 8.6 mg/dL (8.5-10.1); Chloride 108 mmol/L (98-107); EST Glomerular Filtration Rate 47 mL/min (>60); Est Glom Filt Rate - Afr Amer 57 mL/min (>60); Estimated Creatinine Clearance 56.18 ml/min; Globulin 4.3 g/dL (2.2-4.2); Glucose 153 mg/dL (74-106); Lipase 170 U/L (73-393); Potassium 3.9 mmol/L (3.5-5.1); Protein, Total 7.3 g/dL (6.4-8.2); Sodium Level 142 mmol/L (136-145)
--- NOTE | 2019-09-21 11:40 | ED.DCSUM_ITS ---
- ER Visit Summary Date of Service: 09/21/19 Chief Complaint: [Chest pain ] History of Present Illness: The patient is a 59 M [resents with severe chest pain that started around 8 AM this morning. Pain is been intermittent. At its worst is an 8 out of 10. On arrival to the ER he has no pain. Patient next complaint is some mild shortness of breath with it. Patient states that the pain is not pleuritic. Patient does have a history of prior AR for which they could not stent the blocked artery and was apparently offered open heart surgery back in January however at that time he refused the open heart surgery. Patient also has had recent stroke. Patient is wheelchair-bound. Patient is currently on Eliquis for history of A. fib. Patient also with history of diabetes.] Physical Examination: [HEENT-PERRLA, EOMI. Cranial nerves II through XII grossly intact. TMs clear. Mucous membranes moist. No adenopathy. Cardiovascular-regular rate and rhythm without murmur or ectopy Lungs-clear to auscultation, chest wall stable without crepitus or subcu emphysema Abdomen-normoactive bowel sounds, soft, nontender, no rebound or rigidity, no peritoneal signs. Extremities-intact ?4, normal range of motion, normal pulses, atraumatic. Patient has +3 edema both lower extremities.] Test Results: CBC with differential obtained was normal. Chemistries unremarkable. Troponin is less than 0.026. Lipase was 170. LFTs were normal. Chest x-ray shows mild cardia megaly otherwise nothing acute. Emergency Department Course and Treatment: [Patient will be admitted for further work-up and evaluation of his chest pain.] Treatment Plan: [Admit] Disposition: [Admit] Impression: [Chest pain-rule out acute coronary syndrome.] This note was generated with Live[employer]ieration software. It may contain incorrect words, spelling, and punctuation that were not noted in review of the chart prior to signing ED Disposition - Plan for ED Patient: Referrals: Orlando Gomez MD [Primary Care Provider] -
--- NOTE | 2019-09-21 11:42 | HP.PCM_ITS ---
Problem List (1) Chest pain Status: Acute (2) Accelerated hypertension Status: Acute (3) History of non-ST elevation myocardial infarction (NSTEMI) Status: Chronic (4) Paroxysmal atrial fibrillation Status: Chronic (5) Essential (primary) hypertension Status: Chronic (6) Atherosclerosis of coronary artery of [place] heart without angina pectoris Status: Chronic (7) Morbid obesity Status: Chronic Comment: bmi 38.6, but with comorbidity of diabetes (8) Dyslipidemia Status: Chronic (9) Anemia Status: Chronic (10) Depression Status: Chronic (11) Oropharyngeal dysphagia Status: Chronic (12) Ischemic cerebrovascular accident (CVA) Status: Chronic (13) Type 2 diabetes mellitus Status: Chronic (14) Neuropathy Status: Chronic History of Present Illness Date of Admission: 09/21/19 Chief Complaint: Chest pain The patient is a 59 year old M past medical history significant for CVA, coronary artery disease with DC in March 2019. Left heart catheterization demonstrated 100% occlusion involving the mid LAD lesion. Angioplasty was unsuccessful. Recommendation was made for patient to be transferred to tertiary care center for intervention he declined and opted for medical treatment. Patient currently resides at the assisted facility was brought to the ED after developing chest pain. Pain was described as pressure located in the retrosternal region. Initial set of cardiac enzymes and EKG obtained in the ED came back unremarkable. Patient was however found to have markedly elevated systolic blood pressure greater than 200. An assessment of chest pain as well as accelerated hypertension made admitted to a monitored bed for further management Past Medical History Past Medical History (Chronic Problems): Chronic Problems (Last Reviewed 09/21/19 @ 13:27 by David Cedeno MD) History of non-ST elevation myocardial infarction (NSTEMI) (Chronic 01/2019) Paroxysmal atrial fibrillation (Chronic) Essential (primary) hypertension (Chronic) Atherosclerosis of coronary artery of [place] heart without angina pectoris (Chronic) Morbid obesity (Chronic) bmi 38.6, but with comorbidity of diabetes Dyslipidemia (Chronic) Anemia (Chronic) Depression (Chronic) Oropharyngeal dysphagia (Chronic) Ischemic cerebrovascular accident (CVA) (Chronic) Type 2 diabetes mellitus (Chronic) Neuropathy (Chronic) Medical History: Medical History (Last Reviewed 09/21/19 @ 13:27 by David Cedeno MD) Paroxysmal atrial fibrillation (Chronic) I48.0 Essential (primary) hypertension (Chronic) I10 Atherosclerosis of coronary artery of [place] heart without angina pectoris (Chronic) I25.10 Morbid obesity (Chronic) E66.01 bmi 38.6, but with comorbidity of diabetes Dyslipidemia (Chronic) E78.5 Anemia (Chronic) D64.9 Depression (Chronic) F32.9 Oropharyngeal dysphagia (Chronic) R13.12 Ischemic cerebrovascular accident (CVA) (Chronic) I63.9 Type 2 diabetes mellitus (Chronic) E11.9 Neuropathy (Chronic) G62.9 Allergies No Known Allergies Allergy (Verified 04/20/19 15:07) Home Medications: Ambulatory Orders Medication Instructions Recorded Insulin Glargine [Lantus SoloStar 16 units SUBCUT DAILY #0 03/09/19 Pen] Acetaminophen [Tylenol] 1,000 mg PO BID tab 04/14/19 Amiodarone HCl [Cordarone] 200 mg PO BID tab 04/14/19 Apixaban [Eliquis] 5 mg PO BID tab 04/14/19 Aspirin [Aspirin, Baby] 81 mg PO DAILY@0800 tab.chew 04/14/19 Atorvastatin Calcium [Lipitor] 80 mg PO QHS tab 04/14/19 Famotidine [Pepcid] 20 mg PO BID tab 04/14/19 Gabapentin [Neurontin] 400 mg PO TIDCM cap 04/14/19 Insulin Glargine [Lantus SoloStar 6 units SUBCUT QHS pen 04/14/19 Pen] Insulin Lispro [Humalog KwikPen] 5 unit SUBCUT LUNCH insuln.pen 04/14/19 Insulin Lispro [Humalog KwikPen] 8 unit SUBCUT BID@0800,1700 04/14/19 insuln.pen Metoprolol(XL)Succ [Toprol Xl 50 mg PO DAILY tab 04/14/19 (Beta Leland)] Polyethylene Glycol 3350 [Miralax] 17 gm PO DAILY packet 04/14/19 Senna/Docusate Sodium [Senokot-S] 2 tab PO BID tab 04/14/19 Furosemide [Lasix] 60 mg PO BID@1000,1800 09/21/19 Lisinopril 5 mg PO DAILY 09/21/19 Paroxetine [Paxil] 20 mg PO DAILY 09/21/19 Prednisone 10 mg PO DAILY 09/21/19 Sertraline HCl [Zoloft] 100 mg PO DAILY 09/21/19 Surgical History: no surgical history Smoking Status: Never smoker - *Family History Maternal History Items: Heart Disease, - - Cerebral hemorrhage Paternal History Items: Heart Disease, Stroke Review of Systems Constitutional: Denies: Anorexia, Chills, Fever, Night Sweats, Weight Change HEENT: Denies: Head Aches, Sinus Congestion, Sinus Drainage Cardiovascular: Reports: Chest Pain. Denies: Orthopnea, Palpitations, Paroxysmal Noc. Dyspnea Respiratory: Denies: Cough, Shortness of breath at rest, Shortness of breath upon exertion, Sputum production Gastrointestinal: Denies: Abdominal Pain, Hematemesis, Hematochezia, Nausea, Melena, Vomiting Genitourinary: Denies: Dysuria, Frequency, Hematuria, Urgency Musculoskeletal: Denies: Joint Pain, Joint Tenderness Skin: Denies: Rash Neurological: Denies: Focal weakness, Numbness, Tingling Psychiatric: Denies: Homicidal Ideations, Suicidal Ideations Hematologic/ Lymphatic: Denies: Easy Bruising, Easy Bleeding VTE Information - Inpt Only VTE Present on Admission: No VTE Mechan Device Prophylaxis: None VTE Pharm Prophylaxis ordered?: Yes Patient Problems: Active and Suspected Problems (Last Reviewed 09/21/19 @ 13:27 by David Cedeno MD) Chest pain (Acute) Accelerated hypertension (Acute) Objective: GENERAL: cooperative HEENT: Atraumatic; EYES; Anicteric, Normal Conjunctiva NECK; supple, normal thyroid, RESPIRATORY: Diminished to auscultation CARDIOVASCULAR: Regular S1 S2, GI: soft, normoactive bowel sounds, : No Renal angle tenderness; EXTREMITIES: No edema, no clubbing, MUSCULOSKELETAL: no muscle waisting NEURO: Awake; dysarthric with left-sided hemiparesis SKIN: No Rash PSYCH; Flat affect - Physical Exam Vitals/I&O's: Vital Signs Temp Pulse Resp BP Pulse Ox 97.7 F L 59 L 20 H 171/116 H 96 09/21/19 08:57 09/21/19 10:40 09/21/19 10:40 09/21/19 10:40 09/21/19 10:40 Oxygen Delivery Method Room Air Weight: 133.9 kg Body Mass Index (BMI) 38.9 Finger Stick Blood Glucose 380 Laboratory Results 09/21/19 10:35: WBC 10.0, RBC 4.59 L, Hgb 11.6 L, Hct 37.3 L, MCV 81.3, MCH 25.3 L, MCHC 31.1 L, RDW Std Deviation 52.5 H, RDW Coeff of Betsy 18.2 H, Plt Count 242, MPV 9.5, Immature Gran % (Auto) 0.300, Neut % (Auto) 73.0 H, Lymph % (Auto) 13.3 L, [place] % (Auto) 9.8, Eos % (Auto) 3.5, Baso % (Auto) 0.1, Absolute Neuts (auto) 7.3, Absolute Lymphs (auto) 1.33, Nucleated RBC % 0 09/21/19 10:35: Sodium 142, Potassium 3.9, Chloride 108 H, Carbon Dioxide 31.0, Anion Gap 3 L, BUN 23 H, Creatinine 1.60 H, Estim Creat Clear Calc 56.18, Est GFR (MDRD) Af Amer 57 L, Est GFR (MDRD) Non-Af 47 L, BUN/Creatinine Ratio 14.4, Glucose 153 H, Calcium 8.6, Total Bilirubin 0.30, Direct Bilirubin 0.08, AST 27, ALT 30, Alkaline Phosphatase 66, Troponin I 0.026, Total Protein 7.3, Albumin 3.0 L, Globulin 4.3 H, Lipase 170 Current Medications Sodium Chloride () 1,000 mls @ 150 mls/hr IV .[id number] YANN Assessment/Plan All Active Problems (Last Reviewed 09/21/19 @ 13:27 by David Cedeno MD) Chest pain (Acute) Accelerated hypertension (Acute) Patient is a 9-year-old gentleman presented with chest pain 1. Chest pain ~ in a patient with known LAD lesion. Plan is to rule out DC with serial cardiac enzymes. A nuclear stress test was not performed since patient has a known lesion and had declined intervention in March 2019 2. Accelerated hypertension ~ did continue with patient home meds in addition to hydralazine PRN to keep systolic blood pressure less than 160 3. 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 Paroxysmal atrial fibrillation ~ rate controlled on amiodarone patient on systemic anticoagulation with Eliquis 5. Coronary artery disease with DC in March 2019 ~ patient was found to have 100% occlusion involving the mid LAD unsuccessful attempt at angioplasty. Recommendation was made for patient to be transferred to a tertiary care center for subsequent intervention patient apparently declined he would patient opted for medical therapy. 6. Diabetes mellitus type II ~ Continue patient home regimen in addition to Accu-Cheks a.c. and at bedtime and covered with sliding scale insulin 7. Dyslipidemia -patient is on statin therapy, continued at home dose 8. Morbid obesity with BMI of 37 ~weight loss advised 9. Diabetic polyneuropathy ~patient is on Neurontin 10. Depression ~ on SSRI 11. DVT prophylaxis patient is on Eliquis Advance planning; did discuss with the patient and family (ex-) regarding advanced directives as well as CODE STATUS. Did explain the various scenarios involved ( FULL CODE, DNR CCA, DNR CCA with no intubation, and DNR CC and what each meant) patient elected to be DNR CCA no intubation. Order was placed. Time spent on discussion 18 minutes. Code Visit OBSV E&M: 91769 Initial observation care L3 Procedures: 59292 Advncd Care Plan 30 Min
[2019-09-21] MEDS: 0.9% Normal Saline 1,000 ML 150 ML IV ×2 (11:55→18:57)
--- NOTE | 2019-09-21 12:22 | EKG12_ITS ---
Test Reason : CP ADMISSION Blood Pressure : / mmHG Vent. Rate : 056 BPM Atrial Rate : 056 BPM P-R Int : 260 ms QRS Dur : 114 ms QT Int : 536 ms P-R-T Axes : 062 -47 090 degrees QTc Int : 517 ms Sinus bradycardia with 1st degree A-V block Left axis deviation Inferior infarct , age undetermined Anteroseptal infarct , age undetermined Prolonged QT Abnormal ECG When compared with ECG of 21-SEP-2019 09:01, MANUAL COMPARISON REQUIRED, DATA IS UNCONFIRMED Confirmed by DENIS PONCE, PRISCILLA ([id number]), acquisitions editor LAYO CABEZAS ([id number]) on 09/24/2019 11:45:25 AM Referred By: David Cedeno Confirmed By:PRISCILLA BARRIOS MD
[2019-09-21 16:41] LABS: Bedside Glucose 112 mg/dL (70-110)
[2019-09-21] MEDS: Insulin Lispro 100 UNIT/ML INSULN.PEN 8 UNIT SC (17:39)
[2019-09-21] MEDS: Gabapentin 400 MG Capsule PO (17:43)
[2019-09-21] MEDS: Furosemide 40 MG Tablet 60 MG PO (17:43)
[2019-09-21] MEDS: Acetaminophen 325 MG Tablet 650 MG PO (19:44)
[2019-09-21] MEDS: Amiodarone 200 MG Tablet PO (21:23)
[2019-09-21] MEDS: Insulin Lispro 100 UNIT/ML INSULN.PEN SC (21:23)
[2019-09-21] MEDS: Famotidine 20 MG Tablet PO (21:23)
[2019-09-21] MEDS: Atorvastatin Calcium 80 MG Tablet PO (21:23)
[2019-09-21] MEDS: Senna/Docusate Sodium 1 Tablet 2 TABLET PO (21:23)
[2019-09-21 23:00] LABS: Bedside Glucose 152 mg/dL (70-110)
[2019-09-22] VITALS (8 sets, daily range): BP systolic 145–160; BP diastolic 77–81; PULSE 58–61; RESP 16; TEMP 36.8–37.1; O2SAT 93–96
[2019-09-22] MEDS: 0.9% Normal Saline 1,000 ML 150 ML IV ×2 (01:31→08:16)
[2019-09-22 05:34] LABS: Absolute Lymphocyte Count 1.88 X10^3/uL (0.83-4.51); Absolute Neutrophil Count 5.7 X10^3/uL (2.0-7.7); Basophil# 0.01 X10^3/uL; Basophil% 0.1 % (0-1); Eosinophil# 0.36 X10^3/uL; Hematocrit 33.9 % (40-54); Hemoglobin 10.7 g/dL (13.0-16.5); Lymphocyte # 1.88 X10^3/ul (4.0); Mean Corp Hgb Conc 31.6 g/dL (32-36); Mean Corpuscular Hgb 25.7 pg (27.0-32.0); Mean Corpuscular Volume 81.5 fL (80-94); Mean Platelet Vol. 9.5 fl (6.2-12.0); Monocyte% 11.2 % (0-10); NRBC Flagged by Analyzer 0 % (0-5); Neutrophil # 5.69 X10^3/uL (2.7-7.7); Neutrophil % 63.5 % (47-70); Platelet Count 233 K/mm3 (150-450); RBC Distribution Width CV 17.7 % (11.6-14.6); RBC Distribution Width SD 52.8 fl (35.1-43.9); Red Blood Count 4.16 M/mm3 (4.6-6.2)
[2019-09-22 05:51] LABS: Anion Gap 6 (5-15); BUN 24 mg/dL (7-18); BUN/Creat Ratio 15.8 RATIO (10-20); Calcium,Total 8.1 mg/dL (8.5-10.1); Chloride 109 mmol/L (98-107); Creatinine, Serum 1.52 mg/dL (0.70-1.30); EST Glomerular Filtration Rate 50 mL/min (>60); Est Glom Filt Rate - Afr Amer 61 mL/min (>60); Estimated Creatinine Clearance 59.14 ml/min; Glucose 104 mg/dL (74-106); Magnesium 1.9 mg/dL (1.6-2.6); Potassium 3.9 mmol/L (3.5-5.1); Sodium Level 144 mmol/L (136-145)
[2019-09-22] MEDS: Acetaminophen 500 MG Tablet 1000 MG PO ×2 (06:06→13:18)
[2019-09-22] MEDS: Senna/Docusate Sodium 1 Tablet 2 TABLET PO (08:24)
[2019-09-22] MEDS: Famotidine 20 MG Tablet PO (08:24)
[2019-09-22] MEDS: Sertraline 100 MG Tablet PO (08:24)
[2019-09-22] MEDS: Lisinopril 5 MG Tablet PO (08:24)
[2019-09-22] MEDS: Paroxetine 20 MG Tablet PO (08:24)
[2019-09-22] MEDS: Aspirin 81 MG TAB.CHEW PO (08:24)
[2019-09-22] MEDS: Furosemide 40 MG Tablet 60 MG PO (08:25)
[2019-09-22] MEDS: Enoxaparin 40 MG/0.4 ML Syringe SC (08:25)
[2019-09-22] MEDS: predniSONE 10 MG Tablet PO (08:25)
[2019-09-22] MEDS: Gabapentin 400 MG Capsule PO ×2 (08:25→11:48)
[2019-09-22] MEDS: Insulin Lispro 100 UNIT/ML INSULN.PEN 8 UNIT SC (08:26)
[2019-09-22] MEDS: Metoprolol(XL)Succ 50 MG Tablet PO (08:57)
[2019-09-22 09:41] LABS: Bedside Glucose 99 mg/dL (70-110)
--- NOTE | 2019-09-22 11:04 | CASEMGMT ---
Patient is from [facility]. He told physician he is not getting therapy at [facility]. He wanted to know if he could go to the Inpatient Rehab Unit at [facility]. SW called Jailene at [facility] and she said they can try and skill him. SW told her he is ready to return today. SW will fax PT/OT evals once done. SW met with patient, introduced self and role at [facility]. SW told him that SW spoke with [facility] and they can try and skill him through his insurance that way he would get therapy. SW told him he would not be able to go to [facility] Inpatient Rehab Unit as his insurance would not approve him to go from alf level of care to Acute Rehab level of care. SW explained that he can get rehab at [facility] as long as his insurance approves him. Plan: d/c back to [facility]. [facility] is going to try and get patient skilled. Marysol AGUAYO MSW
--- NOTE | 2019-09-22 11:08 | PCM.DC.SUM ---
Discharge Date and Diagnosis - Problem List Patient Problems: Active and Suspected Problems (Last Reviewed 09/21/19 @ 13:27 by David Cedeno MD) Chest pain (Acute) Accelerated hypertension (Acute) Date of Admission: 09/21/19 Date of Discharge: 09/22/19 - Primary Discharge Diagnosis Active and Suspected Problems (Last Reviewed 09/21/19 @ 13:27 by David Cedeno MD) Chest pain (Acute) Accelerated hypertension (Acute) - Secondary Discharge Diagnosis Chronic Problems (Last Reviewed 09/21/19 @ 13:27 by David Cedeno MD) History of non-ST elevation myocardial infarction (NSTEMI) (Chronic 01/2019) Paroxysmal atrial fibrillation (Chronic) Essential (primary) hypertension (Chronic) Atherosclerosis of coronary artery of [place] heart without angina pectoris (Chronic) Morbid obesity (Chronic) bmi 38.6, but with comorbidity of diabetes Dyslipidemia (Chronic) Anemia (Chronic) Depression (Chronic) Oropharyngeal dysphagia (Chronic) Ischemic cerebrovascular accident (CVA) (Chronic) Type 2 diabetes mellitus (Chronic) Neuropathy (Chronic) Hospital Course and Treatment Operations: None Summary of Care Provided: The patient is a 59 year old M [] Patient Problems: Active and Suspected Problems (Last Reviewed 09/21/19 @ 13:27 by David Cedeno MD) Chest pain (Acute) Accelerated hypertension (Acute) - Physical Exam Vitals/I&O's: Vital Signs Temp Pulse Resp BP Pulse Ox 98.6 F 60 16 145/81 H 93 09/22/19 08:11 09/22/19 08:57 09/22/19 08:11 09/22/19 08:57 09/22/19 08:11 Oxygen Flow Rate (L/min) 2 Oxygen Delivery Method Room Air Weight: 127.006 kg Body Mass Index (BMI) 36.9 Finger Stick Blood Glucose 380 Intake and Output for Last 24 Hours 09/20/19 09/21/19 09/22/19 23:59 23:59 23:59 Intake Total 1852.5 / 1852.5 1442.5 / 1442.5 Output Total 475 / 475 575 / 575 Balance 1377.5 / 1377.5 867.5 / 867.5 Laboratory Results 09/21/19 13:25: Troponin I 0.018 09/21/19 15:15: Troponin I 0.021 09/21/19 16:36: POC Glucose 112 H 09/21/19 21:20: POC Glucose 152 H 09/22/19 05:00: WBC 9.0, RBC 4.16 L, Hgb 10.7 L, Hct 33.9 L, MCV 81.5, MCH 25.7 L, MCHC 31.6 L, RDW Std Deviation 52.8 H, RDW Coeff of Betsy 17.7 H, Plt Count 233, MPV 9.5, Immature Gran % (Auto) 0.200, Neut % (Auto) 63.5, Lymph % (Auto) 21.0, [place] % (Auto) 11.2 H, Eos % (Auto) 4.0, Baso % (Auto) 0.1, Absolute Neuts (auto) 5.7, Absolute Lymphs (auto) 1.88, Nucleated RBC % 0 09/22/19 05:00: Sodium 144, Potassium 3.9, Chloride 109 H, Carbon Dioxide 29.0, Anion Gap 6, BUN 24 H, Creatinine 1.52 H, Estim Creat Clear Calc 59.14, Est GFR (MDRD) Af Amer 61, Est GFR (MDRD) Non-Af 50 L, BUN/Creatinine Ratio 15.8, Glucose 104, Calcium 8.1 L, Magnesium 1.9 09/22/19 08:07: POC Glucose 99 Current Medications Acetaminophen (Tylenol) 650 mg PO Q6H PRN PRN PRN Reason: Pain Score 1-3/Temp > 100.7 F Last Admin: 09/21/19 19:44 Dose: 650 mg Documented by: Acetaminophen (Tylenol) 1,000 mg PO TID [facility] Last Admin: 09/22/19 06:06 Dose: 1,000 mg Documented by: Al Hydroxide/Mg Hydroxide (Mylanta Ii) 30 ml PO Q6H PRN PRN PRN Reason: Gastric Burning Amiodarone HCl (Cordarone) 200 mg PO QHS [facility] Last Admin: 09/21/19 21:23 Dose: 200 mg Documented by: Aspirin (Aspirin, Baby) 81 mg PO DAILY@0800 [facility] Last Admin: 09/22/19 08:24 Dose: 81 mg Documented by: Atorvastatin Calcium (Lipitor) 80 mg PO QHS [facility] Last Admin: 09/21/19 21:23 Dose: 80 mg Documented by: Dextrose (D50w Syringe) 0 gm IV X1 PRN; Protocol PRN Reason: Hypoglycemia Enoxaparin Sodium (Lovenox) 40 mg SC DAILY@1000 [facility] Last Admin: 09/22/19 08:25 Dose: 40 mg Documented by: Famotidine (Pepcid) 20 mg PO BID [facility] Last Admin: 09/22/19 08:24 Dose: 20 mg Documented by: Furosemide (Lasix) 60 mg PO BID@1000,1800 [facility] Last Admin: 09/22/19 08:25 Dose: 60 mg Documented by: Gabapentin (Neurontin) 400 mg PO TIDCM [facility] Last Admin: 09/22/19 08:25 Dose: 400 mg Documented by: Glucagon () 1 mg IM .X1 PRN PRN Reason: Hypoglycemia Guaifenesin (Robitussin) 20 ml PO Q4H PRN PRN PRN Reason: COUGH Insulin Glargine (Lantus (Bkc)) 6 units SC QHS [facility] Last Admin: 09/21/19 21:23 Dose: 6 unit Documented by: Insulin Glargine (Lantus (Bkc)) 16 units SC DAILY [facility] Last Admin: 09/22/19 08:24 Dose: 16 u Documented by: Insulin Human Lispro (Humalog Kwikpen (Bkc)) 0 unit SC ACHS [facility]; Protocol Last Admin: 09/22/19 08:18 Dose: Not Given Documented by: Insulin Human Lispro (Humalog Kwikpen (Bkc)) 5 unit SC LUNCH [facility] Insulin Human Lispro (Humalog Kwikpen (Bkc)) 8 unit SC BID@0800,1700 [facility] Last Admin: 09/22/19 08:26 Dose: 8 units Documented by: Lisinopril (Zestril) 5 mg PO DAILY [facility] Last Admin: 09/22/19 08:24 Dose: 5 mg Documented by: Magnesium Hydroxide (Milk Of Magnesia) 30 ml PO DAILY PRN PRN PRN Reason: Constipation Melatonin (Melatonin) 3 mg PO QHS PRN PRN PRN Reason: INSOMNIA Metoprolol Succinate (Toprol Xl (Beta Leland)) 50 mg PO DAILY [facility] Last Admin: 09/22/19 08:57 Dose: 50 mg Documented by: Ondansetron HCl (Zofran) 4 mg IV Q8H PRN PRN PRN Reason: NAUSEA/VOMITING Oxycodone HCl (Oxyir) 5 mg PO Q4H PRN PRN PRN Reason: Pain Score 4-5/10 Oxycodone HCl (Oxyir) 10 mg PO Q4H PRN PRN PRN Reason: Pain Score 6-10/10 Paroxetine HCl (Paxil) 20 mg PO DAILY [facility] Last Admin: 09/22/19 08:24 Dose: 20 mg Documented by: Polyethylene Glycol (Miralax) 17 gm PO DAILY [facility] Last Admin: 09/22/19 08:28 Dose: Not Given Documented by: Prednisone () 10 mg PO DAILY@0800 [facility] Last Admin: 09/22/19 08:25 Dose: 10 mg Documented by: Senna/Docusate Sodium (Senokot-S, Kylie-Colace) 2 tablet PO BID [facility] Last Admin: 09/22/19 08:24 Dose: 2 tablet Documented by: Sertraline HCl (Zoloft) 100 mg PO DAILY [facility] Last Admin: 09/22/19 08:24 Dose: 100 mg Documented by: Discharge Diet: 1800 Calorie Control Diet Discharge Activity: Return to Normal Activity Home Medications: Medications to take at Discharge Insulin Glargine [Lantus SoloStar Pen] 16 units SUBCUT DAILY #0 03/09/19 Aspirin [Aspirin, Baby] 81 mg PO DAILY@0800 tab.chew 04/14/19 Atorvastatin Calcium [Lipitor] 80 mg PO QHS tab 04/14/19 Famotidine [Pepcid] 20 mg PO BID tab 04/14/19 Insulin Glargine [Lantus SoloStar Pen] 6 units SUBCUT QHS pen 04/14/19 Insulin Lispro [Humalog KwikPen] 5 unit SUBCUT LUNCH insuln.pen 04/14/19 Insulin Lispro [Humalog KwikPen] 8 unit SUBCUT BID@0800,1700 insuln.pen 04/14/19 Metoprolol(XL)Succ [Toprol Xl (Beta Leland)] 50 mg PO DAILY tab 04/14/19 Polyethylene Glycol 3350 [Miralax] 17 gm PO DAILY packet 04/14/19 Senna/Docusate Sodium [Senokot-S] 2 tab PO BID tab 04/14/19 Acetaminophen [Pain Relief] 1,000 mg PO TID 09/21/19 Amiodarone HCl 200 mg PO QHS 09/21/19 Furosemide [Lasix] 60 mg PO BID@1000,1800 09/21/19 Gabapentin [Neurontin] 300 mg PO BID 09/21/19 Lisinopril 5 mg PO DAILY 09/21/19 Paroxetine [Paxil] 20 mg PO DAILY 09/21/19 Sertraline HCl [Zoloft] 100 mg PO DAILY 09/21/19 Primary Care Physician: Orlando Gomez MD [Primary Care Provider] - Please follow up with your Primary Care Physician in: in 1 week Disposition: [facility] facility Minutes spent on discharge:: 35 Patient Condition:: Stable Medical Necessity - Tobacco Use Smoking Status: Never smoker Meaningful Use Info Meaningful Use Diagnoses (Choose all that apply): None applicable Code Visit OBSV E&M: 35300 Observation care discharge
--- NOTE | 2019-09-22 11:12 | DCINST_ITS ---
- Discharge Diagnoses Current Active Problems: Current Active and Chronic Problems (Last Reviewed 09/21/19 @ 13:27 by David Cedeno MD) Chest pain (Acute) Accelerated hypertension (Acute) You will use the following diet at home:: Calorie/Carbohydrate Controlled (specify 1200, 1400, etc) - 1800 Your food should be the consistency of: Regular Discharge Activity: Return to Normal Activity Allergies/Adverse Reactions: Allergies No Known Allergies Allergy (Verified 09/21/19 11:56) Medications to take at Discharge Insulin Glargine [Lantus SoloStar Pen] 16 units SUBCUT DAILY #0 03/09/19 Aspirin [Aspirin, Baby] 81 mg PO DAILY@0800 tab.chew 04/14/19 Atorvastatin Calcium [Lipitor] 80 mg PO QHS tab 04/14/19 Famotidine [Pepcid] 20 mg PO BID tab 04/14/19 Insulin Glargine [Lantus SoloStar Pen] 6 units SUBCUT QHS pen 04/14/19 Insulin Lispro [Humalog KwikPen] 5 unit SUBCUT LUNCH insuln.pen 04/14/19 Insulin Lispro [Humalog KwikPen] 8 unit SUBCUT BID@0800,1700 insuln.pen 04/14/19 Metoprolol(XL)Succ [Toprol Xl (Beta Leland)] 50 mg PO DAILY tab 04/14/19 Polyethylene Glycol 3350 [Miralax] 17 gm PO DAILY packet 04/14/19 Senna/Docusate Sodium [Senokot-S] 2 tab PO BID tab 04/14/19 Acetaminophen [Pain Relief] 1,000 mg PO TID 09/21/19 Amiodarone HCl 200 mg PO QHS 09/21/19 Furosemide [Lasix] 60 mg PO BID@1000,1800 09/21/19 Gabapentin [Neurontin] 300 mg PO BID 09/21/19 Lisinopril 5 mg PO DAILY 09/21/19 Paroxetine [Paxil] 20 mg PO DAILY 09/21/19 Sertraline HCl [Zoloft] 100 mg PO DAILY 09/21/19 Primary Care Physician: Orlando Gomez MD [Primary Care Provider] - Please follow up with your Primary Care Physician in: in 1 week Test Results: Test results from this visit will be discussed in further detail at your follow- up appointment, if applicable. Proposed Discharge Date: 09/22/19
--- NOTE | 2019-09-22 11:15 | PCM.DC.SUM ---
Discharge Date and Diagnosis - Problem List Patient Problems: Active and Suspected Problems (Last Reviewed 09/21/19 @ 13:27 by David Cedeno MD) Chest pain (Acute) Accelerated hypertension (Acute) Date of Admission: 09/21/19 Date of Discharge: 09/22/19 - Primary Discharge Diagnosis Active and Suspected Problems (Last Reviewed 09/21/19 @ 13:27 by David Cedeno MD) Chest pain (Acute) Accelerated hypertension (Acute) - Secondary Discharge Diagnosis Chronic Problems (Last Reviewed 09/21/19 @ 13:27 by David Cedneo MD) History of non-ST elevation myocardial infarction (NSTEMI) (Chronic 01/2019) Paroxysmal atrial fibrillation (Chronic) Essential (primary) hypertension (Chronic) Atherosclerosis of coronary artery of [place] without angina pectoris (Chronic) Morbid obesity (Chronic) bmi 38.6, but with comorbidity of diabetes Dyslipidemia (Chronic) Anemia (Chronic) Depression (Chronic) Oropharyngeal dysphagia (Chronic) Ischemic cerebrovascular accident (CVA) (Chronic) Type 2 diabetes mellitus (Chronic) Neuropathy (Chronic) Hospital Course and Treatment Imaging Results: Clinical Impression(s) from Imaging Studies Chest X-Ray 09/21/19 10:08 IMPRESSION: Mild cardiomegaly. The lungs are clear. Electronically Signed: Daniel Karla, at 10:35 EDT , Service support , Operations: None Summary of Care Provided: Patient is a 59-year-old gentleman presented with chest pain 1. Chest pain ~ in a patient with known LAD lesion. Did rule out GA with serial cardiac enzymes. A nuclear stress test was not performed since patient has a known lesion and had declined intervention in March 2019 2. Accelerated hypertension ~ did continue with patient home meds in addition to hydralazine PRN to keep systolic blood pressure less than 160 3. 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 Paroxysmal atrial fibrillation ~ rate controlled on amiodarone patient on systemic anticoagulation with Eliquis 5. Coronary artery disease with GA in March 2019 ~ patient was found to have 100% occlusion involving the mid LAD unsuccessful attempt at angioplasty. Recommendation was made for patient to be transferred to a tertiary care center for subsequent intervention patient apparently declined he would patient opted for medical therapy. 6. Diabetes mellitus type II ~ Continue patient home regimen in addition to Accu-Cheks a.c. and at bedtime and covered with sliding scale insulin 7. Dyslipidemia -patient is on statin therapy, continued at home dose 8. Morbid obesity with BMI of 37 ~weight loss advised 9. Diabetic polyneuropathy ~patient is on Neurontin 10. Depression ~ on SSRI 11. DVT prophylaxis patient is on Eliquis Patient Problems: Active and Suspected Problems (Last Reviewed 09/21/19 @ 13:27 by David Cedeno MD) Chest pain (Acute) Accelerated hypertension (Acute) Objective: GENERAL: cooperative HEENT: Atraumatic; EYES; Anicteric, Normal Conjunctiva NECK; supple, normal thyroid, RESPIRATORY: Diminished to auscultation CARDIOVASCULAR: Regular S1 S2, GI: soft, normoactive bowel sounds, : No Renal angle tenderness; EXTREMITIES: No edema, no clubbing, MUSCULOSKELETAL: no muscle waisting NEURO: Awake; dysarthric with left-sided hemiparesis SKIN: No Rash PSYCH; Flat affect - Physical Exam Vitals/I&O's: Vital Signs Temp Pulse Resp BP Pulse Ox 98.6 F 60 16 145/81 H 93 09/22/19 08:11 09/22/19 08:57 09/22/19 08:11 09/22/19 08:57 09/22/19 08:11 Oxygen Flow Rate (L/min) 2 Oxygen Delivery Method Room Air Weight: 127.006 kg Body Mass Index (BMI) 36.9 Finger Stick Blood Glucose 380 Intake and Output for Last 24 Hours 09/20/19 09/21/19 09/22/19 23:59 23:59 23:59 Intake Total 1852.5 / 1852.5 1442.5 / 1442.5 Output Total 475 / 475 575 / 575 Balance 1377.5 / 1377.5 867.5 / 867.5 Laboratory Results 09/21/19 13:25: Troponin I 0.018 09/21/19 15:15: Troponin I 0.021 09/21/19 16:36: POC Glucose 112 H 09/21/19 21:20: POC Glucose 152 H 09/22/19 05:00: WBC 9.0, RBC 4.16 L, Hgb 10.7 L, Hct 33.9 L, MCV 81.5, MCH 25.7 L, MCHC 31.6 L, RDW Std Deviation 52.8 H, RDW Coeff of Betsy 17.7 H, Plt Count 233, MPV 9.5, Immature Gran % (Auto) 0.200, Neut % (Auto) 63.5, Lymph % (Auto) 21.0, Mckean % (Auto) 11.2 H, Eos % (Auto) 4.0, Baso % (Auto) 0.1, Absolute Neuts (auto) 5.7, Absolute Lymphs (auto) 1.88, Nucleated RBC % 0 09/22/19 05:00: Sodium 144, Potassium 3.9, Chloride 109 H, Carbon Dioxide 29.0, Anion Gap 6, BUN 24 H, Creatinine 1.52 H, Estim Creat Clear Calc 59.14, Est GFR (MDRD) Af Amer 61, Est GFR (MDRD) Non-Af 50 L, BUN/Creatinine Ratio 15.8, Glucose 104, Calcium 8.1 L, Magnesium 1.9 09/22/19 08:07: POC Glucose 99 Current Medications Acetaminophen (Tylenol) 650 mg PO Q6H PRN PRN PRN Reason: Pain Score 1-3/Temp > 100.7 F Last Admin: 09/21/19 19:44 Dose: 650 mg Documented by: Acetaminophen (Tylenol) 1,000 mg PO TID [facility] Last Admin: 09/22/19 06:06 Dose: 1,000 mg Documented by: Al Hydroxide/Mg Hydroxide (Mylanta Ii) 30 ml PO Q6H PRN PRN PRN Reason: Gastric Burning Amiodarone HCl (Cordarone) 200 mg PO QHS [facility] Last Admin: 09/21/19 21:23 Dose: 200 mg Documented by: Aspirin (Aspirin, Baby) 81 mg PO DAILY@0800 [facility] Last Admin: 09/22/19 08:24 Dose: 81 mg Documented by: Atorvastatin Calcium (Lipitor) 80 mg PO QHS [facility] Last Admin: 09/21/19 21:23 Dose: 80 mg Documented by: Dextrose (D50w Syringe) 0 gm IV X1 PRN; Protocol PRN Reason: Hypoglycemia Enoxaparin Sodium (Lovenox) 40 mg SC DAILY@1000 [facility] Last Admin: 09/22/19 08:25 Dose: 40 mg Documented by: Famotidine (Pepcid) 20 mg PO BID [facility] Last Admin: 09/22/19 08:24 Dose: 20 mg Documented by: Furosemide (Lasix) 60 mg PO BID@1000,1800 [facility] Last Admin: 09/22/19 08:25 Dose: 60 mg Documented by: Gabapentin (Neurontin) 400 mg PO TIDCM [facility] Last Admin: 09/22/19 08:25 Dose: 400 mg Documented by: Glucagon () 1 mg IM .X1 PRN PRN Reason: Hypoglycemia Guaifenesin (Robitussin) 20 ml PO Q4H PRN PRN PRN Reason: COUGH Insulin Glargine (Lantus (Bkc)) 6 units SC QHS [facility] Last Admin: 09/21/19 21:23 Dose: 6 unit Documented by: Insulin Glargine (Lantus (Bkc)) 16 units SC DAILY [facility] Last Admin: 09/22/19 08:24 Dose: 16 u Documented by: Insulin Human Lispro (Humalog Kwikpen (Bkc)) 0 unit SC ACHS [facility]; Protocol Last Admin: 09/22/19 08:18 Dose: Not Given Documented by: Insulin Human Lispro (Humalog Kwikpen (Bkc)) 5 unit SC LUNCH [facility] Insulin Human Lispro (Humalog Kwikpen (Bkc)) 8 unit SC BID@0800,1700 [facility] Last Admin: 09/22/19 08:26 Dose: 8 units Documented by: Lisinopril (Zestril) 5 mg PO DAILY [facility] Last Admin: 09/22/19 08:24 Dose: 5 mg Documented by: Magnesium Hydroxide (Milk Of Magnesia) 30 ml PO DAILY PRN PRN PRN Reason: Constipation Melatonin (Melatonin) 3 mg PO QHS PRN PRN PRN Reason: INSOMNIA Metoprolol Succinate (Toprol Xl (Beta Leland)) 50 mg PO DAILY [facility] Last Admin: 09/22/19 08:57 Dose: 50 mg Documented by: Ondansetron HCl (Zofran) 4 mg IV Q8H PRN PRN PRN Reason: NAUSEA/VOMITING Oxycodone HCl (Oxyir) 5 mg PO Q4H PRN PRN PRN Reason: Pain Score 4-5/10 Oxycodone HCl (Oxyir) 10 mg PO Q4H PRN PRN PRN Reason: Pain Score 6-10/10 Paroxetine HCl (Paxil) 20 mg PO DAILY [facility] Last Admin: 09/22/19 08:24 Dose: 20 mg Documented by: Polyethylene Glycol (Miralax) 17 gm PO DAILY [facility] Last Admin: 09/22/19 08:28 Dose: Not Given Documented by: Prednisone () 10 mg PO DAILY@0800 [facility] Last Admin: 09/22/19 08:25 Dose: 10 mg Documented by: Senna/Docusate Sodium (Senokot-S, Kylie-Colace) 2 tablet PO BID [facility] Last Admin: 09/22/19 08:24 Dose: 2 tablet Documented by: Sertraline HCl (Zoloft) 100 mg PO DAILY [facility] Last Admin: 09/22/19 08:24 Dose: 100 mg Documented by: Discharge Diet: 1800 Calorie Control Diet Discharge Activity: Return to Normal Activity Home Medications: Medications to take at Discharge Insulin Glargine [Lantus SoloStar Pen] 16 units SUBCUT DAILY #0 03/09/19 Aspirin [Aspirin, Baby] 81 mg PO DAILY@0800 tab.chew 04/14/19 Atorvastatin Calcium [Lipitor] 80 mg PO QHS tab 04/14/19 Famotidine [Pepcid] 20 mg PO BID tab 04/14/19 Insulin Glargine [Lantus SoloStar Pen] 6 units SUBCUT QHS pen 04/14/19 Insulin Lispro [Humalog KwikPen] 5 unit SUBCUT LUNCH insuln.pen 04/14/19 Insulin Lispro [Humalog KwikPen] 8 unit SUBCUT BID@0800,1700 insuln.pen 04/14/19 Metoprolol(XL)Succ [Toprol Xl (Beta Leland)] 50 mg PO DAILY tab 04/14/19 Polyethylene Glycol 3350 [Miralax] 17 gm PO DAILY packet 04/14/19 Senna/Docusate Sodium [Senokot-S] 2 tab PO BID tab 04/14/19 Acetaminophen [Pain Relief] 1,000 mg PO TID 09/21/19 Amiodarone HCl 200 mg PO QHS 09/21/19 Furosemide [Lasix] 60 mg PO BID@1000,1800 09/21/19 Gabapentin [Neurontin] 300 mg PO BID 09/21/19 Lisinopril 5 mg PO DAILY 09/21/19 Paroxetine [Paxil] 20 mg PO DAILY 09/21/19 Sertraline HCl [Zoloft] 100 mg PO DAILY 09/21/19 Primary Care Physician: Orlando Gomez MD [Primary Care Provider] - Please follow up with your Primary Care Physician in: in 1 week Disposition: Long Term facility Minutes spent on discharge:: 35 Patient Condition:: Stable Medical Necessity - Tobacco Use Smoking Status: Never smoker Meaningful Use Info Meaningful Use Diagnoses (Choose all that apply): None applicable Code Visit OBSV E&M: 42366 Observation care discharge
--- NOTE | 2019-09-22 11:37 | PHA.DC.MR ---
Pharmacy Service has performed discharge medication reconciliation for this patient. Home Medications Insulin Glargine [Lantus SoloStar Pen] 16 units SUBCUT DAILY #0 03/09/19 Aspirin [Aspirin, Baby] 81 mg PO DAILY@0800 tab.chew 04/14/19 Atorvastatin Calcium [Lipitor] 80 mg PO QHS tab 04/14/19 Famotidine [Pepcid] 20 mg PO BID tab 04/14/19 Insulin Glargine [Lantus SoloStar Pen] 6 units SUBCUT QHS pen 04/14/19 Insulin Lispro [Humalog KwikPen] 5 unit SUBCUT LUNCH insuln.pen 04/14/19 Insulin Lispro [Humalog KwikPen] 8 unit SUBCUT BID@0800,1700 insuln.pen 04/14/19 Metoprolol(XL)Succ [Toprol Xl (Beta Leland)] 50 mg PO DAILY tab 04/14/19 Polyethylene Glycol 3350 [Miralax] 17 gm PO DAILY packet 04/14/19 Senna/Docusate Sodium [Senokot-S] 2 tab PO BID tab 04/14/19 Acetaminophen [Pain Relief] 1,000 mg PO TID 09/21/19 Amiodarone HCl 200 mg PO QHS 09/21/19 Furosemide [Lasix] 60 mg PO BID@1000,1800 09/21/19 Gabapentin [Neurontin] 300 mg PO BID 09/21/19 Lisinopril 5 mg PO DAILY 09/21/19 Paroxetine [Paxil] 20 mg PO DAILY 09/21/19 Sertraline HCl [Zoloft] 100 mg PO DAILY 09/21/19 The patient's discharge medication list was reviewed for discrepancies and discrepancies were resolved.
[2019-09-22] MEDS: Insulin Lispro 100 UNIT/ML INSULN.PEN SC (11:48)
[2019-09-22 11:56] LABS: Bedside Glucose 134 mg/dL (70-110)
--- NOTE | 2019-09-22 12:16 | CASEMGMT ---
Patient is ready for discharge. SHEILA faxed orders and PT/OT notes to [facility]. SHEILA called [facility] and arranged for patient to get picked up at [phone] via cot. SHEILA notified patient, RN, medical office secretary, HOSPICE MUSIC THERAPIST, and left message for Jailene at [facility]. Plan: d/c back to [facility] [place]. They are going to try and get insurance to approve him for skilled care. [facility] transported via cot. Marysol AGUAYO MSW
--- NOTE | 2019-09-22 14:40 | CHAPLAIN ---
Type of Pastoral Visit _x__ Initial Visit ___ Follow-up Visit ___ On-call Visit ___ General Patient Visit ___ Spiritual Assessment ___ Family Conference ___ Bereavement ___ Rapid Response ___ Code Blue ___ Other (describe below) Pastoral Care Referral From _x__ Patient ___ Family ___ Nurse ___ Physician ___ Patient Relations Coordinator ___ Range Technician ___ Other (describe below) Sacrament/Intervention _x__ Active listening ___ Anointing ___ Nondenominational ___ Bereavement ___ Communion ___ Samantha exploration ___ ___ Life review _x__ Prayer ___ Reconciliation ___ Sacrament of Sick _x__ Supportive presence ___ Wedding ___ Other (describe below) Pastoral Comments
== END 2019-09-22 11:13 | disposition skilled nursing facility (03) ==
LOC: ED 09:34 → PCU 11:56
PROVIDERS: Admitting Provider Internal Medicine; Emergency Provider Emergency Medicine; Family Provider Family Medicine; PCP Family Medicine; Referring Provider Internal Medicine; Visit Provider Internal Medicine
DX: R07.89 Other chest pain (principal); I10 Essential (primary) hypertension; I25.2 Old myocardial infarction; E78.5 Hyperlipidemia, unspecified; E66.01 Morbid (severe) obesity due to excess calories; I48.0 Paroxysmal atrial fibrillation; I48.20 Chronic atrial fibrillation, unspecified; I25.10 Atherosclerotic heart disease of native coronary artery without angina pectoris; R13.12 Dysphagia, oropharyngeal phase; F32.9 Major depressive disorder, single episode, unspecified; D64.9 Anemia, unspecified; I69.354 Hemiplegia and hemiparesis following cerebral infarction affecting left non-dominant side; E11.42 Type 2 diabetes mellitus with diabetic polyneuropathy; R94.31 Abnormal electrocardiogram [ECG] [EKG]; R06.02 Shortness of breath; Z68.38 Body mass index [BMI] 38.0-38.9, adult; Z79.899 Other long term (current) drug therapy; Z79.4 Long term (current) use of insulin; Z99.3 Dependence on wheelchair
CPT/HCPCS: 36415; 71045; 80048; 80076; 82962; 83690; 83735; 84484; 85025; 93005; 96360; 96361; 96372; 97163; 97166; 97530; 99218; 99251; 99285; J7030; A4216; G0378; G0463

== ENCOUNTER → 2019-10-04 05:00 | Outpatient (REF) | payer MEDICAID, SELFPAY ==
[2019-09-21 12:22] VITALS: BMI 36.9
[2019-10-04 08:06] LABS: Absolute Lymphocyte Count 1.52 X10^3/uL (0.83-4.51); Absolute Neutrophil Count 5.5 X10^3/uL (2.0-7.7); Basophil# 0.02 X10^3/uL; Basophil% 0.2 % (0-1); Eosinophil# 0.31 X10^3/uL; Eosinophils% 3.7 % (0-5); Hematocrit 35.7 % (40-54); Hemoglobin 10.9 g/dL (13.0-16.5); Lymphocyte # 1.52 X10^3/ul (4.0); Lymphocyte % 18.1 % (19-41); Mean Corp Hgb Conc 30.5 g/dL (32-36); Mean Corpuscular Hgb 25.2 pg (27.0-32.0); Mean Corpuscular Volume 82.4 fL (80-94); Mean Platelet Vol. 10.2 fl (6.2-12.0); Monocyte# 1.01 X10^3/uL; NRBC Flagged by Analyzer 0 % (0-5); Neutrophil # 5.51 X10^3/uL (2.7-7.7); Neutrophil % 65.6 % (47-70); Platelet Count 286 K/mm3 (150-450); RBC Distribution Width CV 18.4 % (11.6-14.6); RBC Distribution Width SD 55.5 fl (35.1-43.9); Red Blood Count 4.33 M/mm3 (4.6-6.2); White Blood Count 8.4 K/mm3 (4.4-11.0)
[2019-10-04 08:26] LABS: Anion Gap 7 (5-15); BUN 29 mg/dL (7-18); BUN/Creat Ratio 16.7 RATIO (10-20); Calcium,Total 8.5 mg/dL (8.5-10.1); Chloride 106 mmol/L (98-107); Creatinine, Serum 1.74 mg/dL (0.70-1.30); EST Glomerular Filtration Rate 43 mL/min (>60); Est Glom Filt Rate - Afr Amer 52 mL/min (>60); Glucose 106 mg/dL (74-106); Potassium 3.6 mmol/L (3.5-5.1); Sodium Level 144 mmol/L (136-145)
== END ==
LOC: OLS.WHLCAR 05:00
PROVIDERS: Visit Provider Family Medicine
DX: D64.9 Anemia, unspecified (principal); I69.154 Hemiplegia and hemiparesis following nontraumatic intracerebral hemorrhage affecting left non-dominant side; I69.191 Dysphagia following nontraumatic intracerebral hemorrhage
CPT/HCPCS: 36415; 80048; 85025

== ENCOUNTER → 2019-10-21 09:53 | Outpatient (CLI) | payer MEDICAID, SELFPAY ==
[2019-10-21 08:51] VITALS: BMI 36.3
[2019-10-21 11:30] LABS: Anion Gap 7 (5-15); BUN 27 mg/dL (7-18); BUN/Creat Ratio 15.9 RATIO (10-20); Calcium,Total 8.9 mg/dL (8.5-10.1); Chloride 107 mmol/L (98-107); EST Glomerular Filtration Rate 44 mL/min (>60); Est Glom Filt Rate - Afr Amer 53 mL/min (>60); Glucose 142 mg/dL (74-106); Magnesium 2.2 mg/dL (1.6-2.6); Potassium 3.7 mmol/L (3.5-5.1); Sodium Level 142 mmol/L (136-145)
== END ==
PROVIDERS: Family Provider Family Medicine; PCP Family Medicine; Referring Provider Physician Assistant Medical; Visit Provider Physician Assistant Medical
DX: I25.10 Atherosclerotic heart disease of native coronary artery without angina pectoris (principal); I48.0 Paroxysmal atrial fibrillation; I10 Essential (primary) hypertension; E78.5 Hyperlipidemia, unspecified
CPT/HCPCS: 36415; 80048; 83735

== ENCOUNTER → 2019-11-01 05:00 | Outpatient (REF) | payer MEDICAID, SELFPAY ==
[2019-10-21 08:51] VITALS: BMI 36.3
[2019-11-01 08:13] LABS: Absolute Lymphocyte Count 1.84 X10^3/uL (0.83-4.51); Absolute Neutrophil Count 4.6 X10^3/uL (2.0-7.7); Basophil# 0.01 X10^3/uL; Basophil% 0.1 % (0-1); Eosinophils% 2.6 % (0-5); Hematocrit 38.1 % (40-54); Lymphocyte # 1.84 X10^3/ul (4.0); Lymphocyte % 24.1 % (19-41); Mean Corp Hgb Conc 31.5 g/dL (32-36); Mean Corpuscular Hgb 26.2 pg (27.0-32.0); Mean Corpuscular Volume 83.2 fL (80-94); Mean Platelet Vol. 10.8 fl (6.2-12.0); Monocyte# 0.98 X10^3/uL; Monocyte% 12.8 % (0-10); NRBC Flagged by Analyzer 0 % (0-5); Neutrophil # 4.58 X10^3/uL (2.7-7.7); Neutrophil % 60.1 % (47-70); Platelet Count 272 K/mm3 (150-450); RBC Distribution Width SD 54.5 fl (35.1-43.9); Red Blood Count 4.58 M/mm3 (4.6-6.2); White Blood Count 7.6 K/mm3 (4.4-11.0)
[2019-11-01 08:32] LABS: Anion Gap 6 (5-15); BUN 34 mg/dL (7-18); BUN/Creat Ratio 19.4 RATIO (10-20); Calcium,Total 9.1 mg/dL (8.5-10.1); Chloride 108 mmol/L (98-107); Creatinine, Serum 1.75 mg/dL (0.70-1.30); EST Glomerular Filtration Rate 43 mL/min (>60); Est Glom Filt Rate - Afr Amer 52 mL/min (>60); Glucose 83 mg/dL (74-106); Potassium 3.9 mmol/L (3.5-5.1); Sodium Level 142 mmol/L (136-145)
[2019-11-05 10:42] VITALS: BMI 36.3
== END ==
LOC: OLS.WHLEAS 05:00
PROVIDERS: Visit Provider Family Medicine
DX: D64.9 Anemia, unspecified (principal); I69.154 Hemiplegia and hemiparesis following nontraumatic intracerebral hemorrhage affecting left non-dominant side; I69.191 Dysphagia following nontraumatic intracerebral hemorrhage
CPT/HCPCS: 36415; 80048; 85025

== ENCOUNTER → 2019-12-06 05:00 | Outpatient (REF) | payer MEDICAID, SELFPAY ==
[2019-11-05 10:42] VITALS: BMI 36.3
[2019-12-06 07:04] LABS: Absolute Lymphocyte Count 1.94 X10^3/uL (0.83-4.51); Absolute Neutrophil Count 4.7 X10^3/uL (2.0-7.7); Eosinophil# 0.24 X10^3/uL; Eosinophils% 3.1 % (0-5); Hematocrit 38.1 % (40-54); Hemoglobin 12.1 g/dL (13.0-16.5); Lymphocyte # 1.94 X10^3/ul (4.0); Mean Corp Hgb Conc 31.8 g/dL (32-36); Mean Corpuscular Hgb 27.3 pg (27.0-32.0); Mean Corpuscular Volume 85.8 fL (80-94); Mean Platelet Vol. 10.3 fl (6.2-12.0); Monocyte# 0.91 X10^3/uL; Monocyte% 11.7 % (0-10); NRBC Flagged by Analyzer 0 % (0-5); Neutrophil # 4.65 X10^3/uL (2.7-7.7); Neutrophil % 59.9 % (47-70); Platelet Count 273 K/mm3 (150-450); RBC Distribution Width CV 15.7 % (11.6-14.6); RBC Distribution Width SD 49.5 fl (35.1-43.9); Red Blood Count 4.44 M/mm3 (4.6-6.2); White Blood Count 7.8 K/mm3 (4.4-11.0)
[2019-12-06 07:11] LABS: Anion Gap 3 (5-15); BUN 29 mg/dL (7-18); BUN/Creat Ratio 17.1 RATIO (10-20); Calcium,Total 8.8 mg/dL (8.5-10.1); Chloride 106 mmol/L (98-107); EST Glomerular Filtration Rate 44 mL/min (>60); Est Glom Filt Rate - Afr Amer 53 mL/min (>60); Glucose 107 mg/dL (74-106); Potassium 3.7 mmol/L (3.5-5.1); Sodium Level 140 mmol/L (136-145)
== END ==
LOC: OLS.WHLCAR 05:00
PROVIDERS: Family Provider Family Medicine; PCP Family Medicine; Visit Provider Family Medicine
DX: D64.9 Anemia, unspecified (principal); I69.154 Hemiplegia and hemiparesis following nontraumatic intracerebral hemorrhage affecting left non-dominant side; I69.191 Dysphagia following nontraumatic intracerebral hemorrhage
CPT/HCPCS: 36415; 80048; 85025

== ENCOUNTER → 2020-01-03 05:00 | Outpatient (REF) | payer MEDICAID, SELFPAY ==
[2019-11-05 10:42] VITALS: BMI 36.3
[2020-01-03 08:55] LABS: Absolute Lymphocyte Count 1.83 X10^3/uL (0.83-4.51); Absolute Neutrophil Count 6.3 X10^3/uL (2.0-7.7); Basophil# 0.02 X10^3/uL; Basophil% 0.2 % (0-1); Eosinophil# 0.26 X10^3/uL; Eosinophils% 2.6 % (0-5); Hematocrit 37.3 % (40-54); Hemoglobin 11.7 g/dL (13.0-16.5); Lymphocyte # 1.83 X10^3/ul (4.0); Lymphocyte % 18.3 % (19-41); Mean Corp Hgb Conc 31.4 g/dL (32-36); Mean Corpuscular Hgb 26.5 pg (27.0-32.0); Mean Corpuscular Volume 84.6 fL (80-94); Mean Platelet Vol. 10.6 fl (6.2-12.0); Monocyte# 1.54 X10^3/uL; Monocyte% 15.4 % (0-10); NRBC Flagged by Analyzer 0 % (0-5); Neutrophil # 6.28 X10^3/uL (2.7-7.7); POSITIVE DIFFERENTIAL YES; Platelet Count 271 K/mm3 (150-450); RBC Distribution Width CV 15.2 % (11.6-14.6); RBC Distribution Width SD 46.7 fl (35.1-43.9); Red Blood Count 4.41 M/mm3 (4.6-6.2)
[2020-01-03 08:58] LABS: Differential Indicated SCAN CRITERIA MET
[2020-01-03 09:09] LABS: Anion Gap 5 (5-15); BUN 31 mg/dL (7-18); BUN/Creat Ratio 18.3 RATIO (10-20); Calcium,Total 8.8 mg/dL (8.5-10.1); Chloride 109 mmol/L (98-107); Cholesterol 140 mg/dL (200); Creatinine, Serum 1.69 mg/dL (0.70-1.30); EST Glomerular Filtration Rate 44 mL/min (>60); Est Glom Filt Rate - Afr Amer 54 mL/min (>60); Glucose 103 mg/dL (74-106); High Density Lipoprotein 31 mg/dL; Potassium 3.7 mmol/L (3.5-5.1); Sodium Level 144 mmol/L (136-145); Triglycerides 187 mg/dL; Very Low Density Lipoprotein 37 mg/dL (5-40)
[2020-01-03 09:37] LABS: Hemoglobin A1c 8.2 % (4.2-6.3)
== END ==
LOC: OLS.WHLCAR 05:00
PROVIDERS: PCP Family Medicine; Visit Provider Family Medicine
DX: E87.5 Hyperkalemia (principal); D64.9 Anemia, unspecified; I69.154 Hemiplegia and hemiparesis following nontraumatic intracerebral hemorrhage affecting left non-dominant side; I69.191 Dysphagia following nontraumatic intracerebral hemorrhage; I25.10 Atherosclerotic heart disease of native coronary artery without angina pectoris; R07.9 Chest pain, unspecified
CPT/HCPCS: 36415; 80048; 80061; 83036; 85025

== ENCOUNTER → 2020-04-03 05:00 | Outpatient (REF) | payer MEDICAID, SELFPAY ==
[2019-11-05 10:42] VITALS: BMI 36.3
[2020-04-03 07:30] LABS: Absolute Lymphocyte Count 2.16 X10^3/uL (0.83-4.51); Absolute Neutrophil Count 6.1 X10^3/uL (2.0-7.7); Basophil# 0.02 X10^3/uL; Basophil% 0.2 % (0-1); Eosinophil# 0.24 X10^3/uL; Eosinophils% 2.5 % (0-5); Hematocrit 40.2 % (40-54); Hemoglobin 12.8 g/dL (13.0-16.5); Lymphocyte # 2.16 X10^3/ul (4.0); Lymphocyte % 22.1 % (19-41); Mean Corp Hgb Conc 31.8 g/dL (32-36); Mean Corpuscular Hgb 27.9 pg (27.0-32.0); Mean Corpuscular Volume 87.6 fL (80-94); Mean Platelet Vol. 11.2 fl (6.2-12.0); Monocyte# 1.27 X10^3/uL; NRBC Flagged by Analyzer 0 % (0-5); Neutrophil # 6.07 X10^3/uL (2.7-7.7); Neutrophil % 61.9 % (47-70); Platelet Count 265 K/mm3 (150-450); RBC Distribution Width CV 15.1 % (11.6-14.6); RBC Distribution Width SD 47.6 fl (35.1-43.9); Red Blood Count 4.59 M/mm3 (4.6-6.2); White Blood Count 9.8 K/mm3 (4.4-11.0)
[2020-04-03 10:15] LABS: Anion Gap 5 (5-15); BUN 32 mg/dL (7-18); Calcium,Total 8.7 mg/dL (8.5-10.1); Chloride 109 mmol/L (98-107); Creatinine, Serum 1.78 mg/dL (0.70-1.30); EST Glomerular Filtration Rate 42 mL/min (>60); Est Glom Filt Rate - Afr Amer 51 mL/min (>60); Glucose 115 mg/dL (74-106); Potassium 3.6 mmol/L (3.5-5.1); Sodium Level 144 mmol/L (136-145)
== END ==
LOC: OLS.WHLCAR 05:00
PROVIDERS: PCP Family Medicine; Visit Provider Family Medicine
DX: D64.9 Anemia, unspecified (principal); I25.10 Atherosclerotic heart disease of native coronary artery without angina pectoris; R07.9 Chest pain, unspecified; I69.154 Hemiplegia and hemiparesis following nontraumatic intracerebral hemorrhage affecting left non-dominant side
CPT/HCPCS: 36415; 80048; 85025

== ENCOUNTER → 2020-06-02 08:30 | Outpatient (REF) | payer MEDICAID, SELFPAY ==
[2019-11-05 10:42] VITALS: BMI 36.3
[2020-06-08 09:22] VITALS: BMI 37.5
== END ==
LOC: OLS.WHLCAR 08:30
PROVIDERS: PCP Family Medicine; Visit Provider Family Medicine
DX: Z11.59 Encounter for screening for other viral diseases (principal); I25.10 Atherosclerotic heart disease of native coronary artery without angina pectoris; R07.9 Chest pain, unspecified; I69.154 Hemiplegia and hemiparesis following nontraumatic intracerebral hemorrhage affecting left non-dominant side
CPT/HCPCS: 87635; U0003

== ENCOUNTER → 2020-07-03 04:00 | Outpatient (REF) | payer MEDICAID, SELFPAY ==
[2020-06-08 09:22] VITALS: BMI 37.5
[2020-07-03 07:27] LABS: Absolute Lymphocyte Count 1.95 X10^3/uL (0.83-4.51); Absolute Neutrophil Count 5.8 X10^3/uL (2.0-7.7); Basophil# 0.01 X10^3/uL; Basophil% 0.1 % (0-1); Eosinophil# 0.22 X10^3/uL; Eosinophils% 2.4 % (0-5); Hemoglobin 12.6 g/dL (13.0-16.5); Lymphocyte # 1.95 X10^3/ul (4.0); Lymphocyte % 21.5 % (19-41); Mean Corp Hgb Conc 30.7 g/dL (32-36); Mean Corpuscular Hgb 26.4 pg (27.0-32.0); Mean Corpuscular Volume 85.8 fL (80-94); Mean Platelet Vol. 11.3 fl (6.2-12.0); Monocyte# 1.07 X10^3/uL; Monocyte% 11.8 % (0-10); NRBC Flagged by Analyzer 0 % (0-5); Neutrophil # 5.78 X10^3/uL (2.7-7.7); Platelet Count 294 K/mm3 (150-450); RBC Distribution Width CV 15.1 % (11.6-14.6); RBC Distribution Width SD 46.8 fl (35.1-43.9); Red Blood Count 4.78 M/mm3 (4.6-6.2); White Blood Count 9.1 K/mm3 (4.4-11.0)
[2020-07-03 07:44] LABS: Anion Gap 5 (5-15); BUN 27 mg/dL (7-18); BUN/Creat Ratio 15.2 RATIO (10-20); Calcium,Total 8.7 mg/dL (8.5-10.1); Chloride 109 mmol/L (98-107); Cholesterol 113 mg/dL (200); Creatinine, Serum 1.78 mg/dL (0.70-1.30); EST Glomerular Filtration Rate 42 mL/min (>60); Est Glom Filt Rate - Afr Amer 50 mL/min (>60); Glucose 121 mg/dL (74-106); High Density Lipoprotein 26 mg/dL; Potassium 3.8 mmol/L (3.5-5.1); Sodium Level 142 mmol/L (136-145); Triglycerides 174 mg/dL; Very Low Density Lipoprotein 35 mg/dL (5-40)
[2020-07-03 07:46] LABS: Hemoglobin A1c 8.1 % (3.8-5.6)
== END ==
LOC: OLS.WHLCAR 04:00
PROVIDERS: PCP Family Medicine; Visit Provider Family Medicine
DX: D64.9 Anemia, unspecified (principal); I25.10 Atherosclerotic heart disease of native coronary artery without angina pectoris; R07.9 Chest pain, unspecified; I69.154 Hemiplegia and hemiparesis following nontraumatic intracerebral hemorrhage affecting left non-dominant side; E78.5 Hyperlipidemia, unspecified; I63.9 Cerebral infarction, unspecified
CPT/HCPCS: 36415; 80048; 80061; 83036; 85025

== ENCOUNTER → 2020-08-10 05:00 | Outpatient (REF) | payer MEDICAID, SELFPAY ==
[2020-06-08 09:22] VITALS: BMI 37.5
[2020-08-10 06:59] LABS: Hematocrit 38.5 % (40-54); Hemoglobin 12.2 g/dL (13.0-16.5); Mean Corp Hgb Conc 31.7 g/dL (32-36); Mean Corpuscular Hgb 26.6 pg (27.0-32.0); Mean Corpuscular Volume 84.1 fL (80-94); Mean Platelet Vol. 10.9 fl (6.2-12.0); Platelet Count 326 K/mm3 (150-450); RBC Distribution Width CV 15.4 % (11.6-14.6); Red Blood Count 4.58 M/mm3 (4.6-6.2); White Blood Count 9.2 K/mm3 (4.4-11.0)
[2020-08-10 07:25] LABS: Anion Gap 5 (5-15); BUN 27 mg/dL (7-18); BUN/Creat Ratio 16.8 RATIO (10-20); Calcium,Total 8.6 mg/dL (8.5-10.1); Chloride 108 mmol/L (98-107); Creatinine, Serum 1.61 mg/dL (0.70-1.30); EST Glomerular Filtration Rate 47 mL/min (>60); Est Glom Filt Rate - Afr Amer 57 mL/min (>60); Glucose 150 mg/dL (74-106); Potassium 3.6 mmol/L (3.5-5.1); Sodium Level 142 mmol/L (136-145)
[2020-08-10 08:23] LABS: BNP,B-Type NATRIURETIC PEPTIDE 347.6 pg/mL (0-100)
== END ==
LOC: OLS.WHLCAR 05:00
PROVIDERS: PCP Family Medicine; Visit Provider Family Medicine
DX: M62.81 Muscle weakness (generalized) (principal); I25.10 Atherosclerotic heart disease of native coronary artery without angina pectoris; R07.9 Chest pain, unspecified; I69.154 Hemiplegia and hemiparesis following nontraumatic intracerebral hemorrhage affecting left non-dominant side
CPT/HCPCS: 36415; 80048; 83880; 85027

== ENCOUNTER → 2020-10-02 05:00 | Outpatient (REF) | payer MEDICAID, SELFPAY ==
[2020-06-08 09:22] VITALS: BMI 37.5
[2020-10-02 08:07] LABS: Absolute Lymphocyte Count 2.08 X10^3/uL (0.83-4.51); Absolute Neutrophil Count 5.2 X10^3/uL (2.0-7.7); Basophil# 0.07 X10^3/uL; Basophil% 0.8 % (0-1); Eosinophil# 0.38 X10^3/uL; Eosinophils% 4.6 % (0-5); Hematocrit 42.1 % (40-54); Hemoglobin 13.4 g/dL (13.0-16.5); Lymphocyte # 2.08 X10^3/ul (4.0); Lymphocyte % 24.9 % (19-41); Mean Corp Hgb Conc 31.8 g/dL (32-36); Mean Corpuscular Hgb 28.5 pg (27.0-32.0); Mean Corpuscular Volume 89.6 fL (80-94); Mean Platelet Vol. 11.2 fl (6.2-12.0); Monocyte# 0.64 X10^3/uL; Monocyte% 7.7 % (0-10); NRBC Flagged by Analyzer 0 % (0-5); Neutrophil # 5.15 X10^3/uL (2.7-7.7); Neutrophil % 61.6 % (47-70); Platelet Count 311 K/mm3 (150-450); RBC Distribution Width CV 17.4 % (11.6-14.6); RBC Distribution Width SD 57.2 fl (35.1-43.9); White Blood Count 8.4 K/mm3 (4.4-11.0)
[2020-10-02 08:27] LABS: Anion Gap 6 (5-15); BUN 23 mg/dL (7-18); BUN/Creat Ratio 13.6 RATIO (10-20); Calcium,Total 8.7 mg/dL (8.5-10.1); Chloride 106 mmol/L (98-107); Creatinine, Serum 1.69 mg/dL (0.70-1.30); EST Glomerular Filtration Rate 44 mL/min (>60); Est Glom Filt Rate - Afr Amer 54 mL/min (>60); Glucose 70 mg/dL (74-106); Potassium 3.7 mmol/L (3.5-5.1); Sodium Level 141 mmol/L (136-145)
[2020-10-03 06:03] LABS: PSA,Total - Annual Screen < 0.01 ng/mL (0.00-4.00)
== END ==
LOC: OLS.WHLCAR 05:00
PROVIDERS: PCP Family Medicine; Referring Provider Family Medicine; Visit Provider Family Medicine
DX: D64.9 Anemia, unspecified (principal); I25.10 Atherosclerotic heart disease of native coronary artery without angina pectoris; R07.9 Chest pain, unspecified; I69.154 Hemiplegia and hemiparesis following nontraumatic intracerebral hemorrhage affecting left non-dominant side
CPT/HCPCS: 36415; 80048; 84153; 85025; G0103

== ENCOUNTER → 2021-01-01 05:00 | Outpatient (REF) | payer MEDICAID, SELFPAY ==
[2020-12-13 10:30] VITALS: BMI 39.8
[2021-01-01 08:47] LABS: Absolute Lymphocyte Count 1.96 X10^3/uL (0.83-4.51); Absolute Neutrophil Count 6.5 X10^3/uL (2.0-7.7); Basophil# 0.03 X10^3/uL; Basophil% 0.3 % (0-1); Eosinophil# 0.29 X10^3/uL; Eosinophils% 2.9 % (0-5); Hematocrit 39.7 % (40-54); Hemoglobin 12.3 g/dL (13.0-16.5); Lymphocyte # 1.96 X10^3/ul (4.0); Lymphocyte % 19.5 % (19-41); Mean Corpuscular Hgb 27.3 pg (27.0-32.0); Mean Platelet Vol. 10.3 fl (6.2-12.0); Monocyte# 1.15 X10^3/uL; Monocyte% 11.5 % (0-10); NRBC Flagged by Analyzer 0 % (0-5); Neutrophil # 6.53 X10^3/uL (2.7-7.7); Neutrophil % 65.1 % (47-70); Platelet Count 311 K/mm3 (150-450); RBC Distribution Width CV 17.2 % (11.6-14.6); RBC Distribution Width SD 54.6 fl (35.1-43.9); Red Blood Count 4.51 M/mm3 (4.6-6.2)
[2021-01-01 08:50] LABS: Anion Gap 9 (5-15); BUN 82 mg/dL (7-18); BUN/Creat Ratio 31.7 RATIO (10-20); Chloride 110 mmol/L (98-107); Cholesterol 143 mg/dL (200); Creatinine, Serum 2.59 mg/dL (0.70-1.30); EST Glomerular Filtration Rate 27 mL/min (>60); Est Glom Filt Rate - Afr Amer 33 mL/min (>60); Glucose 140 mg/dL (74-106); High Density Lipoprotein 32 mg/dL; Potassium 4.9 mmol/L (3.5-5.1); Sodium Level 141 mmol/L (136-145); Triglycerides 203 mg/dL; Very Low Density Lipoprotein 41 mg/dL (5-40)
[2021-01-01 09:56] LABS: Hemoglobin A1c 8.6 % (3.8-5.6)
== END ==
LOC: OLS.WHLCAR 05:00
PROVIDERS: PCP Family Medicine; Visit Provider Family Medicine
DX: D64.9 Anemia, unspecified (principal); I25.10 Atherosclerotic heart disease of native coronary artery without angina pectoris; R07.9 Chest pain, unspecified; I69.154 Hemiplegia and hemiparesis following nontraumatic intracerebral hemorrhage affecting left non-dominant side
CPT/HCPCS: 36415; 80048; 80061; 83036; 85025

== ENCOUNTER → 2021-01-05 05:00 | Outpatient (REF) | payer MEDICAID, SELFPAY ==
[2020-12-13 10:30] VITALS: BMI 39.8
[2021-01-05 07:53] LABS: Anion Gap 6 (5-15); BUN 63 mg/dL (7-18); BUN/Creat Ratio 26.8 RATIO (10-20); Calcium,Total 8.8 mg/dL (8.5-10.1); Chloride 111 mmol/L (98-107); Creatinine, Serum 2.35 mg/dL (0.70-1.30); EST Glomerular Filtration Rate 30 mL/min (>60); Est Glom Filt Rate - Afr Amer 37 mL/min (>60); Glucose 144 mg/dL (74-106); Potassium 4.4 mmol/L (3.5-5.1); Sodium Level 140 mmol/L (136-145); Thyroid Stim Hormone (TSH) 6.11 uIU/mL (0.358-3.74)
[2021-01-05 08:33] LABS: BNP,B-Type NATRIURETIC PEPTIDE 73.7 pg/mL (0-100)
== END ==
LOC: OLS.WHLEAS 05:00
PROVIDERS: PCP Family Medicine; Referring Provider Family Medicine; Visit Provider Family Medicine
DX: E11.21 Type 2 diabetes mellitus with diabetic nephropathy (principal); I69.154 Hemiplegia and hemiparesis following nontraumatic intracerebral hemorrhage affecting left non-dominant side; I69.191 Dysphagia following nontraumatic intracerebral hemorrhage; E11.22 Type 2 diabetes mellitus with diabetic chronic kidney disease
CPT/HCPCS: 36415; 80048; 83880; 84443

== ENCOUNTER → 2021-01-12 05:00 | Outpatient (REF) | payer MEDICAID, SELFPAY ==
[2020-12-13 10:30] VITALS: BMI 39.8
[2021-01-12 10:17] LABS: Anion Gap 5 (5-15); BUN 44 mg/dL (7-18); BUN/Creat Ratio 19.5 RATIO (10-20); Calcium,Total 8.8 mg/dL (8.5-10.1); Chloride 109 mmol/L (98-107); Creatinine, Serum 2.26 mg/dL (0.70-1.30); EST Glomerular Filtration Rate 32 mL/min (>60); Est Glom Filt Rate - Afr Amer 38 mL/min (>60); Glucose 175 mg/dL (74-106); Potassium 4.7 mmol/L (3.5-5.1); Sodium Level 139 mmol/L (136-145)
== END ==
LOC: OLS.WHLEAS 05:00
PROVIDERS: PCP Family Medicine; Visit Provider Family Medicine
DX: D64.9 Anemia, unspecified (principal); I69.154 Hemiplegia and hemiparesis following nontraumatic intracerebral hemorrhage affecting left non-dominant side; I69.191 Dysphagia following nontraumatic intracerebral hemorrhage; E11.22 Type 2 diabetes mellitus with diabetic chronic kidney disease
CPT/HCPCS: 36415; 80048

== ENCOUNTER → 2021-01-26 05:00 | Outpatient (REF) | payer MEDICAID, SELFPAY ==
[2020-12-13 10:30] VITALS: BMI 39.8
[2021-01-26 07:36] LABS: Anion Gap 6 (5-15); BUN 11 mg/dL (7-18); BUN/Creat Ratio 7.1 RATIO (10-20); Calcium,Total 8.1 mg/dL (8.5-10.1); Chloride 104 mmol/L (98-107); Creatinine, Serum 1.56 mg/dL (0.70-1.30); EST Glomerular Filtration Rate 48 mL/min (>60); Est Glom Filt Rate - Afr Amer 59 mL/min (>60); Glucose 143 mg/dL (74-106); Potassium 3.4 mmol/L (3.5-5.1); Sodium Level 138 mmol/L (136-145)
== END ==
LOC: OLS.WHLEAS 05:00
PROVIDERS: PCP Family Medicine; Visit Provider Family Medicine
DX: E11.22 Type 2 diabetes mellitus with diabetic chronic kidney disease (principal); I69.154 Hemiplegia and hemiparesis following nontraumatic intracerebral hemorrhage affecting left non-dominant side; I69.191 Dysphagia following nontraumatic intracerebral hemorrhage
CPT/HCPCS: 36415; 80048

== ENCOUNTER → 2021-02-16 05:00 | Outpatient (REF) | payer MEDICAID, SELFPAY ==
[2020-12-13 10:30] VITALS: BMI 39.8
[2021-02-16 08:09] LABS: Hematocrit 38.9 % (40-54); Mean Corp Hgb Conc 30.8 g/dL (32-36); Mean Corpuscular Hgb 27.3 pg (27.0-32.0); Mean Corpuscular Volume 88.6 fL (80-94); Mean Platelet Vol. 10.5 fl (6.2-12.0); Platelet Count 328 K/mm3 (150-450); RBC Distribution Width CV 15.3 % (11.6-14.6); RBC Distribution Width SD 49.4 fl (35.1-43.9); Red Blood Count 4.39 M/mm3 (4.6-6.2); White Blood Count 9.8 K/mm3 (4.4-11.0)
[2021-02-16 08:24] LABS: Anion Gap 2 (5-15); BUN 34 mg/dL (7-18); BUN/Creat Ratio 15.3 RATIO (10-20); Calcium,Total 8.6 mg/dL (8.5-10.1); Chloride 109 mmol/L (98-107); Creatinine, Serum 2.22 mg/dL (0.70-1.30); EST Glomerular Filtration Rate 32 mL/min (>60); Est Glom Filt Rate - Afr Amer 39 mL/min (>60); Glucose 156 mg/dL (74-106); Potassium 4.6 mmol/L (3.5-5.1); Sodium Level 141 mmol/L (136-145); Thyroid Stim Hormone (TSH) 3.63 uIU/mL (0.358-3.74)
== END ==
LOC: OLS.WHLEAS 05:00
PROVIDERS: PCP Family Medicine; Referring Provider Family Medicine; Visit Provider Family Medicine
DX: D64.9 Anemia, unspecified (principal); I69.154 Hemiplegia and hemiparesis following nontraumatic intracerebral hemorrhage affecting left non-dominant side; I69.191 Dysphagia following nontraumatic intracerebral hemorrhage; E11.22 Type 2 diabetes mellitus with diabetic chronic kidney disease; E03.9 Hypothyroidism, unspecified
CPT/HCPCS: 36415; 80048; 84443; 85027

== ENCOUNTER → 2021-03-15 05:15 | Outpatient (REF) | payer MEDICAID, SELFPAY ==
[2020-12-13 10:30] VITALS: BMI 39.8
[2021-03-15 07:44] LABS: Hematocrit 39.3 % (40-54); Hemoglobin 11.8 g/dL (13.0-16.5); Mean Corpuscular Hgb 26.6 pg (27.0-32.0); Mean Corpuscular Volume 88.7 fL (80-94); Mean Platelet Vol. 10.7 fl (6.2-12.0); Platelet Count 302 K/mm3 (150-450); RBC Distribution Width CV 14.6 % (11.6-14.6); RBC Distribution Width SD 47.1 fl (35.1-43.9); Red Blood Count 4.43 M/mm3 (4.6-6.2); White Blood Count 9.9 K/mm3 (4.4-11.0)
[2021-03-15 08:04] LABS: Anion Gap 5 (5-15); BUN 32 mg/dL (7-18); BUN/Creat Ratio 15.5 RATIO (10-20); Calcium,Total 8.3 mg/dL (8.5-10.1); Chloride 109 mmol/L (98-107); Creatinine, Serum 2.06 mg/dL (0.70-1.30); EST Glomerular Filtration Rate 35 mL/min (>60); Est Glom Filt Rate - Afr Amer 43 mL/min (>60); Glucose 140 mg/dL (74-106); Sodium Level 139 mmol/L (136-145)
== END ==
LOC: OLS.WHLEAS 05:15
PROVIDERS: PCP Family Medicine; Visit Provider Family Medicine
DX: D64.9 Anemia, unspecified (principal); I69.154 Hemiplegia and hemiparesis following nontraumatic intracerebral hemorrhage affecting left non-dominant side; I69.191 Dysphagia following nontraumatic intracerebral hemorrhage; E11.22 Type 2 diabetes mellitus with diabetic chronic kidney disease
CPT/HCPCS: 36415; 80048; 85027

== ENCOUNTER → 2021-04-19 05:00 | Outpatient (REF) | payer MEDICAID, SELFPAY ==
[2020-12-13 10:30] VITALS: BMI 39.8
[2021-04-19 07:16] LABS: Absolute Lymphocyte Count 1.39 X10^3/uL (0.83-4.51); Absolute Neutrophil Count 6.9 X10^3/uL (2.0-7.7); Basophil# 0.02 X10^3/uL; Basophil% 0.2 % (0-1); Eosinophil# 0.25 X10^3/uL; Eosinophils% 2.6 % (0-5); Hematocrit 39.1 % (40-54); Hemoglobin 12.2 g/dL (13.0-16.5); Lymphocyte # 1.39 X10^3/ul (0.83-4.51); Lymphocyte % 14.4 % (19-41); Mean Corp Hgb Conc 31.2 g/dL (32-36); Mean Corpuscular Hgb 26.7 pg (27.0-32.0); Mean Corpuscular Volume 85.6 fL (80-94); Mean Platelet Vol. 10.3 fl (6.2-12.0); Monocyte# 1.03 X10^3/uL; Monocyte% 10.7 % (0-10); NRBC Flagged by Analyzer 0 % (0-5); Neutrophil # 6.91 X10^3/uL (2.7-7.7); Neutrophil % 71.7 % (47-70); Platelet Count 325 K/mm3 (150-450); RBC Distribution Width CV 14.9 % (11.6-14.6); RBC Distribution Width SD 46.4 fl (35.1-43.9); Red Blood Count 4.57 M/mm3 (4.6-6.2); White Blood Count 9.6 K/mm3 (4.4-11.0)
[2021-04-19 07:32] LABS: Anion Gap 4 (5-15); BUN 41 mg/dL (7-18); BUN/Creat Ratio 18.6 RATIO (10-20); Calcium,Total 8.5 mg/dL (8.5-10.1); Chloride 106 mmol/L (98-107); Creatinine, Serum 2.21 mg/dL (0.70-1.30); EST Glomerular Filtration Rate 32 mL/min (>60); Est Glom Filt Rate - Afr Amer 39 mL/min (>60); Glucose 262 mg/dL (74-106); Potassium 4.3 mmol/L (3.5-5.1); Sodium Level 137 mmol/L (136-145)
== END ==
LOC: OLS.WHLEAS 05:00
PROVIDERS: PCP Family Medicine; Visit Provider Family Medicine
DX: D64.9 Anemia, unspecified (principal); I69.154 Hemiplegia and hemiparesis following nontraumatic intracerebral hemorrhage affecting left non-dominant side; I69.191 Dysphagia following nontraumatic intracerebral hemorrhage; E11.22 Type 2 diabetes mellitus with diabetic chronic kidney disease
CPT/HCPCS: 36415; 80048; 85025

== ENCOUNTER → 2021-05-17 05:00 | Outpatient (REF) | payer MEDICARE, MEDICAID, SELFPAY ==
[2020-12-13 10:30] VITALS: BMI 39.8
[2021-05-17 07:45] LABS: Absolute Lymphocyte Count 1.68 X10^3/uL (0.83-4.51); Absolute Neutrophil Count 5.2 X10^3/uL (2.0-7.7); Basophil# 0.01 X10^3/uL; Basophil% 0.1 % (0-1); Eosinophil# 0.28 X10^3/uL; Eosinophils% 3.5 % (0-5); Hematocrit 41.9 % (40-54); Hemoglobin 12.7 g/dL (13.0-16.5); Lymphocyte # 1.68 X10^3/ul (0.83-4.51); Lymphocyte % 20.7 % (19-41); Mean Corp Hgb Conc 30.3 g/dL (32-36); Mean Corpuscular Hgb 25.4 pg (27.0-32.0); Mean Corpuscular Volume 83.8 fL (80-94); Mean Platelet Vol. 10.3 fl (6.2-12.0); Monocyte# 0.94 X10^3/uL; Monocyte% 11.6 % (0-10); NRBC Flagged by Analyzer 0 % (0-5); Neutrophil # 5.18 X10^3/uL (2.7-7.7); Neutrophil % 63.9 % (47-70); Platelet Count 344 K/mm3 (150-450); RBC Distribution Width CV 15.1 % (11.6-14.6); RBC Distribution Width SD 45.3 fl (35.1-43.9); White Blood Count 8.1 K/mm3 (4.4-11.0)
[2021-05-17 07:57] LABS: Anion Gap 4 (5-15); BUN 34 mg/dL (7-18); BUN/Creat Ratio 16.5 RATIO (10-20); Calcium,Total 9.1 mg/dL (8.5-10.1); Chloride 109 mmol/L (98-107); Creatinine, Serum 2.06 mg/dL (0.70-1.30); EST Glomerular Filtration Rate 35 mL/min (>60); Est Glom Filt Rate - Afr Amer 43 mL/min (>60); Glucose 156 mg/dL (74-106); Potassium 4.1 mmol/L (3.5-5.1); Sodium Level 141 mmol/L (136-145)
== END ==
LOC: OLS.WHLEAS 05:00
PROVIDERS: PCP Family Medicine; Visit Provider Family Medicine
DX: D64.9 Anemia, unspecified (principal); I69.154 Hemiplegia and hemiparesis following nontraumatic intracerebral hemorrhage affecting left non-dominant side; I69.191 Dysphagia following nontraumatic intracerebral hemorrhage; E11.22 Type 2 diabetes mellitus with diabetic chronic kidney disease
CPT/HCPCS: 36415; 80048; 85025

== ENCOUNTER → 2021-06-14 04:00 | Outpatient (REF) | payer MEDICARE, MEDICAID, SELFPAY ==
[2020-12-13 10:30] VITALS: BMI 39.8
[2021-06-14 08:49] LABS: Absolute Lymphocyte Count 1.81 X10^3/uL (0.83-4.51); Absolute Neutrophil Count 7.1 X10^3/uL (2.0-7.7); Basophil# 0.02 X10^3/uL; Basophil% 0.2 % (0-1); Eosinophil# 0.27 X10^3/uL; Eosinophils% 2.5 % (0-5); Hematocrit 40.1 % (40-54); Hemoglobin 12.1 g/dL (13.0-16.5); Lymphocyte # 1.81 X10^3/ul (0.83-4.51); Lymphocyte % 16.9 % (19-41); Mean Corp Hgb Conc 30.2 g/dL (32-36); Mean Corpuscular Hgb 24.5 pg (27.0-32.0); Mean Corpuscular Volume 81.2 fL (80-94); Mean Platelet Vol. 10.1 fl (6.2-12.0); Monocyte# 1.48 X10^3/uL; Monocyte% 13.8 % (0-10); NRBC Flagged by Analyzer 0 % (0-5); Neutrophil # 7.05 X10^3/uL (2.7-7.7); Platelet Count 348 K/mm3 (150-450); RBC Distribution Width SD 46.6 fl (35.1-43.9); Red Blood Count 4.94 M/mm3 (4.6-6.2); White Blood Count 10.7 K/mm3 (4.4-11.0)
[2021-06-14 08:59] LABS: Anion Gap 6 (5-15); BUN 38 mg/dL (7-18); BUN/Creat Ratio 18.4 RATIO (10-20); Calcium,Total 8.4 mg/dL (8.5-10.1); Chloride 105 mmol/L (98-107); Creatinine, Serum 2.06 mg/dL (0.70-1.30); EST Glomerular Filtration Rate 35 mL/min (>60); Est Glom Filt Rate - Afr Amer 43 mL/min (>60); Glucose 182 mg/dL (74-106); Potassium 4.2 mmol/L (3.5-5.1); Sodium Level 136 mmol/L (136-145)
== END ==
LOC: OLS.WHLEAS 04:00
PROVIDERS: PCP Family Medicine; Referring Provider Family Medicine; Visit Provider Family Medicine
DX: D64.9 Anemia, unspecified (principal); I69.154 Hemiplegia and hemiparesis following nontraumatic intracerebral hemorrhage affecting left non-dominant side; I69.191 Dysphagia following nontraumatic intracerebral hemorrhage; E11.22 Type 2 diabetes mellitus with diabetic chronic kidney disease; N18.9 Chronic kidney disease, unspecified
CPT/HCPCS: 36415; 80048; 85025

== ENCOUNTER → 2021-07-02 04:00 | Outpatient (REF) | payer MEDICARE, MEDICAID, SELFPAY ==
[2020-12-13 10:30] VITALS: BMI 39.8
[2021-07-02 08:26] LABS: Cholesterol 128 mg/dL (200); High Density Lipoprotein 31 mg/dL; Triglycerides 195 mg/dL; Very Low Density Lipoprotein 39 mg/dL (5-40)
== END ==
LOC: OLS.WHLEAS 04:00
PROVIDERS: PCP Family Medicine; Referring Provider Family Medicine; Visit Provider Family Medicine
DX: E78.5 Hyperlipidemia, unspecified (principal); I25.10 Atherosclerotic heart disease of native coronary artery without angina pectoris; R07.9 Chest pain, unspecified; I69.154 Hemiplegia and hemiparesis following nontraumatic intracerebral hemorrhage affecting left non-dominant side; E11.9 Type 2 diabetes mellitus without complications
CPT/HCPCS: 36415; 80061; 83036

== ENCOUNTER → 2021-07-19 05:00 | Outpatient (REF) | payer MEDICARE, MEDICAID, SELFPAY ==
[2021-07-19 08:43] LABS: Absolute Lymphocyte Count 1.71 X10^3/uL (0.83-4.51); Absolute Neutrophil Count 5.6 X10^3/uL (2.0-7.7); Basophil# 0.02 X10^3/uL; Basophil% 0.2 % (0-1); Eosinophils% 3.4 % (0-5); Hematocrit 41.7 % (40-54); Hemoglobin 12.5 g/dL (13.0-16.5); Lymphocyte # 1.71 X10^3/ul (0.83-4.51); Lymphocyte % 19.7 % (19-41); Mean Corpuscular Hgb 24.2 pg (27.0-32.0); Mean Corpuscular Volume 80.8 fL (80-94); Mean Platelet Vol. 10.2 fl (6.2-12.0); Monocyte# 1.09 X10^3/uL; Monocyte% 12.5 % (0-10); NRBC Flagged by Analyzer 0 % (0-5); Neutrophil # 5.55 X10^3/uL (2.7-7.7); Neutrophil % 63.9 % (47-70); Platelet Count 346 K/mm3 (150-450); RBC Distribution Width CV 16.7 % (11.6-14.6); RBC Distribution Width SD 48.6 fl (35.1-43.9); Red Blood Count 5.16 M/mm3 (4.6-6.2); White Blood Count 8.7 K/mm3 (4.4-11.0)
[2021-07-19 08:57] LABS: Anion Gap 2 (5-15); BUN 33 mg/dL (7-18); BUN/Creat Ratio 16.9 RATIO (10-20); Calcium,Total 8.6 mg/dL (8.5-10.1); Chloride 106 mmol/L (98-107); Creatinine, Serum 1.95 mg/dL (0.70-1.30); EST Glomerular Filtration Rate 37 mL/min (>60); Est Glom Filt Rate - Afr Amer 45 mL/min (>60); Glucose 139 mg/dL (74-106); Potassium 4.4 mmol/L (3.5-5.1); Sodium Level 137 mmol/L (136-145)
== END ==
LOC: OLS.WHLEAS 05:00
PROVIDERS: PCP Family Medicine; Visit Provider Family Medicine
DX: D64.9 Anemia, unspecified (principal); I69.154 Hemiplegia and hemiparesis following nontraumatic intracerebral hemorrhage affecting left non-dominant side; I69.191 Dysphagia following nontraumatic intracerebral hemorrhage; E11.22 Type 2 diabetes mellitus with diabetic chronic kidney disease
CPT/HCPCS: 36415; 80048; 85025